=== PATIENT | female | born 1970 | race Caucasian/White ===

== ENCOUNTER → 2016-08-26 | Outpatient (REF) | payer OTHER, MEDICARE | LOC: M SFHCPLAZ 09:38 | PROVIDERS: ATTEND Physician Assistant | DX: I10 Essential (primary) hypertension (principal); E78.5 Hyperlipidemia, unspecified; E03.9 Hypothyroidism, unspecified; E55.9 Vitamin D deficiency, unspecified ==

== ENCOUNTER → 2016-11-18 | Outpatient (REF) | payer MEDICARE, MEDICAID ==
[2016-11-18 15:33] LABS: ALKALINE PHOSPHATASE 95 U/L (45-117); ALT/SGPT 23 U/L (12-78); ANION GAP 5 MEQ/L (8-16); AST/SGOT 10 U/L (15-37); BILIRUBIN,TOTAL 0.3 MG/DL (0.2-1.0); BLOOD UREA NITROGEN 10 MG/DL (7-18); CARBON DIOXIDE LEVEL 29 MEQ/L (21-32); CHLORIDE LEVEL 105 MEQ/L (98-107); CHOLESTEROL LEVEL 184 MG/DL (<200); CREATININE FOR GFR 0.64 MG/DL (0.55-1.02); GLOMERULAR FILTRATION RATE > 60.0 (>58); GLUCOSE, FASTING 85 MG/DL (70-105); POTASSIUM SERUM 4.5 MEQ/L (3.5-5.1); SODIUM LEVEL 139 MEQ/L (136-145); TOTAL PROTEIN 7.1 GM/DL (6.4-8.2); TRIGLYCERIDES LEVEL 82 MG/DL (<150)
[2016-11-18 15:34] LABS: ALBUMIN 3.5 GM/DL (3.2-5.2); ALBUMIN/GLOBULIN RATIO 0.97 (1.00-1.93)
== END ==
LOC: M LABDRAWP 13:12
PROVIDERS: ATTEND Physician Assistant
DX: I10 Essential (primary) hypertension (principal); E78.5 Hyperlipidemia, unspecified; E03.9 Hypothyroidism, unspecified; E55.9 Vitamin D deficiency, unspecified

== ENCOUNTER → 2017-02-10 | Outpatient (CLI) | payer MEDICARE, MEDICAID ==
--- NOTE | 2017-02-10 15:15 | REPMRS ---
Patient History The patient states she has not had a clinical breast exam in over a year. No known family history of cancer. Taking hormonal contraceptives for 15 years. Digital Woman Screen Mammo: February 10, 2017 - Exam #: [id number] Bilateral CC and MLO view(s) were taken. Technologist: Debbi Parra, Technologist Prior study comparison: December 18, 2015, digital woman screen mammo performed at [facility]. November 26, 2014, digital woman screen mammo performed at [facility]. September 18, 2013, digital woman screen mammo performed at [facility]. FINDINGS: The breast tissue is almost entirely fat. There has been no change in the appearance of the mammogram from the prior studies. There is no interval development of dominant mass, architectural distortion, or clustered microcalcification typical of malignancy. ASSESSMENT: BI-RADS/ACR category 1 mammogram. Negative. Recommendation Routine screening mammogram of both breasts in 1 year (for women over age 40). This mammogram was interpreted with the aid of an FDA-approved computer-aided dectection system. Electronically Signed By: Paulo Terrazas MD 02/10/17 [id number]
== END ==
LOC: M WHC 14:20
PROVIDERS: ATTEND Registered Nurse
DX: Z12.31 Encounter for screening mammogram for malignant neoplasm of breast (principal)

== ENCOUNTER → 2018-06-28 | Outpatient (REF) | payer MEDICARE, MEDICAID ==
[2018-06-28 14:02] LABS: ALBUMIN 3.6 GM/DL (3.2-5.2); ALT/SGPT 25 U/L (12-78); BILIRUBIN,TOTAL 0.4 MG/DL (0.2-1.0); BLOOD UREA NITROGEN 7 MG/DL (7-18); CALCIUM LEVEL 8.9 MG/DL (8.5-10.1); CARBON DIOXIDE LEVEL 30 MEQ/L (21-32); CHLORIDE LEVEL 105 MEQ/L (98-107); FREE T4 1.37 NG/DL (0.76-1.46); GLOMERULAR FILTRATION RATE > 60.0 (>58); GLUCOSE, FASTING 89 MG/DL (70-100); POTASSIUM SERUM 4.4 MEQ/L (3.5-5.1); SODIUM LEVEL 141 MEQ/L (136-145); THYROID STIMULATING HORMONE 0.675 uIU/ML (0.358-3.740); TOTAL 25(OH) VITAMIN D 64.5 NG/ML (30.0-100.0); TOTAL PROTEIN 6.8 GM/DL (6.4-8.2)
== END ==
LOC: M SFHCPLAZ 10:54
PROVIDERS: ATTEND Nurse Practitioner Family
DX: M06.9 Rheumatoid arthritis, unspecified (principal); E03.9 Hypothyroidism, unspecified; E55.9 Vitamin D deficiency, unspecified

== ENCOUNTER 2018-07-18 14:52 | Emergency (ER) | payer MEDICARE, MEDICAID ==
[~2018-07-18] VITALS: Ht 160 cm; Wt 133.2 kg
[2018-07-18] MEDS ORDERED: FOLI1TAB11 (15:02)
[2018-07-18] MEDS ORDERED: SULF50TA (15:02)
[2018-07-18] MEDS ORDERED: LEVO150T7 (15:02)
[2018-07-18] MEDS ORDERED: OMEP20CA3 (15:02)
[2018-07-18] MEDS ORDERED: VITA50005 (15:02)
[2018-07-18] MEDS ORDERED: METH2.5T48 (15:02)
[2018-07-18] MEDS ORDERED: ACETAMINOPHEN 325 MG TAB PO ONE (18:00)
[2018-07-18 18:03] VITALS: BP 156/92
== END 2018-07-18 18:04 | disposition home or self-care (01) ==
LOC: M ED 14:52
DX: S40.011A Contusion of right shoulder, initial encounter (principal); W18.09XA Striking against other object with subsequent fall, initial encounter; Y92.019 Unspecified place in single-family (private) house as the place of occurrence of the external cause

== ENCOUNTER → 2018-09-08 | Outpatient (CLI) | payer MEDICARE, MEDICAID ==
[~2018-09-08] MED LIST: FOLI1TAB11; LEVO150T7; METH2.5T48; OMEP20CA3; SULF50TA; VITA50005
--- NOTE | 2018-09-08 11:13 | REPMRS ---
Patient History The patient states she had a clinical breast exam in 08/2018. No known family history of cancer. Taking hormonal contraceptives for 16 years. 3D TOMOSYNTHESIS WAS PERFORMED. Digital Woman Screen Mammo: September 08, 2018 - Exam #: [id number] Bilateral CC and MLO view(s) were taken. Technologist: Sharla Hardin, Technologist Prior study comparison: February 10, 2017, digital woman screen mammo performed at [email or web address]. December 18, 2015, digital woman screen mammo performed at [email or web address] [email or web address]. FINDINGS: There are scattered fibroglandular densities. There has been no change in the appearance of the mammogram from the prior studies. There is a mild amount of residual fibroglandular tissue which is fairly symmetric. There is no interval development of dominant mass, architectural distortion, or clustered microcalcification suggestive of malignancy. Assessment: BI-RADS/ACR category 1 mammogram. Negative Mammogram. Recommendation Routine screening mammogram in 1 year (for women over age 40). This mammogram was interpreted with the aid of an FDA-approved computer-aided dectection system. Electronically Signed By: Jackson Adams MD 09/08/18 [id number]
== END ==
LOC: M WHC 09:38
PROVIDERS: ATTEND Nurse Practitioner Family
DX: Z12.31 Encounter for screening mammogram for malignant neoplasm of breast (principal)

== ENCOUNTER → 2018-10-09 | Outpatient (REF) | payer MEDICARE, MEDICAID ==
[2018-10-09 13:14] LABS: FREE T4 1.3 NG/DL (0.76-1.46); THYROID STIMULATING HORMONE 1.03 uIU/ML (0.358-3.740); TOTAL 25(OH) VITAMIN D 22.3 NG/ML (30.0-100.0)
== END ==
LOC: M SFHCPLAZ 09:57
PROVIDERS: ATTEND Nurse Practitioner Family
DX: E03.9 Hypothyroidism, unspecified (principal); E55.9 Vitamin D deficiency, unspecified

== ENCOUNTER → 2018-12-13 | Outpatient (CLI) | payer MEDICARE, MEDICAID ==
[~2018-12-13] MED LIST changes: -OMEP20CA3; +OMEP20CA4
--- NOTE | 2018-12-13 15:45 | PFTRPT ---
Height: 63.00 Inches Weight: 306.00 Lbs BSA: 2.32 Diagnosis: R06.2 DATE OF PROCEDURE: 12/13/2018 ORDERED BY: Melly Mandujano NP Spirometry: Pre and post bronchodilator study of excellent technical quality. Forced vital capacity mildly reduced. FEV1 out of proportion. Obstructive index is, therefore, reduced. Flow Volume Loop: Expiratory limb of the flow volume loop does suggest at least some degree of flow rate limitation. No significant bronchodilator response identified. Lung Volumes: Total lung capacity is normal. Residual volume suggests air trapping. Diffusing Capacity: Diffusing capacity is normal. Hemoglobin: No hemoglobin available for correction. Airway Mechanics: Airway resistance elevated with a concomitant decrease in airway conductance. IMPRESSION: Mild restrictive ventilatory impairment with air trapping. No bronchodilator response. Please correlate clinically. MTDD
--- NOTE | 2018-12-13 16:07 | REP ---
Clinical: Wheezing . Comparison: 11/21/2011 . Technique: PA and lateral. Findings: The mediastinum and cardiac silhouette are normal. The lung guzman are clear and without acute consolidation, effusion, or pneumothorax. The skeletal structures are intact and normal. Impression: 1. No acute cardiopulmonary process. Electronically Signed by Jhonny Gamez MD 12/13/2018 03:59 P
== END ==
LOC: M CARPUL 15:14
PROVIDERS: ATTEND Nurse Practitioner Family
DX: R06.2 Wheezing (principal)

== ENCOUNTER → 2019-01-12 | Outpatient (REF) | payer MEDICARE, MEDICAID ==
[2019-01-12 13:19] LABS: BLOOD UREA NITROGEN 6 MG/DL (7-18); CALCIUM LEVEL 9.1 MG/DL (8.5-10.1); CARBON DIOXIDE LEVEL 33 MEQ/L (21-32); CHLORIDE LEVEL 104 MEQ/L (98-107); CREATININE FOR GFR 0.63 MG/DL (0.55-1.30); FREE T4 1.37 NG/DL (0.76-1.46); GLOMERULAR FILTRATION RATE > 60.0 (>58); GLUCOSE, FASTING 85 MG/DL (70-100); POTASSIUM SERUM 4.1 MEQ/L (3.5-5.1); SODIUM LEVEL 143 MEQ/L (136-145)
[2019-01-12 13:22] LABS: TOTAL 25(OH) VITAMIN D 53.3 NG/ML (30.0-100.0)
== END ==
LOC: M SFHCPLAZ 09:47
PROVIDERS: ATTEND Nurse Practitioner Family
DX: E03.9 Hypothyroidism, unspecified (principal); K21.9 Gastro-esophageal reflux disease without esophagitis; E55.9 Vitamin D deficiency, unspecified

== ENCOUNTER → 2019-04-03 | Outpatient (CLI) | payer MEDICARE, MEDICAID ==
[~2019-04-03] MED LIST changes: +METHACHOLINE KIT (J7674) INH ONE
--- NOTE | 2019-04-03 11:00 | PFTRPT ---
Height: 63.00 Inches Weight: 297.00 Lbs BSA: 2.29 Diagnosis: R06.00 DATE OF STUDY: 04/03/2019 ORDERED BY: Marcial Paulino INTERPRETATION: Study of excellent technical quality. Under protocol, methacholine was administered. At a dose of 2.5 mg (13.875 CDUs), a 28% decline in the FEV1 was noted. PC of 0.96 is significant. Flow rates did return to baseline post bronchodilator administration. IMPRESSION: Positive methacholine challenge study. MTDD
== END ==
LOC: M CARPUL 10:08
PROVIDERS: ATTEND Physician Assistant
DX: R06.00 Dyspnea, unspecified (principal)
CPT/HCPCS: 94070; 95070; J7674

== ENCOUNTER → 2019-05-30 | Outpatient (REF) | payer MEDICARE, MEDICAID ==
[~2019-05-30] MED LIST changes: -METHACHOLINE KIT (J7674) INH ONE; +OMEP-172; -OMEP20CA4
[2019-05-30 17:34] LABS: BLOOD UREA NITROGEN 6 MG/DL (7-18); CALCIUM LEVEL 9.1 MG/DL (8.5-10.1); CARBON DIOXIDE LEVEL 32 MEQ/L (21-32); CHLORIDE LEVEL 104 MEQ/L (98-107); CREATININE FOR GFR 0.59 MG/DL (0.55-1.30); GLOMERULAR FILTRATION RATE > 60.0 (>58); GLUCOSE, FASTING 65 MG/DL (70-100); POTASSIUM SERUM 4.2 MEQ/L (3.5-5.1); SODIUM LEVEL 142 MEQ/L (136-145); TOTAL 25(OH) VITAMIN D 33.8 NG/ML (30.0-100.0)
== END ==
LOC: M SFHCPLAZ 15:02
PROVIDERS: ATTEND Nurse Practitioner Family
DX: E03.9 Hypothyroidism, unspecified (principal); K21.9 Gastro-esophageal reflux disease without esophagitis; E55.9 Vitamin D deficiency, unspecified

== ENCOUNTER 2019-08-29 01:19 | Emergency (ER) | payer MEDICARE, MEDICAID ==
[~2019-08-29] VITALS: Ht 162.6 cm; Wt 138.6 kg
[~2019-08-29 01:19] MED LIST changes: -METH2.5T48; +METH2.5T48 PO; -OMEP-172; +OMEP1CAP73; -SULF50TA; +SULF50TA PO
[2019-08-29] MEDS ORDERED: NS 500 ML IV ONE (02:45)
[2019-08-29] MEDS ORDERED: PROA1AER2 IN (02:58)
[2019-08-29] MEDS ORDERED: BREO1INH3 PO (02:58)
[2019-08-29] MEDS ORDERED: ECOT81TA5 PO (02:58)
[2019-08-29] MEDS ORDERED: OLOP0.2S OP (02:58)
[2019-08-29 03:08] LABS: MEAN CORPUSCULAR HEMOGLOBIN 31.5 pg (27.0-33.0); MEAN CORPUSCULAR HGB CONC 31.1 g/dl (32.0-36.5); MEAN CORPUSCULAR VOLUME 101.1 fl (80.0-96.0); PLATELET COUNT, AUTOMATED 308 10^3/uL (150-450); RED BLOOD COUNT 4.45 10^6/uL (4.00-5.40); WHITE BLOOD COUNT 11.5 10^3/uL (4.0-10.0)
--- NOTE | 2019-08-29 03:40 | REPVR ---
PROCEDURE INFORMATION: Exam: CT Chest Without Contrast Exam date and time: 08/29/2019 (2:41am) Age: 49 years old Clinical indication: Right-sided chest pain. Right-sided rib pain following a fall. TECHNIQUE: Imaging protocol: Computed tomography of the chest without contrast. 3D rendering: MIP and/or 3D reconstructed images were created by the technologist. Radiation optimization: All CT scans at this facility use at least one of these dose optimization techniques: automated exposure control; mA and/or kV adjustment per patient size (includes targeted exams where dose is matched to clinical indication); or iterative reconstruction. COMPARISON: Chest films of 12/13/18 FINDINGS: Lungs: Unremarkable. No consolidation. No masses. Pleural space: Unremarkable. No pneumothorax. No pleural effusions. Heart: Mild cardiomegaly. No pericardial effusion. Aorta: Unremarkable. No aortic aneurysm. Lymph nodes: Unremarkable. No enlarged lymph nodes. Bones/joints: No acute fracture. Old healed rib fractures -- posterior portion of right rib # 7 (Ser. 202 - Image #60); posterolateral portion of left rib # 6 (Ser. 202 - Image #45). Posterior fracture, right rib #7. Soft tissues: Unremarkable. IMPRESSION: No acute findings. No acute rib fractures. Mild cardiomegaly. Old healed rib fractures (see comments above). Electronically signed by: Kristen Barreto On 08/29/2019 03:39:22 AM
[2019-08-29 03:46] LABS: ALBUMIN 3.5 GM/DL (3.2-5.2); ALT/SGPT 23 U/L (12-78); BILIRUBIN,TOTAL 0.1 MG/DL (0.2-1.0); BLOOD UREA NITROGEN 8 MG/DL (7-18); CARBON DIOXIDE LEVEL 28 MEQ/L (21-32); CHLORIDE LEVEL 113 MEQ/L (98-107); CK-MB VALUE MASS < 1.0 NG/ML (<3.6); CPK CREATINE PHOSPHOKINASE 117 U/L (26-192); CREATININE FOR GFR 0.64 MG/DL (0.55-1.30); ETHYL ALCOHOL (ETHANOL) 0.184 % (0.000-0.010); GLOMERULAR FILTRATION RATE > 60.0 (>58); GLUCOSE, FASTING 119 MG/DL (70-100); MB/CK RELATIVE INDEX 0.85 (< OR =4); POTASSIUM SERUM 4.5 MEQ/L (3.5-5.1); SODIUM LEVEL 148 MEQ/L (136-145); TOTAL PROTEIN 7.1 GM/DL (6.4-8.2); TROPONIN I < 0.02 NG/ML (< 0.10)
[2019-08-29 04:38] VITALS: BP 154/82
== END 2019-08-29 04:51 | disposition home or self-care (01) ==
LOC: M ED 01:19 → EDBD 01:19 → M ED 04:51
DX: F10.129 Alcohol abuse with intoxication, unspecified (principal); R26.81 Unsteadiness on feet; I10 Essential (primary) hypertension; E03.9 Hypothyroidism, unspecified; F17.200 Nicotine dependence, unspecified, uncomplicated; Z87.81 Personal history of (healed) traumatic fracture; Z79.82 Long term (current) use of aspirin; Z79.899 Other long term (current) drug therapy; Z88.0 Allergy status to penicillin; Z88.2 Allergy status to sulfonamides
CPT/HCPCS: 71250; 80053; 82550; 82553; 84484; 85027; 96360; 96361; 99284; G0480

== ENCOUNTER 2019-09-11 12:01 | Emergency (ER) | payer MEDICARE, MEDICAID ==
[~2019-09-11] VITALS: Ht 162.6 cm; Wt 136.4 kg
[~2019-09-11 12:01] MED LIST changes: +BREO1INH3 PO; +ECOT81TA5 PO; +OLOP0.2S OP; +PROA1AER2 IN
[2019-09-11] MEDS ORDERED: ALBUTEROL 90 MCG/ACT 8GM HFA INHALER INH ONE (12:30)
[2019-09-11 12:59] LABS: BASO # 0.1 10^3/uL (0.0-0.2); BASO % 0.6 % (0.0-1.0); EOS # 0.2 10^3/uL (0.0-0.5); EOS % 1.4 % (0.0-3.0); HEMATOCRIT 43.5 % (36.0-47.0); HEMOGLOBIN 14.1 g/dl (12.0-15.5); LYMPH # 1.5 10^3/uL (1.5-5.0); LYMPH % 12.1 % (24.0-44.0); MEAN CORPUSCULAR HEMOGLOBIN 32.9 pg (27.0-33.0); MEAN CORPUSCULAR HGB CONC 32.4 g/dl (32.0-36.5); MEAN CORPUSCULAR VOLUME 101.4 fl (80.0-96.0); MONO # 0.8 10^3/uL (0.0-0.8); MONO % 6.1 % (0.0-5.0); NEUTROPHILS % 79.2 % (36.0-66.0); PLATELET COUNT, AUTOMATED 343 10^3/uL (150-450); RED BLOOD COUNT 4.29 10^6/uL (4.00-5.40); WHITE BLOOD COUNT 12.6 10^3/uL (4.0-10.0)
[2019-09-11] MEDS ORDERED: ISOVUE-370 76% 100ML VIAL (Q9967) As Ordered ONE (13:00)
[2019-09-11 13:20] LABS: CK-MB VALUE MASS < 1.0 NG/ML (<3.6); CPK CREATINE PHOSPHOKINASE 63 U/L (26-192); MB/CK RELATIVE INDEX 1.59 (< OR =4); TROPONIN I < 0.02 NG/ML (< 0.10)
--- NOTE | 2019-09-11 14:44 | REP ---
REASON FOR EXAM: Pain and dyspnea. The latest prior for comparison is standard noncontrast enhanced CT examination of the chest is 08/29/2019. That examination showed no acute disease but with multiple seemingly old right-sided rib fractures with multiple definite bilateral old rib fractures. Contrast today 100 mL Isovue 370. There is good visualization of the pulmonary arterial vasculature. There are no focal filling defects present that would be considered consistent with acute pulmonary emboli. There are no pleural or pericardial effusions. The imaged upper abdomen is unchanged. Evaluation of the osseous structures today shows evidence of acute rib fractures, particularly affecting the right 8th, 7th and 6th ribs with definite old healed bilateral rib fractures. The 8th through 6th rib fractures on the right represent an acute change from that prior exam. Evaluation of the lung guzman show no significant changes from the prior exam. There are no abnormal nodules, masses, or opacities. IMPRESSION: 1. There is no evidence of a pulmonary embolus. 2. Multiple rib fractures, new and old as described above. 3. Clear unchanged lung guzman as described above. Electronically Signed by Jan Bills DO 09/11/2019 03:10 P
[2019-09-11] MEDS ORDERED: NORC1TAB7 PO (14:47)
[2019-09-11] MEDS ORDERED: PRED20TA PO (14:48)
--- NOTE | 2019-09-11 14:51 | REP ---
REASON: Abdominal pain. COMPARISON: Prior contrast enhanced examination of 06/03/2016. For description of lung base findings, see the CT chest report. The liver, gallbladder, spleen, pancreas, adrenal glands and kidneys are essentially unchanged. There is an unchanged small right renal cyst measuring 1.2 cm. The abdominal aorta and para-aortic regions are again seen to be within normal limits. There is calcific atherosclerotic change present status quo. There is no free fluid or free air in the abdomen. The bowel loops and mesenteries are within normal limits. There is scattered colonic diverticulosis. There is no intra-abdominal mass or adenopathy. There are multiple nonenlarged lymph nodes in the baron hepatis, which have an unchanged appearance. CT PELVIS: There is no pelvic mass or adenopathy. There is no free fluid or free air. The pelvic bowel loops and their mesenteries are within normal limits. Scattered sigmoid colon diverticula are noted status quo. Bone window technique throughout the examination shows right-sided rib fractures. Please see the chest CT report. There are no other acute findings. IMPRESSION: There is no evidence of acute intra-abdominal or intrapelvic disease. Findings and suggestions as described above. Electronically Signed by Jan Bills DO 09/11/2019 03:10 P
[2019-09-11] MEDS ORDERED: predniSONE 20 MG TAB PO ONE (15:00)
[2019-09-11 15:13] VITALS: BP 147/80
--- NOTE | 2019-09-12 01:11 | ECGEPIP ---
[facility] - ED Test Date: 2019-09-11 Pat Name: IVANA MUNIZ Department: Room: - Gender: Female Contact Assembler: BA : 1970 Requested By: Franchesca Murrieta Order Number: [id number] Reading MD: Matt Carpenter Measurements Intervals Lynn Rate: 90 P: 63 CO: 156 QRS: 15 QRSD: 95 T: 62 QT: 334 QTc: 411 Interpretive Statements SINUS RHYTHM INCOMPLETE RIGHT BUNDLE BRANCH BLOCK SIMILAR TO 06/03/16 Electronically Signed on 09-12-2019 1:10:41 EDT by Matt Carpenter
== END 2019-09-11 15:25 | disposition home or self-care (01) ==
LOC: EDBD 12:01 → M ED 12:01
DX: J44.1 Chronic obstructive pulmonary disease with (acute) exacerbation (principal); S22.49XA Multiple fractures of ribs, unspecified side, initial encounter for closed fracture; X58.XXXA Exposure to other specified factors, initial encounter; Y92.89 Other specified places as the place of occurrence of the external cause; E07.9 Disorder of thyroid, unspecified; K21.9 Gastro-esophageal reflux disease without esophagitis; Z79.899 Other long term (current) drug therapy; Z79.82 Long term (current) use of aspirin; Z88.0 Allergy status to penicillin; Z88.1 Allergy status to other antibiotic agents; Z88.2 Allergy status to sulfonamides
CPT/HCPCS: 36415; 71275; 74177; 80047; 82550; 82553; 84484; 85025; 93005; 93041; 94640; 94760; 99284; Q9967

== ENCOUNTER → 2019-11-19 | Outpatient (CLI) | payer MEDICARE, MEDICAID ==
[~2019-11-19] MED LIST changes: +NORC1TAB7 PO; +PRED20TA PO; +SULF500T41 PO; -SULF50TA PO
--- NOTE | 2019-11-19 16:30 | REPMRS ---
Patient History The patient states she had a clinical breast exam in August 2019.No known family history of cancer. Taking hormonal contraceptives for 16 years. 3D TOMOSYNTHESIS WAS PERFORMED. The Gabrielle Howard lifetime risk for breast cancer is 8.3%. VOLPARA DENSITY A. Digital Woman Screen Mammo: November 19, 2019 - Exam #: [id number] Bilateral CC and MLO view(s) were taken. Technologist: Annie Antonio, Technologist Prior study comparison: September 08, 2018, bilateral digital woman screen mammo performed at [facility]. February 10, 2017, digital woman screen mammo performed at [facility]. FINDINGS: There are scattered fibroglandular densities. There has been no change in the appearance of the mammogram from the prior studies. There is a mild amount of residual fibroglandular tissue which is fairly symmetric. There is no interval development of dominant mass, architectural distortion, or clustered microcalcification suggestive of malignancy. Assessment: BI-RADS/ACR category 1 mammogram. Negative Mammogram. Recommendation Routine screening mammogram in 1 year (for women over age 40). This mammogram was interpreted with the aid of an FDA-approved computer-aided dectection system. Electronically Signed By: Jackson Adams MD 11/19/19 [id number]
== END ==
LOC: M WHC 13:54
PROVIDERS: ATTEND Physician Assistant
DX: Z12.31 Encounter for screening mammogram for malignant neoplasm of breast (principal)

== ENCOUNTER → 2019-12-26 | Outpatient (REF) | payer MEDICARE, MEDICAID ==
[~2019-12-26] MED LIST changes: +AZEL0.1S NARES; +LORA-674 PO; +MECL1TAB31 PO; +SING5CHW23 PO
[2019-12-26 14:16] LABS: ALBUMIN 3.4 GM/DL (3.2-5.2); ALT/SGPT 16 U/L (12-78); BILIRUBIN,TOTAL 0.3 MG/DL (0.2-1.0); BLOOD UREA NITROGEN 9 MG/DL (7-18); CALCIUM LEVEL 8.9 MG/DL (8.5-10.1); CARBON DIOXIDE LEVEL 27 MEQ/L (21-32); CHLORIDE LEVEL 108 MEQ/L (98-107); CREATININE FOR GFR 0.59 MG/DL (0.55-1.30); FREE T4 1.19 NG/DL (0.76-1.46); GLOMERULAR FILTRATION RATE > 60.0 (>58); GLUCOSE, FASTING 80 MG/DL (70-100); POTASSIUM SERUM 4.5 MEQ/L (3.5-5.1); SODIUM LEVEL 142 MEQ/L (136-145); THYROID STIMULATING HORMONE 0.378 uIU/ML (0.358-3.740); TOTAL 25(OH) VITAMIN D 67.8 NG/ML (30.0-100.0)
== END ==
LOC: M PLALAB 10:19
PROVIDERS: ATTEND Nurse Practitioner Family
DX: K21.9 Gastro-esophageal reflux disease without esophagitis (principal); E03.9 Hypothyroidism, unspecified; E55.9 Vitamin D deficiency, unspecified; Z79.899 Other long term (current) drug therapy

== ENCOUNTER → 2020-01-02 | Outpatient (CLI) | payer MEDICARE, MEDICAID ==
[~2020-01-02] MED LIST changes: -AZEL0.1S NARES; -LORA-674 PO; -MECL1TAB31 PO; -SING5CHW23 PO
[2020-01-02 19:11] LABS: BASO # 0.1 10^3/uL (0.0-0.2); BASO % 0.5 % (0.0-1.0); EOS # 0.3 10^3/uL (0.0-0.5); EOS % 2.2 % (0.0-3.0); HEMATOCRIT 44.4 % (36.0-47.0); HEMOGLOBIN 13.5 g/dl (12.0-15.5); LYMPH # 2.4 10^3/uL (1.5-5.0); LYMPH % 19.6 % (24.0-44.0); MEAN CORPUSCULAR HGB CONC 30.4 g/dl (32.0-36.5); MEAN CORPUSCULAR VOLUME 101.8 fl (80.0-96.0); MONO # 0.9 10^3/uL (0.0-0.8); MONO % 7.3 % (0.0-5.0); NEUTROPHILS # 8.6 10^3/uL (1.5-8.5); NEUTROPHILS % 69.4 % (36.0-66.0); PLATELET COUNT, AUTOMATED 320 10^3/uL (150-450); RED BLOOD COUNT 4.36 10^6/uL (4.00-5.40); WHITE BLOOD COUNT 12.4 10^3/uL (4.0-10.0)
[2020-01-02 19:35] LABS: ERYTHROCYTE SEDIMENTATION RATE 43 mm/hr (0-20)
[2020-01-02 19:46] LABS: ALT/SGPT 17 U/L (12-78); C REACTIVE PROTEIN QUANTITATIV 5.18 MG/DL (0.00-0.30); CREATININE FOR GFR 0.75 MG/DL (0.55-1.30); GLOMERULAR FILTRATION RATE > 60.0 (>58)
[2020-01-02 19:53] LABS: TOTAL 25(OH) VITAMIN D 57.1 NG/ML (30.0-100.0)
== END ==
LOC: M PLALAB 14:59
PROVIDERS: ATTEND Nurse Practitioner Family
DX: E55.9 Vitamin D deficiency, unspecified (principal); M05.79 Rheumatoid arthritis with rheumatoid factor of multiple sites without organ or systems involvement; Z79.899 Other long term (current) drug therapy

== ENCOUNTER 2020-02-17 11:42 | Emergency (ER) | payer MEDICARE, MEDICAID ==
[~2020-02-17] VITALS: Ht 162.6 cm; Wt 139.7 kg
[2020-02-17] MEDS ORDERED: SING5CHW23 PO (12:07)
[2020-02-17] MEDS ORDERED: AZEL0.1S NARES (12:07)
[2020-02-17] MEDS ORDERED: MECLIZINE 25 MG TABLET PO ONE (13:00)
[2020-02-17] MEDS ORDERED: LORA-674 PO (13:25)
[2020-02-17] MEDS ORDERED: MECL1TAB31 PO (13:25)
[2020-02-17 13:36] VITALS: BP 134/74
== END 2020-02-17 14:01 | disposition home or self-care (01) ==
LOC: M ED 11:42
DX: R42 Dizziness and giddiness (principal); J44.9 Chronic obstructive pulmonary disease, unspecified; K21.9 Gastro-esophageal reflux disease without esophagitis; E03.9 Hypothyroidism, unspecified; Z79.82 Long term (current) use of aspirin; Z88.0 Allergy status to penicillin; Z88.1 Allergy status to other antibiotic agents; Z88.2 Allergy status to sulfonamides; Z87.891 Personal history of nicotine dependence

== ENCOUNTER 2020-02-23 12:16 | Emergency (ER) | payer MEDICARE, MEDICAID ==
[~2020-02-23] VITALS: Ht 162.6 cm; Wt 140.9 kg
[~2020-02-23 12:16] MED LIST changes: +AZEL0.1S NARES; +LORA-674 PO; +MECL1TAB31 PO; +SING5CHW23 PO
[2020-02-23 12:31] VITALS: BP 200/90
[2020-02-23] MEDS ORDERED: MECLIZINE 25 MG TABLET PO ONE (12:45)
[2020-02-23 13:22] LABS: HEMATOCRIT 41.9 % (36.0-47.0); HEMOGLOBIN 13.2 g/dl (12.0-15.5); MEAN CORPUSCULAR HEMOGLOBIN 30.3 pg (27.0-33.0); MEAN CORPUSCULAR HGB CONC 31.5 g/dl (32.0-36.5); MEAN CORPUSCULAR VOLUME 96.3 fl (80.0-96.0); PLATELET COUNT, AUTOMATED 316 10^3/uL (150-450); RED BLOOD COUNT 4.35 10^6/uL (4.00-5.40); WHITE BLOOD COUNT 10.9 10^3/uL (4.0-10.0)
--- NOTE | 2020-02-23 13:34 | REPVR ---
PROCEDURE INFORMATION: Exam: CT Head Without Contrast Exam date and time: 02/23/2020 12:50 PM Age: 50 years old Clinical indication: Dizziness; Additional info: Dizzy TECHNIQUE: Imaging protocol: Computed tomography of the head without contrast. Radiation optimization: All CT scans at this facility use at least one of these dose optimization techniques: automated exposure control; mA and/or kV adjustment per patient size (includes targeted exams where dose is matched to clinical indication); or iterative reconstruction. COMPARISON: No relevant prior studies available. FINDINGS: Brain: There is corpus callosum dysgenesis and a pericallosal lipoma with a rounded nodular appearance in the interhemispheric fissure inferiorly which measures approximately 1.9 x 1.6 x 2.1 cm. No acute intracranial hemorrhage. No acute ischemic infarction. Ventricles: No ventriculomegaly. Bones/joints: No acute fracture. Sinuses: Visualized sinuses are unremarkable. No fluid levels. Mastoid air cells: Visualized mastoid air cells are well aerated. Soft tissues: Unremarkable. IMPRESSION: 1. No acute intracranial abnormality. 2. 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 This is commonly incidental although can be associated with seizures and other clinical features. Electronically signed by: Guzman Bennett On 02/23/2020 13:33:57 PM
[2020-02-23 13:46] LABS: ALBUMIN 3.5 GM/DL (3.2-5.2); ALT/SGPT 13 U/L (12-78); BILIRUBIN,TOTAL 0.3 MG/DL (0.2-1.0); BLOOD UREA NITROGEN 7 MG/DL (7-18); CALCIUM LEVEL 9.5 MG/DL (8.5-10.1); CARBON DIOXIDE LEVEL 27 MEQ/L (21-32); CHLORIDE LEVEL 109 MEQ/L (98-107); CREATININE FOR GFR 0.56 MG/DL (0.55-1.30); GLOMERULAR FILTRATION RATE > 60.0 (>51); GLUCOSE, FASTING 98 MG/DL (70-100); POTASSIUM SERUM 3.9 MEQ/L (3.5-5.1); SODIUM LEVEL 140 MEQ/L (136-145); TOTAL PROTEIN 7.1 GM/DL (6.4-8.2)
--- NOTE | 2020-02-25 12:56 | ED PDOC ---
Post-Departure Follow-Up rose mary tijerina faxed formal report of ct head for fu Franchesca Darby MD Feb 25, 2020 12:56
== END 2020-02-23 14:36 | disposition home or self-care (01) ==
LOC: M ED 12:16
DX: H81.4 Vertigo of central origin (principal); K21.9 Gastro-esophageal reflux disease without esophagitis; J44.9 Chronic obstructive pulmonary disease, unspecified; Z79.51 Long term (current) use of inhaled steroids; Z79.82 Long term (current) use of aspirin; Z79.899 Other long term (current) drug therapy; Z88.0 Allergy status to penicillin; Z88.1 Allergy status to other antibiotic agents

== ENCOUNTER → 2020-03-07 | Outpatient (CLI) | payer MEDICARE, MEDICAID ==
[2020-03-07 16:06] LABS: BASO # 0.1 10^3/uL (0.0-0.2); BASO % 0.4 % (0.0-1.0); EOS # 0.2 10^3/uL (0.0-0.5); EOS % 1.6 % (0.0-3.0); HEMATOCRIT 43.4 % (36.0-47.0); HEMOGLOBIN 13.1 g/dl (12.0-15.5); LYMPH # 2.2 10^3/uL (1.5-5.0); LYMPH % 16.7 % (24.0-44.0); MEAN CORPUSCULAR HEMOGLOBIN 29.8 pg (27.0-33.0); MEAN CORPUSCULAR HGB CONC 30.2 g/dl (32.0-36.5); MEAN CORPUSCULAR VOLUME 98.9 fl (80.0-96.0); MONO # 0.9 10^3/uL (0.0-0.8); NEUTROPHILS # 9.5 10^3/uL (1.5-8.5); NEUTROPHILS % 73.4 % (36.0-66.0); PLATELET COUNT, AUTOMATED 366 10^3/uL (150-450); RED BLOOD COUNT 4.39 10^6/uL (4.00-5.40); WHITE BLOOD COUNT 12.9 10^3/uL (4.0-10.0)
[2020-03-07 16:15] LABS: ALBUMIN 3.5 GM/DL (3.2-5.2); ALT/SGPT 15 U/L (12-78); BILIRUBIN,TOTAL 0.3 MG/DL (0.2-1.0); BLOOD UREA NITROGEN 8 MG/DL (7-18); C REACTIVE PROTEIN QUANTITATIV 5.04 MG/DL (0.00-0.30); CALCIUM LEVEL 9.5 MG/DL (8.5-10.1); CARBON DIOXIDE LEVEL 28 MEQ/L (21-32); CHLORIDE LEVEL 108 MEQ/L (98-107); CREATININE FOR GFR 0.66 MG/DL (0.55-1.30); GLOMERULAR FILTRATION RATE > 60.0 (>51); GLUCOSE, FASTING 84 MG/DL (70-100); POTASSIUM SERUM 4.7 MEQ/L (3.5-5.1); SODIUM LEVEL 139 MEQ/L (136-145)
[2020-03-07 16:29] LABS: ERYTHROCYTE SEDIMENTATION RATE 51 mm/hr (0-30)
[2020-03-07 16:36] LABS: HEPATITIS B SURFACE ANTIBODY NEGATIVE (POSITIVE)
[2020-03-07 17:15] LABS: HEPATITIS C VIRUS ABY INDEX 0.1 INDEX (<0.8)
[2020-03-11 17:07] LABS: HEPATITIS B CORE ANTIBODY IGG Negative (Negative)
== END ==
LOC: M PLALAB 12:51
PROVIDERS: ATTEND Internal Medicine
DX: M06.9 Rheumatoid arthritis, unspecified (principal); Z79.82 Long term (current) use of aspirin

== ENCOUNTER 2020-05-06 17:11 | Emergency (ER) | payer MEDICARE, MEDICAID ==
[~2020-05-06] VITALS: Ht 162.6 cm; Wt 144.3 kg
[~2020-05-06 17:11] MED LIST changes: -FOLI1TAB11; +FOLI1TAB11 PO; -LEVO150T7; +LEVO150T7 PO; -OMEP1CAP73; +OMEP1CAP73 PO
[2020-05-06 18:42] LABS: ABG BASE EXCESS -2.9 (-2.0-2.0); ABG HCO3 20.7 MEQ/L (22.0-26.0); ABG O2 SATURATION 97.3 % (95.0-99.0); ABG PARTIAL PRESSURE CO2 32.6 mmHg (35.0-45.0); ABG PARTIAL PRESSURE O2 92.2 mmHg (75.0-100.0); ABG STANDARD HCO3 22.1 MEQ/L (22.0-26.0); ABG TOTAL CO2 21.7 MEQ/L (22.0-29.0)
--- NOTE | 2020-05-06 19:18 | REP ---
INDICATION: c/o sob COMPARISON: 12/13/2018. TECHNIQUE: PA/Lateral FINDINGS: Lungs: Clear, no infiltrate. Heart: Normal in size. Mediastinum: Mediastinal silhouette unremarkable. Pleural angles: Unremarkable.. Bones and soft tissues: Unremarkable. IMPRESSION: No acute pulmonary disease. <Electronically signed by Jackson Adams > 05/06/20 [id number]
[2020-05-06 19:42] VITALS: BP 171/79
== END 2020-05-06 19:43 | disposition home or self-care (01) ==
LOC: M ED 17:11
DX: R53.81 Other malaise (principal); R53.83 Other fatigue; E11.9 Type 2 diabetes mellitus without complications; I10 Essential (primary) hypertension; J44.9 Chronic obstructive pulmonary disease, unspecified; Z79.899 Other long term (current) drug therapy; Z79.82 Long term (current) use of aspirin; Z88.0 Allergy status to penicillin; Z88.1 Allergy status to other antibiotic agents; Z88.2 Allergy status to sulfonamides; Z87.891 Personal history of nicotine dependence

== ENCOUNTER → 2020-05-27 | Outpatient (REF) | payer MEDICARE, MEDICAID ==
[2020-05-27 15:42] LABS: ALBUMIN 3.6 GM/DL (3.2-5.2); ALT/SGPT 17 U/L (12-78); BILIRUBIN,TOTAL 0.4 MG/DL (0.2-1.0); BLOOD UREA NITROGEN 7 MG/DL (7-18); CARBON DIOXIDE LEVEL 27 MEQ/L (21-32); CHLORIDE LEVEL 110 MEQ/L (98-107); CHOLESTEROL LEVEL 186 MG/DL (<200); CHOLESTEROL RISK RATIO 3.576 (<5); CREATININE FOR GFR 0.64 MG/DL (0.55-1.30); FREE T4 1.31 NG/DL (0.76-1.46); GLOMERULAR FILTRATION RATE > 60.0 (>51); GLUCOSE, FASTING 89 MG/DL (70-100); HDL CHOLESTEROL 52 MG/DL (>40); LDL CHOLESTEROL 117 MG/DL (<100); NON-HDL-C 134 MG/DL; POTASSIUM SERUM 4.7 MEQ/L (3.5-5.1); SODIUM LEVEL 143 MEQ/L (136-145); TOTAL PROTEIN 6.9 GM/DL (6.4-8.2); TRIGLYCERIDES LEVEL 86 MG/DL (<150)
[2020-05-27 15:43] LABS: TOTAL 25(OH) VITAMIN D 30.4 NG/ML (30.0-100.0)
== END ==
LOC: M PLALAB 12:58
PROVIDERS: ATTEND Nurse Practitioner Family
DX: E78.5 Hyperlipidemia, unspecified (principal); E03.9 Hypothyroidism, unspecified; E55.9 Vitamin D deficiency, unspecified; Z79.899 Other long term (current) drug therapy

== ENCOUNTER → 2020-06-17 | Outpatient (REF) | payer MEDICARE, MEDICAID ==
[2020-06-17 16:32] LABS: BASO # 0.1 10^3/uL (0.0-0.2); BASO % 0.6 % (0.0-1.0); EOS # 0.3 10^3/uL (0.0-0.5); EOS % 2.4 % (0.0-3.0); HEMATOCRIT 43.3 % (36.0-47.0); LYMPH # 2.4 10^3/uL (1.5-5.0); LYMPH % 19.7 % (24.0-44.0); MEAN CORPUSCULAR HEMOGLOBIN 29.4 pg (27.0-33.0); MONO # 0.9 10^3/uL (0.0-0.8); MONO % 7.2 % (0.0-5.0); NEUTROPHILS # 8.4 10^3/uL (1.5-8.5); NEUTROPHILS % 69.3 % (36.0-66.0); PLATELET COUNT, AUTOMATED 292 10^3/uL (150-450); RED BLOOD COUNT 4.42 10^6/uL (4.00-5.40); WHITE BLOOD COUNT 12.1 10^3/uL (4.0-10.0)
[2020-06-17 17:00] LABS: ERYTHROCYTE SEDIMENTATION RATE 46 mm/hr (0-30)
[2020-06-17 17:05] LABS: ALBUMIN 3.5 GM/DL (3.2-5.2); ALT/SGPT 13 U/L (12-78); BILIRUBIN,TOTAL 0.2 MG/DL (0.2-1.0); BLOOD UREA NITROGEN 7 MG/DL (7-18); CALCIUM LEVEL 9.1 MG/DL (8.5-10.1); CARBON DIOXIDE LEVEL 27 MEQ/L (21-32); CHLORIDE LEVEL 108 MEQ/L (98-107); CREATININE FOR GFR 0.63 MG/DL (0.55-1.30); GLOMERULAR FILTRATION RATE > 60.0 (>51); GLUCOSE, FASTING 71 MG/DL (70-100); POTASSIUM SERUM 4.8 MEQ/L (3.5-5.1); SODIUM LEVEL 140 MEQ/L (136-145); TOTAL PROTEIN 7.2 GM/DL (6.4-8.2)
== END ==
LOC: M PLALAB 15:05
PROVIDERS: ATTEND Internal Medicine
DX: M05.79 Rheumatoid arthritis with rheumatoid factor of multiple sites without organ or systems involvement (principal)

== ENCOUNTER 2020-07-13 17:11 | Emergency (ER) | payer MEDICARE, MEDICAID ==
[~2020-07-13] VITALS: Ht 162.6 cm; Wt 143.8 kg
--- OUTSIDE RECORDS SUMMARY | 2020-07-13 17:18 | CCD ---
Author Author [facility] Organization [facility] Address Unknown Phone Unavailable Care Team Providers Care Systems Checkout Mechanic Name Role Phone Julia Vera Unavailable PROBLEMS Type Condition ICD9-CM Code AIA82-EC Code Onset Dates Condition S tatus SNOMED Code Notes Problem Hypothyroidism, unspecified E03.9 Active 4093 0008 Problem Vitamin D deficiency, unspecified E55.9 Active 38772630 Problem Gastroesophageal reflux disease, esophagitis pre sence not specified K21.9 Active 864178993 Problem BMI 50.0-59.9, adult Z68.43 Active 209751636 Problem Non-seasonal allergic rhinitis, unspecified trigger J30.89 Active 53072867 Problem Seasonal allergies J30.2 Active 835363434 Problem Morbid (severe) obesity due to excess calories E66 .01 Active 374216888 Problem Vitamin D deficiency E55.9 Active 02387684 Problem Essential (primary) hypertension I10 Active 57330666 Problem Leukocytosis, unspecified type D72.829 Active 1 50560906 Problem Rheumatoid arthritis involvi ng multiple sites with positive rheumatoid factor M05.79 Active 223018125 Problem Cigarette nicotine dependence in remission F17.211 Active 723889364 Problem Mild intermittent asthma without complication J45. 20 Active 976297516 ALLERGIES Allergen (clinical drug ingredient) Drug/Non Drug Allergy do cumented on EMR Reaction Allergy Type Onset Date Status amoxicillin Amoxicillin([facility] Code:[address]-92) Rash Drug Aller gy Active Sulfa Eye Drops Swollen eyes Non Drug Allergy A ctive ENCOUNTERS from 1970 to 2020-06-19 Encounter Location Date Provider Diagnosis [address] [address] Jun, Julia Vrea IMMUNIZATIONS Vaccine Route Administration Date Status Influenza (Denied) Unknown Jul 11, 2018 Others Influenza (Pharmacy Given) Unknown Apr 04, 2019 Admin istered Influenza (6mo & up) Fluzone Unknown Jun 30, 2017 Oth ers Influenza (6mo & up) Fluzone Unknown Mar 25, 2016 Oth ers SOCIAL HISTORY Tobacco Use: Social History Observation Description Date Details (start date - stop date) Former Smoker Sex Assigned At : Social History Observation Description Sex Assigned At Unknown Audit Question Answer Notes Total Score: 0 Interpretation: Alcohol Education Language: Question Answer Notes Languages spoken: Lithuanian Muslim: Question Answer Notes Muslim 33 None Domestic Violence: Question Answer Notes Status: Single Sexual Hx: Question Answer Notes Had sex in the last 12 months (vaginal, oral, or anal)? No Have you ever had an STD? Yes Chlamydia? Yes Drug and Alcohol Question Answer Notes Total Score: 0 Interpretation: No problems reported Alcohol Screening: Question Answer Notes Did you have a drink containing alcohol in the past year? No Points 0 Interpretation Negative BMI Care Goal Follow-Up Question Answer Notes Above Normal BMI Follow-Up Giving encouragement to exercise Tobacco Use: Question Answer Notes Are you a: former smoker How long has it been since you last smoked? < 1 month REASON FOR REFERRAL No Information VITAL SIGNS No information MEDICATIONS Medication SIG (Take, Route, Frequency, Duration) Notes Start Da te End Date Status Levothyroxine Sodium 150 MCG take 1 tablet by mouth on empty stomach in the morning Orally Daily Active Mupirocin 2 % 1 application to affected ar ea Externally Three times a day for 5 day(s) Jan, Not-Taking Nicotine 4 MG 1 piece as needed Mouth/Thro at as needed 24 time(s) a day for 30 days Not-Taking Folic Acid 1 MG 1 tablet Orally Daily Active Ketoconazole 2 % 1 application to affected ar ea Externally Once a day for 14 days Jan, Not-Taking Breo Ellipta 200-25 MCG/INH INHALE ONE PUFF BY MOUTH EVERY DAY Inhala tion Active Drisdol 35632 UNIT 1 capsule with meal Orally every month Active Montelukast Sodium 10 MG TAKE ONE TABLET BY MOUTH AT BEDTIME Oral Active Albuterol Sulfate HFA 108 (90 Base) MCG/ACT 2 puffs as needed Inhalation every 4 hrs Active Incruse Ellipta 62.5 MCG/INH 1 puff Inhalation Once a day Mar, Active Methotrexate 2.5 MG 9 tablets Orally Once a week (Dr. Burton) Active Flonase Allergy Relief 50 MCG/ACT 2 spray in each nostril Nasall y Once a day Not-Taking Aspir-81 81 MG 1 tablet Orally Once a day Active Azelastine HCl 0.1 % 1 puff in each nostril Nasally Twice a day as ne eded Not-Taking Ibuprofen 600 MG 1 tablet Orally Three times a day as needed for pain Aug, Active Depo-Provera 150 MG/ML 1 injection Intramuscular Ev mohinder 3 months ([facility]) for 30 day(s) Active Sulfazine 500 mg 3 tablets Orally twice a day Active Pataday 0.2 % 1 gtt in eyes daily Ophthalmic daily as needed for 30 d ays Active Omeprazole 20mg 20mg 1 tab orally Daily Active PROCEDURES No Information RESULTS No Results REASON FOR VISIT cologuard MEDICAL (GENERAL) HISTORY Type Description Date Medical History Rheumatoid arthritis - Dr. Jon, [facility] Rheum Medical History HTN - resolved Medical History Hypothyroidism Medical History Vitamin D deficiency, unspecified Medical History Asthma - mild, intermittent- Tamica Paulino Medical History Former smoker - quit in 07/2019 Medical History Seasonal allergies Medical History GERD Medical History ASCVD risk 1.4% 05/2020 Surgical History Repair Left wrist after injury 2001 [place] No Information Health Concerns No Information MEDICAL EQUIPMENT No Information MENTAL STATUS No Information FUNCTIONAL STATUS No Information ASSESSMENTS No Information PLAN OF TREATMENT Medication Medication Name Sig Start Date Stop Date Incruse Ellipta 62.5 MCG/INH 1 puff Inhalation Once a day Mar Sulfazine 500 mg 3 tablets Orally twice a day Albuterol Sulfate HFA 108 (90 Base) MCG/ACT 2 puffs as needed Inhalation every 4 hrs Drisdol 75444 UNIT 1 capsule with meal Orally every month Montelukast Sodium 10 MG TAKE ONE TABLET BY MOUTH AT BEDTIME Ora l Levothyroxine Sodium 150 MCG take 1 tablet by mouth on empty stomach in the morning Orally Daily Omeprazole 20mg 20mg 1 tab orally Daily Pataday 0.2 % 1 gtt in eyes daily Ophthalmic daily as needed f or 30 days Breo Ellipta 200-25 MCG/INH INHALE ONE PUFF BY MOUTH EVERY DAY I nhalation Methotrexate 2.5 MG 9 tablets Orally Once a week (Dr. Micheal) Folic Acid 1 MG 1 tablet Orally Daily Next Appt Details Provider Name:Krystyna George Dontrell, 2020-06 01:45:00 PM, [address] [place], [address], Provider Name:Melly Mandujano, 2020-12-02 11:3 0:00 AM, [address] [place], [address], Insurance Providers Payer Name Payer Address Payer Phone Insured Name Patient Relati onship to Insured Coverage Start Date Coverage End Date MEDICARE Part A and B [address] [facility] [phone] IVANA MUNIZ self MEDICAID [employer] [address] [facility] [id number] IVANA MUNIZ self
--- OUTSIDE RECORDS SUMMARY | 2020-07-13 17:18 | CCD | Continuity of Care Document ---
Author Author [facility] Organization [facility] Address Unknown Phone Unavailable Care Team Providers Care Rn Practitioner Name Role Phone Samantha Booth Unavailable Unavailable Nurse/CA, PPNCBARBI Unavailable Unavailable Allergies, Adverse Reactions, Alerts Substance Reaction Status Criticality AMOXICILLIN TRIHYDRATE Active No Inform ation Sulfa (Sulfonamide Antibiotics) Active No Information Medications Medication Instructions Dosage Effective Dates (start - stop) Sta tus Comments medroxyprogesterone 150 mg/mL intramuscular suspension IM every 10-13 weeks - Active Singulair 10 mg tablet take 1 tablet by oral route every da y in the evening 10 MG - Active ALBUTEROL INHALER 90mcg/inh INHALATION SPRAY - Active olopatadine 0.2 % eye drops - Active Breo Ellipta 100 mcg-25 mcg/dose powder for inhalation - Active folic acid 1 mg tablet - Active Vitamin D2 50,000 unit capsule - Activ e ASPIRIN (unknown strength) Not Available - Active sulfadiazine 500 mg tablet take 2 tablet by oral route every day 1 G - Active TREXALL (unknown strength) take 2 tablet by oral route ever y week Not Available - Active levothyroxine 150 mcg tablet take 1 tablet by oral route every day 150 MCG - Active omeprazole 20 mg capsule,delayed release take 1 capsul e by oral route every day before a meal 20 MG - Active Problems Condition Effective Dates (start - stop) Clinical Status C omments Body mass index (BMI) 50-59.9 , adult - Body mass index (BMI) 45.0-49.9, adult - Body mass index (BMI) 50-59.9 , adult - Obesity, Morbid - Obesity - Encounter for surveillance of injectable contraceptive Encounter for surveillance of injectable contraceptive Encounter for surveillance of injectable contraceptive Encounter for surveillance of injectable contraceptive Other sex counseling Human immunodeficiency virus [HIV] counseling Encounter for oth general cnsl and advice on contraception Encounter for surveillance of injectable contraceptive Encntr for clinical administrator exam (general) (routine) w/o abn findings Encounter for oth screening for malignant neoplasm of breast Encounter for surveillance of injectable contraceptive Encounter for surveillance of injectable contraceptive Encounter for surveillance of injectable contraceptive Encounter for initial prescription of injectable contracep Other sex counseling Encounter for oth general cnsl and advice on contraception Human immunodeficiency virus [HIV] counseling Encounter for surveillance of injectable contraceptive Encntr for clinical administrator exam (general) (routine) w/o abn findings Encounter for surveillance of injectable contraceptive Encounter for surveillance of injectable contraceptive Encounter for surveillance of injectable contraceptive Encounter for surveillance of injectable contraceptive Human immunodeficiency virus [HIV] counseling Encounter for oth general cnsl and advice on contraception Encounter for surveillance of injectable contraceptive Encntr for clinical administrator exam (general) (routine) w/o abn findings Encounter for surveillance of injectable contraceptive Encounter for surveillance of injectable contraceptive Encounter for surveillance of injectable contraceptive Encounter for surveillance of injectable contraceptive Encounter for surveillance of injectable contraceptive Human immunodeficiency virus [HIV] counseling Encounter for surveillance of injectable contraceptive Encntr for clinical administrator exam (general) (routine) w/o abn findings Encounter for oth screening for malignant neoplasm of breast Encounter for surveillance of injectable contraceptive Encounter for surveillance of injectable contraceptive Encounter for surveillance of injectable contraceptive Encounter for surveillance of injectable contraceptive Contraceptive method surveillance - HIV counseling - STI Counseling Family Planning Counseling WASHER ENGINEER HELPER Exam, Routine WWE BCM Other, Start BCM Other, Surveillance Contraceptive method surveillance - Contraceptive method surveillance - BCM Other, Surveillance PAP, Screening Cervix BCM Other, Surveillance WASHER ENGINEER HELPER Exam, Routine WWE BCM Other, Surveillance HIV Counseling BCM Other, Surveillance Procedures Procedure Date CVR BC Ending Method HORM.INJ. 3 MOS Depo/Medroxyprogesterone Inj. 150 Mg Nurse/CA 021 NURSE ONLY DEPO INJ. RN/BILLING SUPERVISOR Only Injection Or Lab Only Visit Est CVR Blood Pressure CVR Med.Svc. Height/Weight CVR Supervisor [employer].Svc. Other CVR Supervisor [employer].Svc. STI / H Results Test Name Date and Time Measure Units Reference Range Abnormal Flag St atus Comments No Information Advance Directives Directive Yes / No Effective Date File Name No Information Encounters Encounter Description Practice Location Reason(s) For Visit Diagnose s Date Provider Providers Copied on Encounter [facility], [address] [place] [address], [id number], [place] tel:[phone] PPNCNY [place] Encounter for surve illance of injectable contraceptive Sondra Singh. [address] [place] [address], [id number], [place]. tel:[phone] Referring Provider: Samantha Amaro, [address] [place] [address], [id number]. tel:[phone] Provider: PADMA Nurse/CA. [facility], [address] [place] [address], [id number], [place] tel:[phone] PPNC[facility] [place] Encounter for surve illance of injectable contraceptive Roula Flood. [address] [place] [address], [id number], [place]. tel:[phone] Referring Provider: Aleena Sánchez , [address] [place] [address], [id number]. tel:[phone] Provider: PADMA Nurse/CA. [facility], [address] [place] [address], [id number], [place] tel:[phone] [facility]NC[facility] Encounter for surve illance of injectable contraceptive Dontrell Jc. [address] [place] [address], [id number], [place]. tel:[phone] Referring Provider: Babita Jon, [address], [place], [id number]. tel:[phone] [facility], [address] [place] [address], [id number], [place] tel:[phone] PPNC[facility] Encounter for surve illance of injectable contraceptive Sondra Singh. [address] [place] [address], [id number], . tel:[phone] Referring Provider: Samantha Amaro, [address] [place] [address], [id number]. tel:[phone] [facility], [address] [place] [address], [id number], [place] tel:[phone] PPNC[facility] Other sex counselin Sky immunodeficiency virus [HIV] counselingEncounter for oth general cnsl and advice on contraceptionEncounter for surveillance of injectable contraceptiveEncntr for clinical administrator exam (general) (routine) w/o abn findingsEncounter for oth screening for malignant neoplasm of breastBody mass index (BMI) 50-59.9 , adult Sondra Singh. [address] [place] [address], [address] [place] [address], . tel:[phone] Referring Provider: Samantha Amaro, [address] [place] [address], [id number]. tel:[phone] [facility], [address] [place] [address], [id number], [place] tel:[phone] PPNC[facility] Encounter for surve illance of injectable contraceptive Sondra Singh. [address] [place], [place], [id number], [place]. tel:[phone] Referring Provider: Samantha Amaro, [address] [place] [address], [id number]. tel:[phone] [facility], [address] [place] [address], [id number], [place] tel:[phone] PPNC[facility] Encounter for surve illance of injectable contraceptive Roger Garcia. [address] [place] [address], [id number], [place]. tel:[phone] Referring Provider: Radha Duran, [address] [place] [address], [id number]. tel:[phone] Provider: PADMA Nurse/CA. [facility], [address], [place], [id number], [place] tel:[phone] [facility] Encounter for surve illance of injectable contraceptive Roger Garcia. [address] [place], [place], [id number], [place]. tel:[phone] Referring Provider: Radha Duran, [address], [place], [id number]. tel:[phone] Provider: PADMA [facility]. [facility], [address], [place], [id number], [place] tel:[phone] [facility] Encounter for initi al prescription of injectable contracep Alida Jaquez. [address] [place] [address], [id number], [place]. tel:[phone] Referring Provider: Gisele Irwin, [address] [place], [place], [id number]. tel:[phone] Provider: PADMA Nurse/RUTHANN. [facility], [address] [place] [address], [id number], [place] tel:[phone] [facility] Other sex counselin gEncounter for oth general cnsl and advice on contraceptionHuman immunodeficiency virus [HIV] counselingEncounter for surveillance of injectable contraceptiveEncntr for clinical administrator exam (general) (routine) w/o abn findingsBody mass index (BMI) 45.0-49.9, adult Dontrell Jc. [address] [place], [place], [id number], [place]. tel:[phone] Referring Provider: Babita Jon, [address], [place], [id number]. tel:[phone] [facility], [address], [place], [id number], [place] tel:[phone] [facility] Encounter for surve illance of injectable contraceptive Zacmaria alejandra Garcia. [address], [place], [id number], [place]. tel:[phone] Referring Provider: Radha Duran, [address], [place], [id number]. tel:[phone] Provider: PPNCNY Nurse/CA. [facility], [address], [place], [id number], [place] tel:[phone] [facility] Encounter for surve illance of injectable contraceptive Yusra Sara. [address] [place] [address], [id number], [place]. tel:[phone] Referring Provider: Sara Meng, [address], [place], [id number]. tel:[phone] Provider: PPNCNY Nurse/CA. [facility], [address], [place], [id number], [place] tel:[phone] [facility] Encounter for surve illance of injectable contraceptive Dontrell Jc. [address] [place] [address], [id number], [place]. tel:[phone] Referring Provider: Babita Jon, [address], [place], [id number]. tel:[phone] Provider: PPNCNY Nurse/CA. [facility], [address], [place], [id number], [place] tel:[phone] [facility] Encounter for surve illance of injectable contraceptive Mary Alice Robles. [address] [facility] [place], [place], [id number], [place]. tel:[phone] Referring Provider: Margaret Wheat, [address] [place], [place], [id number]. tel:[phone] Provider: PADMA Nurse/CA. [facility], [address] [place] [address], [id number], tel:[phone] PPNCNY [facility] Human immunodeficie ncy virus [HIV] counselingEncounter for oth general cnsl and advice on contraceptionEncounter for surveillance of injectable contraceptiveBody mass index (BMI) 50-59.9 , adultEncntr for clinical administrator exam (general) (routine) w/o abn findings Mary Alice Robles. [address], [place], [id number], [place]. tel:[phone] Referring Provider: Margaret Wheat, [address] [place] [address], [id number]. tel:[phone] [facility], [address] [place] [address], [id number], [place] tel:[phone] [facility] Encounter for surve illance of injectable contraceptive Chaka Cruz. [address] [place] [address], [id number]. tel:[phone] Referring Provider: Nancy Null, [address] [place] [address], [id number]. tel:[phone] Provider: PADMA Nurse/CA. [facility], [address] [place] [address], [id number], [place] tel:[phone] [facility] Encounter for surve illance of injectable contraceptive Sue Freeman. [address] [place] [address], [id number], [place]. tel:[phone] Referring Provider: Lydia Rogers, [address] [place] [address], [id number]. tel:[phone] Provider: PADMA Nurse/CA. [facility], [address], [place], [id number], [place] tel:[phone] PPMARIBELLNY Hamilton Encounter for surve illance of injectable contraceptive King Liya. [address] [place], [place], [id number]. tel:[phone] Referring Provider: Liya Guthrie, [address] [place], [place], [id number]. tel:[phone] [facility], [address], [place], [id number], [place] tel:[phone] PPMARIBELLNY [place] Encounter for surve illance of injectable contraceptive Kip Tomlinson. [address] [place], [place], [id number], [place]. tel:[phone] Referring Provider: Bushra Morton , [address], [place], [id number]. tel:[phone] Provider: PADMA Nurse/CA. [facility], [address], [place], [id number], [place] tel:[phone] PADMA [place] Encounter for surve illance of injectable contraceptive Kip Bushra. [address] [place], [place], [id number], [place]. tel:[phone] Referring Provider: Bushra Morton , [address], [place], [id number]. tel:[phone] Provider: PADMA Nurse/CA. [facility], [address], [place], [id number], [place] tel:[phone] PADMA [place] Human immunodeficie ncy virus [HIV] counselingEncounter for surveillance of injectable contraceptiveEncntr for clinical administrator exam (general) (routine) w/o abn findingsEncounter for oth screening for malignant neoplasm of breast Kip Tomlinson. [address] [place] [address], [id number], [place]. tel:[phone] Referring Provider: Bushra Morton, [address] [place] [address], [id number]. tel:[phone] [facility], [address] [place] [address], [id number], [place] tel:[phone] PPNCNY [facility] Encounter for surve illance of injectable contraceptive King Liya. [address] [place], [place], [id number]. tel:[phone] Referring Provider: Liya Guthrie, [address] [place] [address], [id number]. tel:[phone] Provider: RUDYNCNY Nurse/CA. [facility], [address] [place] [address], [id number], [place] tel:[phone] PPMDNY Hamilton Encounter for surve illance of injectable contraceptive Meliton Castillo. [address] [place] [address], [id number], [place]. tel:[phone] Referring Provider: Anna Coelho, [address] [place] [address], [id number]. tel:[phone] [facility], [address] [place] [address], [id number], [place] tel:[phone] PPMDNY [place] Encounter for surve illance of injectable contraceptive Ellie Rocha. [address] [place] [address], [id number], [place]. tel:[phone] Referring Provider: Josefina Argueta, [address] [place] [address], [id number]. tel:[phone] [facility], [address] [place] [address], [id number], [place] tel:[phone] PPNCNY [facility] Encounter for surve illance of injectable contraceptive Rosa Isela Griffith. [address] [place], [place], [id number]. tel:[phone] Referring Provider: Gladis Natarajan, [address] [place], [place], [id number]. tel:[phone] [facility], [address] [place] [address], [id number], [place] tel:[phone] PPNCNY [place] Contraceptive method surve illance Kip Tomlinson. [address] [place] [address], [id number], [place]. tel:[phone] Referring Provider: Bushra Morton , [address] [place] [address], [id number]. tel:[phone] [facility], [address] [place] [address], [id number], [place] tel:[phone] [facility] HIV counselingSTI C ounselingFamily Planning CounselingGYN Exam, Routine WWEBCM Other, StartObesity, MorbidObesity Kip Tomlinson. [address] [place] [address], [id number], [place]. tel:[phone] Referring Provider: Bushra Morton , [address] [place] [address], [id number]. tel:[phone] [facility], [address] [place] [address], [id number], [place] tel:[phone] PPNCNY Hamilton BCM Other, Surveillance Renay Cabrera. [address] [place] [address], [id number], [place]. tel:[phone] [facility], [address] [place] [address], [id number], [place] tel:[phone] PPNCNY [place] Contraceptive method surve illance Kip Tomlinson. [address] [place] [address], [id number], [place]. tel:[phone] Referring Provider: Bushra Morton , [address] [place] [address], [id number]. tel:[phone] [facility], [address] [place] [address], [id number], [place] tel:[phone] PADMA Hamilton Contraceptive method surve illance Kip Tomlinson. [address] [place] [address], [id number], [place]. tel:[phone] Referring Provider: Bushra Morton , [address] [place] [address], [id number]. tel:[phone] [facility], [address] [place] [address], [id number], [place] tel:[phone] PADMA [place] BCM Other, Surveillance lElie Rocha. [address] [place] [address], [id number], [place]. tel:[phone] Referring Provider: Lindy Kennedy, [address] [place] [address], [id number]. tel:[phone] [facility], [address] [place] [address], [id number], [place] tel:[phone] PADMA Hamilton PAP, Screening Cerv ixBCM Other, Surveillance Niño Deborah. [address] [place], [place], [id number], [place]. tel:[phone] [facility], [address] [place] [address], [id number], [place] tel:[phone] PADMA Hamilton WASHER ENGINEER HELPER Exam, Routine W WEBCM Other, SurveillanceHIV Counseling Ellie Rocha. [address] [place], [place], [id number], [place]. tel:[phone] [facility], [address], [place], [id number], tel:[phone] PADMA [facility] Other, Surveillance Renay Cabrera. [address] [place] [address], [id number], . tel:[phone] Referring Provider: Deborah Niño, [address] [place] [address], [id number]. tel:[phone] Provider: PADMA Nurse/CA. Family History Family Member Diagnosis Age At Onset Father No history of Stroke Mother No history of Myocardial infarction Father No history of Myocardial infarction Mother Hypertension Brother No history of Stroke Sister No history of Myocardial infarction Mother No history of Stroke Sister No history of Stroke Brother No history of Myocardial infarction Immunizations Vaccine Date Status Comments No Information Payers Payer name Insurance type Covered alliance party ID Authorization(s ) Medicare [id number] Medicaid [id number] Social History Type Description Quantity Date Captured Comments Alcohol Use Details Unknown Caffeine Use Details Unknown Tobacco Use Status No Information Smoking Status Former smoker Sex Female Vital Signs Date / Time: Height Weight BMI Pulse Rate Blood Pressure Temperatu re Respiratory Rate Body Surface Area Head Circumference BMI percentile Pulse Ox In haled Ox 3:20 PM 64.00 in 310.00 lbs 53.21 kg/meter(2) 126/77 m m[Hg] Chief Complaint And Reason For Visit No Information Reason For Referral Reason For Referral No Information Plan Of Treatment Date Type Action Status Goal Tobacco cessation counseling com pleted Goal Tobacco cessation counseling com pleted Goal Dietary management education, gu idance, and counseling completed Goal Tobacco cessation counseling com pleted Goal Tobacco cessation counseling com pleted Goal Tobacco cessation counseling com pleted Goal Dietary education for weight gai n completed Goal Tobacco cessation counseling com pleted Goal Tobacco cessation counseling com pleted Goal Tobacco cessation counseling com pleted Goal Tobacco cessation counseling com pleted Goal Lifestyle education regarding di et completed Goal Tobacco cessation counseling com pleted Goal Tobacco cessation counseling com pleted Goal Tobacco cessation counseling com pleted Goal Tobacco cessation counseling com pleted Goal Tobacco cessation counseling com pleted Goal Dietary management education, gu idance, and counseling completed Goal Dietary management education, gu idance, and counseling completed Appointment Tori Shin BOOKED History Of Present Illness Encounter Date Complaint History Of Present I llness No Information Functional Status Date Functional Assessment No Information Medications Administered Medication Instructions Dosage Effective Dates (start - stop) Sta tus Comments No Information Instructions Date Instruction Additional Informati on Dietary management education, guidance, and counseling Related to Body mass index (BMI) 50.0-59.9, adult Dietary education for weight gain Relate d to Body mass index (BMI) 45.0-49.9, adult Lifestyle education regarding diet Relat ed to Body mass index (BMI) 50-59.9 , adult Dietary management education, guidance, and counseling Related to Obesity, unspecified Dietary management education, guidance, and counseling Related to Morbid obesity Assessments Type Assessment Date assessment Encounter for surveillance of injectable contraceptive Goals Health Concern Goal Type Priority Status Date No Information Medical Equipment Description Device [place] Device Identifier Effective Shabbir es (start - stop) Status No Information Mental Status Date Cognitive Assessment No Information Health Concerns Observation Date No Information Concern Status Date No Information Physical Examination Exam Findings Details No Information
--- OUTSIDE RECORDS SUMMARY | 2020-07-13 17:18 | CCD ---
Author Author [facility] Organization [facility] Address Unknown Phone Unavailable Care Team Providers Care Water Systems Designer Name Role Phone Krystyna Jon Unavailable PROBLEMS Type Condition ICD9-CM Code FEE05-PR Code Onset Dates Condition S tatus SNOMED Code Notes Problem Hypothyroidism, unspecified E03.9 Active 4093 0008 Problem Vitamin D deficiency, unspecified E55.9 Active 28616190 Problem Gastroesophageal reflux disease, esophagitis pre sence not specified K21.9 Active 643723202 Problem BMI 50.0-59.9, adult Z68.43 Active 221385998 Problem Non-seasonal allergic rhinitis, unspecified trigger J30.89 Active 29559997 Problem Seasonal allergies J30.2 Active 109647682 Problem Morbid (severe) obesity due to excess calories E66 .01 Active 862279060 Problem Vitamin D deficiency E55.9 Active 15007564 Problem Essential (primary) hypertension I10 Active 80622219 Problem Leukocytosis, unspecified type D72.829 Active 1 67300764 Problem Rheumatoid arthritis involvi ng multiple sites with positive rheumatoid factor M05.79 Active 644441073 Problem Cigarette nicotine dependence in remission F17.211 Active 835484388 Problem Mild intermittent asthma without complication J45. 20 Active 901816139 ALLERGIES Allergen (clinical drug ingredient) Drug/Non Drug Allergy do cumented on EMR Reaction Allergy Type Onset Date Status amoxicillin Amoxicillin([facility] Code:[address]-55) Rash Drug Aller gy Active Sulfa Eye Drops Swollen eyes Non Drug Allergy A ctive ENCOUNTERS from 1970 to 2020-07-05 Encounter Location Date Provider Diagnosis [facility] Rheumatology [address] [place] [address] Jun, Krystyna Jon Rheumatoid arthritis involving multiple sites with positive rheumatoid factor M05.79 ; BMI 50.0-59.9, adult Z68.43 and Long-term use of high-risk medication Z79.899 IMMUNIZATIONS Vaccine Route Administration Date Status Influenza (Denied) Unknown Jul 11, 2018 Others Influenza (Pharmacy Given) Unknown Apr 04, 2019 Admin istered Influenza (6mo & up) Fluzone Unknown Jun 30, 2017 Oth ers Influenza (6mo & up) Fluzone Unknown Mar 25, 2016 Ot ers SOCIAL HISTORY Tobacco Use: Social History Observation Description Date Details (start date - stop date) Former Smoker Sex Assigned At : Social History Observation Description Sex Assigned At Unknown Audit Question Answer Notes Total Score: 0 Interpretation: Alcohol Education Language: Question Answer Notes Languages spoken: Portuguese Religious: Question Answer Notes Religious 33 None Domestic Violence: Question Answer Notes [...] REASON FOR REFERRAL No Information VITAL SIGNS Weight 319.4 lbs Jun, Weight-kg 144.9 kg Jun, Height 64 in Jun, BMI 54.82 kg/m2 Jun, Heart Rate 98 /min Jun, Respiratory Rate 18 /min Jun, Temperature 96.6 degrees Fahrenheit Jun, Oximetry 96% Jun, Blood pressure systolic 132 mm Hg Jun, Blood pressure diastolic 70 mm Hg Jun, MEDICATIONS Medication SIG (Take, Route, Frequency, Duration) Notes Start Da te End Date Status Folic Acid 1 MG 1 tablet Orally Daily Active Azelastine HCl 0.1 % 1 puff in each nostril Nasally Twice a day as ne eded Not-Taking Drisdol 94064 UNIT 1 capsule with meal Orally every month Active Ketoconazole 2 % 1 application to affected ar ea Externally Once a day for 14 days Jan, Not-Taking Flonase Allergy Relief 50 MCG/ACT 2 spray in each nostril Nasall y Once a day Not-Taking Aspir-81 81 MG 1 tablet Orally Once a day Active Nicotine 4 MG 1 piece as needed Mouth/Thro at as needed 24 time(s) a day for 30 days Not-Taking Montelukast Sodium 10 MG TAKE ONE TABLET BY MOUTH AT BEDTIME Oral Active Pataday 0.2 % 1 gtt in eyes daily Ophthalmic daily as needed for 30 d ays Active Depo-Provera 150 MG/ML 1 injection Intramuscular Ev mohinder 3 months ([facility]) for 30 day(s) Active Mupirocin 2 % 1 application to affected ar ea Externally Three times a day for 5 day(s) Jan, Not-Taking Albuterol Sulfate HFA 108 (90 Base) MCG/ACT 2 puffs as needed Inhalation every 4 hrs Active Methotrexate 2.5 MG 9 tablets Orally weekly for 30 Days Active Acetaminophen 500 MG 2 capsules as needed Orally before bedtime Active Sulfazine 500 mg 3 tablets Orally twice a day Active Levothyroxine Sodium 150 MCG take 1 tablet by mouth on empty stomach in the morning Orally Daily Active Incruse Ellipta 62.5 MCG/INH 1 puff Inhalation Once a day Mar, Active Breo Ellipta 200-25 MCG/INH INHALE ONE PUFF BY MOUTH EVERY DAY Inhala tion Active Omeprazole 20mg 20mg 1 tab orally Daily Active PROCEDURES No Information RESULTS No Results REASON FOR VISIT 2 month follow up MEDICAL (GENERAL) HISTORY Type Description Date Medical History Rheumatoid arthritis - Dr. Jon, [facility] Rheum Medical History HTN - resolved Medical History Hypothyroidism Medical History Vitamin D deficiency, unspecified Medical History Asthma - mild, intermittent- Tamica Paulino Medical History Former smoker - quit in 07/2019 Medical History Seasonal allergies Medical History GERD Medical History ASCVD risk 1.4% 05/2020 Surgical History Repair Left wrist after injury 2000 Goals Section No Information Health Concerns No Information MEDICAL EQUIPMENT No Information MENTAL STATUS No Information FUNCTIONAL STATUS No Information ASSESSMENTS Encounter Date Diagnosis Assessment Notes Treatment Notes Treatm ent Clinical Notes Jun, Rheumatoid arthritis involvi ng multiple sites with positive rheumatoid factor (ICD-10 - M05.79) From a clinical point of view, I think the rheumatoid arthritis is actually reasonably controlled on methotrexate and sulfasalazine. Inflammatory markers are not very reliable in the setting of her elevated body mass index. I have offered her the option of adding a biologic drug, though I'm not at all certain this would provide any additional benefit. For now, she prefers to hold off. She will continue methotrexate and sulfasalazine as currently prescribed. Follow-up visit in 3-4 months with lab before. Jun, BMI 50.0-59.9, adult (ICD-10 - Z68.43) I am in agreement that she should explore the idea of bariatric surgery. Weight loss would benefit her musculoskeletal issues in numerous ways. In particular, high body mass index is no doubt causing degenerative change at the knees and the lumbar spine. Rheumatoid arthritis has been shown in studies to do better with weight loss - lower need for medications and lower disease activity with lower body mass index. Jun, Long-term use of high-risk medication (ICD-10 - Z79.899) We reviewed that there is no contraindication to her receiving Covid 19 vaccine. Continue to monitor labs on methotrexate and sulfasalazine every 3 months. Jun, Other Patient instructions : Continue current treatment Follow up 3-4 months with lab before No issues with getting covid 19 vaccine PLAN OF TREATMENT Treatment Notes Assessment Notes Clinical Notes Rheumatoid arthritis involving multiple sites with pos itive rheumatoid factor From a clinical point of view, I think the rheumatoid arthritis is actually reasonably controlled on methotrexate and sulfasalazine.Inflammatory markers are not very reliable in the setting of her elevated body mass index.I have offered her the option of adding a biologic drug, though I'm not at all certain this would provide any additional benefit.For now, she prefers to hold off.She will continue methotrexate and sulfasalazine as currently prescribed.Follow-up visit in 3-4 months with lab before. BMI 50.0-59.9, adult I am in agreement that she s hould explore the idea of bariatric surgery.Weight loss would benefit her musculoskeletal issues in numerous ways.In particular, high body mass index is no doubt causing dege nerative change at the knees and the lumbar spine.Rheumatoid arthritis has been shown in studies to do better with weight loss - lower need for medications and lower disease activity with lower body mass index. Long-term use of high-risk medication We reviewed that there is no contraindication to her receiving Covid 19 vaccine.Continue to monitor labs on methotrexate and sulfasalazine every 3 months. Future Test Test Name Order Date CBC with Differential 20200929 C REACTIVE PROTEIN QUANTITATIV (At [facility] Lab) 20200929 Comprehensive Metabolic Profile (CMP) 20200929 ERYTHROCYTE SEDIMENTATION RATE 20200929 Next Appt Details 3-4 months Reason: Provider Name:Melly Mandujano, 2020-12-02 11:3 0:00 AM, [address] [place], [address], Insurance Providers Payer Name Payer Address Payer Phone Insured Name Patient Relati onship to Insured Coverage Start Date Coverage End Date MEDICARE Part A and B [address] [facility] [phone] IVANA MUNIZ self MEDICAID [facility] [address] [facility] [address] IVANA MUNIZ self
--- OUTSIDE RECORDS SUMMARY | 2020-07-13 17:18 | CCD ---
Author Author [facility] Organization [facility] Address Unknown Phone Unavailable Care Team Providers Care Tariff Publishing Agent Name Role Phone Krystyna Jon Unavailable PROBLEMS Type Condition ICD9-CM Code DXC74-HG Code Onset Dates Condition S tatus SNOMED Code Notes Problem Hypothyroidism, unspecified E03.9 Active 4093 0008 Problem Vitamin D deficiency, unspecified E55.9 Active 64750427 Problem Gastroesophageal reflux disease, esophagitis pre sence not specified K21.9 Active 336879387 Problem BMI 50.0-59.9, adult Z68.43 Active 067833260 Problem Non-seasonal allergic rhinitis, unspecified trigger J30.89 Active 20656343 Problem Seasonal allergies J30.2 Active 539430503 Problem Morbid (severe) obesity due to excess calories E66 .01 Active 418104677 Problem Vitamin D deficiency E55.9 Active 00278868 Problem Essential (primary) hypertension I10 Active 90857174 Problem Leukocytosis, unspecified type D72.829 Active 1 62585388 Problem Rheumatoid arthritis involvi ng multiple sites with positive rheumatoid factor M05.79 Active 474121486 Problem Cigarette nicotine dependence in remission F17.211 Active 298858883 Problem Mild intermittent asthma without complication J45. 20 Active 620298683 ALLERGIES Allergen (clinical drug ingredient) Drug/Non Drug Allergy do cumented on EMR Reaction Allergy Type Onset Date Status amoxicillin Amoxicillin([facility] Code:[address]-29) Rash Drug Aller gy Active Sulfa Eye Drops Swollen eyes Non Drug Allergy A ctive ENCOUNTERS from 1970 to 2020-07-07 Encounter Location Date Provider Diagnosis [facility] Rheumatology [address] [place] [address] Jun, Krystyna Jon IMMUNIZATIONS Vaccine Route Administration Date Status Influenza [...] Education Language: Question Answer Notes Languages spoken: Georgian Lutheran: Question Answer Notes Lutheran 33 None Domestic Violence: Question Answer Notes [...] Notes Start Da te End Date Status Azelastine HCl 0.1 % 1 puff in each nostril Nasally Twice a day as ne eded Not-Taking Omeprazole 20mg 20mg 1 tab orally Daily Active Flonase Allergy Relief 50 MCG/ACT 2 spray in each nostril Nasall y Once a day Not-Taking Sulfazine 500 mg 3 tablets Orally twice a day Active Folic Acid 1 MG 1 tablet Orally Daily Active Sulfasalazine 500 MG 3 tablet Orally bid for 30 day(s) Jun, Active Drisdol 85397 UNIT 1 capsule with meal Orally every month Active Montelukast Sodium 10 MG TAKE ONE TABLET BY MOUTH AT BEDTIME Oral Active Pataday 0.2 % 1 gtt in eyes daily Ophthalmic daily as needed for 30 d ays Active Depo-Provera 150 MG/ML 1 injection Intramuscular Ev mohinder 3 months ([facility]) for 30 day(s) Active Albuterol Sulfate HFA 108 (90 Base) MCG/ACT 2 puffs as needed Inhalation every 4 hrs Active Ketoconazole 2 % 1 application to affected ar ea Externally Once a day for 14 days Jan, Not-Taking Aspir-81 81 MG 1 tablet Orally Once a day Active Levothyroxine Sodium 150 MCG take 1 tablet by mouth on empty stomach in the morning Orally Daily Active Breo Ellipta 200-25 MCG/INH INHALE ONE PUFF BY MOUTH EVERY DAY Inhala tion Active Mupirocin 2 % 1 application to affected ar ea Externally Three times a day for 5 day(s) Jan, Not-Taking Nicotine 4 MG 1 piece as needed Mouth/Thro at as needed 24 time(s) a day for 30 days Not-Taking Incruse Ellipta 62.5 MCG/INH 1 puff Inhalation Once a day Mar, Active Methotrexate 2.5 MG 9 tablets Orally weekly for 30 Days Active Acetaminophen 500 MG 2 capsules as needed Orally before bedtime Active PROCEDURES No Information RESULTS No Results REASON FOR VISIT Sulfasalazine MEDICAL (GENERAL) HISTORY Type Description Date Medical History Rheumatoid arthritis - Dr. Jon, [facility] Rheum Medical History HTN - [...] Medication Name Sig Start Date Stop Date Sulfasalazine 500 MG 3 tablet Orally bid for 30 day(s) Jun, 2 021 Next Appt Details Provider Name:Melly Mandujano, 2020-12-02 11:3 0:00 AM, [address] [place], [address], Insurance Providers Payer Name Payer Address Payer Phone Insured Name Patient Relati onship to Insured Coverage Start Date Coverage End Date MEDICARE Part A and B [address] [facility] [phone] IVANA MUNIZ MEDICAID [employer] [address] [facility] [address] IVANA MUNIZ
--- OUTSIDE RECORDS SUMMARY | 2020-07-13 17:18 | CCD ---
Author Author [facility] Organization [facility] Address Unknown Phone Unavailable Care Team Providers Care Mechanical Maintenance Name Role Phone Krystyna Jon Unavailable PROBLEMS Type Condition ICD9-CM Code [id number] Code Onset Dates Condition S tatus SNOMED Code Notes Problem Hypothyroidism, unspecified E03.9 Active 4093 0008 Problem Vitamin D deficiency, unspecified E55.9 Active 20591942 Problem Gastroesophageal reflux disease, esophagitis pre sence not specified K21.9 Active 259269546 Problem BMI 50.0-59.9, adult Z68.43 Active 905681267 Problem Non-seasonal allergic rhinitis, unspecified trigger J30.89 Active 98794829 Problem Seasonal allergies J30.2 Active 643966484 Problem Morbid (severe) obesity due to excess calories E66 .01 Active 568578175 Problem Vitamin D deficiency E55.9 Active 78429951 Problem Essential (primary) hypertension I10 Active 04258469 Problem Leukocytosis, unspecified type D72.829 Active 1 53114519 Problem Rheumatoid arthritis involvi ng multiple sites with positive rheumatoid factor M05.79 Active 250657667 Problem Cigarette nicotine dependence in 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 20 Active 352360408 ALLERGIES Allergen (clinical drug ingredient) Drug/Non Drug Allergy do cumented on EMR Reaction Allergy Type Onset Date Status amoxicillin Amoxicillin([facility] Code:[address]-08) Rash Drug Aller gy Active Sulfa Eye Drops Swollen eyes Non Drug Allergy A ctive ENCOUNTERS from 1970 to 2020-07-07 Encounter Location Date Provider Diagnosis [facility] Rheumatology [address] [place] [address] Jun, Krystyna Jon IMMUNIZATIONS Vaccine Route Administration [...] Education Language: Question Answer Notes Languages spoken: Estonian Episcopalian: Question Answer Notes Episcopalian 33 None Domestic Violence: Question Answer Notes [...] bid for 30 day(s) Jun, Active Drisdol 45862 UNIT 1 capsule with meal Orally every [...] Information RESULTS No Results REASON FOR VISIT sulfasalazine MEDICAL (GENERAL) HISTORY Type Description Date Medical History Rheumatoid arthritis - Dr. Jon, [facility] Rheum Medical History HTN - resolved Medical [...] Name:Melly Mandujano, 2020-12-02 11:3 0:00 AM, [address] [place], [address], Insurance Providers Payer Name Payer Address Payer Phone Insured Name Patient Relati onship to Insured Coverage Start Date Coverage End Date MEDICAID [employer] [address] [facility] [id number] IVANA MUNIZ MEDICARE Part A and B [address] [facility] [id number] IVANA MUNIZ
--- OUTSIDE RECORDS SUMMARY | 2020-07-13 17:18 | CCD ---
Author Author [facility] Organization [facility] Address Unknown Phone Unavailable Care Team Providers Care Quality Tech Name Role Phone Krystyna Jon Unavailable PROBLEMS Type Condition ICD9-CM Code QTC31-ZS Code Onset Dates Condition S tatus SNOMED Code Notes Problem Hypothyroidism, unspecified E03.9 Active 4093 0008 Problem Vitamin D deficiency, unspecified E55.9 Active 50835448 Problem Gastroesophageal reflux disease, esophagitis pre sence not specified K21.9 Active 412613638 Problem BMI 50.0-59.9, adult Z68.43 Active 123838601 Problem Non-seasonal allergic rhinitis, unspecified trigger J30.89 Active 21105451 Problem Seasonal allergies J30.2 Active 117029506 Problem Morbid (severe) obesity due to excess calories E66 .01 Active 016551801 Problem Vitamin D deficiency E55.9 Active 63628293 Problem Essential (primary) hypertension I10 Active 76335402 Problem Leukocytosis, unspecified type D72.829 Active 1 30876774 Problem Rheumatoid arthritis involvi ng multiple sites with positive rheumatoid factor M05.79 Active 206596826 Problem Cigarette nicotine dependence in remission F17.211 Active 288909510 Problem Mild intermittent asthma without complication J45. 20 Active 489194890 ALLERGIES Allergen (clinical drug ingredient) Drug/Non Drug Allergy do cumented on EMR Reaction Allergy Type Onset Date Status amoxicillin Amoxicillin([facility] Code:[address]-85) Rash Drug Aller gy Active Sulfa Eye Drops Swollen eyes Non Drug Allergy A ctive ENCOUNTERS from 1970 to 2020-06-23 Encounter Location Date Provider Diagnosis [facility] Rheumatology [address] [place] [address] Jun, 2020 Krystyna Jon Rheumatoid arthritis involving multiple sites with positive rheumatoid factor M05.79 IMMUNIZATIONS Vaccine Route Administration Date Status Influenza [...] Education Language: Question Answer Notes Languages spoken: Martiniquais Jehovah'S Witness: Question Answer Notes Jehovah'S Witness 33 None Domestic Violence: Question Answer Notes [...] time(s) a day for 30 days Not-Taking Ibuprofen 600 MG 1 tablet Orally Three times a day as needed for pain Aug, Active Ketoconazole 2 % 1 application to affected ar ea Externally Once a day for 14 days Jan, Not-Taking Methotrexate 2.5 MG 9 tablets Orally weekly for 30 Days Active Drisdol 17836 UNIT 1 capsule with meal Orally every month Active Montelukast Sodium 10 MG TAKE ONE TABLET BY MOUTH AT BEDTIME Oral Active Albuterol Sulfate HFA 108 (90 Base) MCG/ACT 2 puffs as needed Inhalation every 4 hrs Active Incruse Ellipta 62.5 MCG/INH 1 puff Inhalation Once a day Mar, Active Flonase Allergy Relief 50 MCG/ACT 2 spray in each nostril Nasall y Once a day Not-Taking Folic Acid 1 MG 1 tablet Orally Daily Active Breo Ellipta 200-25 MCG/INH INHALE ONE PUFF BY MOUTH EVERY DAY Inhala tion Active Azelastine HCl 0.1 % 1 puff in each nostril Nasally Twice a day as ne eded Not-Taking Pataday 0.2 % 1 gtt in eyes daily Ophthalmic daily as needed for 30 d ays Active Depo-Provera 150 MG/ML 1 injection Intramuscular Ev mohinder 3 months ([facility]) for 30 day(s) Active Sulfazine 500 mg 3 tablets Orally twice a day Active Aspir-81 81 MG 1 tablet Orally Once a day Active Omeprazole 20mg 20mg 1 tab orally Daily Active PROCEDURES No Information RESULTS No Results REASON FOR VISIT Methotrexate refill MEDICAL (GENERAL) HISTORY Type Description Date Medical History Rheumatoid arthritis - Dr. Jon, [facility] Rheum Medical History HTN - [...] with positive rheumatoid factor (ICD-10 - M05.79) PLAN OF TREATMENT Medication Medication Name Sig Start Date Stop Date Incruse Ellipta 62.5 MCG/INH 1 puff Inhalation Once a day Mar Sulfazine 500 mg 3 tablets Orally twice a day Albuterol Sulfate HFA 108 (90 Base) MCG/ACT 2 puffs as needed Inhalation every 4 hrs Drisdol 29322 UNIT 1 capsule with meal Orally every month Montelukast Sodium 10 MG TAKE ONE TABLET BY MOUTH AT BEDTIME Ora l Levothyroxine Sodium 150 MCG take 1 tablet by mouth on empty stomach in the morning Orally Daily Omeprazole 20mg 20mg 1 tab orally Daily Breo Ellipta 200-25 MCG/INH INHALE ONE PUFF BY MOUTH EVERY DAY I nhalation Methotrexate 2.5 MG 9 tablets Orally weekly for 30 Days Folic Acid 1 MG 1 tablet Orally Daily Pataday 0.2 % 1 gtt in eyes daily Ophthalmic daily as needed f or 30 days Next Appt Details Provider Name:Krystyna George Dontrell, 2020-06 01:45:00 PM, [address] [place], [address], Provider Name:Melly Mandujano, 2020-12-02 11:3 0:00 AM, [address] [place], [address], Insurance Providers Payer Name Payer Address Payer Phone Insured Name Patient Relati onship to Insured Coverage Start Date Coverage End Date MEDICARE Part A and B [address] [facility] [phone] IVANA MUNIZ self MEDICAID [employer] [address] [facility] [id number] IVANA MUNIZ self
--- OUTSIDE RECORDS SUMMARY | 2020-07-13 17:19 | CCD ---
Author Author [facility] Organization [facility] Address Unknown Phone Unavailable Care Team Providers Care Tool And Die Supervisor Name Role Phone Melly Mandujano Unavailable PROBLEMS Type Condition ICD9-CM Code KMW11-MX Code Onset Dates Condition S tatus SNOMED Code Notes Problem Hypothyroidism, unspecified E03.9 Active 4093 0008 Problem Vitamin D deficiency, unspecified E55.9 Active 47184098 Problem Gastroesophageal reflux disease, esophagitis pre sence not specified K21.9 Active 406533793 Problem BMI 50.0-59.9, adult Z68.43 Active 476337801 Problem Non-seasonal allergic rhinitis, unspecified trigger J30.89 Active 49694275 Problem Seasonal allergies J30.2 Active 830408010 Problem Morbid (severe) obesity due to excess calories E66 .01 Active 916734770 Problem Vitamin D deficiency E55.9 Active 37959131 Problem Essential (primary) hypertension I10 Active 58300491 Problem Leukocytosis, unspecified type D72.829 Active 1 07730850 Problem Rheumatoid arthritis involvi ng multiple sites with positive rheumatoid factor M05.79 Active 793086951 Problem Cigarette nicotine dependence in remission F17.211 Active 322163401 Problem Mild intermittent asthma without complication J45. 20 Active 581772015 ALLERGIES Allergen (clinical drug ingredient) Drug/Non Drug Allergy do cumented on EMR Reaction Allergy Type Onset Date Status amoxicillin Amoxicillin([facility] Code:[address]-16) Rash Drug Aller gy Active Sulfa Eye Drops Swollen eyes Non Drug Allergy A ctive ENCOUNTERS from 1970 to 2020-06-09 Encounter Location Date Provider Diagnosis [address] [address] May, 020 Melly Mandujano Seasonal allergies J30.2 IMMUNIZATIONS Vaccine Route Administration Date Status Influenza [...] Education Language: Question Answer Notes Languages spoken: Ivorian Church: Question Answer Notes Church 33 None Domestic Violence: Question Answer Notes [...] MOUTH EVERY DAY Inhala tion Active Drisdol 84607 UNIT 1 capsule with meal Orally every [...] Information RESULTS No Results REASON FOR VISIT refill MEDICAL (GENERAL) HISTORY Type Description Date Medical History Rheumatoid arthritis - Dr. Jon, [facility] Rheum Medical History HTN - resolved [...] Notes Treatment Notes Treatm ent Clinical Notes May, Seasonal allergies (ICD-10 - J30.2) PLAN OF TREATMENT Medication Medication Name Sig Start Date Stop Date Incruse Ellipta 62.5 MCG/INH 1 puff Inhalation Once a day Mar Sulfazine 500 mg 3 tablets Orally twice a day Albuterol Sulfate HFA 108 (90 Base) MCG/ACT 2 puffs as needed Inhalation every 4 hrs Drisdol 36014 UNIT 1 capsule with meal Orally every [...] tablets Orally Once a week (Dr. Burton) Folic Acid 1 MG 1 tablet Orally Daily Next Appt Details Provider Name:Krystyna Jon, 2020-06 01:45:00 PM, [address] [place], [address], Provider Name:Melly Delbert, 2020-12-02 11:3 0:00 AM, [address] [place] [address], [address], Insurance Providers Payer Name Payer Address Payer Phone Insured Name Patient Relati onship to Insured Coverage Start Date Coverage End Date MEDICARE Part A and B [address] [facility] [id number] [phone] IVANA MUNIZ self MEDICAID [employer] [address] [facility] [address] IVANA MUNIZ self
--- OUTSIDE RECORDS SUMMARY | 2020-07-13 17:19 | CCD ---
Author Author [facility] Organization [facility] Address Unknown Phone Unavailable Care Team Providers Care Polisher Aluminum Name Role Phone Melly Mandujano Unavailable PROBLEMS Type Condition ICD9-CM Code [id number] Code Onset Dates Condition S tatus SNOMED Code Notes Problem Nicotine dependence, unspecified, uncomplicated F1 7.200 Active 036349021 Problem Essential (primary) hypertension I10 Active 41454471 Problem Vitamin D deficiency, unspecified E55.9 Active 92108757 Problem Other obesity E66.8 Active 234873186 Problem Hyperlipidemia E78.5 Active 41128696 Problem Hypothyroidism, unspecified E03.9 Active 4093 0008 Problem Body mass index (BMI) of 45.0-49.9 in adult Z68.42 Active 595793824 Problem Cigarette nicotine dependence without complication F17.210 Active 05486013 Problem BMI 50.0-59.9, adult Z68.43 Active 001797385 Problem Rheumatoid arthritis involvi ng multiple sites with positive rheumatoid factor M05.79 Active 303067860 Problem Morbid (severe) obesity due to excess calories E66 .01 Active 272203690 Problem Leukocytosis, unspecified type D72.829 Active 1 34465967 Problem Rheumatoid arthritis, unspecified M06.9 Active 77649398 Problem Gastroesophageal reflux disease, esophagitis pre sence not specified K21.9 Active 282723783 Problem Allergic rhinitis, unspecified seasonality, unspecifie d trigger J30.9 Active 62086000 Problem Non-seasonal allergic rhinitis, unspecified trigger J30.89 Active 65886301 Problem Cigarette nicotine dependence with withdrawal F17. 213 Active 72471004 ALLERGIES Allergen (clinical drug ingredient) Drug/Non Drug Allergy do cumented on EMR Reaction Allergy Type Onset Date Status amoxicillin Amoxicillin([facility] Code:[address]-17) Rash Drug Aller gy Active Sulfa Eye Drops Swollen eyes Non Drug Allergy A ctive ENCOUNTERS from 1970 to 2020-05-06 Encounter Location Date Provider Diagnosis [facility] [place] [address] Apr, 020 [facility] IMMUNIZATIONS Vaccine Route Administration Date Status Influenza [...] Unknown Audit Question Answer Notes Total Score: 6 Interpretation: Alcohol Education Language: Question Answer Notes Languages spoken: Latvian Buddhist: Question Answer Notes Buddhist 33 None Sexual Hx: Question Answer Notes Had sex [...] Notes Start Da te End Date Status Montelukast Sodium 10 MG TAKE ONE TABLET BY MOUTH AT BEDTIME Oral Active Folic Acid 1 MG 1 tablet Orally Once a day (Dr. Burton) Active Breo Ellipta 200-25 MCG/INH INHALE ONE PUFF BY MOUTH E VERY DAY Inhalation for 30 Active Albuterol Sulfate HFA 108 (90 Base) MCG/ACT 2 puffs as needed Inhalation every 4 hrs Active Pataday 0.2 % 1 gtt in eyes daily Ophthalmic daily as needed Active Incruse Ellipta 62.5 MCG/INH 1 puff Inhalation Once a day Mar, Active Mupirocin 2 % 1 application to affected ar ea Externally Three times a day for 5 day(s) Jan, Not-Taking Azelastine HCl 0.1 % 1 puff in each nostril Nasally Twice a day as ne eded Active Methotrexate 2.5 MG 9 tablets Orally Once a week (Dr. Burton) Active Ibuprofen 600 MG 1 tablet Orally Three times a day as needed for pain Aug, Active Aspir-81 81 MG 1 tablet Orally Once a day Active Ketoconazole 2 % 1 application to affected ar ea Externally Once a day for 14 days Jan, Not-Taking Depo-Provera 150 MG/ML 1 injection Intramuscular Ev mohinder 3 months ([facility]) for 30 day(s) Active Sulfazine 500 mg 3 tablets Orally twice a day Active Levothyroxine Sodium 150 MCG take 1 tablet by mouth on empty stomach in the morning Orally Daily for 90 day(s) Active Nicotine 4 MG 1 piece as needed Mouth/Thro at as needed 24 time(s) a day for 30 days Not-Taking Omeprazole 20mg 20mg 1 tab(s) orally once a day (Dr. Burton) Active Drisdol 34909 UNIT 1 capsule with meal Orally every month Active Flonase Allergy Relief 50 MCG/ACT 2 spray in each nostril Nasall y Once a day Active PROCEDURES No Information RESULTS No Results REASON FOR VISIT apneic MEDICAL (GENERAL) HISTORY Type Description Date Medical History Rheumatoid [id number] yrs- Dr Burton Medical History HTN - resolved Medical History Hypothyroidism Medical History Vitamin D deficiency, unspecified Surgical History Repair Left wrist after injury 2000 Goals Section No Information Health Concerns No Information MEDICAL EQUIPMENT No Information MENTAL STATUS No Information FUNCTIONAL STATUS No Information ASSESSMENTS No Information PLAN OF TREATMENT Next Appt Details Provider Name:Julia Vera, 2020-06-03 10:00:00 AM, [address] [place], [address], Provider Name:Krystyna Jon, 2020-06 01:45:00 PM, [address] [place], [address], Insurance Providers Payer Name Payer Address Payer Phone Insured Name Patient Relati onship to Insured Coverage Start Date Coverage End Date MEDICARE Part A and B [facility] [address] [place] [phone] IVANA MUNIZ MEDICAID [employer] [address] [facility] [id number] IVANA MUNIZ self
--- OUTSIDE RECORDS SUMMARY | 2020-07-13 17:19 | CCD ---
Author Author [facility] Organization [facility] Address Unknown Phone Unavailable Care Team Providers Care Product Development Worker Name Role Phone Melly Mandujano Unavailable PROBLEMS Type Condition ICD9-CM Code [id number] Code Onset Dates Condition S tatus SNOMED Code Notes Problem Nicotine dependence, unspecified, uncomplicated F1 7.200 Active 633884470 Problem Essential (primary) hypertension I10 Active 53348289 Problem Vitamin D deficiency, unspecified E55.9 Active 25892206 Problem Other obesity E66.8 Active 561277725 Problem Rheumatoid arthritis, unspecified M06.9 Active 31476155 Problem Morbid (severe) obesity due to excess calories E66 .01 Active 204154773 Problem Cigarette nicotine dependence without complication F17.210 Active 32648331 Problem Non-seasonal allergic rhinitis, unspecified trigger J30.89 Active 23299803 Problem Hyperlipidemia E78.5 Active 56755381 Problem Cigarette nicotine dependence with withdrawal F17. 213 Active 68730454 Problem Hypothyroidism, unspecified E03.9 Active 4093 0008 Problem Body mass index (BMI) of 45.0-49.9 in adult Z68.42 Active 169502144 Problem Allergic rhinitis, unspecified seasonality, unspecifie d trigger J30.9 Active 39259683 Problem BMI 50.0-59.9, adult Z68.43 Active 369424235 Problem Gastroesophageal reflux disease, esophagitis pre sence not specified K21.9 Active 124695965 ALLERGIES Allergen (clinical drug ingredient) Drug/Non Drug Allergy do cumented on EMR Reaction Allergy Type Onset Date Status amoxicillin Amoxicillin([facility] Code:[address]-53) Rash Drug Aller gy Active Sulfa Eye Drops Swollen eyes Non Drug Allergy A ctive ENCOUNTERS from 1970 to 2020-04-14 Encounter Location Date Provider Diagnosis [facility] [address] [place] [id number] Apr, Melly Alloway IMMUNIZATIONS Vaccine Route Administration Date Status Influenza [...] Education Language: Question Answer Notes Languages spoken: Indonesian Mormonism: Question Answer Notes Mormonism 33 None Sexual Hx: Question Answer Notes Had sex in the last 12 months (vaginal, oral, or anal)? No Have you ever had an STD? Yes Chlamydia? Yes Drug and Alcohol Question Answer Notes Total Score: 0 Interpretation: No problems reported Alcohol Screening: Question Answer Notes Did you have a drink containing alcohol in the past year? Ye s Points 7 Interpretation Positive How often did you have six or more drinks on one occas ion in the past year? Weekly (3 points) How many drinks did you have on a typica l day when you were drinking in the past year? 5 or 6 (2 points) How often did you have a drink containing alcohol in t he past year? Two to four times a month (2 points) BMI Care Goal Follow-Up Question Answer Notes Above Normal BMI Follow-Up Giving encouragement to exercise Tobacco Use: Question Answer Notes Are you a: former smoker How long has it been since you last smoked? < 1 month REASON FOR REFERRAL No Information VITAL SIGNS No information MEDICATIONS Medication SIG (Take, Route, Frequency, Duration) Start Date En d Date Status Sulfazine 500 mg 3 tablets Orally twice a day Active Nicotine 4 MG 1 piece as needed Mouth/Thro at as needed 24 time(s) a day for 30 days Not-Taking Folic Acid 1 MG 1 tablet Orally Once a day (Dr. Burton) Active Montelukast Sodium 10 MG TAKE ONE TABLET BY MOUTH AT BEDTIME Oral Active Incruse Ellipta 62.5 MCG/INH 1 puff Inhalation Once a day 08 Oct, 2 020 Active Depo-Provera 150 MG/ML 1 injection Intramuscular Ev mohinder 3 months ([facility]) for 30 day(s) Active Drisdol 88547 UNIT 1 capsule with meal Orally every month Active Methotrexate 2.5 MG 9 tablets Orally Once a week (Dr. Burton) Active Omeprazole 20mg 20mg 1 tab(s) orally once a day (Dr. Burton) Active Levothyroxine Sodium 150 MCG take 1 tablet by mouth on empty stomach in the morning Orally Daily for 90 day(s) Activ e Mupirocin 2 % 1 application to affected ar ea Externally Three times a day for 5 day(s) Jan, Not-Taking Albuterol Sulfate HFA 108 (90 Base) MCG/ACT 2 puffs as needed Inhalation every 4 hrs Active Pataday 0.2 % 1 gtt in eyes daily Ophthalmic daily as needed Active Ketoconazole 2 % 1 application to affected ar ea Externally Once a day for 14 days Jan, Not-Taking Breo Ellipta 200-25 MCG/INH INHALE ONE PUFF BY MOUTH E VERY DAY Inhalation for 30 Active Azelastine HCl 0.1 % 1 puff in each nostril Nasally Twice a day as needed Active Ibuprofen 600 MG 1 tablet Orally Three times a day as nee ded for pain Aug, Active Flonase Allergy Relief 50 MCG/ACT 2 spray in each nostril Nasall y Once a day Active Aspir-81 81 MG 1 tablet Orally Once a day Active PROCEDURES No Information RESULTS No Results REASON FOR VISIT abcessed tooth MEDICAL (GENERAL) HISTORY Type Description Date Medical History Rheumatoid [id number] yrs- Dr Burton Medical History HTN - resolved Medical History Hypothyroidism Medical History Vitamin D deficiency, unspecified Surgical History Repair Left wrist after injury 2000 Goals Section No Information Health Concerns No Information MEDICAL EQUIPMENT No Information MENTAL STATUS No Information FUNCTIONAL STATUS No Information ASSESSMENTS No Information PLAN OF TREATMENT Medication Medication Name Sig Start Date Stop Date Montelukast Sodium 10 MG TAKE ONE TABLET BY MOUTH AT BEDTIME Ora l Flonase Allergy Relief 50 MCG/ACT 2 spray in each nostril Nasall y Once a day Azelastine HCl 0.1 % 1 puff in each nostril Nasally Twice a day as needed Next Appt Details Provider Name:Krystyna Jon, 2020-11 -13 01:45:00 PM, [address] [place] [address], [address], Provider Name:Julia Vera, 2020-06-03 10:00:00 AM, [address] [place], [address], Insurance Providers Payer Name Payer Address Payer Phone Insured Name Patient Relati onship to Insured Coverage Start Date Coverage End Date MEDICAID Work in [employer] [address] [facility] [id number] IVANA MUNIZ self MEDICARE Part A and B [address] [facility] [phone] IVANA MUNIZ self
--- OUTSIDE RECORDS SUMMARY | 2020-07-13 17:19 | CCD ---
Author Author [facility] Organization [facility] Address Unknown Phone Unavailable Care Team Providers Care Advanced Seal Delivery System Name Role Phone Melly Mandujano Unavailable PROBLEMS Type Condition ICD9-CM Code [id number] Code Onset Dates Condition S tatus SNOMED Code Notes Problem Nicotine dependence, unspecified, uncomplicated F1 7.200 Active 642751698 Problem Essential (primary) hypertension I10 Active 41670736 Problem Vitamin D deficiency, unspecified E55.9 Active 29677101 Problem Other obesity E66.8 Active 960063777 Problem Hyperlipidemia E78.5 Active 69990151 Problem Hypothyroidism, unspecified E03.9 Active 4093 0008 Problem Body mass index (BMI) of 45.0-49.9 in adult Z68.42 Active 600023898 Problem Cigarette nicotine dependence without complication F17.210 Active 27139258 Problem BMI 50.0-59.9, adult Z68.43 Active 228392656 Problem Rheumatoid arthritis involvi ng multiple sites with positive rheumatoid factor M05.79 Active 674216456 Problem Morbid (severe) obesity due to excess calories E66 .01 Active 269341595 Problem Leukocytosis, unspecified type D72.829 Active 1 94957561 Problem Rheumatoid arthritis, unspecified M06.9 Active 76990190 Problem Gastroesophageal reflux disease, esophagitis pre sence not specified K21.9 Active 327341163 Problem Allergic rhinitis, unspecified seasonality, unspecifie d trigger J30.9 Active 75698063 Problem Non-seasonal allergic rhinitis, unspecified trigger J30.89 Active 73079295 Problem Cigarette nicotine dependence with withdrawal F17. 213 Active 69831753 ALLERGIES Allergen (clinical drug ingredient) Drug/Non Drug Allergy do cumented on EMR Reaction Allergy Type Onset Date Status amoxicillin Amoxicillin([facility] Code:[address]-25) Rash Drug Aller gy Active Sulfa Eye Drops Swollen eyes Non Drug Allergy A ctive ENCOUNTERS from 1970 to 2020-05-20 Encounter Location Date Provider Diagnosis [facility] Rheumatology [address] [place] [address] May, Melly Mandujano Gastroesophageal reflux disease, esophag itis presence not specified K21.9 IMMUNIZATIONS Vaccine Route Administration Date Status Influenza [...] Education Language: Question Answer Notes Languages spoken: Dutch Muslim: Question Answer Notes Muslim 33 None Sexual Hx: Question Answer Notes [...] TABLET BY MOUTH AT BEDTIME Oral Active Flonase Allergy Relief 50 MCG/ACT 2 spray in each nostril Nasall y Once a day Active Breo Ellipta 200-25 MCG/INH INHALE ONE PUFF BY MOUTH E VERY DAY Inhalation for 30 Active Folic Acid 1 MG 1 tablet Orally Daily for 90 day(s) Active Pataday 0.2 % 1 gtt in eyes daily Ophthalmic daily as needed Active Depo-Provera 150 MG/ML 1 injection Intramuscular Ev mohinder 3 months ([facility]) for 30 day(s) Active Mupirocin 2 % 1 application to affected ar ea Externally Three times a day for 5 day(s) Jan, Not-Taking Methotrexate 2.5 MG 9 tablets Orally Once a week (Dr. Burton) Active Incruse Ellipta 62.5 MCG/INH 1 puff Inhalation Once a day Mar, Active Azelastine HCl 0.1 % 1 puff in each nostril Nasally Twice a day as ne eded Active Ketoconazole 2 % 1 application to affected ar ea Externally Once a day for 14 days Jan, Not-Taking Albuterol Sulfate HFA 108 (90 Base) MCG/ACT 2 puffs as needed Inhalation every 4 hrs Active Levothyroxine Sodium 150 MCG take 1 tablet by mouth on empty stomach in the morning Orally Daily for 90 day(s) Active Nicotine 4 MG 1 piece as needed Mouth/Thro at as needed 24 time(s) a day for 30 days Not-Taking Drisdol 93125 UNIT 1 capsule with meal Orally every month for 90 day( s) Active Aspir-81 81 MG 1 tablet Orally Once a day Active Ibuprofen 600 MG 1 tablet Orally Three times a day as needed for pain Aug, Active Omeprazole 20mg 20mg 1 tab orally Daily for 90 day(s) Active Sulfazine 500 mg 3 tablets Orally twice a day Active PROCEDURES No Information RESULTS No Results REASON FOR VISIT Omeprazole refill MEDICAL (GENERAL) HISTORY Type Description Date Medical History Rheumatoid [id number] yrs- Dr Burton Medical History HTN - resolved Medical History Hypothyroidism Medical History Vitamin D deficiency, unspecified Surgical History Repair Left wrist after injury 2000 Goals Section No Information Health Concerns No Information MEDICAL EQUIPMENT No Information MENTAL STATUS No Information FUNCTIONAL STATUS No Information ASSESSMENTS Encounter Date Diagnosis Assessment Notes Treatment Notes Treatm ent Clinical Notes May, Gastroesophageal reflux dise ase, esophagitis presence not specified (ICD-10 - K21.9) PLAN OF TREATMENT Medication Medication Name Sig Start Date Stop Date Drisdol 56203 UNIT 1 capsule with meal Orally every month for 90 day(s) Omeprazole 20mg 20mg 1 tab orally Daily for 90 day(s) Folic Acid 1 MG 1 tablet Orally Daily for 90 day(s) Next Appt Details Provider Name:Julia Lemus Jody, 2020-06-03 10:00:00 AM, [facility] [place], [address], Provider Name:Krystyna Jon, 2020-06 01:45:00 PM, [address] [place] [address], [place], [address], Insurance Providers Payer Name Payer Address Payer Phone Insured Name Patient Relati onship to Insured Coverage Start Date Coverage End Date MEDICAID [employer] [address] [facility] [address] IVANA MUNIZ self MEDICARE Part A and B [address] [facility] [phone] [phone] IVANA MUNIZ self
--- OUTSIDE RECORDS SUMMARY | 2020-07-13 17:19 | CCD ---
Author Author [facility] Organization [facility] Address Unknown Phone Unavailable Care Team Providers Care Pinsetter Mechanic Automatic Name Role Phone Krystyna Jon Unavailable PROBLEMS Type Condition ICD9-CM Code [id number] Code Onset Dates Condition S tatus SNOMED Code Notes Problem Nicotine dependence, unspecified, uncomplicated F1 7.200 Active 168745891 Problem Essential (primary) hypertension I10 Active 81028508 Problem Vitamin D deficiency, unspecified E55.9 Active 85727581 Problem Other obesity E66.8 Active 293005713 Problem Hyperlipidemia E78.5 Active 81412297 Problem Hypothyroidism, unspecified E03.9 Active 4093 0008 Problem Body mass index (BMI) of 45.0-49.9 in adult Z68.42 Active 394671424 Problem Cigarette nicotine dependence without complication F17.210 Active 97914649 Problem BMI 50.0-59.9, adult Z68.43 Active 115245877 Problem Rheumatoid arthritis involvi ng multiple sites with positive rheumatoid factor M05.79 Active 387523912 Problem Morbid (severe) obesity due to excess calories E66 .01 Active 909652314 Problem Leukocytosis, unspecified type D72.829 Active 1 19211878 Problem Rheumatoid arthritis, unspecified M06.9 Active 99608539 Problem Gastroesophageal reflux disease, esophagitis pre sence not specified K21.9 Active 245047914 Problem Allergic rhinitis, unspecified seasonality, unspecifie d trigger J30.9 Active 52163987 Problem Non-seasonal allergic rhinitis, unspecified trigger J30.89 Active 07281645 Problem Cigarette nicotine dependence with withdrawal F17. 213 Active 40517603 ALLERGIES Allergen (clinical drug ingredient) Drug/Non Drug Allergy do cumented on EMR Reaction Allergy Type Onset Date Status amoxicillin Amoxicillin([facility] Code:[address]-92) Rash Drug Aller gy Active Sulfa Eye Drops Swollen eyes Non Drug Allergy A ctive ENCOUNTERS from 1970 to 2020-05-20 Encounter Location Date Provider Diagnosis [facility] Rheumatology [address] [place] [address] May, Krystyna Jon Vitamin D deficiency, unspecified E55.9 IMMUNIZATIONS Vaccine Route Administration Date Status Influenza [...] Education Language: Question Answer Notes Languages spoken: Guamanian Confucianist: Question Answer Notes Confucianist 33 None Sexual Hx: Question Answer Notes [...] a day for 30 days Not-Taking Drisdol 67148 UNIT 1 capsule with meal Orally every [...] RESULTS No Results REASON FOR VISIT Omeprazole MEDICAL (GENERAL) HISTORY Type Description Date Medical History Rheumatoid [id number] yrs- Dr Burton Medical History HTN - resolved Medical History Hypothyroidism Medical History Vitamin D deficiency, unspecified Surgical History Repair Left wrist after injury 2000 Goals Section No Information Health Concerns No Information MEDICAL EQUIPMENT No Information MENTAL STATUS No Information FUNCTIONAL STATUS No Information ASSESSMENTS Encounter Date Diagnosis Assessment Notes Treatment Notes Treatm ent Clinical Notes May, Vitamin D deficiency, unspecified (ICD-10 - E55. 9) PLAN OF TREATMENT Medication Medication Name Sig Start Date Stop Date Drisdol 29393 UNIT 1 capsule with meal Orally every month for 90 day(s) Omeprazole 20mg 20mg 1 tab orally Daily for 90 day(s) Folic Acid 1 MG 1 tablet Orally Daily for 90 day(s) Next Appt Details Provider Name:Julia Vera, 2020-06-03 10:00:00 AM, [address] [place], [address], Provider Name:Krystyna Jon, 2020-06 01:45:00 PM, [address] [place] [address], [address], Insurance Providers Payer Name Payer Address Payer Phone Insured Name Patient Relati onship to Insured Coverage Start Date Coverage End Date [place]ID [place] [address] [facility] [id number] IVANA MUNIZ self MEDICARE Part A and B [address] [facility] [id number] [phone] IVANA MUNIZ self
--- OUTSIDE RECORDS SUMMARY | 2020-07-13 17:19 | CCD ---
Author Author [facility] Organization [facility] Address Unknown Phone Unavailable Care Team Providers Care Yard Inspector Name Role Phone Julia Vera Unavailable PROBLEMS Type Condition ICD9-CM Code ZRE82-JJ Code Onset Dates Condition S tatus SNOMED Code Notes Problem Hypothyroidism, unspecified E03.9 Active 4093 0008 Problem Vitamin D deficiency, unspecified E55.9 Active 60053973 Problem Gastroesophageal reflux disease, esophagitis pre sence not specified K21.9 Active 228732548 Problem BMI 50.0-59.9, adult Z68.43 Active 061208673 Problem Non-seasonal allergic rhinitis, unspecified trigger J30.89 Active 83711967 Problem Seasonal allergies J30.2 Active 312820369 Problem Morbid (severe) obesity due to excess calories E66 .01 Active 840887602 Problem Vitamin D deficiency E55.9 Active 11653691 Problem Essential (primary) hypertension I10 Active 93750575 Problem Leukocytosis, unspecified type D72.829 Active 1 76390037 Problem Rheumatoid arthritis involvi ng multiple sites with positive rheumatoid factor M05.79 Active 340501884 Problem Cigarette nicotine dependence in remission F17.211 Active 518966727 Problem Mild intermittent asthma without complication J45. 20 Active 019152130 ALLERGIES Allergen (clinical drug ingredient) Drug/Non Drug Allergy do cumented on EMR Reaction Allergy Type Onset Date Status amoxicillin Amoxicillin([facility] Code:[address]-91) Rash Drug Aller gy Active Sulfa Eye Drops Swollen eyes Non Drug Allergy A ctive ENCOUNTERS from 1970 to 2020-06-04 Encounter Location Date Provider Diagnosis [address] [address] May, Julia Vera Annual physical exam Z00.00 ; Hypothyroi dism, unspecified E03.9 ; Essential (primary) hypertension I10 ; Gastroesophageal reflux disease, esophagitis presence not specified K21.9 ; Rheumatoid arthritis involving multiple sites with positive rheumatoid factor M05.79 ; Vitamin D deficiency E55.9 ; Mild intermittent asthma without complication J45.20 ; Cigarette nicotine dependence in remission F17.211 ; Seasonal allergies J30.2 and Colon cancer screening Z12.11 IMMUNIZATIONS Vaccine Route Administration Date Status Influenza [...] Education Language: Question Answer Notes Languages spoken: Urdu Adventism: Question Answer Notes Adventism 33 None Domestic Violence: Question Answer Notes [...] FOR REFERRAL No Information VITAL SIGNS Weight 319 lbs May, Height 64 in May, BMI 54.75 kg/m2 May, Heart Rate 108 /min May, Respiratory Rate 18 /min May, Temperature 96.2 degrees Fahrenheit May, Oximetry 94 May, Blood pressure systolic 140 mm Hg May, Blood pressure diastolic 80 mm Hg May, MEDICATIONS Medication SIG (Take, Route, Frequency, Duration) [...] MOUTH EVERY DAY Inhala tion Active Drisdol 44952 UNIT 1 capsule with meal Orally every [...] nostril Nasall y Once a day Not-Taking Pataday 0.2 % 1 gtt in eyes daily Ophthalmic daily as needed Active Azelastine HCl 0.1 % 1 puff [...] Information RESULTS No Results REASON FOR VISIT ACO f/up lab MEDICAL (GENERAL) HISTORY Type Description Date Medical History Rheumatoid arthritis - Dr. Jon, [facility] Rheum Medical History HTN - resolved [...] Treatment Notes Treatm ent Clinical Notes May, Annual physical exam (ICD-10 - Z00.00) The [employer] [employer] recommends exercise for overall cardiovascular health. Recommendation is for at least 30 minutes of moderate-intensity aerobic activity at least 5 days per week for a total of 150 minutes, or at least 25 minutes of vigorous aerobic activity at least 3 days per week for a total of 75 minutes; or a combination of moderate- and vigorous-intensity aerobic activity AND moderate- to high-intensity muscle-strengthening activity at least 2 days per week for additional health benefits. Physical activity is anything that makes you move your body and burn calories. This includes things like walking, climbing stairs, or playing sports. Aerobic exercises benefit your heart, and include walking, jogging, swimming or biking. Strength and stretching exercises are best for overall stamina and flexibility. Medical, surgical, and family histories were reviewed and updated. See preventative section. I recommended pneumonia and shingles vaccines; she declines these. She get Depo Provera from [facility]; I recommended that she consider stopping this to see if she is in menopause. She does not want to stop it because she does not want to get her period. She gets paps from [facility]. Recent lab results reviewed with the patient. May, Hypothyroidism, unspecified (ICD-10 - E03.9) Recent TSH normal. May, Essential (primary) hypertension (ICD-10 - I10) BP at goal off of medication. May, Gastroesophageal reflux dise ase, esophagitis presence not specified (ICD-10 - K21.9) Symptoms are well controlled. May, Rheumatoid arthritis involvi ng multiple sites with positive rheumatoid factor (ICD-10 - M05.79) Follows with [facility] Rheum. May, Vitamin D deficiency (ICD-10 - E55.9) Recent Vit D level normal. May, Mild intermittent asthma without complication (I CD-10 - J45.20) Follows with pulm; denies recent exacerbations. May, Cigarette nicotine dependence in remission (ICD- 10 - F17.211) I congratulated her on quitting and encouraged continued abstinence. May, Seasonal allergies (ICD-10 - J30.2) Symptoms are well controlled. May, Colon cancer screening (ICD-10 - Z12.11) I recommended colorectal cancer screening and discussed options, including annual iFob, Cologuard every 3 years, or colonoscopy every 10 years. I discussed risks and benefits of each option. PLAN OF TREATMENT Medication Medication Name Sig Start Date Stop Date Incruse Ellipta 62.5 MCG/INH 1 puff Inhalation Once a day Mar Sulfazine 500 mg 3 tablets Orally twice a day Albuterol Sulfate HFA 108 (90 Base) MCG/ACT 2 puffs as needed Inhalation every 4 hrs Drisdol 88810 UNIT 1 capsule with meal Orally every month Montelukast Sodium 10 MG TAKE ONE TABLET BY MOUTH AT BEDTIME Ora l Levothyroxine Sodium 150 MCG take 1 tablet by mouth on empty stomach in the morning Orally Daily Omeprazole 20mg 20mg 1 tab orally Daily Pataday 0.2 % 1 gtt in eyes daily Ophthalmic daily as needed Breo Ellipta 200-25 MCG/INH INHALE ONE PUFF BY MOUTH EVERY DAY I nhalation Methotrexate 2.5 MG 9 tablets Orally Once a week (Dr. Burton) Folic Acid 1 MG 1 tablet Orally Daily Treatment Notes Assessment Notes Clinical Notes Annual physical exam The [employer] on recommends exercise for overall cardiovascular health. Recommendation is for at least 30 minutes of moderate-intensity aerobic activity at least 5 days per week for a total of 150 minutes, or at least 25 minutes of vigorous aerobic activity at least 3 days per week for a total of 75 minutes; or a combination of moderate- and vigorous- intensity aerobic activity AND moderate- to high-intensity muscle-strengthening activity at least 2 days per week for additional health benefits. Physical activity is anything that makes you move your body and burn calories. This includes things like walking, climbing stairs, or playing sports. Aerobic exercises benefit your heart, and include walking, jogging, swimming or biking. Strength and stretching exercises are best for overall stamina and flexibility. Medical, surgical, and family histories were reviewed and updated. See preventative section. I recommended pneumonia and shingles vaccines; she declines these.She get Depo Provera from [facility]; I recommended that she consider stopping this to see if she is in menopause. She does not want to stop it because she does not want to get her period. She gets paps from [facility].Recent lab results reviewed with the patient. Hypothyroidism, unspecified Recent TSH n ormal. Essential (primary) hypertension BP at g oal off of medication. Gastroesophageal reflux disease, esophagitis presence not sp ecified Symptoms are well controlled. Rheumatoid arthritis involving multiple sites with positive rheumatoid factor Follows with [facility] Rheum. Vitamin D deficiency Recent Vit D level normal. Mild intermittent asthma without complication Follows with pulm; denies recent exacerbations. Cigarette nicotine dependence in remission I congratulated her on quitting and encouraged continued abstinence. Seasonal allergies Symptoms are well co ntrolled. Colon cancer screening I recommended col orectal cancer screening and discussed options, including annual iFob, Cologuard every 3 years, or colonoscopy every 10 years. I discussed risks and benefits of each option. Future Test Test Name Order Date Cologuard (Send Out Only) [id number] Next Appt Details 6 months with Dexter Mandujano Reason:F/u med pro b Provider Name:Krystyna Jon, 2020-06 01:45:00 PM, [address] [place] [address], [id number], Provider Name:Melly Mandujano, 2020-12-02 11:3 0:00 AM, [address] [place] [address], [phone], Follow Up:6 months with Dexter MandujanoF/u med prob Insurance Providers Payer Name Payer Address Payer Phone Insured Name Patient Relati onship to Insured Coverage Start Date Coverage End Date MEDICARE Part A and B [address] [facility] [phone] [facility] [address] [facility] [id number] IVANA MUNIZ
--- OUTSIDE RECORDS SUMMARY | 2020-07-13 17:19 | CCD ---
Continuity of Care Document (CCD) Created on: 04/30/2020 Tori Shin External Reference #: [id number] : 1970 Sex: Female Author Author Tori HUTTON Organization Unknown Address [address] [place] [address] Phone [phone] Care Team Providers Care Economic Development Specialist Name Role Phone Melly Mandujano AUTM [phone] AUTM Unavailable Franchesca Murrieta MD AUTM [phone] Problems Active Problems Provider Date Ex-smoker LINDA Gibson Onset: 08/06/2019 Mild intermittent asthma LINDA Gibson Onset: 05/03/20 19 Nicotine dependence, cigarettes, with other nicotine-i nduced disorders LINDA Gibson Onset: 03/19/2019 Difficulty breathing LINDA Gibson Onset: 03/19/2019 Allergic asthma without status asthmaticus Jas Sheldon II, PA-C Onset: 02/27/2020 Social History Type Date Description Comments Sex Unknown Cigarette Use Pack Years - 09 ETOH Use Denies alcohol use Tobacco Use Start: 06/13/83 End: 07/13/19 Patient is a forme r smoker hx 5 cigarette a day Smoking Status Reviewed: 04/30/20 Patient is a former smoker hx 5 cigarette a day Allergies, Adverse Reactions, Alerts Active Allergies Reaction Severity Comments Date Amoxicillin 12/09/2011 Seasonal 03/19/2019 Sulfa Eye gtts 02/27/2020 Medications Active Medications SIG Qnty Indications Ordering Provide r Date Incruse Ellipta 62.5mcg/Inh Aeroso l 1 puff every day 30units J45.20 Sergio Lopez D.O. 02/26/2020 Singulair 10mg Tablets 1 by mouth every night at bedtime 30tabs J45.20 Sergio Lopez D.O. 08/06/2019 Breo Ellipta 200-25mcg/Inh Aerosol 1 puff every day 60units Doris Pinzon.O. 05/03/2019 Sulfasalazine 500mg Tablets 3 tabs by mouth twice a day 120tabs Unknown Folic Acid 1mg Tablets 1 tab by mouth every day 90tabs Unknown Omeprazole 20mg Capsules DR 1 cap by mouth every day 60tabs Unknown Methotrexate 2.5mg Tablets 1 tab by mouth every week 60tabs Unknown Levothyroxine Sodium 150mcg Tablet s 1 tab by mouth every day 30Pills Unknown Aspirin [address] take 1 tab by mouth daily Unknown Vitamin D (Ergocalciferol) 1.25mg (10905 Ut) Capsules 1 cap by mouth every week 30caps Unknown Albuterol Sulfate HFA 108(90Base) mcg/Act Aerosol inhale two puffs by mouth four times a day as needed 8.500gm Sergio Lopez D.O. Olopatadine HCL 0.2% Solution once daily as needed Unknown Depo-Provera 1 injection every 12 weeks Unknown Azelastine HCL (Nasal) 0.1% Soluti on 1 spray intranasal twice a day Unknown Immunizations CPT Code Status Date Vaccine Lot # 14664 Given 04/30/2020 Afluria, Quadrivalent, 0.5ml , [facility] [place] 50104-956-28 [id number] Given 03/19/2019 Afluria, Quadrivalent, 0.5ml , [facility] [place] 54048-518-55 Vital Signs Date Vital Result Comment 04/30/2020 2:25pm BP Systolic 140 mmHg BP Diastolic 74 mmHg Heart Rate 89 /min O2 % BldC Oximetry 98 % Height 64 inches 5'4" Weight 317.12 lb BMI (Body Mass Index) 54.4 kg/m2 [place] Body Weight 120 lb Weight 143.848 kg 02/27/2020 11:40am Height 64 inches 5'4" Weight 310.00 lb BMI (Body Mass Index) 53.2 kg/m2 [place] Body Weight 120 lb Weight 140.616 kg Results Test Acquired Date Facility Test Result H/L Range Note FVL/[facility] 04/30/2020 [facility] SEE IMAGE FVC-Pred 3.53 L FVC-Pre 2.82 L FVC-%Pred-Pre 79 L FVC-LLN 2.84 L Fev1-Pred 2.80 L Fev1-Pre 2.08 L Fev1-%Pred-Pre 74 L Fev1-LLN 2.21 L Fev6-Pred 3.44 L Fev6-Pre 2.81 L Fev6-%Pred-Pre 81 L Fev6-LLN 2.76 L Kau5mks-Hawq 80 % Kkf7uxy-Hur 74 % Ulg7jxc-%Pred-Pre 92 % Nlt3bdp-BRX 70 % Uon5txt-Srzk 97 % Ozi4tkj-Zil 100 % Doe3pmc-%Pred-Pre 102 % FEFMax-Pred 6.72 L/E/sec FEFMax-Pre 6.23 L/E/sec FEFMax-%Pred-Pre 92 L/E/sec FEFMax-LLN 5.00 L/E/sec Por2320-Ovfn 2.75 L/E/sec Kyr0335-Rcx 1.52 L/E/sec Xaj1818-%Pred-Pre 55 L/E/sec Taj6848-YAN 1.51 L/E/sec ExpTime-Pre 6.36 sec Qoa3bgq2-Wrum 82 % Cfw1hpw4-Ypb 74 % Ygl8mlg9-%Pred-Pre 89 % Xbt3fgf0-MRJ 74 % FVL/[facility]oma 02/26/2020 [facility] SEE IMAGE FVC-Pred 3.54 L FVC-Pre 2.79 L FVC-%Pred-Pre 78 L FVC-LLN 2.85 L Fev1-Pred 2.81 L Fev1-Pre 2.01 L Fev1-%Pred-Pre 71 L Fev1-LLN 2.22 L Fev6-Pred 3.45 L Fev6-Pre 2.79 L Fev6-%Pred-Pre 80 L Fev6-LLN 2.76 L Deo4ear-Fcmx 80 % Ozr5hvg-Gmh 72 % Fwf2amq-%Pred-Pre 89 % Dyi9fws-RFE 70 % Akl7sbd-Evmt 97 % Rcb3vtj-Rmq 100 % Ujy6nnq-%Pred-Pre 102 % FEFMax-Pred 6.73 L/E/sec FEFMax-Pre 5.40 L/E/sec FEFMax-%Pred-Pre 80 L/E/sec FEFMax-LLN 5.02 L/E/sec Dsx2843-Tkpl 2.76 L/E/sec Rps5386-Rgn 1.42 L/E/sec Kqo4293-%Pred-Pre 51 L/E/sec Hoe1134-FAE 1.52 L/E/sec ExpTime-Pre 6.13 sec Hfl9ule4-Bsqd 82 % Llk8fsy1-Umu 72 % Ibt0hmi0-%Pred-Pre 87 % Lba5qvi8-DPG 73 % FVL/Beto 01/01/2020 [facility] SEE IMAGE FVC-Pred 3.56 L FVC-Pre 2.64 L FVC-%Pred-Pre 74 L FVC-LLN 2.86 L Fev1-Pred 2.83 L Fev1-Pre 1.70 L Fev1-%Pred-Pre 60 L Fev1-LLN 2.24 L Fev6-Pred 3.47 L Fev6-Pre 2.61 L Fev6-%Pred-Pre 75 L Fev6-LLN 2.79 L Twl1cwc-Rnwc 80 % Syy0moq-Wwo 64 % Ule8ltp-%Pred-Pre 80 % Nuy2fbb-IMC 71 % Dob5sfo-Msln 97 % Rsz8gvn-Nos 99 % Xys8mur-%Pred-Pre 101 % FEFMax-Pred 6.77 L/E/sec FEFMax-Pre 4.50 L/E/sec FEFMax-%Pred-Pre 66 L/E/sec FEFMax-LLN 5.05 L/E/sec Ixi9990-Txqm 2.80 L/E/sec Dgi3965-Han 1.01 L/E/sec Eqa8957-%Pred-Pre 36 L/E/sec Sdn9273-MMS 1.56 L/E/sec ExpTime-Pre 7.15 sec Lhz3ynn5-Mjwt 82 % Okq3gys0-Ago 65 % Lci5ivd7-%Pred-Pre 78 % Dxa7nos4-AYN 74 % Procedures Date Code Description Status 02/26/2020 83959 Spirometry Completed 01/01/2020 81389 Spirometry Completed Medical Devices Description No Information Available Encounters Type Date Location Provider Dx Diagnosis Office Visit 03/28/2020 1:30p [facility] Jas luis II, PA-C H81.10 Benign paroxysmal vertigo, unspecified e ar H90.12 Condctv hear loss, uni, left ear, w unrestr hear cntra side Office Visit 02/27/2020 11:15a [facility] Jas luis II, PA-C H81.10 Benign paroxysmal vertigo, unspecified e ar Office Visit 02/26/2020 1:00p [facility] LINDA Gibson J45.20 Mild intermittent asthma, uncomplicated Z87.891 Personal history of nicotine dependence Office Visit 01/01/2020 2:00p [facility] LINDA Gibson J45.20 Mild intermittent asthma, uncomplicated Z87.891 Personal history of nicotine dependence Assessments Date Code Description Provider 04/30/2020 J45.20 Mild intermittent asthma, uncomp licated LINDA Gibson 04/30/2020 Z87.891 Personal history of nicotine dep LINDA Mijares 04/30/2020 Z23 Encounter for immunization LINDA Kong 03/28/2020 H81.10 Benign paroxysmal vertigo, unspe cified ear Jas Sehldon II, PA-C 03/28/2020 H90.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, unilateral, left ear, with unrestricted hearing on the contralateral side Jas Sheldon II, PA-C 02/27/2020 H81.10 Benign paroxysmal vertigo, unspe cified ear Jas Sheldon II, PA-C 02/26/2020 J45.20 Mild intermittent asthma, uncomp licated LINDA Gibson 02/26/2020 Z87.891 Personal history of nicotine dep endence LINDA Gibson 01/01/2020 J45.20 Mild intermittent asthma, uncomp licated LINDA Gibson 01/01/2020 Z87.891 Personal history of nicotine dep endence LINDA Gibson Plan of Treatment Future Appointment(s):* 10/28/2020 2:30 pm - LINDA Gibson at [facility] 04/30/2020 - LINDA Gibson* J45.20 Mild intermittent asthma, uncomplicated * Z87.891 Personal history of nicotine dependence * Z23 Encounter for immunization * * New Labs:* FVL/[facility], Scheduled: 10/28/20 * Follow up:* 1. Flu shot 2. Follow up in 6 months with beto Functional Status Functional Condition Comment Date Status Independent with all ADL's Activ e Independent with all IADL's Acti ve Mental Status Mental Condition Comment Date Status None Active Referrals Refer to Dr Reason for Referral Status Appt Date Mike Resendiz MD DIZZIINESS Scheduled 02/[address] [place] [address] [phone] Mike Resendiz MD dizziness Scheduled 02/[address] [place], [place] [id number] [phone] Semaj Cee MD DIZZINESS Scheduled 02/27/2020 [facility], Gastroenterology [address] [place], [place] [address] [phone]
--- OUTSIDE RECORDS SUMMARY | 2020-07-13 17:20 | CCD ---
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 Name Role Phone Gisela Jon CALENDER LET OFF HELPER Unavailable Unavailable Gisela Jon CALENDER LET OFF HELPER Unavailable Unavailable Gisela Jon CALENDER LET OFF HELPER Unavailable Unavailable Gisela Jon CALENDER LET OFF HELPER Unavailable Unavailable Gisela Jon CALENDER LET OFF HELPER Unavailable Unavailable Gisela Jon CALENDER LET OFF HELPER Unavailable Unavailable NILTON, P ISABELA BIRCH Unavailable Unavailable NILTON, P ISABELA Unavailable Unavailable NILTON, P ISABELA Unavailable Unavailable NILTON, P ISABELA Unavailable Unavailable NILTON, P ISABELA Unavailable Unavailable NILTON, P ISABELA Unavailable Unavailable NILTON, P ISABELA Unavailable Unavailable NILTON, P ISABELA Unavailable Unavailable NILTON, P ISABELA Unavailable Unavailable NILTON, P ISABELA Unavailable Unavailable NILTON, P ISABELA Unavailable Unavailable NILTON, P ISABELA Unavailable Unavailable NILTON, P ISABELA Unavailable Unavailable NILTON, P ISABELA Unavailable Unavailable NILTON, P ISABELA Unavailable Unavailable NILTON, P ISABELA Unavailable Unavailable NILTON, P ISABELA Unavailable Unavailable NILTON, P ISABELA Unavailable Unavailable NILTON, P ISABELA Unavailable Unavailable NILTON, P ISABELA MD Unavailable Unavailable NILTON, P ISABELA MD Unavailable Unavailable NILTON, P ISABELA MD Unavailable Unavailable NILTON, P ISABELA Unavailable Unavailable NILTON, P ISABELA MD Unavailable Unavailable NILTON, P ISABELA Unavailable Unavailable NILTON, P ISABELA Unavailable Unavailable NILTON, P ISABELA MD Unavailable Unavailable NILTON, P ISABELA MD Unavailable Unavailable NILTON, P ISABELA MD Unavailable Unavailable NILTON, P ISABELA MD Unavailable Unavailable NILTON, P ISABELA MD Unavailable Unavailable NILTON, P ISABELA MD Unavailable Unavailable NILTON, P ISABELA MD Unavailable Unavailable NILTON, P ISABELA MD Unavailable Unavailable NILTON, P ISABELA MD Unavailable Unavailable NILTON, P ISABELA MD Unavailable Unavailable NILTON, P ISABELA MD Unavailable Unavailable NILTON, P ISABELA MD Unavailable Unavailable NILTON, P ISABELA MD Unavailable Unavailable NILTON, P ISABELA MD Unavailable Unavailable NITLON, P ISABELA MD Unavailable Unavailable NILTON, P ISABELA MD Unavailable Unavailable NILTON, P ISABELA MD Unavailable Unavailable NILTON, P ISABELA MD Unavailable Unavailable NILTON, P ISABELA MD Unavailable Unavailable NILTON, P ISABELA MD Unavailable Unavailable NILTON, P ISABELA MD Unavailable Unavailable NILTON, P ISABELA MD Unavailable Unavailable NILTON, P ISABELA MD Unavailable Unavailable NILTON, P ISABELA MD Unavailable Unavailable NILTON, P ISABELA MD Unavailable Unavailable NILTON, P ISABELA MD Unavailable Unavailable NILTON, P ISABELA MD Unavailable Unavailable NILTON, P ISABELA MD Unavailable Unavailable NILTON, P ISABELA MD Unavailable Unavailable NILTON, P ISABELA MD Unavailable Unavailable NILTON, P ISABELA MD Unavailable Unavailable NILTON, P ISABELA MD Unavailable Unavailable NILTON, P ISABELA MD Unavailable Unavailable NILTON, P ISABELA MD Unavailable Unavailable NILOTN, P ISABELA MD Unavailable Unavailable NILTON, P ISABELA MD Unavailable Unavailable NILTON, P ISABELA MD Unavailable Unavailable NILTON, P ISABELA MD Unavailable Unavailable NILTON, P ISABELA MD Unavailable Unavailable NILTON, P ISABELA MD Unavailable Unavailable NILTON, P ISABELA MD Unavailable Unavailable NILTON, P ISABELA MD Unavailable Unavailable NILTON, P ISABELA MD Unavailable Unavailable NILTON, P ISABELA MD Unavailable Unavailable NILTON, P ISABELA MD Unavailable Unavailable NILTON, P ISABELA MD Unavailable Unavailable NILTON, P ISABELA MD Unavailable Unavailable NILTON, P ISABELA MD Unavailable Unavailable NILTON, P ISABELA MD Unavailable Unavailable NILTON, P ISABELA MD Unavailable Unavailable NILTON, P ISABELA MD Unavailable Unavailable NILTON, P ISABELA MD Unavailable Unavailable NILTON, P ISABELA MD Unavailable Unavailable NILTON, P ISABELA MD Unavailable Unavailable NILTON, P ISABELA MD Unavailable Unavailable NILTNO, P ISABELA MD Unavailable Unavailable NILTON, P ISABELA MD Unavailable Unavailable NILTON, P ISABELA MD Unavailable Unavailable NILTON, P ISABELA MD Unavailable Unavailable NILTON, P ISABELA MD Unavailable Unavailable NILTON, P ISABELA MD Unavailable Unavailable NILTON, P ISABELA MD Unavailable Unavailable NILTON, P ISABELA MD Unavailable Unavailable NILTON, P ISABELA MD Unavailable Unavailable NILTON, P ISABELA MD Unavailable Unavailable NILTON, P ISABELA MD Unavailable Unavailable NILTON, P ISABELA MD Unavailable Unavailable NILTON, P ISABELA MD Unavailable Unavailable NILTON, P ISABELA MD Unavailable Unavailable NILTON, P ISABELA MD Unavailable Unavailable NILTON, P ISABELA MD Unavailable Unavailable NILTON, P ISABELA MD Unavailable Unavailable NILTON, P ISABELA MD Unavailable Unavailable NILTON, P ISABELA MD Unavailable Unavailable NILTON, P ISABELA MD Unavailable Unavailable NILTON, P ISABELA MD Unavailable Unavailable NILTON, P ISABELA MD Unavailable Unavailable NILTON, P ISABELA MD Unavailable Unavailable NILTON, P ISABELA MD Unavailable Unavailable NILTON, P ISABELA MD Unavailable Unavailable NILTON, P ISABELA MD Unavailable Unavailable NILTON, P ISABELA MD Unavailable Unavailable NILTON, P ISABELA MD Unavailable Unavailable NILTON, P ISABELA MD Unavailable Unavailable NILTON, P ISABELA MD Unavailable Unavailable NILTON, P ISABELA MD Unavailable Unavailable NILTON, P ISABELA MD Unavailable Unavailable NILTON, P ISABELA MD Unavailable Unavailable NILTON, P ISABELA MD Unavailable Unavailable NILTON, P ISABELA MD Unavailable Unavailable NILTON, P ISABELA MD Unavailable Unavailable NILTON, P ISABELA MD Unavailable Unavailable NILTON, P ISABELA MD Unavailable Unavailable NILTON, P ISABELA MD Unavailable Unavailable NILTON, P ISABELA MD Unavailable Unavailable NILTON, P ISABELA MD Unavailable Unavailable NILTON, P ISABELA MD Unavailable Unavailable NILTON, P ISABELA MD Unavailable Unavailable NILTON, P ISABELA MD Unavailable Unavailable NILTON, P ISABELA MD Unavailable Unavailable NILTON, P ISABELA MD Unavailable Unavailable NILTON, P ISABELA MD Unavailable Unavailable NILTON, P ISABELA MD Unavailable Unavailable NILTON, P ISABELA MD Unavailable Unavailable NILTON, P ISABELA MD Unavailable Unavailable NILTON, P ISABELA MD Unavailable Unavailable NILTON, P ISABELA MD Unavailable Unavailable NILTON, P ISABELA MD Unavailable Unavailable NILTON, P ISABELA MD Unavailable Unavailable NILTON, P ISABELA MD Unavailable Unavailable NILTON, P ISABELA MD Unavailable Unavailable NILTON, P ISABELA MD Unavailable Unavailable NILTON, P ISABELA MD Unavailable Unavailable NILTON, P ISABELA MD Unavailable Unavailable NILTON, P ISABELA MD Unavailable Unavailable NILTON, P ISABELA MD Unavailable Unavailable NILTON, P ISABELA MD Unavailable Unavailable NILTON, P ISABELA MD Unavailable Unavailable NILTON, P ISABELA MD Unavailable Unavailable NILTON, P ISABELA MD Unavailable Unavailable NILTON, P ISABELA MD Unavailable Unavailable NILTON, P ISABELA MD Unavailable Unavailable NILTON, P ISABELA MD Unavailable Unavailable NILTON, P ISABELA MD Unavailable Unavailable NILTON, P ISABELA MD Unavailable Unavailable NILTON, P ISABELA MD Unavailable Unavailable NILTON, P ISABELA MD Unavailable Unavailable NILTON, P ISABELA MD Unavailable Unavailable NILTON, P ISABELA MD Unavailable Unavailable NILTON, P ISABELA MD Unavailable Unavailable NILTON, P ISABELA MD Unavailable Unavailable NILTON, P ISABELA MD Unavailable Unavailable NILTON, P ISABELA MD Unavailable Unavailable NILTON, P ISABELA MD Unavailable Unavailable NILTON, P ISABELA MD Unavailable Unavailable NILTON, P ISABELA MD Unavailable Unavailable NILTON, P ISABELA MD Unavailable Unavailable NILTON, P ISABELA MD Unavailable Unavailable NILTON, P ISABELA MD Unavailable Unavailable NILTON, P ISABELA MD Unavailable Unavailable NILTON, P ISABELA MD Unavailable Unavailable NILTON, P ISABELA MD Unavailable Unavailable NILTON, P ISABELA MD Unavailable Unavailable NILTON, P ISABELA MD Unavailable Unavailable NILTON, P ISABELA MD Unavailable Unavailable NILTON, P ISABELA MD Unavailable Unavailable NILTON, P ISABELA MD Unavailable Unavailable NILTON, P ISABELA MD Unavailable Unavailable NILTON, P ISABELA MD Unavailable Unavailable NILTON, P ISABELA MD Unavailable Unavailable NILTON, P ISABELA MD Unavailable Unavailable NILTON, P ISABELA MD Unavailable Unavailable NILTON, P ISABELA MD Unavailable Unavailable NILTON, P ISABELA MD Unavailable Unavailable NILTON, P ISABELA MD Unavailable Unavailable NILTON, P ISABELA MD Unavailable Unavailable NILTON, P ISABELA MD Unavailable Unavailable NILTON, P ISABELA MD Unavailable Unavailable NILTON, P ISABELA MD Unavailable Unavailable NILTON, P ISABELA MD Unavailable Unavailable NILTON, P ISABELA MD Unavailable Unavailable NILTON, P ISABELA MD Unavailable Unavailable Villalobos, M Ingrid WATER VALVE REPAIRER Unavailable Unavailable Villalobos, M Ingrid WATER VALVE REPAIRER Unavailable Unavailable Villalobos, M Ingrid WATER VALVE REPAIRER Unavailable Unavailable Villalobos, M Ingrid WATER VALVE REPAIRER Unavailable Unavailable Villalobos, M Ingrid WATER VALVE REPAIRER Unavailable Unavailable Villalobos, M Ingrid WATER VALVE REPAIRER Unavailable Unavailable Villalobos, M Ingrid WATER VALVE REPAIRER Unavailable Unavailable Villalobos, M Ingrid WATER VALVE REPAIRER Unavailable Unavailable Villalobos, M Ingrid WATER VALVE REPAIRER Unavailable Unavailable Villalobos, M Ingrid WATER VALVE REPAIRER Unavailable Unavailable Villalobos, M Ingrid WATER VALVE REPAIRER Unavailable Unavailable Villalobos, M Ingrid WATER VALVE REPAIRER Unavailable Unavailable Villalobos, M Ingrid WATER VALVE REPAIRER Unavailable Unavailable Villalobos, M Ingrid WATER VALVE REPAIRER Unavailable Unavailable Villalobos, M Ingrid WATER VALVE REPAIRER Unavailable Unavailable Villalobos, M Ingrid WATER VALVE REPAIRER Unavailable Unavailable Villalobos, M Ingrid WATER VALVE REPAIRER Unavailable Unavailable Villalobos, M Ingrid WATER VALVE REPAIRER Unavailable Unavailable Villalobos, M Ingrid WATER VALVE REPAIRER Unavailable Unavailable Villalobos, M Ingrid WATER VALVE REPAIRER Unavailable Unavailable Villalobos, M Ingrid WATER VALVE REPAIRER Unavailable Unavailable Villalobos, M Ingrid WATER VALVE REPAIRER Unavailable Unavailable Villalobos, M Ingrid WATER VALVE REPAIRER Unavailable Unavailable Villalobos, M Ingrid WATER VALVE REPAIRER Unavailable Unavailable Villalobos, M Ingrid WATER VALVE REPAIRER Unavailable Unavailable Villalobos, M Ingrid WATER VALVE REPAIRER Unavailable Unavailable Villalobos, M Ingrid WATER VALVE REPAIRER Unavailable Unavailable Villalobos, M Ingrid WATER VALVE REPAIRER Unavailable Unavailable Villalobos, M Ingrid WATER VALVE REPAIRER Unavailable Unavailable Villalobos, M Ingrid WATER VALVE REPAIRER Unavailable Unavailable Villalobos, M Ingrid WATER VALVE REPAIRER Unavailable Unavailable Villalobos, M Ingrid WATER VALVE REPAIRER Unavailable Unavailable Villalobos, M Ingrid WATER VALVE REPAIRER Unavailable Unavailable Villalobos, M Ingrid WATER VALVE REPAIRER Unavailable Unavailable Villalobos, M Ingrid WATER VALVE REPAIRER Unavailable Unavailable Villalobos, M Ingrid WATER VALVE REPAIRER Unavailable Unavailable Villalobos, M Ingrid WATER VALVE REPAIRER Unavailable Unavailable Villalobos, M Ingrid WATER VALVE REPAIRER Unavailable Unavailable Armani Amaroey PA Unavailable Unavailable Armani Amaro Samantha PA Unavailable Unavailable Armani Amaro Samantha PA Unavailable Unavailable Armani Amaroey PA Unavailable Unavailable Armani Amaro Samantha PA Unavailable Unavailable Armani Amaro Samantha PA Unavailable Unavailable Sondra J Samantha PA Unavailable Unavailable Sondra, J Samantha PA Unavailable Unavailable Sondra, J Samantha PA Unavailable Unavailable Pacific, J Samantha PA Unavailable Unavailable Sondra, J Samantha PA Unavailable Unavailable Pacific, J Samantha PA Unavailable Unavailable Pacific, J Samantha PA Unavailable Unavailable Pacific, J Samantha PA Unavailable Unavailable Pacific, J Samantha PA Unavailable Unavailable Pacific, J Samantha PA Unavailable Unavailable Pacific, J Samantha PA Unavailable Unavailable Pacific, J Samantha PA Unavailable Unavailable Sondra J Samantha PA Unavailable Unavailable Pacific, J Samantha PA Unavailable Unavailable Sondra, J Samantha PA Unavailable Unavailable Sondra, J Samantha PA Unavailable Unavailable Marisela HUTTON PA Unavailable Unavailable HUTTON, M DINO PA Unavailable Unavailable HUTTON, M DINO PA Unavailable Unavailable HUTTON, M DINO PA Unavailable Unavailable HUTTON, M DINO PA Unavailable Unavailable HUTTON, M DINO PA Unavailable Unavailable HUTTON, M DINO PA Unavailable Unavailable HUTTON, M DINO PA Unavailable Unavailable HUTTON, M DINO PA Unavailable Unavailable HUTTON, M DINO PA Unavailable Unavailable HUTTON, M DINO PA Unavailable Unavailable HUTTON, M DINO PA Unavailable Unavailable HUTTON, M DINO PA Unavailable Unavailable HUTTON, M DINO PA Unavailable Unavailable HUTTON, M DINO PA Unavailable Unavailable HUTTON, M DINO PA Unavailable Unavailable HUTTON, M DINO PA Unavailable Unavailable HUTTON, M DINO PA Unavailable Unavailable HUTTON, M DINO PA Unavailable Unavailable HUTTON, M DINO PA Unavailable Unavailable HUTTON, M DINO PA Unavailable Unavailable HUTTON, M DINO PA Unavailable Unavailable HUTTON, M DINO PA Unavailable Unavailable HUTTON, M DINO PA Unavailable Unavailable HUTTON, M DINO PA Unavailable Unavailable HUTTON, M DINO PA Unavailable Unavailable HUTTON, M DINO PA Unavailable Unavailable HUTTON, M DINO PA Unavailable Unavailable HUTTON, M DINO PA Unavailable Unavailable HUTTON, M DINO PA Unavailable Unavailable HUTTON, M DINO PA Unavailable Unavailable HUTTON, M DINO PA Unavailable Unavailable HUTTON, M DINO PA Unavailable Unavailable Monalisa II, Jas PA Unavailable Unavailable Monalisa II, Jas PA Unavailable Unavailable Monalisa II, Jas PA Unavailable Unavailable Monalisa II, Jas PA Unavailable Unavailable Monalisa II, Jas PA Unavailable Unavailable Monalisa II, Jas PA Unavailable Unavailable Monalisa II, Jas PA Unavailable Unavailable Monalisa II, Jas PA Unavailable Unavailable Monalisa II, Jas PA Unavailable Unavailable Monalisa II, Jas PA Unavailable Unavailable Monalisa II, Jas PA Unavailable Unavailable Monalisa II, Jas PA Unavailable Unavailable Monalisa II, Jas PA Unavailable Unavailable Monalisa II, Jas PA Unavailable Unavailable Monalisa II, Jas PA Unavailable Unavailable Monalisa II, Jas PA Unavailable Unavailable Monalisa II, Jas PA Unavailable Unavailable Dwello PA PA, Aleena Unavailable Unavailable Dwello PA PA, Aleena Unavailable Unavailable Re-disclosure Warning The records that you are about to access may contain information from federally-assisted alcohol or drug abuse programs. If such information is present, then the following federally mandated warning applies: This information has been disclosed to you from records protected by federal confidentiality rules (42 CFR part 2). The federal rules prohibit you from making any further disclosure of this information unless further disclosure is expressly permitted by the written consent of the person to whom it pertains or as otherwise permitted by 42 CFR part 2. A general authorization for the release of medical or other information is NOT sufficient for this purpose. The Federal rules restrict any use of the information to criminally investigate or prosecute any alcohol or drug abuse patient.The records that you are about to access may contain highly sensitive health information, the redisclosure of which is protected by Article 27-F of the [facility] Public Health law. If you continue you may have access to information: Regarding HIV / AIDS; Provided by facilities licensed or operated by the [facility] Office of Mental Health; or Provided by the [facility] Office for People With Developmental Disabilities. If such information is present, then the following [facility] mandated warning applies: This information has been disclosed to you from confidential records which are protected by state law. State law prohibits you from making any further disclosure of this information without the specific written consent of the person to whom it pertains, or as otherwise permitted by law. Any unauthorized further disclosure in violation of state law may result in a fine or fpc sentence or both. A general authorization for the release of medical or other information is NOT sufficient authorization for further disc losure. Allergies and Adverse Reactions Type Description Substance Reaction Status Data Source(s ) Drug allergy Amoxicillin Amoxicillin Rash Active eCW1 ([facility]) Sulfa Eye Drops Sulfa Eye Drops Sulfa Eye Drops Swollen eyes Active eCW1 ([facility]) Sulfa Eye Drops Sulfa Eye Drops Sulfa Eye Drops Swollen eyes Active eCW1 ([facility]) Family History Family Member Name Family Member Gender Family Member Status Date o f Status Description Data Source(s) Unknown Male Diagnosis 06/05/2015 12:00:00 AM EST NextGen ([facility]) Unknown Male Diagnosis 06/05/2015 12:00:00 AM EST NextGen ([facility]) Unknown Female Problem MEDENT ([facility] Unknown Female Problem [facility] ([facility] Unknown Unknown Unknown Unknown Encounters Encounter Providers Location Date Indications Data Source(s ) [place] [address] [place] [place] [address] 07/07/2020 12:00:00 AM EST [facility] [place] [address] [facility] [place] [address] 07/07/2020 12:00:00 AM EST [facility]CW1 [facility]) Office Visit, Est Pt., Level 4 PC [address] [place] [address] 07/01/2020 12:00:00 AM EST eCW1 ([facility]) [facility]10[facility]00 PM EST - 06/25/2020 03:10:00 PM EST Encounter for surveillance of injectable contraceptive NextGen ([facility]) Encounter for surveillance of injectable contraceptive [place] [address] [place] [address] 06/23/2020 12:00:00 AM EST [facility] Unknown [address] [facility] [place] [address] 06/18/2020 12:00:00 AM EST [facility]CW1 [facility]) Unknown [address] [facility] [place] [address] 06/09/2020 12:00:00 AM EST eCW1 [facility] [place] [address] [facility] [place] [address] 06/03/2020 12:00:00 AM EST eCW1 ([facility]) Unknown [address] [facility] [place] [address] 05/19/2020 12:00:00 AM EST [facility]CW1 [facility] Unknown [address] [facility] [place] [address] 05/19/2020 12:00:00 AM EST [facility]CW[facility] Unknown [address] [facility] [place] [address] 05/06/2020 12:00:00 AM EST eCW1 ([facility]) [place] [address] [place] [address] 04/14/2020 12:00:00 AM EST eCW1 ([facility]) Attender: Aleena ROUSE [place] 01:50:00 PM EDT - 04/09/2020 01:50:00 PM EDT Encounter for surveillance of injectable contraceptive NextGen ([facility]) Encounter for surveillance of injectable contraceptive [place] [address] [place] [place] [address] 04/01/2020 12:00:00 AM EDT eCW1 ([facility]) Outpatient Attender: Jas Resendiz/[place]/Rein dl 03/28/2020 01:30:00 PM EDT MEDENT ([facility]) Office Visit, Est Pt., Level 3 PC [address] [place] [address] 03/20/2020 12:00:00 AM EDT eCW1 ([facility]) [place] [address] [place] [place] [address] 03/18/2020 12:00:00 AM EDT eCW1 ([facility]) Outpatient Attender: Jas Resendiz/[place]/Rein dl 02/27/2020 11:15:00 AM EDT [facility] ([facility]) Outpatient Attender: DINO MCKEON Martín/[place]/Rein dl 02/26/2020 01:00:00 PM EDT [facility] ([facility]) Attender: Babita CARPENTER ELIZABETH [place] 01/22/2020 01:10:00 PM EDT - 01/22/2020 01:10:00 PM EDT Encounter for surveillance of injectable contraceptive NextGen ([facility]) Encounter for surveillance of injectable contraceptive Outpatient [address] [place] [address] 01/02/2020 12:00:00 AM EDT eCW1 ([facility]) Outpatient Attender: DINO Resendiz/[place]re[place] 01/01/2020 02:00:00 PM EDT MEDENT ([facility]) [address] [address] 11/30/2019 12:00:00 AM EDT eCW1 ([facility]) Outpatient Attender: Ingrid Villalobos NP [id number] 2019 12:00:00 AM EDT - 11/14/2019 11:11:47 AM EDT Rheumatoid arthritis with rheumatoid fac tor of multiple sites without organ or systems involvement [facility] Rheumatoid arthritis with rheumatoid fac tor of multiple sites without organ or systems involvement [address] [place] [address] 11/12/2019 12:00:00 AM EDT eCW1 ([facility]) Attender: Samantha MCKEON [facility] 10/12 12:30:00 PM EDT - 11/02/2019 12:30:00 PM EDT Encounter for surveillance of injectable contraceptive NextGen ([facility]) Encounter for surveillance of injectable contraceptive Outpatient Attender: Ingrid Villalobos NP 10/16/2019 12:00:00 A M EDT [facility] Outpatient Referrer: ISABELA CALLAWAY MD 09/25/2019 11:17:00 AM EDT [facility] [address] [place] [address] 09/12/2019 12:00:00 AM EDT eCW1 ([facility]) [address] [place] [address] 09/11/2019 12:00:00 AM EDT eCW1 ([facility]) [address] [place] [address] 09/10/2019 12:00:00 AM EDT eCW1 ([facility]) [address] [address] 09/04/2019 12:00:00 AM EDT eCW1 ([facility]) [facility] [address] [address] 08/30/2019 12:00:00 AM EDT eCW1 ([facility]) Outpatient Attender: Ingrid Villalobos NP 08/29/2019 12:00:00 A [facility] OutpatientPREV VISIT, EST, AGE 40-64 Attender: Samantha MCKEON PPELIZABETH [place] 08/15/2019 02:00:00 PM EST - 08/15/2019 02:00:00 PM ES T Body mass index (BMI) 50-59.9 , adultEncounter for oth screening for malignant neoplasm of breastEncntr for outpatient therapist exam (general) (routine) w/o abn findingsEncounter for surveillance of injectable contraceptiveEncounter for oth general cnsl and advice on contraceptionHuman immunodeficiency virus [HIV] counselingOther sex counseling NextGen ([facility]) Body mass index (BMI) 50-59.9 , adult Encounter for oth screening for malignan t neoplasm of breast Encntr for outpatient therapist exam (general) (routine) w/o abn findings Encounter for surveillance of injectable contraceptive Encounter for oth general cnsl and advic e on contraception Human immunodeficiency virus [HIV] couns eling Other sex counseling Outpatient Attender: ISABELA CALLAWAY MD 08/14/2019 12:00:00 AM [facility] Outpatient Attender: DINO Resendiz/[place]/oTmy [place]re[place] 08/06/2019 02:00:00 PM EST MED[facility] ([facility]) [facility] [address] [place] [id number] 08/01/2019 12:00:00 AM EST eCW1 ([facility]) [facility] [address] [address] 07/19/2019 12:00:00 AM EST eCW1 ([facility]) [facility] [address] [place] [address], [place] [address] 07/09/2019 12:00:00 AM EST eCW1 ([facility]) [facility] [address] [address] 07/02/2019 12:00:00 AM EST eCW1 ([facility]) [facility] [address] [address] 05/30/2019 12:00:00 AM EST eCW1 ([facility]) Attender: Samantha MCKEON PPNCBARBI [place] 05/13 11:10:00 AM EST - 05/29/2019 11:10:00 AM EST Encounter for surveillance of injectable contraceptive NextGen ([facility]) Encounter for surveillance of injectable contraceptive Immunizations Vaccine Date Status Description Data Source(s) New in 2011. IIV4 04/30/2020 01:52:00 PM EST completed MEDENT ([facility], ) Medications Medication Brand Name Start Date Product Form Dose Route Admi nistrative Instructions Pharmacy Instructions Status Indications Reaction Description Data Source(s) Sulfasalazine 500 MG Oral Tablet Sulfasalazine 500 MG 2020 12:00:00 AM EST 3.0 {tablet} active Sulfasalazi ne 500 MG eCW1 ([facility]) Sulfasalazine 500 MG Oral Tablet Sulfasalazine 500 MG 2020 12:00:00 AM EST 3.0 {tablet} active Sulfasalazi ne 500 MG eCW1 ([facility]) 500 mg 07/07/2020 12:00:00 AM EST tablet 180 TAKE THREE TABLETS BY MOUTH TWICE A DAY TAKE THREE TABLETS BY MOUTH TWICE A DAY SOLD: 07/08/2020 [facility] 2.5 mg 06/23/2020 12:00:00 AM EST tablet 45 TAKE 9 TABLETS BY MOUTH WEEKLY TAKE 9 TABLETS BY MOUTH WEEKLY SOLD: 06/24/2020 [facility] 62.5 mcg/actuation 06/20/2020 12:00:00 AM EST blister with d evice 30 INHALE ONE PUFF BY MOUTH EVERY DAY INHALE ONE PUFF BY MOUTH EVERY DAY SOLD: 06/24/2020 [facility] 0.2 % 06/10/2020 12:00:00 AM EST drops 2 INSTILL 1 DROP INTO EACH EYE ONCE A DAY NEEDED INSTILL 1 DROP INTO EACH EYE ONCE A DAY NEEDED SOLD : 06/11/2020 [facility] 200-25 mcg/dose 05/24/2020 12:00:00 AM EST blister with ben ce 60 INHALE ONE PUFF BY MOUTH EVERY DAY INHALE ONE PUFF BY MOUTH EVERY DAY SOLD: 06/24/2020 [facility] 200-25 mcg/dose 05/24/2020 12:00:00 AM EST blister with ben ce 60 INHALE ONE PUFF BY MOUTH EVERY DAY INHALE ONE PUFF BY MOUTH EVERY DAY SOLD: 05/27/2020 [facility] 20 mg 05/20/2020 12:00:00 AM EST capsule,delayed release (DR/EC) 90 TAKE ONE CAPSULE BY MOUTH EVERY DAY TAKE ONE CAPSULE BY MOUTH EVERY DAY SOLD: 05/22/2020 [facility] 62.5 mcg/actuation 03/22/2020 12:00:00 AM EDT blister with d evice 30 INHALE 1 PUFF BY MOUTH ONCE DAILY INHALE 1 PUFF BY MOUTH ONCE DAILY SOLD: 05/27/2020 [facility] 62.5 mcg/actuation 03/22/2020 12:00:00 AM EDT blister with d evice 30 INHALE 1 PUFF BY MOUTH ONCE DAILY INHALE 1 PUFF BY MOUTH ONCE DAILY SOLD: 04/22/2020 [facility] 62.5 mcg/actuation 03/22/2020 12:00:00 AM EDT blister with d evice 30 INHALE 1 PUFF BY MOUTH ONCE DAILY INHALE 1 PUFF BY MOUTH ONCE DAILY SOLD: 03/25/2020 [facility] 7 ACTUAT umeclidinium 0.0625 MG/ACTUAT D ry Powder Inhaler [Incruse] Incruse Ellipta 62.5 MCG/INH Incruse Ellipta 62.5 MCG/INH 03/20/2020 12:00:00 AM EDT 1.0 {puff} active Incruse Ellipta 62.5 MCG/INH eCW1 ([facility]) 7 ACTUAT umeclidinium 0.0625 MG/ACTUAT D ry Powder Inhaler [Incruse] Incruse Ellipta 62.5 MCG/INH Incruse Ellipta 62.5 MCG/INH 03/20/2020 12:00:00 AM EDT 1.0 {puff} active Incruse Ellipta 62.5 MCG/INH eCW1 ([facility]) 7 ACTUAT umeclidinium 0.0625 MG/ACTUAT D ry Powder Inhaler [Incruse] Incruse Ellipta 62.5 MCG/INH Incruse Ellipta 62.5 MCG/INH 03/20/2020 12:00:00 AM EDT 1.0 {puff} active Incruse Ellipta 62.5 MCG/INH eCW1 ([facility]) 7 ACTUAT umeclidinium 0.0625 MG/ACTUAT D ry Powder Inhaler [Incruse] Incruse Ellipta 62.5 MCG/INH Incruse Ellipta 62.5 MCG/INH 03/20/2020 12:00:00 AM EDT 1.0 {puff} active Incruse Ellipta 62.5 MCG/INH eCW1 ([facility]) 7 ACTUAT umeclidinium 0.0625 MG/ACTUAT D ry Powder Inhaler [Incruse] Incruse Ellipta 62.5 MCG/INH Incruse Ellipta 62.5 MCG/INH 03/20/2020 12:00:00 AM EDT 1.0 {puff} active Incruse Ellipta 62.5 MCG/INH eCW1 ([facility]) 7 ACTUAT umeclidinium 0.0625 MG/ACTUAT D ry Powder Inhaler [Incruse] Incruse Ellipta 62.5 MCG/INH Incruse Ellipta 62.5 MCG/INH 03/20/2020 12:00:00 AM EDT 1.0 {puff} active Incruse Ellipta 62.5 MCG/INH eCW1 ([facility]) 7 ACTUAT umeclidinium 0.0625 MG/ACTUAT D ry Powder Inhaler [Incruse] Incruse Ellipta 62.5 MCG/INH Incruse Ellipta 62.5 MCG/INH 03/20/2020 12:00:00 AM EDT 1.0 {puff} active Incruse Ellipta 62.5 MCG/INH eCW1 ([facility]) 7 ACTUAT umeclidinium 0.0625 MG/ACTUAT D ry Powder Inhaler [Incruse] Incruse Ellipta 62.5 MCG/INH Incruse Ellipta 62.5 MCG/INH 03/20/2020 12:00:00 AM EDT 1.0 {puff} active Incruse Ellipta 62.5 MCG/INH eCW1 ([facility]) 7 ACTUAT umeclidinium 0.0625 MG/ACTUAT D ry Powder Inhaler [Incruse] Incruse Ellipta 62.5 MCG/INH Incruse Ellipta 62.5 MCG/INH 03/20/2020 12:00:00 AM EDT 1.0 {puff} active Incruse Ellipta 62.5 MCG/INH eCW1 ([facility]) 7 ACTUAT umeclidinium 0.0625 MG/ACTUAT D ry Powder Inhaler [Incruse] Incruse Ellipta 62.5 MCG/INH Incruse Ellipta 62.5 MCG/INH 03/20/2020 12:00:00 AM EDT 1.0 {puff} active Incruse Ellipta 62.5 MCG/INH eCW1 ([facility]) 7 ACTUAT umeclidinium 0.0625 MG/ACTUAT D ry Powder Inhaler [Incruse] Incruse Ellipta 62.5 MCG/INH Incruse Ellipta 62.5 MCG/INH 03/20/2020 12:00:00 AM EDT 1.0 {puff} active Incruse Ellipta 62.5 MCG/INH eCW1 ([facility]) 7 ACTUAT umeclidinium 0.0625 MG/ACTUAT D ry Powder Inhaler [Incruse] Incruse Ellipta 62.5 MCG/INH Incruse Ellipta 62.5 MCG/INH 03/20/2020 12:00:00 AM EDT 1.0 {puff} active Incruse Ellipta 62.5 MCG/INH eCW1 ([facility]) 7 ACTUAT umeclidinium 0.0625 MG/ACTUAT D ry Powder Inhaler [Incruse] Incruse Ellipta 62.5 MCG/INH Incruse Ellipta 62.5 MCG/INH 03/20/2020 12:00:00 AM EDT 1.0 {puff} active Incruse Ellipta 62.5 MCG/INH eCW1 ([facility]) 2.5 mg 02/29/2020 12:00:00 AM EDT tablet 45 TAKE 9 TABLETS BY MOUTH ONCE WEEKLY TAKE 9 TABLETS BY MOUTH ONCE WEEKLY SOLD: 04/15/2020 [facility] 2.5 mg 02/29/2020 12:00:00 AM EDT tablet 45 TAKE 9 TABLETS BY MOUTH ONCE WEEKLY TAKE 9 TABLETS BY MOUTH ONCE WEEKLY SOLD: 03/04/2020 [facility] 2.5 mg 02/29/2020 12:00:00 AM EDT tablet 45 TAKE 9 TABLETS BY MOUTH ONCE WEEKLY TAKE 9 TABLETS BY MOUTH ONCE WEEKLY SOLD: 05/20/2020 [facility] 7 ACTUAT umeclidinium 0.0625 MG/ACTUAT Dry Powder Inha ler [Incruse] Incruse Ellipta 02/26/2020 12:00:00 AM EDT RESPIRATORY active MEDENT ([facility], ) 150 mcg 02/10/2020 12:00:00 AM EDT tablet 90 TAKE ONE TABLET BY MOUTH EVERY DAY IN THE MORNING ON AN EMPTY STOMACH TAKE ONE TABLET BY MOUTH EVERY DAY IN TH E MORNING ON AN EMPTY STOMACH SOLD: 02/12/2020 [facility] 150 mcg 02/10/2020 12:00:00 AM EDT tablet 90 TAKE ONE TABLET BY MOUTH EVERY DAY IN THE MORNING ON AN EMPTY STOMACH TAKE ONE TABLET BY MOUTH EVERY DAY IN TH E MORNING ON AN EMPTY STOMACH SOLD: 05/13/2020 [facility] 1 mg 01/21/2020 12:00:00 AM EDT tablet 90 TAKE ONE TABLET BY MOUTH EVERY DAY TAKE ONE TABLET BY MOUTH EVERY DAY SOLD: 01/22/2020 [facility] 1 mg 01/21/2020 12:00:00 AM EDT tablet 90 TAKE ONE TABLET BY MOUTH EVERY DAY TAKE ONE TABLET BY MOUTH EVERY DAY SOLD: 05/06/2020 [facility] 200-25 mcg/dose 01/02/2020 12:00:00 AM EDT blister with ben ce 60 INHALE 1 PUFF BY MOUTH ONCE DAILY INHALE 1 PUFF BY MOUTH ONCE DAILY SOLD: 02/28/2020 [facility] 200-25 mcg/dose 01/02/2020 12:00:00 AM EDT blister with ben ce 60 INHALE 1 PUFF BY MOUTH ONCE DAILY INHALE 1 PUFF BY MOUTH ONCE DAILY SOLD: 01/03/2020 [facility] montelukast 10 MG Oral Tablet MONTELUKAST SODIUM 01/02/2020 12:0 0:00 AM EDT tablet 30 TAKE ONE TABLET BY MOUTH AT BEDT KATARINA TAKE ONE TABLET BY MOUTH AT BEDTIME SOLD: 01/24/2020 [facility] montelukast 10 MG Oral Tablet MONTELUKAST SODIUM 01/02/2020 12:0 0:00 AM EDT tablet 30 TAKE ONE TABLET BY MOUTH AT BEDT KATARINA TAKE ONE TABLET BY MOUTH AT BEDTIME SOLD: 02/28/2020 [facility] montelukast 10 MG Oral Tablet MONTELUKAST SODIUM 01/02/2020 12:0 0:00 AM EDT tablet 30 TAKE ONE TABLET BY MOUTH AT BEDT KATARINA TAKE ONE TABLET BY MOUTH AT BEDTIME SOLD: 03/25/2020 [facility] 90 mcg/actuation 01/02/2020 12:00:00 AM EDT HFA aerosol inha ler 8 INHALE 2 PUFFS BY MOUTH FOUR TIMES A DAY NEEDED INHALE 2 PUFFS BY MOUTH FOUR TIMES A DAY NEEDED SOLD: 01/03/2020 [facility] 200-25 mcg/dose 01/02/2020 12:00:00 AM EDT blister with ben ce 60 INHALE 1 PUFF BY MOUTH ONCE DAILY INHALE 1 PUFF BY MOUTH ONCE DAILY SOLD: 03/25/2020 [facility] 200-25 mcg/dose 01/02/2020 12:00:00 AM EDT blister with ben ce 60 INHALE 1 PUFF BY MOUTH ONCE DAILY INHALE 1 PUFF BY MOUTH ONCE DAILY SOLD: 01/24/2020 [facility] montelukast 10 MG Oral Tablet MONTELUKAST SODIUM 01/02/2020 12:0 0:00 AM EDT tablet 30 TAKE ONE TABLET BY MOUTH AT BEDT KATARINA TAKE ONE TABLET BY MOUTH AT BEDTIME SOLD: 01/03/2020 [facility] 1,250 mcg (50,000 unit) 12/25/2019 12:00:00 AM EDT capsule 8 TAKE ONE CAPSULE BY MOUTH EVERY 7 DAYS TAKE ONE CAPSULE BY MOUTH EVERY 7 DAYS SOLD: 12/27/2019 [facility] 20 mg 11/19/2019 12:00:00 AM EDT capsule,delayed release (DR/EC) 30 TAKE ONE CAPSULE BY MOUTH EVERY DAY TAKE ONE CAPSULE BY MOUTH EVERY DAY SOLD: 02/28/2020 [facility] 20 mg 11/19/2019 12:00:00 AM EDT capsule,delayed release (DR/EC) 30 TAKE ONE CAPSULE BY MOUTH EVERY DAY TAKE ONE CAPSULE BY MOUTH EVERY DAY SOLD: 03/25/2020 [facility] 20 mg 11/19/2019 12:00:00 AM EDT capsule,delayed release (DR/EC) 30 TAKE ONE CAPSULE BY MOUTH EVERY DAY TAKE ONE CAPSULE BY MOUTH EVERY DAY SOLD: 11/20/2019 [facility] 20 mg 11/19/2019 12:00:00 AM EDT capsule,delayed release (DR/EC) 30 TAKE ONE CAPSULE BY MOUTH EVERY DAY TAKE ONE CAPSULE BY MOUTH EVERY DAY SOLD: 04/29/2020 [facility] 20 mg 11/19/2019 12:00:00 AM EDT capsule,delayed release (DR/EC) 30 TAKE ONE CAPSULE BY MOUTH EVERY DAY TAKE ONE CAPSULE BY MOUTH EVERY DAY SOLD: 01/24/2020 [facility] 20 mg 11/19/2019 12:00:00 AM EDT capsule,delayed release (DR/EC) 30 TAKE ONE CAPSULE BY MOUTH EVERY DAY TAKE ONE CAPSULE BY MOUTH EVERY DAY SOLD: 12/27/2019 [facility] 500 mg 11/15/2019 12:00:00 AM EDT tablet,delayed release (DR/EC) 180 TAKE THREE TABLETS BY MOUTH TWICE A DAY TAKE THREE TABLETS BY MOUTH TWICE A DAY SOLD: 01/24/2020 [facility] 2.5 mg 11/15/2019 12:00:00 AM EDT tablet 36 TAKE 9 TABLETS BY MOUTH EVERY WEEK TAKE 9 TABLETS BY MOUTH EVERY WEEK SOLD: 11/20/2019 [facility] 500 mg 11/15/2019 12:00:00 AM EDT tablet,delayed release (DR/EC) 180 TAKE THREE TABLETS BY MOUTH TWICE A DAY TAKE THREE TABLETS BY MOUTH TWICE A DAY SOLD: 02/28/2020 [facility] 500 mg 11/15/2019 12:00:00 AM EDT tablet,delayed release (DR/EC) 180 TAKE THREE TABLETS BY MOUTH TWICE A DAY TAKE THREE TABLETS BY MOUTH TWICE A DAY SOLD: 11/20/2019 [facility] 2.5 mg 11/15/2019 12:00:00 AM EDT tablet 36 TAKE 9 TABLETS BY MOUTH EVERY WEEK TAKE 9 TABLETS BY MOUTH EVERY WEEK SOLD: 01/15/2020 [facility] 500 mg 11/15/2019 12:00:00 AM EDT tablet,delayed release (DR/EC) 180 TAKE THREE TABLETS BY MOUTH TWICE A DAY TAKE THREE TABLETS BY MOUTH TWICE A DAY SOLD: 04/29/2020 [facility] 2.5 mg 11/15/2019 12:00:00 AM EDT tablet 36 TAKE 9 TABLETS BY MOUTH EVERY WEEK TAKE 9 TABLETS BY MOUTH EVERY WEEK SOLD: 02/12/2020 [facility] 500 mg 11/15/2019 12:00:00 AM EDT tablet,delayed release (DR/EC) 180 TAKE THREE TABLETS BY MOUTH TWICE A DAY TAKE THREE TABLETS BY MOUTH TWICE A DAY SOLD: 04/01/2020 [facility] 500 mg 11/15/2019 12:00:00 AM EDT tablet,delayed release (DR/EC) 180 TAKE THREE TABLETS BY MOUTH TWICE A DAY TAKE THREE TABLETS BY MOUTH TWICE A DAY SOLD: 12/27/2019 [facility] 2.5 mg 11/15/2019 12:00:00 AM EDT tablet 36 TAKE 9 TABLETS BY MOUTH EVERY WEEK TAKE 9 TABLETS BY MOUTH EVERY WEEK SOLD: 12/20/2019 [facility] Sulfasalazine 500 MG Delayed Release Ora l Tablet sulfaSALAzine 500 MG Oral Tablet Delayed Release (AZULFIDINE) sulfaSALAzine 500 MG Oral Tablet Delayed Release (AZULFIDINE) 11/14/2019 12:00:00 AM EDT 1500 mg Oral active High risk medication useRheumatoid arthritis involving multiple sites with positive rheumatoid factor Take 3 tablets by mouth Two Times Daily [facility] High risk medication use Rheumatoid arthritis involving multiple sites with positive rheumatoid factor Omeprazole 20 MG Delayed Release Oral Ca psule Omeprazole 20 MG Oral Capsule Delayed Release (PriLOSEC) Omeprazole 20 MG Oral Capsule Delayed Re lease (PriLOSEC) 11/14/2019 12:00:00 AM EDT 20 mg Oral ac tive Gastroesophageal reflux disease without esophagitisRheumatoid arthritis involving multiple sites with positive rheumatoid factor Take 1 capsule by mouth [facility] Gastroesophageal reflux disease without esophagitis Rheumatoid arthritis involving multiple sites with positive rheumatoid factor Methotrexate 2.5 MG Oral Tablet Methotrexate 2.5 MG Oral Tab let 11/14/2019 12:00:00 AM EDT 22.5 mg Oral active High risk medication useRheumatoid arthritis involving multiple sites with positive rheumatoid factor Take 9 tablets by mouth once a week [facility] High risk medication use Rheumatoid arthritis involving multiple sites with positive rheumatoid factor Folic Acid 1 MG Oral Tablet Folic Acid 1 MG Oral Table t (FOLVITE) Folic Acid 1 MG Oral Tablet (FOLVITE) 11/14/2019 12:00:00 AM EDT 1 mg Oral active Rheumatoid arthritis involving multiple sites with positive rheumatoid factor Take 1 tablet by mouth daily [facility] Rheumatoid arthritis involving multiple sites with positive rheumatoid factor 150 mcg 11/12/2019 12:00:00 AM EDT tablet 90 TAKE ONE TABLET BY MOUTH EVERY MORNING ON AN EMPTY STOMACH TAKE ONE TABLET BY MOUTH EVERY MORNING O N AN EMPTY STOMACH SOLD: 11/13/2019 [facility] Ergocalciferol 56065 UNT Oral Capsule Vi tamin D (Ergocalciferol) 1.25 MG (91918 UT) Oral Capsule (ERGOCALCIFEROL) Vitamin D (Ergocalciferol) 1.25 MG (5000 0 UT) Oral Capsule (ERGOCALCIFEROL) 11/06/2019 12:00:00 AM EDT active Vitamin D deficiency TAKE 1 CAPSULE BY MOUTH EVERY [address] [facility] Vitamin D deficiency 1,250 mcg (50,000 unit) 11/06/2019 12:00:00 AM EDT capsule 8 TAKE ONE CAPSULE BY MOUTH EVERY 7 DAYS TAKE ONE CAPSULE BY MOUTH EVERY 7 DAYS SOLD: 11/08/2019 [facility] 500 mg 10/15/2019 12:00:00 AM EDT tablet,delayed release (DR/EC) 180 TAKE THREE TABLETS BY MOUTH TWICE A DAY TAKE THREE TABLETS BY MOUTH TWICE A DAY SOLD: 10/16/2019 [facility] 500 mg 10/15/2019 12:00:00 AM EDT tablet,delayed release (DR/EC) 180 TAKE THREE TABLETS BY MOUTH TWICE A DAY TAKE THREE TABLETS BY MOUTH TWICE A DAY SOLD: 06/03/2020 [facility] 1,250 mcg (50,000 unit) 09/03/2019 12:00:00 AM EDT capsule 8 TAKE 1 CAPSULE BY MOUTH EVERY 7 DAYS TAKE 1 CAPSULE BY MOUTH EVERY 7 DAYS SOLD: 09/04/2019 [facility] Sulfasalazine 500 MG Delayed Release Ora l Tablet sulfaSALAzine 500 MG Oral Tablet Delayed Release (AZULFIDINE) sulfaSALAzine 500 MG Oral Tablet Delayed Release (AZULFIDINE) 09/03/2019 12:00:00 AM EDT aborted High risk medication useRheumatoid arthritis involving multiple sites with positive rheumatoid factor TAKE THREE TABLETS BY MOUTH TWICE A DAY [facility] High risk medication use Rheumatoid arthritis involving multiple sites with positive rheumatoid factor Folic Acid 1 MG Oral Tablet Folic Acid 1 MG Oral Table t (FOLVITE) Folic Acid 1 MG Oral Tablet (FOLVITE) 09/02/2019 12:00:00 AM EDT 1 mg Oral aborted Rheumatoid arthritis involving multiple sites with positive rheumatoid factor Take 1 tablet by mouth daily [facility] Rheumatoid arthritis involving multiple sites with positive rheumatoid factor medroxyprogesterone acetate 150 MG/ML In jectable Suspension medroxyprogesterone 150 mg/mL intramuscular suspension medroxyprogesterone 150 mg/mL intramuscu lar suspension 08/15/2019 12:00:00 AM EST active IM every 10-13 weeks NextGen ([facility]) montelukast 10 MG Oral Tablet MONTELUKAST SODIUM 08/07/2019 12:0 0:00 AM EST tablet 30 TAKE ONE TABLET BY MOUTH AT BEDT KATARINA TAKE ONE TABLET BY MOUTH AT BEDTIME SOLD: 06/24/2020 [facility] montelukast 10 MG Oral Tablet MONTELUKAST SODIUM 08/07/2019 12:0 0:00 AM EST tablet 30 TAKE ONE TABLET BY MOUTH AT BEDT KATARINA TAKE ONE TABLET BY MOUTH AT BEDTIME SOLD: 05/20/2020 [facility] montelukast 10 MG Oral Tablet MONTELUKAST SODIUM 08/07/2019 12:0 0:00 AM EST tablet 30 TAKE ONE TABLET BY MOUTH AT BEDT KATARINA TAKE ONE TABLET BY MOUTH AT BEDTIME SOLD: 04/17/2020 [facility] montelukast 10 MG Oral Tablet MONTELUKAST SODIUM 08/07/2019 12:0 0:00 AM EST tablet 30 TAKE ONE TABLET BY MOUTH AT BEDT KATARINA TAKE ONE TABLET BY MOUTH AT BEDTIME SOLD: 08/16/2019 [facility] montelukast 10 MG Oral Tablet [Singulair] Singulair 2019 12:00:00 AM EST ORAL active MEDENT ( [facility]) 1 mg 08/02/2019 12:00:00 AM EST tablet 90 TAKE ONE TABLET BY MOUTH EVERY DAY TAKE ONE TABLET BY MOUTH EVERY DAY SOLD: 08/07/2019 [facility] 1 mg 08/02/2019 12:00:00 AM EST tablet 90 TAKE ONE TABLET BY MOUTH EVERY DAY TAKE ONE TABLET BY MOUTH EVERY DAY SOLD: 11/06/2019 [facility] Folic Acid 1 MG Oral Tablet Folic Acid 1 MG Oral Table t (FOLVITE) Folic Acid 1 MG Oral Tablet (FOLVITE) 08/02/2019 12:00:00 AM EST active Rheumatoid arthritis involving multiple sites with positive rheumatoid factor TAKE ONE TABLET BY MOUTH EVERY DAY [facility] Rheumatoid arthritis involving multiple sites with positive rheumatoid factor 0.2 % 08/01/2019 12:00:00 AM EST drops 2 INSTILL ONE DROP IN AFFECTED EYE(S) ONCE DAILY NEEDED INSTILL ONE DROP IN AFFECTED EYE(S) ONCE DAILY NEED ED SOLD: 10/23/2019 [facility] 0.2 % 08/01/2019 12:00:00 AM EST drops 2 INSTILL ONE DROP IN AFFECTED EYE(S) ONCE DAILY NEEDED INSTILL ONE DROP IN AFFECTED EYE(S) ONCE DAILY NEED ED SOLD: 04/17/2020 [facility] 0.2 % 08/01/2019 12:00:00 AM EST drops 2 INSTILL ONE DROP IN AFFECTED EYE(S) ONCE DAILY NEEDED INSTILL ONE DROP IN AFFECTED EYE(S) ONCE DAILY NEED ED SOLD: 08/02/2019 [facility] 2.5 mg 07/30/2019 12:00:00 AM EST tablet 36 TAKE 9 TABLETS BY MOUTH ONCE WEEKLY TAKE 9 TABLETS BY MOUTH ONCE WEEKLY SOLD: 09/25/2019 [facility] 2.5 mg 07/30/2019 12:00:00 AM EST tablet 36 TAKE 9 TABLETS BY MOUTH ONCE WEEKLY TAKE 9 TABLETS BY MOUTH ONCE WEEKLY SOLD: 08/02/2019 [facility] 2.5 mg 07/30/2019 12:00:00 AM EST tablet 36 TAKE 9 TABLETS BY MOUTH ONCE WEEKLY TAKE 9 TABLETS BY MOUTH ONCE WEEKLY SOLD: 08/28/2019 [facility] 2.5 mg 07/30/2019 12:00:00 AM EST tablet 36 TAKE 9 TABLETS BY MOUTH ONCE WEEKLY TAKE 9 TABLETS BY MOUTH ONCE WEEKLY SOLD: 10/23/2019 [facility] 150 mcg 07/10/2019 12:00:00 AM EST tablet 30 TAKE ONE TABLET BY MOUTH ON AN EMPTY STOMACH IN THE MORNING TAKE ONE TABLET BY MOUTH ON AN EMPTY STO MACH IN THE MORNING SOLD: 10/16/2019 [facility] 150 mcg 07/10/2019 12:00:00 AM EST tablet 30 TAKE ONE TABLET BY MOUTH ON AN EMPTY STOMACH IN THE MORNING TAKE ONE TABLET BY MOUTH ON AN EMPTY STO MACH IN THE MORNING SOLD: 08/16/2019 [facility] 150 mcg 07/10/2019 12:00:00 AM EST tablet 30 TAKE ONE TABLET BY MOUTH ON AN EMPTY STOMACH IN THE MORNING TAKE ONE TABLET BY MOUTH ON AN EMPTY STO MACH IN THE MORNING SOLD: 07/12/2019 [facility] 150 mcg 07/10/2019 12:00:00 AM EST tablet 30 TAKE ONE TABLET BY MOUTH ON AN EMPTY STOMACH IN THE MORNING TAKE ONE TABLET BY MOUTH ON AN EMPTY STO MACH IN THE MORNING SOLD: 09/18/2019 [facility] Methotrexate 2.5 MG Oral Tablet Methotrexate Sodium 2. 5 MG Oral Tablet Methotrexate Sodium 2.5 MG Oral Tablet 07/09/2019 12:00:00 AM EST 22.5 mg Oral active Rheumatoid arthr itis involving multiple sites with positive rheumatoid factor Take 9 tablets by mouth once a week [facility] Rheumatoid arthritis involving multiple sites with positive rheumatoid factor 1,250 mcg (50,000 unit) 07/09/2019 12:00:00 AM EST capsule 8 TAKE 1 CAPSULE BY MOUTH EVERY 7 DAYS TAKE 1 CAPSULE BY MOUTH EVERY 7 DAYS SOLD: 07/10/2019 [facility] 20 mg 06/02/2019 12:00:00 AM EST capsule,delayed release (DR/EC) 30 TAKE ONE CAPSULE BY MOUTH EVERY DAY TAKE ONE CAPSULE BY MOUTH EVERY DAY SOLD: 08/02/2019 [facility] 20 mg 06/02/2019 12:00:00 AM EST capsule,delayed release (DR/EC) 30 TAKE ONE CAPSULE BY MOUTH EVERY DAY TAKE ONE CAPSULE BY MOUTH EVERY DAY SOLD: 10/02/2019 [facility] 20 mg 06/02/2019 12:00:00 AM EST capsule,delayed release (DR/EC) 30 TAKE ONE CAPSULE BY MOUTH EVERY DAY TAKE ONE CAPSULE BY MOUTH EVERY DAY SOLD: 06/05/2019 [facility] 20 mg 06/02/2019 12:00:00 AM EST capsule,delayed release (DR/EC) 30 TAKE ONE CAPSULE BY MOUTH EVERY DAY TAKE ONE CAPSULE BY MOUTH EVERY DAY SOLD: 08/28/2019 [facility] 20 mg 06/02/2019 12:00:00 AM EST capsule,delayed release (DR/EC) 30 TAKE ONE CAPSULE BY MOUTH EVERY DAY TAKE ONE CAPSULE BY MOUTH EVERY DAY SOLD: 10/30/2019 [facility] 20 mg 06/02/2019 12:00:00 AM EST capsule,delayed release (DR/EC) 30 TAKE ONE CAPSULE BY MOUTH EVERY DAY TAKE ONE CAPSULE BY MOUTH EVERY DAY SOLD: 07/03/2019 [facility] Omeprazole 20 MG Delayed Release Oral Ca psule Omeprazole 20 MG Oral Capsule Delayed Release (PriLOSEC) Omeprazole 20 MG Oral Capsule Delayed Re lease (PriLOSEC) 06/01/2019 12:00:00 AM EST 20 mg Oral ab orted Rheumatoid arthritis involving multiple sites with positive rheumatoid factor Take 1 capsule by mouth daily [facility] Rheumatoid arthritis involving multiple sites with positive rheumatoid factor 200-25 mcg/dose 05/04/2019 12:00:00 AM EST blister with ben ce 60 INHALE ONE PUFF BY MOUTH EVERY DAY INHALE ONE PUFF BY MOUTH EVERY DAY SOLD: 06/19/2019 [facility] 200-25 mcg/dose 05/04/2019 12:00:00 AM EST blister with ben ce 60 INHALE ONE PUFF BY MOUTH EVERY DAY INHALE ONE PUFF BY MOUTH EVERY DAY SOLD: 04/22/2020 [facility] 2.5 mg 04/10/2019 12:00:00 AM EDT tablet 36 TAKE 9 TABLETS BY MOUTH ONCE A WEEK TAKE 9 TABLETS BY MOUTH ONCE A WEEK SOLD: 05/15/2019 [facility] 2.5 mg 04/10/2019 12:00:00 AM EDT tablet 36 TAKE 9 TABLETS BY MOUTH ONCE A WEEK TAKE 9 TABLETS BY MOUTH ONCE A WEEK SOLD: 06/05/2019 [facility] 2.5 mg 04/10/2019 12:00:00 AM EDT tablet 36 TAKE 9 TABLETS BY MOUTH ONCE A WEEK TAKE 9 TABLETS BY MOUTH ONCE A WEEK SOLD: 07/03/2019 [facility] 150 mcg 03/16/2019 12:00:00 AM EDT tablet 30 TAKE ONE TABLET BY MOUTH EVERY MORNING ON EMPTY STOMACH TAKE ONE TABLET BY MOUTH EVERY MORNING O N EMPTY STOMACH SOLD: 05/15/2019 [facility] 150 mcg 03/16/2019 12:00:00 AM EDT tablet 30 TAKE ONE TABLET BY MOUTH EVERY MORNING ON EMPTY STOMACH TAKE ONE TABLET BY MOUTH EVERY MORNING O N EMPTY STOMACH SOLD: 06/19/2019 [facility] 1 mg 02/05/2019 12:00:00 AM EDT tablet 30 TAKE ONE TABLET BY MOUTH EVERY DAY TAKE ONE TABLET BY MOUTH EVERY DAY SOLD: 07/10/2019 [facility] 1 mg 02/05/2019 12:00:00 AM EDT tablet 30 TAKE ONE TABLET BY MOUTH EVERY DAY TAKE ONE TABLET BY MOUTH EVERY DAY SOLD: 06/05/2019 [facility] 500 mg 12/18/2018 12:00:00 AM EDT tablet,delayed release (DR/EC) 180 TAKE THREE TABLETS BY MOUTH TWICE A DAY TAKE THREE TABLETS BY MOUTH TWICE A DAY SOLD: 05/22/2019 [facility] 500 mg 12/18/2018 12:00:00 AM EDT tablet,delayed release (DR/EC) 30 TAKE THREE TABLETS BY MOUTH TWICE A DAY TAKE THREE TABLETS BY MOUTH TWICE A DAY SOLD: 07/05/2019 [facility] 500 mg 12/18/2018 12:00:00 AM EDT tablet,delayed release (DR/EC) 150 TAKE THREE TABLETS BY MOUTH TWICE A DAY TAKE THREE TABLETS BY MOUTH TWICE A DAY SOLD: 08/07/2019 [facility] Hydrocortisone 10 MG/ML Topical Lotion hydrocortisone 1 % lotion hydrocortisone 1 % lotion 11/28/2018 12:00:00 AM EDT active Dermatitis Apply thin film to affected area 2 to 4 times daily. [facility] Dermatitis medroxyprogesterone acetate 150 MG/ML In jectable Suspension medroxyprogesterone 150 mg/mL intramuscular suspension medroxyprogesterone 150 mg/mL intramuscu lar suspension 07/25/2018 12:00:00 AM EST active IM every 10-13 weeks Next[facility] ([facility]) Methotrexate 2.5 MG Oral Tablet methotrexate 2.5 MG ta blet methotrexate 2.5 MG tablet 05/10/2018 12:00:00 AM EST 22.5 mg Oral abort ed Rheumatoid arthritis involving multiple sites with positive rheumatoid factor Take 9 tablets by mouth once a week [facility] Rheumatoid arthritis involving multiple sites with positive rheumatoid factor Insurance Providers Payer name Policy type / Coverage type Policy ID Covered democrat ID Covered democrat's relationship to del valle Policy [place] Plan Information MARTABARBI [id number] SP [id number] MEDICARE [id number] SP [id number] MEDICARE C [id number] S [id number] J79 MEDICAID M [id number] S [id number] MEDICARE A [id number] Self [id number] J79 MEDICAID M [id number] Self [id number] MEDICAID [id number] SP [id number] MEDICAID [id number] SP [id number] ANSI-Medicare Part B [id number] ANSI-Medicaid [id number] ANSI-Medicaid [id number] ANSI-Medicare Part B [id number] ANSI-Medicaid [id number] ANSI-Medicaid [id number] ANSI-Medicaid [id number] ANSI-Medicaid [id number] ANSI-Medicare Part B [id number] ANSI-Medicare Part B [id number] ANSI-Medicaid [id number] ANSI-Medicaid [id number] MEDICARE [id number] A ANSI-Medicaid [id number] ANSI-Medicaid [id number] ANSI-Medicare Part B [id number] ANSI-Medicare Part B [id number] ANSI-Medicaid [id number] ANSI-Medicaid [id number] MEDICARE A [id number] [facility] [id number] A ANSI-Medicare Part B [id number] ANSI-Medicaid [id number] ANSI-Medicaid [id number] ANSI-Medicare Part B [id number] ANSI-Medicaid [id number] ANSI-Medicaid [id number] ANSI-Medicare Part B [id number] ANSI-Medicaid [id number] ANSI-Medicaid [id number] ANSI-Medicare Part B [id number] ANSI-Medicaid [id number] ANSI-Medicaid [id number] [facility] [id number] SP [id number] Medicaid Medicaid [id number] Self [id number] Medicare Medicare Primary [id number] Self 06 [id number] [facility] Hmo Commercial Self MEDICARE C [id number] S [id number] A [place] MEDICARE PART B C [id number] S [id number] SELF PAY UNAVAILABLE SP [place] BLE [place] Self Medicare [place] Gov[place] Serv[place] Self [place] Medig[place] Part B Self Medicare [facility] Medicare Primary Self OTHER1 *NOTFORTODAYSVISIT* SP *NOTFORTODAYSVISIT* MEDICAID W [id number] S [id number] MEDICARE OUTPATIENT M [id number] S [id number] Problems, Conditions, and Diagnoses Code Display Name Description Problem Type Effective Dates Data Source(s) J45.20 181611536 Mild intermittent asthma without complica tion Problem 06/03/2020 12:00:00 AM EST eCW1 ([facility]) F17.211 261260025 Cigarette nicotine dependence in remissio n Problem 06/03/2020 12:00:00 AM EST eCW1 ([facility]) E55.9 Vitamin D deficiency Vitamin D deficiency Problem 06/03/2020 12:00:00 AM EST eCW1 ([facility]) J30.2 [id number] Seasonal allergies Problem 06/03/2020 12:00: 00 AM EST eCW1 ([facility]) M05.79 440164398 Rheumatoid arthritis involving multiple sites with positive rheumatoid factor Problem 04/25/2020 12:00:00 AM EST eCW1 ([facility]) D72.829 096847448 Leukocytosis, unspecified type Problem 04/25/2020 12:00:00 AM EST eCW1 ([facility]) [id number] Allergic asthma without status asthmatic us Allergic asthma without status asthmaticus Problem 02/27/2020 12:00:00 AM EDT [facility] 8538306 Ex-smoker Ex-smoker Problem 08/06/2019 12:00:00 AM ES T MEDENT ([facility], ) F17.213 88797734 Cigarette nicotine dependence with withdr awal Problem 07/19/2019 12:00:00 AM EST eCW1 ([facility]) F17.213 95618970 Cigarette nicotine dependence with withdr awal Problem 07/19/2019 12:00:00 AM EST [facility] ([facility]) J30.89 97917757 Non-seasonal allergic rhinitis, unspecifi ed trigger Problem 05/30/2019 12:00:00 AM EST eCW1 ([facility]) J30.89 13645523 Non-seasonal allergic rhinitis, unspecifi ed trigger Problem 05/30/2019 12:00:00 AM EST [facility] ([facility]) E55.9 Vitamin D deficiency, unspecified Vitamin D defi ciency, unspecified Diagnosis 11/14/2019 08:34:44 AM [facility] Surgeries/Procedures Procedure Description Date Indications Data Source(s) CVR Ticketer.Svc. STI / H 06/25/2020 12:00:00 AM EST - 06/25/2020 12:00:00 AM EST [facility] ([facility]) CVR Ticketer.Svc. Other 06/25/2020 12:00:00 AM EST - 2020 12:00:00 AM EST [facility] ([facility]) CVR Med.Svc. Height/Weight 06/25/2020 12 :00:00 AM EST - 06/25/2020 12:00:00 AM EST [facility] ([facility]) CVR Blood Pressure 06/25/2020 12:00:00 AM EST - 2020 12:00:00 AM EST [facility] ([facility]) Injection Or Lab Only Visit Est 06/25/19 12:00:00 AM EST - 06/25/2020 12:00:00 AM EST [facility] ([facility]) NURSE ONLY DEPO INJ. RN/WOOL BUYER Only 021 12:00:00 AM EST - 06/25/2020 12:00:00 AM EST [facility] ([facility]) Depo/Medroxyprogesterone Inj. 150 Mg Nurse/CA 06/25/2020 12:00:00 AM EST - 06/25/2020 12:00:00 AM EST [facility] ([facility]) CVR BC Ending Method HORM.INJ. 3 MOS 12:00:00 AM EST - 06/25/2020 12:00:00 AM EST [facility] ([facility]) CVR Ticketer.Svc. Other 04/09/2020 12:00:00 AM EDT - 2019 12:00:00 AM EDT [facility] ([facility]) CVR Blood Pressure 04/09/2020 12:00:00 AM EDT - 2019 12:00:00 AM EDT [facility] ([facility]) NURSE ONLY DEPO INJ. RN/WOOL BUYER Only 020 12:00:00 AM EDT - 04/09/2020 12:00:00 AM EDT [facility] ([facility]) Depo/Medroxyprogesterone Inj. 150 Mg Nurse/CA 04/09/2020 12:00:00 AM EDT - 04/09/2020 12:00:00 AM EDT [facility] ([facility]) CVR BC Ending Method HORM.INJ. 3 MOS 12:00:00 AM EDT - 04/09/2020 12:00:00 AM EDT [facility] ([facility]) Injection Or Lab Only Visit Est 04/09/20 20 12:00:00 AM EDT - 04/09/2020 12:00:00 AM EDT [facility] ([facility]) Spirometry 02/26/2020 12:00:00 AM EDT Marisela QUISPE ([facility], ) CVR Ticketer.Svc. Other 01/22/2020 12:00:00 AM EDT - 2019 12:00:00 AM EDT [facility] ([facility]) CVR Ticketer.Svc. Nutrition 01/22/2020 12:00: 00 AM EDT - 01/22/2020 12:00:00 AM EDT [facility] ([facility]) CVR Ticketer.Svc. Contraceptive 01/22/2020 12 :00:00 AM EDT - 01/22/2020 12:00:00 AM EDT [facility] ([facility]) CVR Med.Svc. Height/Weight 01/22/2020 12 :00:00 AM EDT - 01/22/2020 12:00:00 AM EDT [facility] ([facility]) CVR Blood Pressure 01/22/2020 12:00:00 AM EDT - 2019 12:00:00 AM EDT [facility] ([facility]) NURSE ONLY DEPO INJ. RN/WOOL BUYER Only 020 12:00:00 AM EDT - 01/22/2020 12:00:00 AM EDT [facility] ([facility]) Depo/Medroxyprogesterone Inj. 150 Mg Nurse/CA 01/22/2020 12:00:00 AM EDT - 01/22/2020 12:00:00 AM EDT [facility] ([facility]) CVR BC Ending Method HORM.INJ. 3 MOS 04/2020 12:00:00 AM EDT - 01/22/2020 12:00:00 AM EDT [facility] ([facility]) Spirometry 01/01/2020 12:00:00 AM EDT M BRITTANEY ([facility], ) CVR Ticketer.Svc. Other 11/02/2019 12:00:00 AM EDT - 2019 12:00:00 AM EDT [facility] ([facility]) CVR Ticketer.Svc. Contraceptive 11/02/2019 12 :00:00 AM EDT - 11/02/2019 12:00:00 AM EDT [facility] ([facility]) CVR Med.Svc. Height/Weight 11/02/2019 12 :00:00 AM EDT - 11/02/2019 12:00:00 AM EDT [facility] ([facility]) CVR Blood Pressure 11/02/2019 12:00:00 AM EDT - 2019 12:00:00 AM EDT [facility] ([facility]) THER/PROPH/DIAG INJ, SC/IM 11/02/2019 12 :00:00 AM EDT - 11/02/2019 12:00:00 AM EDT [facility] ([facility]) Depo/Medroxyprogesterone Inj. 150 Mg Nurse/CA 11/02/2019 12:00:00 AM EDT - 11/02/2019 12:00:00 AM EDT [facility] ([facility]) CVR BC Ending Method HORM.INJ. 3 MOS 12:00:00 AM EDT - 11/02/2019 12:00:00 AM EDT [facility] ([facility]) CVR Ticketer.Svc. STI / H 08/15/2019 12:00:00 AM EST - 08/15/2019 12:00:00 AM EST [facility] ([facility]) CVR Ticketer.Svc. Other 08/15/2019 12:00:00 AM EST - 2019 12:00:00 AM EST [facility] ([facility]) CVR Ticketer.Svc. Nutrition 08/15/2019 12:00: 00 AM EST - 08/15/2019 12:00:00 AM EST [facility] ([facility]) CVR Ticketer.Svc. Contraceptive 08/15/2019 12 :00:00 AM EST - 08/15/2019 12:00:00 AM EST [facility] ([facility]) CVR Med.Svc. Height/Weight 08/15/2019 12 :00:00 AM EST - 08/15/2019 12:00:00 AM EST [facility] ([facility]) CVR Blood Pressure 08/15/2019 12:00:00 AM EST - 2019 12:00:00 AM EST [facility] ([facility]) HCS Without Test 08/15/2019 12:00:00 AM EST - 08/15/19 20 12:00:00 AM EST [facility] ([facility]) NURSE ONLY DEPO INJ. RN/WOOL BUYER Only 020 12:00:00 AM EST - 08/15/2019 12:00:00 AM EST [facility] ([facility]) Depo/Medroxyprogesterone Inj. 150 Mg Nurse/CA 08/15/2019 12:00:00 AM EST - 08/15/2019 12:00:00 AM EST [facility] ([facility]) CVR BC Ending Method HORM.INJ. 3 MOS 09/2019 12:00:00 AM EST - 08/15/2019 12:00:00 AM EST [facility] ([facility]) CYTOPATH, C/V, THIN LAYER 08/15/2019 12: 00:00 AM EST - 08/15/2019 12:00:00 AM EST [facility] ([facility]) PREV VISIT, EST, AGE 40-64 08/15/2019 12 :00:00 AM EST - 08/15/2019 12:00:00 AM EST [facility] ([facility]) Spirometry 08/06/2019 12:00:00 AM EST Marisela QUISPE ([facility], ) RADIOLOGIC EXAM KNEE COMPLETE 4/MORE VIEWS 08/01/2019 12:00:00 AM EST MEDENT ([facility] ) Office Visit, Est Pt., Level 4 PC 07/19/2019 12:00:00 AM EST eCW1 ([facility]) Annual wellness visit; includes a person alized prevention plan of service (pps), initial visit 05/30/2019 12:00:00 AM EST eCW1 ([facility]) Influenza immunization administered or previously received 05/30/2019 12:00:00 AM EST eCW1 ([facility]) Results ID Date Data Source [id number] 04/30/2020 02:24:00 PM EST MEDENT ([facility], ) Name Value Range Interpretation Code Description Data Ilsa rce(s) Supporting Document(s) PDFReport Laboratory test result MEDENT ([facility], ) FVC-Pre 2.82 L MEDENT ([facility], ) FVC-Pred 3.53 L [facility] ([facility], ) FVC-LLN 2.84 L [facility] ([facility], ) FVC-%Pred-Pre 79 L MEDENT ([facility], ) Fev1-Pred 2.80 L MEDENT ([facility], ) Fev1-%Pred-Pre 74 L MEDENT ([facility]) Fev1-Pre 2.08 L MEDENT ([facility]) Fev6-Pred 3.44 L MEDENT ([facility]) Fev1-LLN 2.21 L MEDENT ([facility]) Fev6-Pre 2.81 L MEDENT ([facility]) Tlb4vsv-Mwqs 80 % MEDENT ([facility], ) Fev6-%Pred-Pre 81 L [facility] ([facility]) Fev6-LLN 2.76 L MEDENT ([facility]) Nal8diq-%Pred-Pre 92 % MEDENT ([facility]) Cqf0wbh-Rxq 74 % MEDENT ([facility]) Mpq9wnd-SDG 70 % [facility] ([facility]) Tye1jny-Fdnd 97 % [facility] ([facility]) Jjy1tox-Ash 100 % MED[facility] ([facility]) Xhw9zgu-%Pred-Pre 102 % MEDENT ([facility]) FEFMax-Pred 6.72 L/E/sec MEDENT ([facility], ) FEFMax-%Pred-Pre 92 L/E/sec MEDENT ([facility]) FEFMax-Pre 6.23 L/E/sec MEDENT ([facility]) Gci2593-Odhv 2.75 L/E/sec MEDENT ([facility]) FEFMax-LLN 5.00 L/E/sec MEDENT ([facility]) Vho1130-%Pred-Pre 55 L/E/sec MEDENT ([facility]) Yxe1561-Mud 1.52 L/E/sec [facility] ([facility]) Zyr1856-TBV 1.51 L/E/sec MEDENT ([facility], ) Sim6qyk1-Ewa 74 % [facility] ([facility]) Efp7zhw4-Kbqx 82 % MEDENT ([facility]) ExpTime-Pre 6.36 sec [facility] ([facility]) Jvk9fbn1-%Pred-Pre 89 % MED[facility] ([facility]) Paj0til2-QJP 74 % MEDENT ([facility]) ID Date Data Source Rapid Strep (Kera Strep A+ NABIL) 03/20/2020 12:21:12 PM EDT eCW1 ([facility]) Name Value Range Interpretation Code Description Data Ilsa rce(s) Supporting Document(s) Yes Internal Controls Perform ed (Y/N) eCW1 ([facility]) Neg Rapid Strep (Kera Strep A+ NABIL) eCW1 ([facility]) Neg Result (Positive/Negative) eCW 1 ([facility]) ID Date Data Source [id number] 02/26/2020 12:53:00 PM EDT MEDENT ([facility]) Name Value Range Interpretation Code Description Data Ilsa rce(s) Supporting Document(s) PDFReport Laboratory test result MEDENT ([facility]) FVC-Pre 2.79 L MEDENT ([facility]) FVC-%Pred-Pre 78 L MEDENT ([facility]) FVC-Pred 3.54 L MEDENT ([facility]) Fev1-Pre 2.01 L MEDENT ([facility]) Fev1-Pred 2.81 L MEDENT ([facility]) FVC-LLN 2.85 L MEDENT ([facility]) Fev6-Pred 3.45 L MEDENT ([facility]) Fev1-LLN 2.22 L MEDENT ([facility]) Fev1-%Pred-Pre 71 L MEDENT ([facility]) Fev6-%Pred-Pre 80 L MEDENT ([facility]) Fev6-LLN 2.76 L MEDENT ([facility], ) Fev6-Pre 2.79 L MEDENT ([facility]) Ucr5wur-Mucb 80 % MEDENT ([facility]) Fcq3exo-Obt 72 % MEDENT ([facility]) Sez3uzz-%Pred-Pre 89 % MEDENT ([facility]) Aty3run-Kkvv 97 % MEDENT ([facility]) Fcd2sgo-Imf 100 % MEDENT ([facility]) Nag9dhx-ENC 70 % MEDENT ([facility]) Gdq1rnq-%Pred-Pre 102 % MEDENT ([facility]) FEFMax-Pre 5.40 L/E/sec MEDENT ([facility]) FEFMax-Pred 6.73 L/E/sec MEDENT ([facility]) FEFMax-LLN 5.02 L/E/sec MEDENT ([facility]) Kay1473-Hvxg 2.76 L/E/sec MEDENT ([facility]) FEFMax-%Pred-Pre 80 L/E/sec MEDENT ([facility]) Che6016-%Pred-Pre 51 L/E/sec MEDENT ([facility]) Chk3279-Mfg 1.42 L/E/sec MEDENT ([facility]) Eih2511-JZR 1.52 L/E/sec MEDENT ([facility]) ExpTime-Pre 6.13 sec MEDENT ([facility]) Reo3oso2-Wdcs 82 % MEDENT ([facility]) Yzk0ciz7-AGR 73 % MEDENT ([facility]) Prm9tuj9-%Pred-Pre 87 % MEDENT ([facility]) Jbn1hxn5-Bla 72 % MEDENT ([facility]) ID Date Data Source [id number] 01/01/2020 01:47:00 PM EDT MEDENT ([facility], ) Name Value Range Interpretation Code Description Data Ilsa rce(s) Supporting Document(s) PDFReport Laboratory test result MEDENT ([facility], ) FVC-Pred 3.56 L MEDENT ([facility]) FVC-Pre 2.64 L MEDENT ([facility]) FVC-%Pred-Pre 74 L MEDENT ([facility], ) FVC-LLN 2.86 L MEDENT ([facility]) Fev1-Pre 1.70 L MEDENT ([facility]) Fev1-%Pred-Pre 60 L MEDENT ([facility]) Fev1-Pred 2.83 L MEDENT ([facility]) Fev6-Pred 3.47 L MEDENT ([facility]) Fev6-Pre 2.61 L MEDENT ([facility]) Fev1-LLN 2.24 L MEDENT ([facility]) Yca2gsr-Evms 80 % MEDENT ([facility]) Fev6-LLN 2.79 L MEDENT ([facility]) Fev6-%Pred-Pre 75 L MEDENT ([facility]) Rjt4hsz-Utb 64 % MEDENT ([facility]) Yuk2elp-PKE 71 % MEDENT ([facility]) Lqz1jlp-%Pred-Pre 80 % MEDENT ([facility]) Pqx2oop-Tfxz 97 % MED[facility] ([facility]) Loj1sfx-Gjv 99 % MED[facility] ([facility]) Agb5dfj-%Pred-Pre 101 % MEDENT ([facility]) FEFMax-Pred 6.77 L/E/sec MEDENT ([facility]) FEFMax-%Pred-Pre 66 L/E/sec MEDENT ([facility]) FEFMax-Pre 4.50 L/E/sec MEDENT ([facility], ) Jqd4217-Fil 1.01 L/E/sec MEDENT ([facility], ) Emb4361-Fiyn 2.80 L/E/sec MEDENT ([facility], ) FEFMax-LLN 5.05 L/E/sec MEDENT ([facility], ) Zwc0670-%Pred-Pre 36 L/E/sec MEDENT ([facility]) Vrq0797-TCR 1.56 L/E/sec MEDENT ([facility], ) ExpTime-Pre 7.15 sec MEDENT ([facility], ) Pro2rxv5-Ytq 65 % MED[facility] ([facility]) Obi3zvx3-%Pred-Pre 78 % MEDENT ([facility], ) Cwx9rcy9-Qwys 82 % MEDENT ([facility], ) Vbw6ynb5-DGP 74 % MEDENT ([facility]) ID Date Data Source [id number] 11/14/2019 12:11:24 PM EDT [facility] Name Value Range Interpretation Code Description Data Ilsa rce(s) Supporting Document(s) Progress Note [facility] ZQASUf1zCdEDGmUv37/RUTiuMALss1IxLTooYJr7MKfoRNTvG2HeIIT9rJ5dIKZ6ZUiKReVnBsScZtIa lbm [file] ICAgICAgICAgICAgICAgICAgICAgICAgICAgICAgICAgICAgICAgICAgICAgICAgICAgICAgICAgICAg ICAgICAgICAgICAgICANCiAgICAgICAgICAgICAgIC AgICAgICAgICAgICAgICAgICAgICAgICAgICAgICAgICAgICAgICAgICAgICAgICAgICAgICAgICAgIC AgICAgICAgICAgICAgICAgICAgICAgICANCiAgICAgICAgICAgICAgICAgICAgICAgICAgICAgICAgIC AgICAgICAgICAgICAgICAgICAgICAgICAgICAgICAg ICAgICAgICAgICAgICAgICAgICAgICAgICAgICAgICAgICANCiAgICAgICAgICAgICAgICAgICAgICAg ICAgICAgICAgICAgICAgICAgICAgICAgICAgICAgICAgICAgICAgICAgICAgICAgICAgICAgICAgICAg ICAgICAgICAgICAgICAgICANCiAgICAgICAgICAgIC AgICAgICAgICAgICAgICAgICAgICAgICAgICAgICAgICAgICAgICAgICAgICAgICAgICAgICAgICAgIC AgICAgICAgICAgICAgICAgICAgICAgICAgICANCiAgICAgICAgICAgICAgICAgICAgICAgICAgICAgIC AgICAgICAgICAgICAgICAgICAgICAgICAgICAgICAg ICAgICAgICAgICAgICAgICAgICAgICAgICAgICAgICAgICAgICANCiAgICAgICAgICAgICAgICAgICAg ICAgICAgICAgICAgICAgICAgICAgICAgICAgICAgICAgICAgICAgICAgICAgICAgICAgICAgICAgICAg ICAgICAgICAgICAgICAgICAgICANCiAgICAgICAgIC AgICAgICAgICAgICAgICAgICAgICAgICAgICAgICAgICAgICAgICAgICAgICAgICAgICAgICAgICAgIC AgICAgICAgICAgICAgICAgICAgICAgICAgICAgICANCiAgICAgICAgICAgICAgICAgICAgICAgICAgIC AgICAgICAgICAgICAgICAgICAgICAgICAgICAgICAg ICAgICAgICAgICAgICAgICAgICAgICAgICAgICAgICAgICAgICAgICANCiAgICAgICAgICAgICAgICAg ICAgICAgICAgICAgICAgICAgICAgICAgICAgICAgICAgICAgICAgICAgICAgICAgICAgICAgICAgICAg ICAgICAgICAgICAgICAgICAgICAgICANCjw/eHBhY2 iqwGOsheP0J9ynQy4MZu9SFZ2il7WmYTAoZOwaijHjNxfRZrYeKRCfZwhBVku1GRfwVU8LaLVkZ1LxP4 RyNBddXM2KCABhRBBchXOlDOEyFQEsTvR3QYCuIZwlXF1OfYOhTVwwIRVsVUBsZsWdXOEwJFOsDLPzZL BtZURDSPSuBLCpZpOxYPPkWTZrERuoSULMOX3XHlRs F1JgeO71UHhGEk2+YDwfzmLtCxdPJoS5UKNzy0UwOMg3LA6DCRKgWtogm4OzWbVxXKTVCGufJL9UPYJ2 NTZ5WQAnWi4VXIWeH201adHuZR7RSc1WGxJyAK6rlj1CFrWrLUJtXiiNTxz0YZvuVX4KhKNbWSxQjh3a ilXorkEHp9StqnKfcHQVKT8zXDCJQM1rlmTushjnIb SaCKPwYd8mYtZeWlYaXNF9KrZhHL2kBIiqGR1LCGK1BXhuSUUsEKKxG2wLHbUeVKNyXcCblWcxKY7KSy TaR6UefrXidRHvHDSsJBUIXv9+RFsxabPrEzsHByE6BNMcs3RwGMw2ZQ7KBUUwHZumAP2YCTJhkX1kEA ukQV0ICyRkVgJwNPVKDqWzR95lvXIkZRn2Q7WyZzEl ZGVkRmlsZXMgPDwvTmFtZXMgWyBdDQogID4+ID4+JPsiGH9WUOnldsSxYQFmGo1ACAFhQHPtYR8rHXXh WNAmR1T8gPffFFWLQbAxF8eyadmiXF7rYBLfS527iWarnwPjZMX0NTBxIk7IJACsRKI4MGHcpXZrOyNv PIWQBUxfKV2UjQFbYJU3pR4aROvdEQQmMLKxB4tQQz JiiHmbDA58nGsrqmKqkECuIDn+Wc2AFP3vq5IlTZn7sjMfCKewQAJ2EAhnYYMqMHTiGNOsSQE4SOT1VT AVAqVrEUPkAWEgRMxhXJZcSXEmnk1JAOLuEBJpKpUqVJYuTQXvWTKcJKmsBRStLAB8MgH9RINzSDEjUO 2OAuMqDJHlGKUjMUgoMOHlRZUzdt3RVPFsUISoXTC8 SSBiQNYeESJrTIciQOZnJPR1ShpqXHJtJGDhPL5ELbHbQNIdHOdrEoOlQUHtTKHyzq2DGRHlIYWjENCe DfHlZMXkVOSdQIwwHFJwZQKwTNBoZUNbKQGpNR5DLtQzMFEsSECzWmXxKAUuOOYpfj9EHZIqALIhUmwc GxWsFAFzSMRxRAviXHNmQCGvEZMoZRLpQNFyAV0UUr IxYEXfDIGpRAylBLDjDYPobn9ALVXiBZXpFdUaEjUaHZJpZMLwBWfpZVTwKZT7Nfd4XDLaDMAdKQ4NSq YlIFNxIFr8OZDoTVXzDVEajg7BRXEeTGUkDUG4NhFfPNBuILNxBUqtINFoTGZyXiA7DJTsLXBlUM6BBt CoDZUuGfFrVKjfLXPvCZTsyh2APPXdCZMbDEPnKiLc JOJcFECsSWjbNIYlYQDwYZj4ZRSnPITsMN1ODvPsQVJtCxM7MHguYIIgUGHsxv9WTIXhXRUmRwf2IMJn ZVHqLUBxJSmkXAJcXRIaEUK3VDNoVFDlWP7VSmCwBPBeNdVlKphfIZSjJNIqke1FUMKyPHDpAEI7RoMo RXQaZWQkNTzpLNIqHYE0SGQbGBPlDHUxVJ3BGqLrVR LsMpQgNFJtFLPuKVNcqq2XCQJnIOTpYSP6LOEzEYAzGDLyLDzoAABuOTW7MaSnRNIjABHbHI5RZiHdLL TzFgS1TqKeJOSuTKVxxf6KVLYfKLLhYtTgIXAjBZYlUTGjLFutYUCtVSZ8SXP3NHGuXBPaBB2FHeAaXQ OwEld2OIJdPHAbNOYmse6CZLZrUCLbBPO5DQVrYCJr VGNwZKizYCQeOSD6PdUsEKSyKIQvOE9GFyGsEXkqTGAJEpo0LZroF8d6SXXlMm4GZ9Kfx8NrIzClVATH VDmpNX1rlaHvDDNxIa1GM2cZHntcQrDqQxKpZZktFbAeUpS4DuT7TFm3VSJbYvL2RORsYu4aEQMhOuTa Z2A3PRWkWwOvTZjuIDhnPXihXkCeByxqQHXfBvBx PN7WMx6JDzV6NLV2bLJjTk1SVbl1BmQHEmSnSZ2SVTi= ID Date Data Source VITAMIN D 25-HYDROXY 05/30/2019 12:00:00 AM EST eCW1 ([facility]) Name Value Range Interpretation Code Description Data Ilsa rce(s) Supporting Document(s) 33.8 30.0-100.0 TOTAL 25(OH) VITAMIN D eC W1 ([facility]) ID Date Data Source Basic Metabolic Profile (BMP) 05/30/2019 12:00:00 AM EST eCW 1 ([facility]) Name Value Range Interpretation Code Description Data Ilsa rce(s) Supporting Document(s) 65 70-100 GLUCOSE, FASTING eCW1 ([facility]) > 60.0 >58 GLOMERULAR FILTRATION RATE eCW 1 ([facility]) 142 136-145 SODIUM LEVEL eCW1 ([facility]) 6 7-18 BLOOD UREA NITROGEN eCW1 ([facility]) 0.59 0.55-1.30 CREATININE FOR GFR eCW1 ([facility]) 4.2 3.5-5.1 POTASSIUM SERUM eCW1 ([facility]) 32 21-32 CARBON DIOXIDE LEVEL eCW1 (On license of [facility]) 104 98-107 CHLORIDE LEVEL eCW1 ([facility]) 9.1 8.5-10.1 CALCIUM LEVEL eCW1 ([facility]) ID Date Data Source FREE T4 & TSH PANEL 05/30/2019 12:00:00 AM EST eCW1 ([facility]) Name Value Range Interpretation Code Description Data Ilsa rce(s) Supporting Document(s) 2.920 0.358-3.740 THYROID STIMULATING HORM ONE eCW1 ([facility]) 1.20 0.76-1.46 FREE T4 eCW1 ([facility]) Procedure Social History Code Duration Value Status Description Data Source(s ) Smoking 07/01/2020 12:00:00 AM EST Former Smoker completed Former Smoker eCW1 ([facility]) Smoking 07/01/2020 12:00:00 AM EST Former Smoker completed Former Smoker eCW1 ([facility]) Smoking 07/01/2020 12:00:00 AM EST Former Smoker completed Former Smoker eCW1 ([facility]) Smoking 06/25/2020 12:00:00 AM EST Former smoker completed Former smoker [facility] ([facility]) Smoking 06/03/2020 12:00:00 AM EST Former Smoker completed Former Smoker eCW1 ([facility]) Smoking 06/03/2020 12:00:00 AM EST Former Smoker completed Former Smoker eCW1 ([facility]) Smoking 06/03/2020 12:00:00 AM EST Former Smoker completed Former Smoker eCW1 ([facility]) Smoking 06/03/2020 12:00:00 AM EST Former Smoker completed Former Smoker eCW1 ([facility]) Smoking 04/30/2020 12:00:00 AM EST Patient is a former smoker completed Patient is a former smoker EUGENE ([facility]) Smoking 04/25/2020 12:00:00 AM EST Former Smoker completed Former Smoker eCW1 ([facility]) Smoking 04/25/2020 12:00:00 AM EST Former Smoker completed Former Smoker eCW1 ([facility]) Smoking 04/25/2020 12:00:00 AM EST Former Smoker completed Former Smoker eCW1 ([facility]) Smoking 03/20/2020 12:00:00 AM EDT Former Smoker completed Former Smoker eCW1 ([facility]) Smoking 03/20/2020 12:00:00 AM EDT Former Smoker completed Former Smoker eCW1 ([facility]) Smoking 03/20/2020 12:00:00 AM EDT Former Smoker completed Former Smoker eCW1 ([facility]) Smoking 01/02/2020 12:00:00 AM EDT Former Smoker completed Former Smoker eCW1 ([facility]) Smoking 01/02/2020 12:00:00 AM EDT Former Smoker completed Former Smoker eCW1 ([facility]) Alcohol intake 11/14/2019 12:00:00 AM EDT Current drinker of al cohol (finding) completed Current drinker of alcohol (finding) [facility] Cigarette pack-years 11/14/2019 12:00:00 AM EDT UNK completed [facility] Cigarettes smoked current (pack per day) - Reported 11/14/19 20 12:00:00 AM EDT UNK completed [facility] Smoking 11/14/2019 12:00:00 AM EDT Former smoker completed Former smoker [facility] 07/15/2019 12:00:00 AM EST Cigarette Smoker completed Cig arette Smoker [facility] 07/15/2019 12:00:00 AM EST Current smoker completed Curre nt smoker [facility] Vital Signs ID Date Data Source UNK Name Value Range Interpretation Code Description Data Source(s) Diastolic blood pressure 70 mm[Hg] 70 mm[Hg] eCW1 ([facility]) Systolic blood pressure 132 mm[Hg] 132 mm[Hg] e CW1 ([facility]) Body temperature 96.6 [degF] 96.6 [degF] eCW1 ( [facility]) Respiratory rate 18 /min 18 /min eCW1 ([facility]) Heart rate 98 /min 98 /min eCW1 ([facility]) Body mass index (BMI) [Ratio] 54.82 kg/m2 54.82 kg/m2 eCW1 ([facility]) Body height 64 [in_i] 64 [in_i] eCW1 ([facility]) Body weight 144.9 kg 144.9 kg eCW1 ([facility]) Body weight 319.4 [lb_av] 319.4 [lb_av] eCW1 ([facility]) Body mass index (BMI) [Ratio] 53.21 kg/m2 Overweight 53.21 kg/m2 [facility] ([facility]) Diastolic blood pressure 77 mm[Hg] 77 mm[Hg] [facility] ([facility]) Systolic blood pressure 126 mm[Hg] 126 mm[Hg] N extGen ([facility]) Body weight 140.614 kg 140.614 kg [facility] ([facility]) Body height 162.56 cm 162.56 cm [facility] ([facility]) Diastolic blood pressure 80 mm[Hg] 80 mm[Hg] eCW1 ([facility]) Systolic blood pressure 140 mm[Hg] 140 mm[Hg] e CW1 ([facility]) Body temperature 96.2 [degF] 96.2 [degF] eCW1 ( [facility]) Respiratory rate 18 /min 18 /min W1 ([facility]) Heart rate 108 /min 108 /min W1 ([facility]) Body mass index (BMI) [Ratio] 54.75 kg/m2 54.75 kg/m2 W1 ([facility]) Body height 64 [in_i] 64 [in_i] eCW1 ([facility]) Body weight 319 [lb_av] 319 [lb_av] eCW1 ([facility]) Body weight 143.848 kg 143.848 kg MEDASHWIN ([facility], ) [place] body weight 120 [lb_av] 120 [lb_av] MEDEN T ([facility], ) Body mass index (BMI) [Ratio] 54.4 kg/m2 54.4 k g/m2 MEDENT ([facility], ) Body weight 317.12 [lb_av] 317.12 [lb_av] MEDEN T ([facility], ) Body height 64 [in_i] 64 [in_i] [facility] ([facility], ) 5'4" Oxygen saturation in Arterial blood by Pulse oximetry 98 % 98 % [facility] ([facility]) Heart rate 89 /min 89 /min [facility] ([facility], ) Diastolic blood pressure 74 mm[Hg] 74 mm[Hg] MEDENT ([facility]) Systolic blood pressure 140 mm[Hg] 140 mm[Hg] M EDENT ([facility]) Body mass index (BMI) [Ratio] 54.24 kg/m2 Overweight 54.24 kg/m2 NextGen ([facility]) Diastolic blood pressure 84 mm[Hg] 84 mm[Hg] [facility] ([facility]) Systolic blood pressure 130 mm[Hg] 130 mm[Hg] N extGen ([facility]) Body weight 143.335 kg 143.335 kg [facility] ([facility]) Body height 162.56 cm 162.56 cm [facility] ([facility]) Diastolic blood pressure 84 mm[Hg] 84 mm[Hg] eCW1 ([facility]) Systolic blood pressure 134 mm[Hg] 134 mm[Hg] e CW1 ([facility]) Body temperature 96.9 [degF] 96.9 [degF] eCW1 ( [facility]) Respiratory rate 20 /min 20 /min eCW1 ([facility]) Heart rate 98 /min 98 /min eCW1 ([facility]) Body mass index (BMI) [Ratio] 54.37 kg/m2 54.37 kg/m2 W1 ([facility]) Body height 64 [in_i] 64 [in_i] eCW1 ([facility]) Body weight 316.8 [lb_av] 316.8 [lb_av] eCW1 ([facility]) Body weight 140.616 kg 140.616 kg MEDENT ([facility]) [place] body weight 120 [lb_av] 120 [[facility]_av] [facility] Body mass index (BMI) [Ratio] 53.2 kg/m2 53.2 k g/m2 [facility] ([facility]) Body weight 310.00 [lb_av] 310.00 [lb_av] MEDEN T ([facility]) Body height 64 [in_i] 64 [in_i] [facility] ([facility]) 5'4" Body weight 140.616 kg 140.616 kg [facility] ([facility]) [place] body weight 120 [lb_av] 120 [lb_av] MEDEN T ([facility]) Body mass index (BMI) [Ratio] 53.2 kg/m2 53.2 k g/m2 [facility] ([facility]) Body weight 310.00 [lb_av] 310.00 [lb_av] [facility] Body height 64 [in_i] 64 [in_i] [facility] ([facility]) 5'4" Body temperature 98.3 [degF] 98.3 [degF] [facility] ([facility]) Oxygen saturation in Arterial blood by Pulse oximetry 98 % 98 % [facility] ([facility]) Heart rate 89 /min 89 /min [facility] ([facility]) Diastolic blood pressure 86 mm[Hg] 86 mm[Hg] [facility] ([facility]) Systolic blood pressure 138 mm[Hg] 138 mm[Hg] M EDENT ([facility]) Body mass index (BMI) [Ratio] 53.07 kg/m2 Overweight 53.07 kg/m2 NextGen ([facility]) Diastolic blood pressure 82 mm[Hg] 82 mm[Hg] NextGen ([facility]) Systolic blood pressure 130 mm[Hg] 130 mm[Hg] N extGen ([facility]) Body weight 140.251 kg 140.251 kg [facility] ([facility]) Body height 162.56 cm 162.56 cm [facility] ([facility]) Diastolic blood pressure 80 mm[Hg] 80 mm[Hg] eCW1 ([facility]) Systolic blood pressure 132 mm[Hg] 132 mm[Hg] e CW1 ([facility]) Body temperature 98.5 [degF] 98.5 [degF] eCW1 ( [facility]) Respiratory rate 22 /min 22 /min eCW1 ([facility]) Heart rate 83 /min 83 /min eCW1 ([facility]) Body mass index (BMI) [Ratio] 52.52 kg/m2 52.52 kg/m2 eCW1 ([facility]) Body height 64 [in_i] 64 [in_i] eCW1 ([facility]) Body weight 306 [lb_av] 306 [lb_av] eCW1 ([facility]) Body weight 138.348 kg 138.348 kg [facility] ([facility], ) Body mass index (BMI) [Ratio] 52.3 kg/m2 52.3 k g/m2 MEDENT ([facility], ) Body weight 305.00 [lb_av] 305.00 [lb_av] MEDEN T ([facility], ) Body height 64 [in_i] 64 [in_i] [facility] ([facility], ) 5'4" Body temperature 96.0 [degF] 96.0 [degF] [facility] ([facility], ) Oxygen saturation in Arterial blood by Pulse oximetry 95 % 95 % [facility] ([facility], ) Heart rate 99 /min 99 /min [facility] ([facility], ) Diastolic blood pressure 72 mm[Hg] 72 mm[Hg] MEDENT ([facility], ) Systolic blood pressure 126 mm[Hg] 126 mm[Hg] M EDENT ([facility], ) Body mass index (BMI) [Ratio] 52.01 kg/m2 Overweight 52.01 kg/m2 [facility] ([facility]) Diastolic blood pressure 68 mm[Hg] 68 mm[Hg] [facility] ([facility]) Systolic blood pressure 125 mm[Hg] 125 mm[Hg] N extGen ([facility]) Body weight 137.438 kg 137.438 kg [facility] ([facility]) Body height 162.56 cm 162.56 cm [facility] ([facility]) Body mass index (BMI) [Ratio] 52.70 kg/m2 Overweight 52.70 kg/m2 Next[facility] ([facility]) Diastolic blood pressure 90 mm[Hg] 90 mm[Hg] [facility] ([facility] [place]) Systolic blood pressure 126 mm[Hg] 126 mm[Hg] N extGen ([facility]) Body weight 139.253 kg 139.253 kg [facility] ([facility]) Body height 162.56 cm 162.56 cm [facility] ([facility]) Body weight 137.157 kg 137.157 kg [facility] ([facility], ) Body mass index (BMI) [Ratio] 51.9 kg/m2 51.9 k g/m2 [facility] ([facility], ) Body weight 302.38 [lb_av] 302.38 [lb_av] [facility] Body height 64 [in_i] 64 [in_i] [facility] ([facility]) 5'4" Oxygen saturation in Arterial blood by Pulse oximetry 96 % 96 % [facility] ([facility]) Heart rate 94 /min 94 /min [facility] ([facility], ) Diastolic blood pressure 7 mm[Hg] 7 mm[Hg] [facility] ([facility], ) Systolic blood pressure 130 mm[Hg] 130 mm[Hg] [facility] Body mass index (BMI) [Ratio] 52.4 kg/m2 52.4 k g/m2 [facility] ([facility]) Body weight 300.50 [lb_av] 300.50 [lb_av] MEDEN T ([facility]) Body height 63.50 [in_i] 63.50 [in_i] MEDENT ([facility]) 5'3.50" Body temperature 98.2 [degF] 98.2 [degF] MEDENT ([facility]) Diastolic blood pressure 72 mm[Hg] 72 mm[Hg] eCW1 ([facility]) Systolic blood pressure 124 mm[Hg] 124 mm[Hg] e CW1 ([facility]) Body temperature 97.1 [degF] 97.1 [degF] eCW1 ( [facility]) Respiratory rate 20 /min 20 /min eCW1 ([facility]) Heart rate 94 /min 94 /min eCW1 ([facility]) Body mass index (BMI) [Ratio] 51.83 kg/m2 51.83 kg/m2 eCW1 ([facility]) Body height 64 [in_us] 64 [in_us] eCW1 ([facility]) Body weight Measured 302.0 [lb_av] 302.0 [lb_av ] eCW1 ([facility]) Diastolic blood pressure 78 mm[Hg] 78 mm[Hg] eCW1 ([facility]) Systolic blood pressure 126 mm[Hg] 126 mm[Hg] e CW1 ([facility]) Body temperature 97.8 [degF] 97.8 [degF] eCW1 ( [facility]) Respiratory rate 20 /min 20 /min eCW1 ([facility]) Heart rate 98 /min 98 /min eCW1 ([facility]) Body mass index (BMI) [Ratio] 51.83 kg/m2 51.83 kg/m2 eCW1 ([facility]) Body height 64 [in_us] 64 [in_us] eCW1 ([facility]) Body weight Measured 302.0 [lb_av] 302.0 [lb_av ] eCW1 ([facility]) ID Date Data Source [id number] 01/08/2020 03:41:09 PM [facility] Name Value Range Interpretation Code Description Data Source(s) WEIGHT RECORDED 302 lb 302 lb [facility] Body height Measured 64.02 in 64.02 in [facility] Patient Treatment Plan of Care Planned Activity Planned Date Details Description Data Source (s) Sulfasalazine 500 MG Oral Tablet 07/07/2020 12:00:00 AM EST eCW1 ([facility]) Sulfasalazine 500 MG Oral Tablet 07/07/2020 12:00:00 AM EST eCW1 ([facility]) 7 ACTUAT umeclidinium 0.0625 MG/ACTUAT Dry Powder Inha ler [Incruse] 03/20/2020 12:00:00 AM EDT eCW1 ([facility]) 7 ACTUAT umeclidinium 0.0625 MG/ACTUAT Dry Powder Inha ler [Incruse] 03/20/2020 12:00:00 AM EDT eCW1 ([facility]) 7 ACTUAT umeclidinium 0.0625 MG/ACTUAT Dry Powder Inha ler [Incruse] 03/20/2020 12:00:00 AM EDT eCW1 ([facility]) 7 ACTUAT umeclidinium 0.0625 MG/ACTUAT Dry Powder Inha ler [Incruse] 03/20/2020 12:00:00 AM EDT eCW1 ([facility]) Omeprazole 20 MG Delayed Release Oral Capsule 11/14/2019 12:00:00 A M [facility] Folic Acid 1 MG Oral Tablet 11/14/2019 12:00:00 AM [facility] Methotrexate 2.5 MG Oral Tablet 11/14/2019 12:00:00 AM [facility] Sulfasalazine 500 MG Delayed Release Oral Tablet 11/14/2019 12:00:0 0 AM [facility] Ergocalciferol 41373 UNT Oral Capsule 11/06/2019 12:00:00 AM [facility] Sulfasalazine 500 MG Delayed Release Oral Tablet 09/03/2019 12:00:0 0 AM [facility] Folic Acid 1 MG Oral Tablet 09/02/2019 12:00:00 AM [facility] medroxyprogesterone acetate 150 MG/ML Injectable Suspe nsion 08/15/2019 12:00:00 AM EST [facility] Folic Acid 1 MG Oral Tablet 08/02/2019 12:00:00 AM [facility] Methotrexate 2.5 MG Oral Tablet 07/09/2019 12:00:00 AM [facility] Omeprazole 20 MG Delayed Release Oral Capsule 06/01/2019 12:00:00 A M [facility] Hydrocortisone 10 MG/ML Topical Lotion 11/28/2018 12:00:00 AM [facility] medroxyprogesterone acetate 150 MG/ML Injectable Suspe nsion 07/25/2018 12:00:00 AM [facility] [place] [facility] Methotrexate 2.5 MG Oral Tablet 05/10/2018 12:00:00 AM [facility]
[2020-07-13] MEDS ORDERED: INCR1INH (17:21)
--- OUTSIDE RECORDS SUMMARY | 2020-07-13 18:04 | CCD ---
Author Author [facility] Organization [facility] Address Unknown Phone Unavailable Care Team Providers Care Featheredger And Reducer Machine Name Role Phone Gisela Jon CAKE WASHER Unavailable Unavailable Gisela Jon CAKE WASHER Unavailable Unavailable Gisela Jon CAKE WASHER Unavailable Unavailable Gisela Jon CAKE WASHER Unavailable Unavailable Gisela Jon CAKE WASHER Unavailable Unavailable Gisela Jon CAKE WASHER Unavailable Unavailable NILTON, P ISABELA BIRCH Unavailable [...] P ISABELA MD Unavailable Unavailable NILTON, P ISAEBLA MD Unavailable Unavailable NILTON, P ISABELA MD [...] Unavailable NILTON, P ISABELA MD Unavailable Unavailable INLTON, P ISABELA MD Unavailable Unavailable NILTON, P [...] ISABELA MD Unavailable Unavailable Villalobos, M Ingrid SHIPPING SUPPORT CLERK Unavailable Unavailable Villalobos, M Ingrid SHIPPING SUPPORT CLERK Unavailable Unavailable Villalobos, M Ingrid SHIPPING SUPPORT CLERK Unavailable Unavailable Villalobos, M Ingrid SHIPPING SUPPORT CLERK Unavailable Unavailable Villalobos, M Ingrid SHIPPING SUPPORT CLERK Unavailable Unavailable Villalobos, M Ingrid SHIPPING SUPPORT CLERK Unavailable Unavailable Villalobos, M Ingrid SHIPPING SUPPORT CLERK Unavailable Unavailable Villalobos, M Ingrid SHIPPING SUPPORT CLERK Unavailable Unavailable Villalobos, M Ingrid SHIPPING SUPPORT CLERK Unavailable Unavailable Villalobos, M Ingrid SHIPPING SUPPORT CLERK Unavailable Unavailable Villalobos, M Ingrid SHIPPING SUPPORT CLERK Unavailable Unavailable Villalobos, M Ingrid SHIPPING SUPPORT CLERK Unavailable Unavailable Villalobos, M Ingrid SHIPPING SUPPORT CLERK Unavailable Unavailable Villalobos, M Ingrid SHIPPING SUPPORT CLERK Unavailable Unavailable Villalobos, M Ingrid SHIPPING SUPPORT CLERK Unavailable Unavailable Villalobos, M Ingrid SHIPPING SUPPORT CLERK Unavailable Unavailable Villalobos, M Ingrid SHIPPING SUPPORT CLERK Unavailable Unavailable Villalobos, M Ingrid SHIPPING SUPPORT CLERK Unavailable Unavailable Villalobos, M Ingrid SHIPPING SUPPORT CLERK Unavailable Unavailable Villalobos, M Ingrid SHIPPING SUPPORT CLERK Unavailable Unavailable Villalobos, M Ingrid SHIPPING SUPPORT CLERK Unavailable Unavailable Villalobos, M Ingrid SHIPPING SUPPORT CLERK Unavailable Unavailable Villalobos, M Ingrid SHIPPING SUPPORT CLERK Unavailable Unavailable Villalobos, M Ingrid SHIPPING SUPPORT CLERK Unavailable Unavailable Villalobos, M Ingrid SHIPPING SUPPORT CLERK Unavailable Unavailable Villalobos, M Ingrid SHIPPING SUPPORT CLERK Unavailable Unavailable Villalobos, M Ingrid SHIPPING SUPPORT CLERK Unavailable Unavailable Villalobos, M Ingrid SHIPPING SUPPORT CLERK Unavailable Unavailable Villalobos, M Ingrid SHIPPING SUPPORT CLERK Unavailable Unavailable Villalobos, M Ingrid SHIPPING SUPPORT CLERK Unavailable Unavailable Villalobos, M Ingrid SHIPPING SUPPORT CLERK Unavailable Unavailable Villalobos, M Ingrid SHIPPING SUPPORT CLERK Unavailable Unavailable Villalobos, M Ingrid SHIPPING SUPPORT CLERK Unavailable Unavailable Villalobos, M Ingrid SHIPPING SUPPORT CLERK Unavailable Unavailable Villalobos, M Ingrid SHIPPING SUPPORT CLERK Unavailable Unavailable Villalobos, M Ingrid SHIPPING SUPPORT CLERK Unavailable Unavailable Villalobos, M Ingrid SHIPPING SUPPORT CLERK Unavailable Unavailable Villalobos, M Ingrid SHIPPING SUPPORT CLERK Unavailable Unavailable Armani Amaroey PA Unavailable Unavailable Armani Amaro Samantha PA Unavailable Unavailable Armani Amaro Samantha PA Unavailable Unavailable Armani Amaroey PA Unavailable Unavailable Armani Amaro Samantha PA Unavailable Unavailable Armani Amaro Samantha PA Unavailable Unavailable Sondra J Samantha PA Unavailable Unavailable Sondra, J Samantha PA Unavailable Unavailable Sondra, J Samantha PA Unavailable Unavailable [place], J Samantha PA Unavailable Unavailable Sondra, J Samantha PA Unavailable Unavailable [place], J Samantha PA Unavailable Unavailable [place], J Samantha PA Unavailable Unavailable [place], J Samantha PA Unavailable Unavailable [place], J Samantha PA Unavailable Unavailable [place], J Samantha PA Unavailable Unavailable [place], J Samantha PA Unavailable Unavailable [place], J Samantha PA Unavailable Unavailable Sondra J Samantha PA Unavailable Unavailable [place], J Samantha PA Unavailable Unavailable Sondra, J [...] is protected by Article 27-F of the [facility] Public Health law. If you continue you may have access to information: Regarding HIV / AIDS; Provided by facilities licensed or operated by the [facility] Office of Mental Health; or Provided by the [facility] Office for People With Developmental Disabilities. If such information is present, then the following [facility] mandated warning applies: This information has [...] law may result in a fine or care home sentence or both. A general authorization for the release of medical or other information is NOT sufficient authorization for further disc losure. Allergies and Adverse Reactions Type Description Substance Reaction Status Data Source(s ) Drug allergy Amoxicillin Amoxicillin Rash Active eCW1 ([facility]) Sulfa Eye Drops Sulfa Eye Drops Sulfa Eye Drops Swollen eyes Active eCW1 ([facility]) Sulfa Eye Drops Sulfa Eye Drops Sulfa Eye Drops Swollen eyes Active eCW1 ([facility]) Family History Family Member Name Family Member Gender Family Member Status Date o f Status Description Data Source(s) Unknown Male Diagnosis 06/05/2015 12:00:00 AM EST NextGen ([facility]) Unknown Male Diagnosis 06/05/2015 12:00:00 AM EST NextGen ([facility]) Unknown Female Problem MEDENT ([facility] Unknown Female Problem MED[facility] ([facility] Unknown Unknown Unknown Unknown Encounters Encounter Providers Location Date Indications Data Source(s ) Unknown [address] [facility] [address] 07/07/2020 12:00:00 AM EST eCW1 ([facility]) Unknown [address] [facility] [place] [address] 07/07/2020 12:00:00 AM EST eCW1 ([facility]) Office Visit, Est Pt., Level 4 PC [address] [place] [address] 07/01/2020 12:00:00 AM EST eCW1 ([facility]) [facility] 03[facility]10:00 PM EST - 06/25/2020 03:10:00 PM EST Encounter for surveillance of injectable contraceptive NextGen ([facility]) Encounter for surveillance of injectable contraceptive [place] [address] [facility] [address] 06/23/2020 12:00:00 AM EST [facility]CW[facility] Unknown [address] [facility] [place] [address] 06/18/2020 12:00:00 AM EST eCW1 ([facility]) Unknown [address] [facility] [place] [address] 06/09/2020 12:00:00 AM EST eCW1 ([facility]) Outpatient [address] [facility] [place] [address] 06/03/2020 12:00:00 AM EST eCW1 ([facility]) Unknown [address] [facility] [place] [address] 05/19/2020 12:00:00 AM EST eCW1 ([facility]) Unknown [address] [facility] [place] [address] 05/19/2020 12:00:00 AM EST [facility]CW1 ([facility]) Unknown [address] [facility] [place] [address] 05/06/2020 12:00:00 AM EST eCW1 ([facility]) Unknown [address] [facility] [address] 04/14/2020 12:00:00 AM EST eCW1 ([facility]) Attender: Aleena ROUSE [place] 01:50:00 PM EDT - 04/09/2020 01:50:00 PM EDT Encounter for surveillance of injectable contraceptive NextGen ([facility]) Encounter for surveillance of injectable contraceptive Unknown [address] [facility] [address] 04/01/2020 12:00:00 AM EDT eCW1 ([facility]) Outpatient Attender: Jas Resendiz/Conrath/Pranay/Rein dl 03/28/2020 01:30:00 PM EDT MEDENT ([facility]) Office Visit, Est Pt., Level 3 PC [address] [place] [address] 03/20/2020 12:00:00 AM EDT eCW1 ([facility]) Unknown [address] [facility] [address] 03/18/2020 12:00:00 AM EDT eCW1 ([facility]) Outpatient Attender: Jas Resendiz/Conrath/Pranay/Rein dl 02/27/2020 11:15:00 AM EDT MEDENT ([facility]) Outpatient Attender: DINO MCKEON Martín/Conrath/Pranay/Rein dl 02/26/2020 01:00:00 PM EDT MEDENT ([facility]) Attender: Babita CARPENTER ELIZABETH [place] 01/22/2020 01:10:00 PM EDT - 01/22/2020 01:10:00 PM EDT Encounter for surveillance of injectable contraceptive [facility] ([facility]) Encounter for surveillance of injectable contraceptive Outpatient [address] [facility] [address] 01/02/2020 12:00:00 AM EDT eCW1 ([facility]) Outpatient Attender: DINO Resendiz/Heath/Pranay/Tomy boudreaux 01/01/2020 02:00:00 PM EDT MEDENT ([facility]) [address] [address] 11/30/2019 12:00:00 AM EDT eCW1 ([facility]) Outpatient Attender: Ingrid Villalobos NP [id number] 2019 12:00:00 AM EDT - 11/14/2019 11:11:47 AM EDT Rheumatoid arthritis with rheumatoid fac tor of multiple sites without organ or systems involvement [facility] Rheumatoid arthritis with rheumatoid fac tor of multiple sites without organ or systems involvement [address] [place] [address] 11/12/2019 12:00:00 AM EDT eCW1 ([facility]) Attender: Samantha MCKEON [facility] 10/12 12:30:00 PM EDT - 11/02/2019 12:30:00 PM EDT Encounter for surveillance of injectable contraceptive NextGen ([facility]) Encounter for surveillance of injectable contraceptive Outpatient Attender: Ingrid Villalobos NP 10/16/2019 12:00:00 A M EDT [facility] Outpatient Referrer: ISABELA CALLAWAY MD 09/25/2019 11:17:00 AM EDT [facility] [address] [place] [address] 09/12/2019 12:00:00 AM EDT eCW1 ([facility]) [address] [place] [address] 09/11/2019 12:00:00 AM EDT eCW1 ([facility]) [address] [place] [address] 09/10/2019 12:00:00 AM EDT eCW1 ([facility]) [address] [address] 09/04/2019 12:00:00 AM EDT eCW1 ([facility]) [facility] [address] [facility] [address] 08/30/2019 12:00:00 AM EDT eCW1 ([facility]) Outpatient Attender: Ingrid Villalobos NP 08/29/2019 12:00:00 A M [facility] OutpatientPREV VISIT, EST, AGE 40-64 Attender: Samantha MCKEON PPELIZABETH [place] 08/15/2019 02:00:00 PM EST - 08/15/2019 02:00:00 PM ES T Body mass index (BMI) 50-59.9 , adultEncounter for oth screening for malignant neoplasm of breast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 findingsEncounter for surveillance of injectable contraceptiveEncounter for oth general cnsl and advice on contraceptionHuman immunodeficiency virus [HIV] counselingOther sex counseling NextGen ([facility]) Body mass index (BMI) 50-59.9 , adult Encounter for oth screening for malignan t neoplasm of breast 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 Encounter for surveillance of injectable contraceptive Encounter for oth general cnsl and advic e on contraception Human immunodeficiency virus [HIV] couns eling Other sex counseling Outpatient Attender: ISABELA CALLAWAY MD 08/14/2019 12:00:00 AM [facility] Outpatient Attender: DINO Resendiz/Heath/Pranay/Tomy boudreaux 08/06/2019 02:00:00 PM EST MED[facility] ([facility] [address] [facility] [address] 08/01/2019 12:00:00 AM EST eCW1 ([facility]) [facility] [address] [facility] [address] 07/19/2019 12:00:00 AM EST eCW1 ([facility]) [facility] [address] [place] [address], [place] [address] 07/09/2019 12:00:00 AM EST eCW1 ([facility]) [facility] [address] [facility] [address] 07/02/2019 12:00:00 AM EST eCW1 ([facility]) [facility] [address] [facility] [address] 05/30/2019 12:00:00 AM EST eCW1 ([facility]) Attender: Samantha MCKEON PPNCBARBI [place] 05/13 11:10:00 AM EST - 05/29/2019 11:10:00 AM EST Encounter for surveillance of injectable contraceptive NextGen ([facility]) Encounter for surveillance of injectable contraceptive Immunizations Vaccine Date Status Description Data Source(s) New in 2011. IIV4 04/30/2020 01:52:00 PM EST completed MEDENT ([facility] Medications Medication Brand Name Start Date Product Form Dose Route Admi nistrative Instructions Pharmacy Instructions Status Indications Reaction Description Data Source(s) Sulfasalazine 500 MG Oral Tablet Sulfasalazine 500 MG 2020 12:00:00 AM EST 3.0 {tablet} active Sulfasalazi ne 500 MG eCW1 ([facility]) Sulfasalazine 500 MG Oral Tablet Sulfasalazine 500 MG 2020 12:00:00 AM EST 3.0 {tablet} active Sulfasalazi ne 500 MG eCW1 ([facility]) 500 mg 07/07/2020 12:00:00 AM EST tablet [...] {puff} active Incruse Ellipta 62.5 MCG/INH eCW1 ([facility]) 7 ACTUAT umeclidinium 0.0625 MG/ACTUAT D ry Powder Inhaler [Incruse] Incruse Ellipta 62.5 MCG/INH Incruse Ellipta 62.5 MCG/INH 03/20/2020 12:00:00 AM EDT 1.0 {puff} active Incruse Ellipta 62.5 MCG/INH eCW1 ([facility]) 7 ACTUAT umeclidinium 0.0625 MG/ACTUAT D ry Powder Inhaler [Incruse] Incruse Ellipta 62.5 MCG/INH Incruse Ellipta 62.5 MCG/INH 03/20/2020 12:00:00 AM EDT 1.0 {puff} active Incruse Ellipta 62.5 MCG/INH eCW1 ([facility]) 7 ACTUAT umeclidinium 0.0625 MG/ACTUAT D ry Powder Inhaler [Incruse] Incruse Ellipta 62.5 MCG/INH Incruse Ellipta 62.5 MCG/INH 03/20/2020 12:00:00 AM EDT 1.0 {puff} active Incruse Ellipta 62.5 MCG/INH eCW1 ([facility]) 7 ACTUAT umeclidinium 0.0625 MG/ACTUAT D ry Powder Inhaler [Incruse] Incruse Ellipta 62.5 MCG/INH Incruse Ellipta 62.5 MCG/INH 03/20/2020 12:00:00 AM EDT 1.0 {puff} active Incruse Ellipta 62.5 MCG/INH eCW1 ([facility]) 7 ACTUAT umeclidinium 0.0625 MG/ACTUAT D ry Powder Inhaler [Incruse] Incruse Ellipta 62.5 MCG/INH Incruse Ellipta 62.5 MCG/INH 03/20/2020 12:00:00 AM EDT 1.0 {puff} active Incruse Ellipta 62.5 MCG/INH eCW1 ([facility]) 7 ACTUAT umeclidinium 0.0625 MG/ACTUAT D ry Powder Inhaler [Incruse] Incruse Ellipta 62.5 MCG/INH Incruse Ellipta 62.5 MCG/INH 03/20/2020 12:00:00 AM EDT 1.0 {puff} active Incruse Ellipta 62.5 MCG/INH eCW1 ([facility]) 7 ACTUAT umeclidinium 0.0625 MG/ACTUAT D ry Powder Inhaler [Incruse] Incruse Ellipta 62.5 MCG/INH Incruse Ellipta 62.5 MCG/INH 03/20/2020 12:00:00 AM EDT 1.0 {puff} active Incruse Ellipta 62.5 MCG/INH eCW1 ([facility]) 7 ACTUAT umeclidinium 0.0625 MG/ACTUAT D ry Powder Inhaler [Incruse] Incruse Ellipta 62.5 MCG/INH Incruse Ellipta 62.5 MCG/INH 03/20/2020 12:00:00 AM EDT 1.0 {puff} active Incruse Ellipta 62.5 MCG/INH eCW1 ([facility]) 7 ACTUAT umeclidinium 0.0625 MG/ACTUAT D ry Powder Inhaler [Incruse] Incruse Ellipta 62.5 MCG/INH Incruse Ellipta 62.5 MCG/INH 03/20/2020 12:00:00 AM EDT 1.0 {puff} active Incruse Ellipta 62.5 MCG/INH eCW1 ([facility]) 7 ACTUAT umeclidinium 0.0625 MG/ACTUAT D ry Powder Inhaler [Incruse] Incruse Ellipta 62.5 MCG/INH Incruse Ellipta 62.5 MCG/INH 03/20/2020 12:00:00 AM EDT 1.0 {puff} active Incruse Ellipta 62.5 MCG/INH eCW1 ([facility]) 7 ACTUAT umeclidinium 0.0625 MG/ACTUAT D ry Powder Inhaler [Incruse] Incruse Ellipta 62.5 MCG/INH Incruse Ellipta 62.5 MCG/INH 03/20/2020 12:00:00 AM EDT 1.0 {puff} active Incruse Ellipta 62.5 MCG/INH eCW1 ([facility]) 7 ACTUAT umeclidinium 0.0625 MG/ACTUAT D ry Powder Inhaler [Incruse] Incruse Ellipta 62.5 MCG/INH Incruse Ellipta 62.5 MCG/INH 03/20/2020 12:00:00 AM EDT 1.0 {puff} active Incruse Ellipta 62.5 MCG/INH eCW1 ([facility]) 2.5 mg 02/29/2020 12:00:00 AM EDT tablet [...] 02/26/2020 12:00:00 AM EDT RESPIRATORY active MEDENT ([facility], ) 150 mcg 02/10/2020 12:00:00 AM EDT [...] 3 tablets by mouth Two Times Daily [facility] High risk medication use Rheumatoid arthritis [...] rheumatoid factor Take 1 capsule by mouth [facility] Gastroesophageal reflux disease without esophagitis Rheumatoid arthritis involving multiple sites with positive rheumatoid factor Methotrexate 2.5 MG Oral Tablet Methotrexate 2.5 MG Oral Tab let 11/14/2019 12:00:00 AM EDT 22.5 mg Oral active High risk medication useRheumatoid arthritis involving multiple sites with positive rheumatoid factor Take 9 tablets by mouth once a week [facility] High risk medication use Rheumatoid arthritis involving multiple sites with positive rheumatoid factor Folic Acid 1 MG Oral Tablet Folic Acid 1 MG Oral Table t (FOLVITE) Folic Acid 1 MG Oral Tablet (FOLVITE) 11/14/2019 12:00:00 AM EDT 1 mg Oral active Rheumatoid arthritis involving multiple sites with positive rheumatoid factor Take 1 tablet by mouth daily [facility] Rheumatoid arthritis involving multiple sites with positive rheumatoid factor 150 mcg 11/12/2019 12:00:00 AM EDT tablet 90 TAKE ONE TABLET BY MOUTH EVERY MORNING ON AN EMPTY STOMACH TAKE ONE TABLET BY MOUTH EVERY MORNING O N AN EMPTY STOMACH SOLD: 11/13/2019 [facility] Ergocalciferol 04845 UNT Oral Capsule Vi tamin D (Ergocalciferol) 1.25 MG (01604 UT) Oral Capsule (ERGOCALCIFEROL) Vitamin D (Ergocalciferol) 1.25 MG (5000 0 UT) Oral Capsule (ERGOCALCIFEROL) 11/06/2019 12:00:00 AM EDT active Vitamin D deficiency TAKE 1 CAPSULE BY MOUTH EVERY 7 DAYS [facility] Vitamin D deficiency 1,250 mcg (50,000 unit) [...] THREE TABLETS BY MOUTH TWICE A DAY [facility] High risk medication use Rheumatoid arthritis involving multiple sites with positive rheumatoid factor Folic Acid 1 MG Oral Tablet Folic Acid 1 MG Oral Table t (FOLVITE) Folic Acid 1 MG Oral Tablet (FOLVITE) 09/02/2019 12:00:00 AM EDT 1 mg Oral aborted Rheumatoid arthritis involving multiple sites with positive rheumatoid factor Take 1 tablet by mouth daily [facility] Rheumatoid arthritis involving multiple sites with positive rheumatoid factor medroxyprogesterone acetate 150 MG/ML In jectable Suspension medroxyprogesterone 150 mg/mL intramuscular suspension medroxyprogesterone 150 mg/mL intramuscu lar suspension 08/15/2019 12:00:00 AM EST active IM every 10-13 weeks NextGen ([facility]) montelukast 10 MG Oral Tablet MONTELUKAST [...] 12:00:00 AM EST ORAL active MEDENT ( [facility]) 1 mg 08/02/2019 12:00:00 AM [...] TAKE ONE TABLET BY MOUTH EVERY DAY [facility] Rheumatoid arthritis involving multiple sites with [...] 9 tablets by mouth once a week [facility] Rheumatoid arthritis involving multiple sites with positive [...] factor Take 1 capsule by mouth daily [facility] Rheumatoid arthritis involving multiple sites with [...] affected area 2 to 4 times daily. [facility] Dermatitis medroxyprogesterone acetate 150 MG/ML In jectable Suspension medroxyprogesterone 150 mg/mL intramuscular suspension medroxyprogesterone 150 mg/mL intramuscu lar suspension 07/25/2018 12:00:00 AM EST active IM every 10-13 weeks NextGen ([facility]) Methotrexate 2.5 MG Oral Tablet methotrexate 2.5 MG ta blet methotrexate 2.5 MG tablet 05/10/2018 12:00:00 AM EST 22.5 mg Oral abort ed Rheumatoid arthritis involving multiple sites with positive rheumatoid factor Take 9 tablets by mouth once a week [facility] Rheumatoid arthritis involving multiple sites with positive rheumatoid factor Insurance Providers Payer name Policy type / Coverage type Policy ID Covered republican ID Covered republican's relationship to [place] Policy [place] Plan Information MARTABARBI [id number] SP [id number] MEDICARE [id number] SP [id number] MEDICARE C [id number] S [id number] J79 MEDICAID M [id number] MEDICARE A [id number] Self [id number] J79 MEDICAID M [id number] Self [id number] MEDICAID [id number] SP [id number] MEDICAID [id number] SP [id number] ANSI-Medicare Part B [id number] ANSI-Medicaid [id number] ANSI-Medicaid [id number] ANSI-Medicare Part B [id number] ANSI-Medicaid [id number] ANSI-Medicaid [id number] ANSI-Medicaid [id number] ANSI-Medicaid [id number] ANSI-Medicare Part B [id number] ANSI-Medicare Part B [id number] ANSI-Medicaid [id number] ANSI-Medicaid [id number] MEDICARE [id number] A ANSI-Medicaid [id number] ANSI-Medicaid [id number] ANSI-Medicare Part B [id number] ANSI-Medicare Part B [id number] ANSI-Medicaid [id number] ANSI-Medicaid [id number] MEDICARE A [id number] [facility] [id number] A ANSI-Medicare Part B [id number] ANSI-Medicaid [id number] ANSI-Medicaid [id number] ANSI-Medicare Part B [id number] ANSI-Medicaid [id number] ANSI-Medicaid [id number] ANSI-Medicare Part B [id number] ANSI-Medicaid [id number] ANSI-Medicaid [id number] ANSI-Medicare Part B [id number] ANSI-Medicaid [id number] ANSI-Medicaid [id number] [facility] [id number] SP [id number] Medicaid Medicaid [id number] Self [id number] Medicare Medicare Primary [id number] Self [id number] [facility] Hmo Commercial Self MEDICARE C [id number] S [id number] A [place] MED[place] PART B C [id number] S [id number] SELF PAY UNAVAILABLE SP UNA[place]IL[place] BLE [place] Self [place] Gov[place] Serv[place] Primary Self [place] Med[place] Part B Self Medicare [facility] Medicare Primary Self OTHER1 *NOTFORTODAYSVISIT* SP *NOTFORTODAYSVISIT* MEDICAID W [id number] S [id number] MEDICARE OUTPATIENT M [id number] Problems, Conditions, and Diagnoses Code Display Name Description Problem Type Effective Dates Data Source(s) J45.20 [id number] Mild intermittent asthma without complica tion Problem 06/03/2020 12:00:00 AM EST eCW1 ([facility]) F17.211 [id number] Cigarette nicotine dependence in remissio n Problem 06/03/2020 12:00:00 AM EST eCW1 ([facility]) E55.9 Vitamin D deficiency Vitamin D deficiency Problem 06/03/2020 12:00:00 AM EST eCW1 ([facility]) J30.2 [id number] Seasonal allergies Problem 06/03/2020 12:00: 00 AM EST eCW1 ([facility]) M05.79 [id number] Rheumatoid arthritis involving multiple sites with positive rheumatoid factor Problem 04/25/2020 12:00:00 AM EST eCW1 ([facility]) D72.829 [id number] Leukocytosis, unspecified type Problem 04/25/2020 12:00:00 AM EST eCW1 ([facility]) [id number] Allergic asthma without status asthmatic us Allergic asthma without status asthmaticus Problem 02/27/2020 12:00:00 AM EDT [facility]ENT ([facility] [id number] Ex-smoker Ex-smoker Problem 08/06/2019 12:00:00 AM ES T MEDENT ([facility], ) F17.213 [id number] Cigarette nicotine dependence with withdr awal Problem 07/19/2019 12:00:00 AM EST eCW1 ([facility]) F17.213 [id number] Cigarette nicotine dependence with withdr awal Problem 07/19/2019 12:00:00 AM EST [facility] ([facility]) J30.89 [id number] Non-seasonal allergic rhinitis, unspecifi ed trigger Problem 05/30/2019 12:00:00 AM EST eCW1 ([facility]) J30.89 [id number] Non-seasonal allergic rhinitis, unspecifi ed trigger Problem 05/30/2019 12:00:00 AM EST [facility] ([facility]) E55.9 Vitamin D deficiency, unspecified Vitamin D defi ciency, unspecified Diagnosis 11/14/2019 08:34:44 AM [facility] Surgeries/Procedures Procedure Description Date Indications Data Source(s) 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 STI / H 06/25/2020 12:00:00 AM EST - 06/25/2020 12:00:00 AM EST [facility] ([facility]) 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 Other 06/25/2020 12:00:00 AM EST - 2020 12:00:00 AM EST [facility] ([facility]) CVR Med.Svc. Height/Weight 06/25/2020 12 :00:00 AM EST - 06/25/2020 12:00:00 AM EST [facility] ([facility]) CVR Blood Pressure 06/25/2020 12:00:00 AM EST - 2020 12:00:00 AM EST [facility] ([facility]) Injection Or Lab Only Visit Est 06/25/19 12:00:00 AM EST - 06/25/2020 12:00:00 AM EST [facility] ([facility]) NURSE ONLY DEPO INJ. RN/SENIOR SCIENCE CONSULTANT Only 021 12:00:00 AM EST - 06/25/2020 12:00:00 AM EST [facility] ([facility]) Depo/Medroxyprogesterone Inj. 150 Mg Nurse/CA 06/25/2020 12:00:00 AM EST - 06/25/2020 12:00:00 AM EST [facility] ([facility]) CVR BC Ending Method HORM.INJ. 3 MOS 12:00:00 AM EST - 06/25/2020 12:00:00 AM EST [facility] ([facility]) 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 Other 04/09/2020 12:00:00 AM EDT - 2019 12:00:00 AM EDT [facility] ([facility]) CVR Blood Pressure 04/09/2020 12:00:00 AM EDT - 2019 12:00:00 AM EDT [facility] ([facility]) NURSE ONLY DEPO INJ. RN/SENIOR SCIENCE CONSULTANT Only 020 12:00:00 AM EDT - 04/09/2020 12:00:00 AM EDT [facility] ([facility]) Depo/Medroxyprogesterone Inj. 150 Mg Nurse/CA 04/09/2020 12:00:00 AM EDT - 04/09/2020 12:00:00 AM EDT [facility] ([facility]) CVR BC Ending Method HORM.INJ. 3 MOS 12:00:00 AM EDT - 04/09/2020 12:00:00 AM EDT [facility] ([facility]) Injection Or Lab Only Visit Est 04/09/20 20 12:00:00 AM EDT - 04/09/2020 12:00:00 AM EDT [facility] ([facility]) Spirometry 02/26/2020 12:00:00 AM EDT Marisela QUISPE ([facility], ) 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 Other 01/22/2020 12:00:00 AM EDT - 2019 12:00:00 AM EDT [facility] ([facility]) 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 Nutrition 01/22/2020 12:00: 00 AM EDT - 01/22/2020 12:00:00 AM EDT [facility] ([facility]) 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 Contraceptive 01/22/2020 12 :00:00 AM EDT - 01/22/2020 12:00:00 AM EDT [facility]Gen ([facility]) CVR Med.Svc. Height/Weight 01/22/2020 12 :00:00 AM EDT - 01/22/2020 12:00:00 AM EDT [facility] ([facility]) CVR Blood Pressure 01/22/2020 12:00:00 AM EDT - 2019 12:00:00 AM EDT [facility] ([facility]) NURSE ONLY DEPO INJ. RN/SENIOR SCIENCE CONSULTANT Only 020 12:00:00 AM EDT - 01/22/2020 12:00:00 AM EDT [facility] ([facility]) Depo/Medroxyprogesterone Inj. 150 Mg Nurse/CA 01/22/2020 12:00:00 AM EDT - 01/22/2020 12:00:00 AM EDT [facility] ([facility]) CVR BC Ending Method HORM.INJ. 3 MOS 04/2020 12:00:00 AM EDT - 01/22/2020 12:00:00 AM EDT [facility] ([facility]) Spirometry 01/01/2020 12:00:00 AM EDT M BRITTANEY ([facility], ) 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 Other 11/02/2019 12:00:00 AM EDT - 2019 12:00:00 AM EDT [facility] ([facility]) 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 Contraceptive 11/02/2019 12 :00:00 AM EDT - 11/02/2019 12:00:00 AM EDT [facility]Gen ([facility]) CVR Med.Svc. Height/Weight 11/02/2019 12 :00:00 AM EDT - 11/02/2019 12:00:00 AM EDT [facility] ([facility]) CVR Blood Pressure 11/02/2019 12:00:00 AM EDT - 2019 12:00:00 AM EDT [facility] ([facility]) THER/PROPH/DIAG INJ, SC/IM 11/02/2019 12 :00:00 AM EDT - 11/02/2019 12:00:00 AM EDT [facility]Gen ([facility]) Depo/Medroxyprogesterone Inj. 150 Mg Nurse/CA 11/02/2019 12:00:00 AM EDT - 11/02/2019 12:00:00 AM EDT [facility]Gen ([facility]) CVR BC Ending Method HORM.INJ. 3 MOS 12:00:00 AM EDT - 11/02/2019 12:00:00 AM EDT [facility]Gen ([facility]) 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 STI / H 08/15/2019 12:00:00 AM EST - 08/15/2019 12:00:00 AM EST [facility] ([facility]) 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 Other 08/15/2019 12:00:00 AM EST - 2019 12:00:00 AM EST [facility] ([facility]) 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 Nutrition 08/15/2019 12:00: 00 AM EST - 08/15/2019 12:00:00 AM EST [facility] ([facility]) 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 Contraceptive 08/15/2019 12 :00:00 AM EST - 08/15/2019 12:00:00 AM EST [facility] ([facility]) CVR Med.Svc. Height/Weight 08/15/2019 12 :00:00 AM EST - 08/15/2019 12:00:00 AM EST [facility] ([facility]) CVR Blood Pressure 08/15/2019 12:00:00 AM EST - 2019 12:00:00 AM EST [facility] ([facility]) HCS Without Test 08/15/2019 12:00:00 AM EST - 08/15/19 20 12:00:00 AM EST [facility] ([facility]) NURSE ONLY DEPO INJ. RN/SENIOR SCIENCE CONSULTANT Only 020 12:00:00 AM EST - 08/15/2019 12:00:00 AM EST [facility] ([facility]) Depo/Medroxyprogesterone Inj. 150 Mg Nurse/CA 08/15/2019 12:00:00 AM EST - 08/15/2019 12:00:00 AM EST [facility] ([facility]) CVR BC Ending Method HORM.INJ. 3 MOS 09/2019 12:00:00 AM EST - 08/15/2019 12:00:00 AM EST NextGen ([facility]) CYTOPATH, C/V, THIN LAYER 08/15/2019 12: 00:00 AM EST - 08/15/2019 12:00:00 AM EST [facility] PREV VISIT, EST, AGE 40-64 08/15/2019 12 :00:00 AM EST - 08/15/2019 12:00:00 AM EST NextGen ([facility]) Spirometry 08/06/2019 12:00:00 AM EST Marisela QUISPE ([facility], ) RADIOLOGIC EXAM KNEE COMPLETE 4/MORE VIEWS 08/01/2019 12:00:00 AM EST MEDENT ([facility] ) Office Visit, Est Pt., Level 4 PC 07/19/2019 12:00:00 AM EST eCW1 ([facility]) Annual wellness visit; includes a person alized prevention plan of service (pps), initial visit 05/30/2019 12:00:00 AM EST eCW1 ([facility]) Influenza immunization administered or previously received 05/30/2019 12:00:00 AM EST eCW1 ([facility]) Results ID Date Data Source [id number] 04/30/2020 02:24:00 PM EST MEDENT ([facility], ) Name Value Range Interpretation Code Description Data Ilsa rce(s) Supporting Document(s) PDFReport Laboratory test result MEDENT ([facility], ) FVC-Pre 2.82 L MEDENT ([facility], ) FVC-Pred 3.53 L MEDENT ([facility], ) FVC-LLN 2.84 L MEDENT ([facility], ) FVC-%Pred-Pre 79 L MEDENT ([facility], ) Fev1-Pred 2.80 L MEDENT ([facility], ) Fev1-%Pred-Pre 74 L MEDENT ([facility]) Fev1-Pre 2.08 L MEDENT ([facility]) Fev6-Pred 3.44 L MEDENT ([facility]) Fev1-LLN 2.21 L MEDENT ([facility]) Fev6-Pre 2.81 L MEDENT ([facility]) Tls2fsv-Ndnw 80 % MEDENT ([facility], ) Fev6-%Pred-Pre 81 L MEDENT ([facility]) Fev6-LLN 2.76 L MEDENT ([facility]) Fid2aca-%Pred-Pre 92 % MEDENT ([facility]) Kva7pdp-Zqs 74 % MEDENT ([facility]) Rhv7eag-LSO 70 % MEDENT ([facility]) Mcb8hbd-Eyod 97 % MEDENT ([facility]) Eel1uho-Zfd 100 % MEDENT ([facility]) Ama9pvy-%Pred-Pre 102 % MEDENT ([facility]) FEFMax-Pred 6.72 L/E/sec MEDENT ([facility], ) FEFMax-%Pred-Pre 92 L/E/sec MEDENT ([facility]) FEFMax-Pre 6.23 L/E/sec MEDENT ([facility]) Wtl1039-Tstc 2.75 L/E/sec MEDENT ([facility]) FEFMax-LLN 5.00 L/E/sec MEDENT ([facility]) Zsc1994-%Pred-Pre 55 L/E/sec MEDENT ([facility]) Ezx1005-Ncq 1.52 L/E/sec MEDENT ([facility]) Tmk6059-EEU 1.51 L/E/sec MEDENT ([facility], ) Jqs8fxf8-Zga 74 % MEDENT ([facility]) Ath9jau1-Wyrd 82 % MEDENT ([facility]) ExpTime-Pre 6.36 sec MEDENT ([facility]) Kib8emu3-%Pred-Pre 89 % MEDENT ([facility]) Vde3isz3-PDM 74 % MEDENT ([facility]) ID Date Data Source Rapid Strep (Kera Strep A+ NABIL) 03/20/2020 12:21:12 PM EDT eCW1 ([facility]) Name Value Range Interpretation Code Description Data Ilsa rce(s) Supporting Document(s) Yes Internal Controls Perform ed (Y/N) eCW1 ([facility]) Neg Rapid Strep (Kera Strep A+ NABIL) eCW1 ([facility]) Neg Result (Positive/Negative) eCW 1 ([facility]) ID Date Data Source [id number] 02/26/2020 12:53:00 PM EDT MEDENT ([facility]) Name Value Range Interpretation Code Description Data Ilsa rce(s) Supporting Document(s) PDFReport Laboratory test result MEDENT ([facility]) FVC-Pre 2.79 L MEDENT ([facility]) FVC-%Pred-Pre 78 L MEDENT ([facility]) FVC-Pred 3.54 L MEDENT ([facility]) Fev1-Pre 2.01 L MEDENT ([facility]) Fev1-Pred 2.81 L MEDENT ([facility]) FVC-LLN 2.85 L MEDENT ([facility]) Fev6-Pred 3.45 L MEDENT ([facility]) Fev1-LLN 2.22 L MEDENT ([facility]) Fev1-%Pred-Pre 71 L MEDENT ([facility]) Fev6-%Pred-Pre 80 L MEDENT ([facility]) Fev6-LLN 2.76 L MEDENT ([facility], ) Fev6-Pre 2.79 L MEDENT ([facility]) Wcd1bpn-Hjas 80 % MEDENT ([facility]) Lba8eqf-Gsk 72 % MEDENT ([facility]) Rqr0tzx-%Pred-Pre 89 % MEDENT ([facility]) Oyu6pgy-Karv 97 % MEDENT ([facility]) Dlu3tze-Dkx 100 % MEDENT ([facility]) Soz2csh-UXN 70 % MEDENT ([facility]) Kaq6atq-%Pred-Pre 102 % MEDENT ([facility]) FEFMax-Pre 5.40 L/E/sec MEDENT ([facility]) FEFMax-Pred 6.73 L/E/sec MEDENT ([facility]) FEFMax-LLN 5.02 L/E/sec MEDENT ([facility]) Pin5752-Ohyb 2.76 L/E/sec MEDENT ([facility]) FEFMax-%Pred-Pre 80 L/E/sec MEDENT ([facility]) Jvm7784-%Pred-Pre 51 L/E/sec MEDENT ([facility]) Tbg1220-Krv 1.42 L/E/sec MEDENT ([facility]) Myw9463-RBA 1.52 L/E/sec MEDENT ([facility]) ExpTime-Pre 6.13 sec MEDENT ([facility]) Fza6rmm2-Nojr 82 % MEDENT ([facility]) Fke1qvu7-BLF 73 % MEDENT ([facility]) Wwd1iig8-%Pred-Pre 87 % MEDENT ([facility]) Owt8gyf2-Wcq 72 % MEDENT ([facility]) ID Date Data Source [id number] 01/01/2020 01:47:00 PM EDT MEDENT ([facility], ) Name Value Range Interpretation Code Description Data Ilsa rce(s) Supporting Document(s) PDFReport Laboratory test result MEDENT ([facility], ) FVC-Pred 3.56 L MEDENT ([facility]) FVC-Pre 2.64 L MEDENT ([facility]) FVC-%Pred-Pre 74 L MEDENT ([facility], ) FVC-LLN 2.86 L MEDENT ([facility]) Fev1-Pre 1.70 L MEDENT ([facility]) Fev1-%Pred-Pre 60 L MEDENT ([facility]) Fev1-Pred 2.83 L MEDENT ([facility]) Fev6-Pred 3.47 L MEDENT ([facility]) Fev6-Pre 2.61 L MEDENT ([facility]) Fev1-LLN 2.24 L MEDENT ([facility]) Sln4yko-Hyyo 80 % MEDENT ([facility]) Fev6-LLN 2.79 L MEDENT ([facility]) Fev6-%Pred-Pre 75 L MEDENT ([facility]) Mvr0pyg-Pli 64 % MEDENT ([facility]) Nel6ahp-SOL 71 % MEDENT ([facility]) Jne8muo-%Pred-Pre 80 % MEDENT ([facility]) Atl1fkj-Pitz 97 % MEDENT ([facility]) Agg9thv-Izm 99 % MEDENT ([facility]) Rkx3gqs-%Pred-Pre 101 % MEDENT ([facility]) FEFMax-Pred 6.77 L/E/sec MEDENT ([facility]) FEFMax-%Pred-Pre 66 L/E/sec MEDENT ([facility]) FEFMax-Pre 4.50 L/E/sec MEDENT ([facility], ) Ceo0127-Xls 1.01 L/E/sec MEDENT ([facility], ) Axg4808-Hqcc 2.80 L/E/sec MEDENT ([facility], ) FEFMax-LLN 5.05 L/E/sec MEDENT ([facility], ) Fac1997-%Pred-Pre 36 L/E/sec MEDENT ([facility]) Rpj1784-FXQ 1.56 L/E/sec MEDENT ([facility], ) ExpTime-Pre 7.15 sec MEDENT ([facility], ) Lko6ism5-Lzm 65 % MEDENT ([facility]) Luy7vva9-%Pred-Pre 78 % MEDENT ([facility], ) Woy6jkg9-Ucjc 82 % MEDENT ([facility], ) Pjh2hkx5-PCY 74 % MEDENT ([facility]) ID Date Data Source [id number] 11/14/2019 12:11:24 PM EDT [facility] Name Value Range Interpretation Code Description Data Ilsa rce(s) Supporting Document(s) Progress Note [facility] MIDAEh4dXrYHGlHo86/RDBcqGCChf1AaWNuxKGb2YRswOLIvU9ZhKUT6lV3pTNY3FXkTBnKcXsFpMyGe lbm [file] ICAgICAgICAgICAgICAgICAgICAgICAgICAgICAgICAgICAgICAgICAgICAgICAgICAgICAgICAgICAg ICAgICAgICAgICAgICANCiAgICAgICAgICAgICAgIC AgICAgICAgICAgICAgICAgICAgICAgICAgICAgICAgICAgICAgICAgICAgICAgICAgICAgICAgICAgIC AgICAgICAgICAgICAgICAgICAgICAgICANCiAgICAgICAgICAgICAgICAgICAgICAgICAgICAgICAgIC AgICAgICAgICAgICAgICAgICAgICAgICAgICAgICAg ICAgICAgICAgICAgICAgICAgICAgICAgICAgICAgICAgICANCiAgICAgICAgICAgICAgICAgICAgICAg ICAgICAgICAgICAgICAgICAgICAgICAgICAgICAgICAgICAgICAgICAgICAgICAgICAgICAgICAgICAg ICAgICAgICAgICAgICAgICANCiAgICAgICAgICAgIC AgICAgICAgICAgICAgICAgICAgICAgICAgICAgICAgICAgICAgICAgICAgICAgICAgICAgICAgICAgIC AgICAgICAgICAgICAgICAgICAgICAgICAgICANCiAgICAgICAgICAgICAgICAgICAgICAgICAgICAgIC AgICAgICAgICAgICAgICAgICAgICAgICAgICAgICAg ICAgICAgICAgICAgICAgICAgICAgICAgICAgICAgICAgICAgICANCiAgICAgICAgICAgICAgICAgICAg ICAgICAgICAgICAgICAgICAgICAgICAgICAgICAgICAgICAgICAgICAgICAgICAgICAgICAgICAgICAg ICAgICAgICAgICAgICAgICAgICANCiAgICAgICAgIC AgICAgICAgICAgICAgICAgICAgICAgICAgICAgICAgICAgICAgICAgICAgICAgICAgICAgICAgICAgIC AgICAgICAgICAgICAgICAgICAgICAgICAgICAgICANCiAgICAgICAgICAgICAgICAgICAgICAgICAgIC AgICAgICAgICAgICAgICAgICAgICAgICAgICAgICAg ICAgICAgICAgICAgICAgICAgICAgICAgICAgICAgICAgICAgICAgICANCiAgICAgICAgICAgICAgICAg ICAgICAgICAgICAgICAgICAgICAgICAgICAgICAgICAgICAgICAgICAgICAgICAgICAgICAgICAgICAg ICAgICAgICAgICAgICAgICAgICAgICANCjw/eHBhY2 yekJAepjF0Q2unVk6LZp6ZXR7gv2OtFZWmTBvmwiGqTomYXdSnQRVaXxxGNmg0CDudBA3CrJXbK0EtW1 WyHLjkGC6FXDZjNQElmAKbYUJwWOEzKjH9FLFsPGxlKV2LfMAhZPbwKDAhCHMeQwPuRVWzYRNuMYRtEH VeFNLDEVMwUUJpUeNaQRIqIZYcMFdbFEPJCL8STpAu V5FzbD58VZmFQj9+GEqvhyGxWseTYmT7KWLwp3AtTRe1SE4TCJLuYpmpu1YpQvWwJRCARKmiZF3BFJD6 ZCA5DILjPa5OEVVaH842shNiJV6MLb0SGhSmGV7ndf4LEcAePZKpWcvOSze9PCtbYS9TzLIeRYzNwx0a neVtfkXGy8WqmkDvfIVOWT5gTWZDKO0tkyMtahaxRb TeREPxGe5sFuZeZaIpOAT3XjZcGO1sLFumIL3AQTE3PHdyHBFgUQSpH7pWAnRrPLDkCkGmjRfzGF4DLz RiJ3RiizGjcBDkSKIdYDGASn2+XDaittBdZevDMbH2HNJoj5OrBAp8ED4BDMZoQIisGU8VVRKrxY1zAU xcFA6XTkKvFuNzROOHQfXaS57pqPIgXOl7Z4AtXbWv ZGVkRmlsZXMgPDwvTmFtZXMgWyBdDQogID4+ID4+MJcdEX2SCGlzhtZnZUXvPt9EFISlGWAyYX2lAQTe CNEaD1Z3qZegLOHKFxKsC3gigosqSM3rSUXkE610fSrszmQzBWG1DHHbQp4ODSBjONX3CIUcrPXvFtSd MJJMHPviVF7IcNIgITD7nN9aVUluSSZcSVDqU8oOMn YuxZrqDV16aHgyopXaeEIjECh+Re1YXG7kd2WxMUr2lcTkLNrbDAN7ZBrvYLWyOBCcQIRhSOS8UFQ6TL TVAhKfZWFlTVVqPZflLWMzTFHgun0XGFRbYAOiZnMeUHQyUPMrXLTxDLceTAMaDGT9RxJ2DLYtGFIjFQ 6WRrUuUNZvZEHtFFfoMWCbDOJdhk9RFDJpRFJrCDU1 MREhGKQwFRPgSFxxDWCsYTX2ZzbnWBWtSZEnCR4FLqBoXQYaGYpzCjQfDKHwWWBygc7EFXMnXZTfLFHl WvKtDFBhFRYzVHgvAZHjYPXhASBxNFEbSRSjFZ5PZpLqGPZbEBQaPsVnAHIsZUYthd5ZVISbDSYnCdvx MjGmIDQwVRCwEOszPETnQNYbDYCgYHYuEVHuGG4EUj KaDGOwYNLiQHtcUJQbICTkde7MTZXgLOLqZkObEhIdLXVoNTMdFGhsIOAlMWA3Eys7DRXtGJAtJH1YXg LqYZQdUCe0ZWNiRGHcMOQyby8HCYKfWAPnTHQ3LkKiWQTaBLItCMeeHJIwMTOvSvH9DITvMFQcDU2DNj FlQNTgKyAlVMutNKZoDRIgrf6SXOHoCCDfCXRvUlZc WVByHYLeCNiwPPZiTNLmCXc4GZTwFVPiZN9IPfWrSWTaQlF8HAalFOTzCQMmyd4PXGQeXZKmRhh1WHIp DNHnJBAcSZllZRJxQTQyOOW0DTFaOWKxOP3IRyPiKTQlOvXbAukpPCRzTWJzac4ECTQmAVTbSPP8HyUx FJEsXPAiRBuyRRIgPBU9LUMiXTNdLRTgXB6BNhCpDE FpKdJfZECeKOHyLZXbom9YFOQoJGDuTLQ4QYIbLJKmGVAwCErzWPVoLIG5FyHmHSCeBSOjUG1NXxBsWA LnOmK6XyHpSAVaWPTkaa9BJVRvMCFeLqUcHGDiTCYqHLOxGBygMXPcZEO5FZJ9YFUrGVIlTJ3MYxWdBT PnDgv1XQTpSCJsVLFped3EYHRxBDHeSKI9XKGcBCVx TTGdJCdkHPNlPHQ1ZoNqQEDbGPXlCR3PBvYfZQzkGVXGRch7MGmjV9p9AETxId7CE1Kto5SkAeLxPASD HZqxTB7vrfHuDNYzLc2OQ5pDTavrOiBfCjNyETpuUnLePdT7NoP3EQe3WPZkDjK7ODWlYi5zVAPsRkQa R5D9BMQhEbMmFSboBPfgXDhfOcExFiivQTQaLpMk ZF7YXj2VOjJ1WFZ4oZPiSk4FPwf4IzQKZtOkVY6TRVm= ID Date Data Source VITAMIN D 25-HYDROXY 05/30/2019 12:00:00 AM EST eCW1 ([facility]) Name Value Range Interpretation Code Description Data Ilsa rce(s) Supporting Document(s) 33.8 30.0-100.0 TOTAL 25(OH) VITAMIN D eC W1 ([facility]) ID Date Data Source Basic Metabolic Profile (BMP) 05/30/2019 12:00:00 AM EST eCW 1 ([facility]) Name Value Range Interpretation Code Description Data Ilsa rce(s) Supporting Document(s) 65 70-100 GLUCOSE, FASTING eCW1 ([facility]) > 60.0 >58 GLOMERULAR FILTRATION RATE eCW 1 ([facility]) 142 136-145 SODIUM LEVEL eCW1 ([facility]) 6 7-18 BLOOD UREA NITROGEN eCW1 ([facility]) 0.59 0.55-1.30 CREATININE FOR GFR eCW1 ([facility]) 4.2 3.5-5.1 POTASSIUM SERUM eCW1 ([facility]) 32 21-32 CARBON DIOXIDE LEVEL eCW1 ([facility]) 104 98-107 CHLORIDE LEVEL eCW1 ([facility]) 9.1 8.5-10.1 CALCIUM LEVEL eCW1 ([facility]) ID Date Data Source FREE T4 & TSH PANEL 05/30/2019 12:00:00 AM EST eCW1 ([facility]) Name Value Range Interpretation Code Description Data Ilsa rce(s) Supporting Document(s) 2.920 0.358-3.740 THYROID STIMULATING HORM ONE eCW1 ([facility]) 1.20 0.76-1.46 FREE T4 eCW1 ([facility]) Procedure Social History Code Duration Value Status Description Data Source(s ) Smoking 07/01/2020 12:00:00 AM EST Former Smoker completed Former Smoker eCW1 ([facility]) Smoking 07/01/2020 12:00:00 AM EST Former Smoker completed Former Smoker eCW1 ([facility]) Smoking 07/01/2020 12:00:00 AM EST Former Smoker completed Former Smoker eCW1 ([facility]) Smoking 06/25/2020 12:00:00 AM EST Former smoker completed Former smoker [facility] ([facility]) Smoking 06/03/2020 12:00:00 AM EST Former Smoker completed Former Smoker eCW1 ([facility]) Smoking 06/03/2020 12:00:00 AM EST Former Smoker completed Former Smoker eCW1 ([facility]) Smoking 06/03/2020 12:00:00 AM EST Former Smoker completed Former Smoker eCW1 ([facility]) Smoking 06/03/2020 12:00:00 AM EST Former Smoker completed Former Smoker eCW1 ([facility]) Smoking 04/30/2020 12:00:00 AM EST Patient is a former smoker completed Patient is a former smoker EUGENE ([facility]) Smoking 04/25/2020 12:00:00 AM EST Former Smoker completed Former Smoker eCW1 ([facility]) Smoking 04/25/2020 12:00:00 AM EST Former Smoker completed Former Smoker eCW1 ([facility]) Smoking 04/25/2020 12:00:00 AM EST Former Smoker completed Former Smoker eCW1 ([facility]) Smoking 03/20/2020 12:00:00 AM EDT Former Smoker completed Former Smoker eCW1 ([facility]) Smoking 03/20/2020 12:00:00 AM EDT Former Smoker completed Former Smoker eCW1 ([facility]) Smoking 03/20/2020 12:00:00 AM EDT Former Smoker completed Former Smoker eCW1 ([facility]) Smoking 01/02/2020 12:00:00 AM EDT Former Smoker completed Former Smoker eCW1 ([facility]) Smoking 01/02/2020 12:00:00 AM EDT Former Smoker completed Former Smoker eCW1 ([facility]) Alcohol intake 11/14/2019 12:00:00 AM EDT Current drinker of al cohol (finding) completed Current drinker of alcohol (finding) [facility] Cigarette pack-years 11/14/2019 12:00:00 AM EDT UNK completed [facility] Cigarettes smoked current (pack per day) - Reported 11/14/19 20 12:00:00 AM EDT UNK completed [facility] Smoking 11/14/2019 12:00:00 AM EDT Former smoker completed Former smoker [facility] 07/15/2019 12:00:00 AM EST Cigarette Smoker completed Cig arette Smoker [facility] 07/15/2019 12:00:00 AM EST Current smoker completed Curre nt smoker [facility] Vital Signs ID Date Data Source UNK Name Value Range Interpretation Code Description Data Source(s) Diastolic blood pressure 70 mm[Hg] 70 mm[Hg] eCW1 ([facility]) Systolic blood pressure 132 mm[Hg] 132 mm[Hg] e CW1 ([facility]) Body temperature 96.6 [degF] 96.6 [degF] eCW1 ( [facility]) Respiratory rate 18 /min 18 /min eCW1 ([facility]) Heart rate 98 /min 98 /min eCW1 ([facility]) Body mass index (BMI) [Ratio] 54.82 kg/m2 54.82 kg/m2 eCW1 ([facility]) Body height 64 [in_i] 64 [in_i] eCW1 ([facility]) Body weight 144.9 kg 144.9 kg eCW1 ([facility]) Body weight 319.4 [lb_av] 319.4 [lb_av] eCW1 ([facility]) Body mass index (BMI) [Ratio] 53.21 kg/m2 Overweight 53.21 kg/m2 NextGen ([facility]) Diastolic blood pressure 77 mm[Hg] 77 mm[Hg] NextGen ([facility]) Systolic blood pressure 126 mm[Hg] 126 mm[Hg] N extGen ([facility]) Body weight 140.614 kg 140.614 kg NextGen ([facility]) Body height 162.56 cm 162.56 cm NextGen ([facility]) Diastolic blood pressure 80 mm[Hg] 80 mm[Hg] eCW1 ([facility]) Systolic blood pressure 140 mm[Hg] 140 mm[Hg] e CW1 ([facility]) Body temperature 96.2 [degF] 96.2 [degF] eCW1 ( [facility]) Respiratory rate 18 /min 18 /min W1 ([facility]) Heart rate 108 /min 108 /min W1 ([facility]) Body mass index (BMI) [Ratio] 54.75 kg/m2 54.75 kg/m2 W1 ([facility]) Body height 64 [in_i] 64 [in_i] eCW1 ([facility]) Body weight 319 [lb_av] 319 [lb_av] eCW1 ([facility]) Body weight 143.848 kg 143.848 kg MEDASHWIN ([facility], ) [place] body weight 120 [lb_av] 120 [lb_av] MEDEN T ([facility], ) Body mass index (BMI) [Ratio] 54.4 kg/m2 54.4 k g/m2 MEDENT ([facility], ) Body weight 317.12 [lb_av] 317.12 [lb_av] MEDEN T ([facility], ) Body height 64 [in_i] 64 [in_i] [facility] ([facility], ) 5'4" Oxygen saturation in Arterial blood by Pulse oximetry 98 % 98 % [facility] ([facility]) Heart rate 89 /min 89 /min [facility], ) Diastolic blood pressure 74 mm[Hg] 74 mm[Hg] MEDENT ([facility]) Systolic blood pressure 140 mm[Hg] 140 mm[Hg] M EDENT ([facility]) Body mass index (BMI) [Ratio] 54.24 kg/m2 Overweight 54.24 kg/m2 NextGen ([facility]) Diastolic blood pressure 84 mm[Hg] 84 mm[Hg] NextGen ([facility]) Systolic blood pressure 130 mm[Hg] 130 mm[Hg] N extGen ([facility]) Body weight 143.335 kg 143.335 kg NextGen ([facility]) Body height 162.56 cm 162.56 cm NextGen ([facility]) Diastolic blood pressure 84 mm[Hg] 84 mm[Hg] eCW1 ([facility]) Systolic blood pressure 134 mm[Hg] 134 mm[Hg] e CW1 ([facility]) Body temperature 96.9 [degF] 96.9 [degF] eCW1 ( [facility]) Respiratory rate 20 /min 20 /min eCW1 ([facility]) Heart rate 98 /min 98 /min eCW1 ([facility]) Body mass index (BMI) [Ratio] 54.37 kg/m2 54.37 kg/m2 W1 ([facility]) Body height 64 [in_i] 64 [in_i] eCW1 ([facility]) Body weight 316.8 [lb_av] 316.8 [lb_av] eCW1 ([facility]) Body weight 140.616 kg 140.616 kg MEDENT ([facility]) [place] body weight 120 [lb_av] 120 [lb_av] [facility] Body mass index (BMI) [Ratio] 53.2 kg/m2 53.2 k g/m2 [facility] ([facility]) Body weight 310.00 [lb_av] 310.00 [lb_av] MEDEN T ([facility]) Body height 64 [in_i] 64 [in_i] [facility] ([facility]) 5'4" Body weight 140.616 kg 140.616 kg [facility] ([facility]) [place] body weight 120 [lb_av] 120 [lb_av] MEDEN T ([facility]) Body mass index (BMI) [Ratio] 53.2 kg/m2 53.2 k g/m2 [facility] ([facility]) Body weight 310.00 [lb_av] 310.00 [lb_av] [facility] Body height 64 [in_i] 64 [in_i] [facility] ([facility]) 5'4" Body temperature 98.3 [degF] 98.3 [degF] [facility] ([facility]) Oxygen saturation in Arterial blood by Pulse oximetry 98 % 98 % [facility] ([facility]) Heart rate 89 /min 89 /min [facility] ([facility]) Diastolic blood pressure 86 mm[Hg] 86 mm[Hg] [facility] ([facility]) Systolic blood pressure 138 mm[Hg] 138 mm[Hg] M EDENT ([facility]) Body mass index (BMI) [Ratio] 53.07 kg/m2 Overweight 53.07 kg/m2 NextGen ([facility]) Diastolic blood pressure 82 mm[Hg] 82 mm[Hg] NextGen ([facility]) Systolic blood pressure 130 mm[Hg] 130 mm[Hg] N extGen ([facility]) Body weight 140.251 kg 140.251 kg NextGen ([facility]) Body height 162.56 cm 162.56 cm NextGen ([facility]) Diastolic blood pressure 80 mm[Hg] 80 mm[Hg] eCW1 ([facility]) Systolic blood pressure 132 mm[Hg] 132 mm[Hg] e CW1 ([facility]) Body temperature 98.5 [degF] 98.5 [degF] eCW1 ( [facility]) Respiratory rate 22 /min 22 /min eCW1 ([facility]) Heart rate 83 /min 83 /min eCW1 ([facility]) Body mass index (BMI) [Ratio] 52.52 kg/m2 52.52 kg/m2 eCW1 ([facility]) Body height 64 [in_i] 64 [in_i] eCW1 ([facility]) Body weight 306 [lb_av] 306 [lb_av] eCW1 ([facility]) Body weight 138.348 kg 138.348 kg [facility], ) Body mass index (BMI) [Ratio] 52.3 kg/m2 52.3 k g/m2 MEDENT ([facility], ) Body weight 305.00 [lb_av] 305.00 [lb_av] MEDEN T ([facility], ) Body height 64 [in_i] 64 [in_i] [facility] ([facility], ) 5'4" Body temperature 96.0 [degF] 96.0 [degF] [facility] ([facility], ) Oxygen saturation in Arterial blood by Pulse oximetry 95 % 95 % [facility] ([facility], ) Heart rate 99 /min 99 /min [facility] ([facility], ) Diastolic blood pressure 72 mm[Hg] 72 mm[Hg] MEDENT ([facility], ) Systolic blood pressure 126 mm[Hg] 126 mm[Hg] M EDENT ([facility], ) Body mass index (BMI) [Ratio] 52.01 kg/m2 Overweight 52.01 kg/m2 NextGen ([facility]) Diastolic blood pressure 68 mm[Hg] 68 mm[Hg] NextGen ([facility]) Systolic blood pressure 125 mm[Hg] 125 mm[Hg] N extGen ([facility]) Body weight 137.438 kg 137.438 kg NextGen ([facility]) Body height 162.56 cm 162.56 cm NextGen ([facility]) Body mass index (BMI) [Ratio] 52.70 kg/m2 Overweight 52.70 kg/m2 NextGen ([facility]) Diastolic blood pressure 90 mm[Hg] 90 mm[Hg] [facility] Systolic blood pressure 126 mm[Hg] 126 mm[Hg] N extGen ([facility]) Body weight 139.253 kg 139.253 kg NextGen ([facility]) Body height 162.56 cm 162.56 cm NextGen ([facility]) Body weight 137.157 kg 137.157 kg [facility] ([facility], ) Body mass index (BMI) [Ratio] 51.9 kg/m2 51.9 k g/m2 [facility] ([facility], ) Body weight 302.38 [lb_av] 302.38 [lb_av] [facility], ) Body height 64 [in_i] 64 [in_i] [facility] ([facility]) 5'4" Oxygen saturation in Arterial blood by Pulse oximetry 96 % 96 % [facility] ([facility]) Heart rate 94 /min 94 /min [facility] ([facility], ) Diastolic blood pressure 7 mm[Hg] 7 mm[Hg] [facility] ([facility], ) Systolic blood pressure 130 mm[Hg] 130 mm[Hg] [facility], ) Body mass index (BMI) [Ratio] 52.4 kg/m2 52.4 k g/m2 [facility] ([facility]) Body weight 300.50 [lb_av] 300.50 [lb_av] MEDEN T ([facility]) Body height 63.50 [in_i] 63.50 [in_i] MEDENT ([facility] 5'3.50" Body temperature 98.2 [degF] 98.2 [degF] MEDENT ([facility]) Diastolic blood pressure 72 mm[Hg] 72 mm[Hg] eCW1 ([facility]) Systolic blood pressure 124 mm[Hg] 124 mm[Hg] e CW1 ([facility]) Body temperature 97.1 [degF] 97.1 [degF] eCW1 ( [facility]) Respiratory rate 20 /min 20 /min eCW1 ([facility]) Heart rate 94 /min 94 /min eCW1 ([facility]) Body mass index (BMI) [Ratio] 51.83 kg/m2 51.83 kg/m2 eCW1 ([facility]) Body height 64 [in_us] 64 [in_us] eCW1 ([facility]) Body weight Measured 302.0 [lb_av] 302.0 [lb_av ] eCW1 ([facility]) Diastolic blood pressure 78 mm[Hg] 78 mm[Hg] eCW1 ([facility]) Systolic blood pressure 126 mm[Hg] 126 mm[Hg] e CW1 ([facility]) Body temperature 97.8 [degF] 97.8 [degF] eCW1 ( [facility]) Respiratory rate 20 /min 20 /min eCW1 ([facility]) Heart rate 98 /min 98 /min eCW1 ([facility]) Body mass index (BMI) [Ratio] 51.83 kg/m2 51.83 kg/m2 eCW1 ([facility]) Body height 64 [in_us] 64 [in_us] eCW1 ([facility]) Body weight Measured 302.0 [lb_av] 302.0 [lb_av ] eCW1 ([facility]) ID Date Data Source [id number] 01/08/2020 03:41:09 PM [facility] Name Value Range Interpretation Code Description Data Source(s) WEIGHT RECORDED 302 lb 302 lb [facility] Body height Measured 64.02 in 64.02 in [facility] Patient Treatment Plan of Care Planned Activity Planned Date Details Description Data Source (s) Sulfasalazine 500 MG Oral Tablet 07/07/2020 12:00:00 AM EST eCW1 ([facility]) Sulfasalazine 500 MG Oral Tablet 07/07/2020 12:00:00 AM EST eCW1 ([facility]) 7 ACTUAT umeclidinium 0.0625 MG/ACTUAT Dry Powder Inha ler [Incruse] 03/20/2020 12:00:00 AM EDT eCW1 ([facility]) 7 ACTUAT umeclidinium 0.0625 MG/ACTUAT Dry Powder Inha ler [Incruse] 03/20/2020 12:00:00 AM EDT eCW1 ([facility]) 7 ACTUAT umeclidinium 0.0625 MG/ACTUAT Dry Powder Inha ler [Incruse] 03/20/2020 12:00:00 AM EDT eCW1 ([facility]) 7 ACTUAT umeclidinium 0.0625 MG/ACTUAT Dry Powder Inha ler [Incruse] 03/20/2020 12:00:00 AM EDT eCW1 ([facility]) Omeprazole 20 MG Delayed Release Oral Capsule 11/14/2019 12:00:00 A M [facility] Folic Acid 1 MG Oral Tablet 11/14/2019 12:00:00 AM [facility] Methotrexate 2.5 MG Oral Tablet 11/14/2019 12:00:00 AM [facility] Sulfasalazine 500 MG Delayed Release Oral Tablet 11/14/2019 12:00:0 0 AM [facility] Ergocalciferol 01898 UNT Oral Capsule 11/06/2019 12:00:00 AM [facility] Sulfasalazine 500 MG Delayed Release Oral Tablet 09/03/2019 12:00:0 0 AM [facility] Folic Acid 1 MG Oral Tablet 09/02/2019 12:00:00 AM [facility] medroxyprogesterone acetate 150 MG/ML Injectable Suspe nsion 08/15/2019 12:00:00 AM EST [facility] Folic Acid 1 MG Oral Tablet 08/02/2019 12:00:00 AM [facility] Methotrexate 2.5 MG Oral Tablet 07/09/2019 12:00:00 AM [facility] Omeprazole 20 MG Delayed Release Oral Capsule 06/01/2019 12:00:00 A M [facility] Hydrocortisone 10 MG/ML Topical Lotion 11/28/2018 12:00:00 AM [facility] medroxyprogesterone acetate 150 MG/ML Injectable Suspe nsion 07/25/2018 12:00:00 AM [facility] [place] [facility] Methotrexate 2.5 MG Oral Tablet 05/10/2018 12:00:00 AM [facility]
[2020-07-13 19:25] VITALS: BP 129/72
== END 2020-07-13 19:25 | disposition home or self-care (01) ==
LOC: M ED 17:11
DX: J02.0 Streptococcal pharyngitis (principal); Z20.822 Contact with and (suspected) exposure to COVID-19; J44.9 Chronic obstructive pulmonary disease, unspecified; M06.9 Rheumatoid arthritis, unspecified; E03.9 Hypothyroidism, unspecified; K21.9 Gastro-esophageal reflux disease without esophagitis; Z79.899 Other long term (current) drug therapy; Z79.890 Hormone replacement therapy; Z88.0 Allergy status to penicillin; Z88.1 Allergy status to other antibiotic agents; Z88.2 Allergy status to sulfonamides
CPT/HCPCS: 87880; 99283; U0003

== ENCOUNTER → 2020-10-17 | Outpatient (REF) | payer MEDICARE, MEDICAID ==
[~2020-10-17] MED LIST changes: +INCR1INH
[2020-10-17 15:50] LABS: BASO # 0.1 10^3/uL (0.0-0.2); BASO % 0.5 % (0.0-1.0); EOS # 0.2 10^3/uL (0.0-0.5); HEMATOCRIT 41.3 % (36.0-47.0); HEMOGLOBIN 12.6 g/dl (12.0-15.5); LYMPH # 2.4 10^3/uL (1.5-5.0); LYMPH % 21.5 % (24.0-44.0); MEAN CORPUSCULAR HEMOGLOBIN 28.8 pg (27.0-33.0); MEAN CORPUSCULAR HGB CONC 30.5 g/dl (32.0-36.5); MEAN CORPUSCULAR VOLUME 94.5 fl (80.0-96.0); MONO # 0.7 10^3/uL (0.0-0.8); MONO % 6.6 % (2.0-8.0); NEUTROPHILS # 7.5 10^3/uL (1.5-8.5); NEUTROPHILS % 68.7 % (36.0-66.0); PLATELET COUNT, AUTOMATED 340 10^3/uL (150-450); RED BLOOD COUNT 4.37 10^6/uL (4.00-5.40); WHITE BLOOD COUNT 10.9 10^3/uL (4.0-10.0)
[2020-10-17 16:13] LABS: ALBUMIN 3.5 GM/DL (3.2-5.2); ALT/SGPT 13 U/L (12-78); BILIRUBIN,TOTAL 0.3 MG/DL (0.2-1.0); BLOOD UREA NITROGEN 7 MG/DL (7-18); C REACTIVE PROTEIN QUANTITATIV 3.73 MG/DL (0.00-0.30); CALCIUM LEVEL 8.9 MG/DL (8.5-10.1); CARBON DIOXIDE LEVEL 28 MEQ/L (21-32); CHLORIDE LEVEL 107 MEQ/L (98-107); CREATININE FOR GFR 0.56 MG/DL (0.55-1.30); GLOMERULAR FILTRATION RATE > 60.0 (>51); GLUCOSE, FASTING 81 MG/DL (70-100); POTASSIUM SERUM 3.8 MEQ/L (3.5-5.1); SODIUM LEVEL 141 MEQ/L (136-145)
[2020-10-17 17:48] LABS: ERYTHROCYTE SEDIMENTATION RATE 38 mm/hr (0-30)
== END ==
LOC: M PLALAB 14:55
PROVIDERS: ATTEND Internal Medicine
DX: M05.79 Rheumatoid arthritis with rheumatoid factor of multiple sites without organ or systems involvement (principal)

== ENCOUNTER 2020-10-23 11:02 | Emergency (ER) | payer MEDICARE, MEDICAID ==
[~2020-10-23] VITALS: Ht 162.6 cm; Wt 143.4 kg
[2020-10-23] MEDS ORDERED: DEPO150I12 IM (11:11)
[2020-10-23 12:10] LABS: BASO # 0.1 10^3/uL (0.0-0.2); BASO % 0.5 % (0.0-1.0); EOS # 0.2 10^3/uL (0.0-0.5); EOS % 1.4 % (0.0-3.0); HEMOGLOBIN 12.9 g/dl (12.0-15.5); LYMPH % 17.8 % (24.0-44.0); MEAN CORPUSCULAR HGB CONC 30.7 g/dl (32.0-36.5); MEAN CORPUSCULAR VOLUME 94.4 fl (80.0-96.0); MONO # 0.6 10^3/uL (0.0-0.8); MONO % 5.5 % (2.0-8.0); NEUTROPHILS # 8.2 10^3/uL (1.5-8.5); NEUTROPHILS % 74.1 % (36.0-66.0); PLATELET COUNT, AUTOMATED 337 10^3/uL (150-450); RED BLOOD COUNT 4.45 10^6/uL (4.00-5.40); WHITE BLOOD COUNT 11.1 10^3/uL (4.0-10.0)
--- NOTE | 2020-10-23 12:23 | REP ---
INDICATION: elev BP COMPARISON: 05/06/2020. TECHNIQUE: PA/Lateral FINDINGS: Lungs: Clear, no infiltrate. Heart: Normal in size. Mediastinum: Mediastinal silhouette unremarkable. Pleural angles: Unremarkable.. Bones and soft tissues: There are mild degenerative changes of the spine without compression deformity. IMPRESSION: No acute pulmonary disease. <Electronically signed by Jackson Adams > 10/23/20 [id number]
[2020-10-23 13:06] VITALS: BP 178/88
--- NOTE | 2020-10-24 04:51 | ECGEPIP ---
[facility] - ED Test Date: 2020-10-23 Pat Name: IVANA MUNIZ Department: Room: - Gender: Female Patient Registration Representative: HAO : 1970 Requested By: DEBORAH Renteria PA-C Order Number: [id number] Reading MD: Matt Carpenter Measurements Intervals [place] Rate: 82 P: 63 [place]: 158 QRS: 14 QRSD: 84 T: 50 QT: 360 QTc: 420 Interpretive Statements Normal sinus rhythm POOR R WAVE PROGRESSION INCOMPLETE RIGHT BUNDLE BRANCH BLOCK SIMILAR TO 09/11/19 Electronically Signed on 10-24-2020 4:51:40 EDT by Matt Carpenter
== END 2020-10-23 13:09 | disposition home or self-care (01) ==
LOC: M ED 11:02
DX: I10 Essential (primary) hypertension (principal); J45.909 Unspecified asthma, uncomplicated; Z79.899 Other long term (current) drug therapy; Z79.82 Long term (current) use of aspirin; Z88.0 Allergy status to penicillin; Z88.1 Allergy status to other antibiotic agents; Z88.2 Allergy status to sulfonamides; F17.210 Nicotine dependence, cigarettes, uncomplicated

== ENCOUNTER 2020-10-27 16:23 | Emergency (ER) | payer MEDICARE, MEDICAID ==
[~2020-10-27] VITALS: Ht 162.6 cm; Wt 142.3 kg
[~2020-10-27 16:23] MED LIST changes: +DEPO150I12 IM
--- NOTE | 2020-10-27 17:08 | REP ---
INDICATION: CHEST PAIN. COMPARISON: 10/23/2020 TECHNIQUE: Portable FINDINGS: The technique utilized in obtaining the radiograph has magnified the cardiac silhouette and accentuated the interstitial markings. There is cardiomegaly accentuated by technique. The lung guzman are unchanged. No acute patchy parenchymal opacities or pleural effusions have developed. The pleural angles are again seen to be sharp. The osseous structures are stable. IMPRESSION: No significant change compared to the prior exam other than technique. There is no evidence of acute cardiopulmonary disease. <Electronically signed by Jan Bills > 10/27/20 [id number]
[2020-10-27 17:22] LABS: BASO # 0.1 10^3/uL (0.0-0.2); BASO % 0.4 % (0.0-1.0); EOS # 0.2 10^3/uL (0.0-0.5); EOS % 1.3 % (0.0-3.0); HEMATOCRIT 41.1 % (36.0-47.0); HEMOGLOBIN 12.7 g/dl (12.0-15.5); LYMPH # 2.2 10^3/uL (1.5-5.0); LYMPH % 15.6 % (24.0-44.0); MEAN CORPUSCULAR HEMOGLOBIN 28.7 pg (27.0-33.0); MEAN CORPUSCULAR HGB CONC 30.9 g/dl (32.0-36.5); MONO # 0.7 10^3/uL (0.0-0.8); PLATELET COUNT, AUTOMATED 326 10^3/uL (150-450); RED BLOOD COUNT 4.42 10^6/uL (4.00-5.40); WHITE BLOOD COUNT 14.3 10^3/uL (4.0-10.0)
[2020-10-27 17:29] LABS: INR 0.95; PROTHROMBIN TIME 12.9 SECONDS (12.5-14.3)
[2020-10-27] MEDS ORDERED: ISOVUE-370 76% 100ML VIAL As Ordered ONE (17:33)
[2020-10-27 17:54] LABS: ALBUMIN 3.3 GM/DL (3.2-5.2); ALT/SGPT 13 U/L (12-78); BILIRUBIN,DIRECT < 0.1 MG/DL (0.0-0.2); BILIRUBIN,TOTAL 0.1 MG/DL (0.2-1.0); LIPASE 63 U/L (73-393); TOTAL PROTEIN 6.9 GM/DL (6.4-8.2)
--- NOTE | 2020-10-27 18:54 | REPVR ---
PROCEDURE INFORMATION: Exam: CTA Chest With Contrast Exam date and time: 10/27/2020 5:16 PM Age: 50 years old Clinical indication: Pain; Shortness of breath; Other: Chest; Additional info: SOB, chest pain TECHNIQUE: Imaging protocol: Computed tomographic angiography of the chest with contrast. 3D rendering (Not supervised by radiologist): MIP and/or 3D reconstructed images were created by the technologist. Radiation optimization: All CT scans at this facility use at least one of these dose optimization techniques: automated exposure control; mA and/or kV adjustment per patient size (includes targeted exams where dose is matched to clinical indication); or iterative reconstruction. Contrast material: ISOVUE 370; Contrast volume: 75 ml; Contrast route: INTRAVENOUS (IV); COMPARISON: CT ANGIO CHEST 09/11/2019 1:43 PM FINDINGS: Pulmonary arteries: No CT evidence of acute pulmonary embolism. Aorta: No CT evidence of acute thoracic aortic dissection, thoracic aneurysm or acute intramural thoracic aortic hematoma. Lungs: Both lungs are well-aerated. There are, however, patchy areas of pulmonary air trapping with a mosaic pattern of alternating hypo- and hyperattenuating lung parenchyma in both upper and lower lungs. Pleural spaces: Unremarkable. No pneumothorax. No pleural effusion. Heart: The heart size is normal. Normal pulmonary vasculature. No significant coronary artery calcification is present. Large epicardial fat pads are seen on both left and right sides of the heart. Lymph nodes: Unremarkable. No enlarged lymph nodes. Bones/joints: Chronic healed fractures of the posterior right ribs 5 and 7 are present together with an old healed fracture of the posterolateral left rib 6. Moderate chronic degenerative anterior vertebral body endplate osteophytic disease is seen in the mid to lower thoracic spine. Soft tissues: Normal. IMPRESSION: 1. No CT evidence of acute pulmonary embolism. 2. No CT evidence of acute thoracic aortic dissection, thoracic aneurysm or acute intramural thoracic aortic hematoma. 3. The heart size is normal. Normal pulmonary vasculature. No significant coronary artery calcification is present. Large epicardial fat pads are seen on both left and right sides of the heart. 4. Both lungs are well-aerated. There are, however, patchy areas of pulmonary air trapping with a mosaic pattern of alternating hypo- and hyperattenuating lung parenchyma in both upper and lower lungs. Pulmonary air trapping can be idiopathic, seen in normal asymptomatic individuals - or can be associated with abnormal retention of air in the lungs where it is difficult to exhale completely - as is seen in obstructive lung diseases such as acute bronchiolitis/acute reactive airways disease/acute asthma or chronic diseases such as COPD (emphysema and chronic bronchitis), chronic asthma, chronic pulmonary embolism, hypersensitivity pneumonitis/drug reaction, eosinophilic pneumonia and bronchiolitis obliterans. Mild interstitial pulmonary edema versus viral or atypical pneumonia/pneumonitis are in the differential diagnosis and are additional mimics of pulmonary air trapping. 5. Chronic healed fractures of the posterior right ribs 5 and 7 are present together with an old healed fracture of the posterolateral left rib 6. 6. Moderate chronic degenerative anterior vertebral body endplate osteophytic disease is seen in the mid to lower thoracic spine. Electronically signed by: Armaan Herrera On 10/27/2020 18:53:58 PM
[2020-10-27] MEDS ORDERED: CHLORTHALIDONE 12.5MG PER 1/2 TABLET PO ONE (19:15)
[2020-10-27] MEDS ORDERED: SPIRONOLACTONE 12.5MG PER 1/2 TABLET PO SCH (19:25)
--- NOTE | 2020-10-27 19:41 | ED PDOC ---
Post-Departure Follow-Up cta chest faxed to [facility] for fu Franchesca Darby MD October 27, 2020 19:41
[2020-10-27 19:44] VITALS: BP 164/76
[2020-10-27] MEDS ORDERED: CHLO125TA PO (22:39)
[2020-10-27] MEDS ORDERED: LISI10TA22 PO (22:39)
[2020-10-27] MEDS ORDERED: SPIR-10 PO (22:39)
[2020-10-27 23:12] VITALS: BP 142/71
--- NOTE | 2020-10-28 06:00 | ECGEPIP ---
[facility] - ED Test Date: 2020-10-27 Pat Name: IVANA MUNIZ Department: Room: - Gender: Female Swatcher: HAO : 1970 Requested By: Franchesca Murrieta Order Number: [id number] Reading MD: Matt Carpenter Measurements Intervals [place] Rate: 82 P: 72 [place]: 144 QRS: 9 QRSD: 92 T: 46 QT: 370 QTc: 432 Interpretive Statements Normal sinus rhythm INCOMPLETE RIGHT BUNDLE BRANCH BLOCK POOR R WAVE PROGRESSION SIMILAR TO 10/23/20 Electronically Signed on 10-28-2020 5:59:54 EDT by Matt Carpenter
--- NOTE | 2020-10-28 06:05 | ECGEPIP ---
[facility] - ED Test Date: 2020-10-27 Pat Name: IVANA MUNIZ Department: Room: - Gender: Female Tile Ditcher: HEATHER : 1970 Requested By: Franchesca Murrieta Order Number: [id number] Reading MD: Matt Carpenter Measurements Intervals [place] Rate: 79 P: 12 [place]: 152 QRS: 3 QRSD: 94 T: 42 QT: 372 QTc: 426 Interpretive Statements Normal sinus rhythm INCOMPLETE RIGHT BUNDLE BRANCH BLOCK POOR R WAVE PROGRESSION SIMILAR TO PRIOR ON SAME DATE Electronically Signed on 10-28-2020 6:04:40 EDT by Matt Carpenter
== END 2020-10-27 23:14 | disposition home or self-care (01) ==
LOC: M ED 16:23 → EDBD 16:23 → M ED 23:14
DX: R07.89 Other chest pain (principal); I10 Essential (primary) hypertension; I45.10 Unspecified right bundle-branch block; R94.31 Abnormal electrocardiogram [ECG] [EKG]; J44.9 Chronic obstructive pulmonary disease, unspecified; Z79.51 Long term (current) use of inhaled steroids; Z79.890 Hormone replacement therapy; Z79.899 Other long term (current) drug therapy; Z88.0 Allergy status to penicillin; Z88.2 Allergy status to sulfonamides; Z88.1 Allergy status to other antibiotic agents
CPT/HCPCS: 71045; 71275; 80047; 80076; 81001; 83690; 84439; 84443; 84484; 85025; 85610; 93005; 93041; 94760; 99285; Q9967

== ENCOUNTER → 2020-10-31 | Outpatient (REF) | payer MEDICARE, MEDICAID ==
[~2020-10-31] MED LIST changes: +CHLO125TA PO; +LISI10TA22 PO; +SPIR-10 PO
[2020-10-31 17:55] LABS: BLOOD UREA NITROGEN 11 MG/DL (7-18); CALCIUM LEVEL 9.7 MG/DL (8.5-10.1); CARBON DIOXIDE LEVEL 28 MEQ/L (21-32); CHLORIDE LEVEL 105 MEQ/L (98-107); CREATININE FOR GFR 0.71 MG/DL (0.55-1.30); FREE T4 1.35 NG/DL (0.76-1.46); GLOMERULAR FILTRATION RATE > 60.0 (>51); GLUCOSE, FASTING 86 MG/DL (70-100); POTASSIUM SERUM 4.6 MEQ/L (3.5-5.1); SODIUM LEVEL 139 MEQ/L (136-145)
[2020-10-31 17:56] LABS: TOTAL 25(OH) VITAMIN D 36.7 NG/ML (30.0-100.0); VITAMIN B12 LEVEL 227 PG/ML
[2020-10-31 17:57] LABS: FOLATE > 24.0 NG/ML
== END ==
LOC: M SFHCPLAZ 14:37
PROVIDERS: ATTEND Nurse Practitioner Family
DX: E03.9 Hypothyroidism, unspecified (principal); I10 Essential (primary) hypertension; E55.9 Vitamin D deficiency, unspecified; M05.79 Rheumatoid arthritis with rheumatoid factor of multiple sites without organ or systems involvement; Z79.899 Other long term (current) drug therapy
CPT/HCPCS: 36415; 80048; 82306; 82607; 82746; 84439; 84443; G0463

== ENCOUNTER → 2020-11-21 | Outpatient (CLI) | payer MEDICARE, MEDICAID ==
[2020-11-21 15:03] LABS: BLOOD UREA NITROGEN 8 MG/DL (7-18); CALCIUM LEVEL 9.5 MG/DL (8.5-10.1); CARBON DIOXIDE LEVEL 29 MEQ/L (21-32); CHLORIDE LEVEL 103 MEQ/L (98-107); CREATININE FOR GFR 0.61 MG/DL (0.55-1.30); GLOMERULAR FILTRATION RATE > 60.0 (>51); GLUCOSE, FASTING 106 MG/DL (70-100); POTASSIUM SERUM 3.4 MEQ/L (3.5-5.1); SODIUM LEVEL 138 MEQ/L (136-145)
== END ==
LOC: M PLALAB 11:18
PROVIDERS: ATTEND Internal Medicine Cardiovascular Disease
DX: I10 Essential (primary) hypertension (principal)

== ENCOUNTER 2020-12-03 10:43 | Emergency (ER) | payer MEDICARE, MEDICAID ==
[~2020-12-03] VITALS: Ht 162.6 cm; Wt 143.6 kg
[~2020-12-03 10:43] MED LIST changes: -OLOP0.2S OP; +OLOP2.5D7 OP
[2020-12-03 11:01] VITALS: BP 143/83
[2020-12-03] MEDS ORDERED: BISO5TAB14 (11:11)
[2020-12-03] MEDS ORDERED: VALS40TA9 (11:11)
[2020-12-03] MEDS ORDERED: ERYT5OIN25 (11:11)
[2020-12-03] MEDS ORDERED: CEPH500C PO (12:07)
== END 2020-12-03 12:26 | disposition home or self-care (01) ==
LOC: M ED 10:43
DX: H01.001 Unspecified blepharitis right upper eyelid (principal); F17.200 Nicotine dependence, unspecified, uncomplicated; Z79.890 Hormone replacement therapy; Z79.899 Other long term (current) drug therapy; Z88.1 Allergy status to other antibiotic agents; Z88.2 Allergy status to sulfonamides

== ENCOUNTER → 2020-12-26 | Outpatient (CLI) | payer MEDICARE, MEDICAID ==
[~2020-12-26] MED LIST changes: +BISO5TAB14; +CEPH500C PO; +ERYT5OIN25; +VALS40TA9
--- NOTE | 2020-12-26 16:27 | REPMRS ---
Patient History The patient states she had a clinical breast exam in November 2020. No known family history of cancer. Taking hormonal contraceptives for 20 years. Pt denied . Patient states no breast complaints today. Patient has signed MRS History Sheet. Digital Woman Screen Mammo: December 26, 2020 - Exam #: [id number] Bilateral CC and MLO view(s) were taken. Technologist: RT [place] Prior study comparison: November 19, 2019, bilateral digital woman screen mammo performed at [facility]. September 08, 2018, bilateral digital woman screen mammo performed at [facility]. FINDINGS: The breast tissue is almost entirely fat. Screening. Digital screening (2D) mammography was performed bilaterally in the CC and MLO projections. Additionally, breast tomosynthesis (3D mammography) was performed bilaterally in the CC and MLO projections. Todays exam was compared to the prior exam/exams. By history, the patient has no complaints of a palpable breast abnormality or other significant breast complaints. The breasts are unchanged in size and shape. There are no ton-soft tissue densities or spiculated masses. There is no internal architectural distortion. Once again, stable benign appearing calcifications are seen.There are no suspicious ton-calcific clusters. Skin thickening or nipple retraction is not present. IMPRESSION: BI-RADS Category 2- Benign Findings. There is no evidence of malignant alteration of the breasts. Followup examination recommended in one year. The Volpara volumetric breast density category is A, the breasts are almost entirely fatty. This mammogram was read with the assistance of [facility] [employer],an FDA approved computer aided detection system for mammography. The lifetime Tyrer-Cuzick score is 8.1 % Negative x-ray reports should not delay surgical consultation if a dominant or clinically suspicious mass is present. Not all breast cancers can be identified by mammography. Therefore, we recommend that you continue to perform regular breast self-examination and physical examination and then promptly contact your physician of any concerns or changes. Adenosis and dense breasts may obscure an underlying neoplasm. Assessment: BI-RADS/ACR category 2 mammogram. Benign Findings. Recommendation Routine screening mammogram of both breasts in 1 year. Electronically Signed By: Jan Bills DO 12/26/20 [id number]
== END ==
LOC: M WHC 14:45
PROVIDERS: ATTEND Nurse Practitioner Family
DX: Z12.31 Encounter for screening mammogram for malignant neoplasm of breast (principal); Z92.0 Personal history of contraception; R92.1 Mammographic calcification found on diagnostic imaging of breast

== ENCOUNTER → 2021-01-14 | Outpatient (REF) | payer MEDICARE, MEDICAID | LOC: M SFHCPLAZ 10:11 | PROVIDERS: ATTEND Physician Assistant | DX: J02.9 Acute pharyngitis, unspecified (principal) | CPT/HCPCS: 87070; 87426; 87880; G0463 ==

== ENCOUNTER → 2021-02-10 | Outpatient (CLI) | payer MEDICARE, MEDICAID ==
--- NOTE | 2021-02-10 12:55 | REP ---
INDICATION: RHEU ARTHRITIS W RHEU FACTOR MULT SITE W/O ORG/SYS INVOLV. COMPARISON: None. TECHNIQUE: Eight views, bilateral hand series. FINDINGS: Four views of each hand demonstrate mild diffuse osteopenia. Joint spaces are preserved. No erosive changes seen. There is an ununited ossicle at the ulnar styloid on the left. IMPRESSION: Diffuse osteopenia. No erosive changes. Joint spaces are preserved. <Electronically signed by Paulo Terrazas > 02/10/21 [id number]
--- NOTE | 2021-02-10 12:57 | REP ---
INDICATION: RHEU ARTHRITIS W RHEU FACTOR MULT SITE W/O ORG/SYS INVOLV. COMPARISON: None. TECHNIQUE: Eight views. Bilateral foot series. FINDINGS: Four views of each foot demonstrate preserved joint spaces and bone mineral density. There is midfoot osteoarthritic spurring on the left. There are plantar calcaneal spurs bilaterally. This is more pronounced on the left as well. No bony erosive changes seen. Overall mineralization pattern is normal. IMPRESSION: Midfoot osteoarthritic spurring on the left. Bilateral plantar heel spurs. No acute bony abnormality. <Electronically signed by Paulo Terrazas > 02/10/21 [id number]
[2021-02-10 14:03] LABS: BASO # 0.1 10^3/uL (0.0-0.2); BASO % 0.5 % (0.0-1.0); EOS # 0.3 10^3/uL (0.0-0.5); EOS % 2.2 % (0.0-3.0); HEMATOCRIT 40.2 % (36.0-47.0); HEMOGLOBIN 12.6 g/dl (12.0-15.5); LYMPH # 2.5 10^3/uL (1.5-5.0); MEAN CORPUSCULAR HEMOGLOBIN 28.7 pg (27.0-33.0); MEAN CORPUSCULAR HGB CONC 31.3 g/dl (32.0-36.5); MEAN CORPUSCULAR VOLUME 91.6 fl (80.0-96.0); MONO # 0.7 10^3/uL (0.0-0.8); MONO % 5.6 % (2.0-8.0); NEUTROPHILS # 8.7 10^3/uL (1.5-8.5); NEUTROPHILS % 71.1 % (36.0-66.0); PLATELET COUNT, AUTOMATED 354 10^3/uL (150-450); RED BLOOD COUNT 4.39 10^6/uL (4.00-5.40); WHITE BLOOD COUNT 12.3 10^3/uL (4.0-10.0)
[2021-02-10 14:27] LABS: ERYTHROCYTE SEDIMENTATION RATE 43 mm/hr (0-30)
[2021-02-10 14:33] LABS: ALBUMIN 3.3 GM/DL (3.2-5.2); ALT/SGPT 15 U/L (12-78); BILIRUBIN,TOTAL 0.5 MG/DL (0.2-1.0); BLOOD UREA NITROGEN 5 MG/DL (7-18); C REACTIVE PROTEIN QUANTITATIV 2.86 MG/DL (0.00-0.30); CALCIUM LEVEL 8.8 MG/DL (8.5-10.1); CARBON DIOXIDE LEVEL 24 MEQ/L (21-32); CHLORIDE LEVEL 110 MEQ/L (98-107); CREATININE FOR GFR 0.54 MG/DL (0.55-1.30); GLOMERULAR FILTRATION RATE > 60.0 (>51); GLUCOSE, FASTING 77 MG/DL (70-100); POTASSIUM SERUM 4.3 MEQ/L (3.5-5.1); SODIUM LEVEL 141 MEQ/L (136-145); TOTAL PROTEIN 6.9 GM/DL (6.4-8.2)
== END ==
LOC: M PLAIMG 10:47
PROVIDERS: ATTEND Internal Medicine Rheumatology
DX: M05.79 Rheumatoid arthritis with rheumatoid factor of multiple sites without organ or systems involvement (principal); M89.49 Other hypertrophic osteoarthropathy, multiple sites; M85.88 Other specified disorders of bone density and structure, other site; M77.31 Calcaneal spur, right foot; M77.32 Calcaneal spur, left foot

== ENCOUNTER → 2021-02-11 | Outpatient (CLI) | payer MEDICARE, MEDICAID ==
[2021-02-11 17:43] LABS: FREE T4 1.21 NG/DL (0.76-1.46); THYROID STIMULATING HORMONE 1.57 uIU/ML (0.358-3.740)
[2021-02-11 18:41] LABS: TOTAL 25(OH) VITAMIN D 33.6 NG/ML (30.0-100.0)
== END ==
LOC: M PLALAB 15:00
PROVIDERS: ATTEND Physician Assistant
DX: E55.9 Vitamin D deficiency, unspecified (principal); E03.9 Hypothyroidism, unspecified; R11.0 Nausea
CPT/HCPCS: 36415; 82306; 83690; 84439; 84443; 87426; G0463; U0003

== ENCOUNTER → 2021-02-11 | Outpatient (REF) | payer MEDICARE, MEDICAID | LOC: M SFHCPLAZ 16:49 | PROVIDERS: ATTEND Physician Assistant | DX: R11.0 Nausea (principal) ==

== ENCOUNTER → 2021-03-17 | Outpatient (CLI) | payer MEDICARE, MEDICAID ==
[~2021-03-17] MED LIST changes: +ZITH500T PO
[2021-03-17 18:13] LABS: HEMATOCRIT 40.9 % (36.0-47.0); HEMOGLOBIN 12.7 g/dl (12.0-15.5); MEAN CORPUSCULAR HEMOGLOBIN 28.8 pg (27.0-33.0); MEAN CORPUSCULAR HGB CONC 31.1 g/dl (32.0-36.5); MEAN CORPUSCULAR VOLUME 92.7 fl (80.0-96.0); PLATELET COUNT, AUTOMATED 357 10^3/uL (150-450); RED BLOOD COUNT 4.41 10^6/uL (4.00-5.40); WHITE BLOOD COUNT 12.1 10^3/uL (4.0-10.0)
[2021-03-17 20:00] LABS: ALBUMIN 3.4 GM/DL (3.2-5.2); ALT/SGPT 10 U/L (12-78); BILIRUBIN,TOTAL 0.3 MG/DL (0.2-1.0); BLOOD UREA NITROGEN 7 MG/DL (7-18); CALCIUM LEVEL 9.1 MG/DL (8.5-10.1); CARBON DIOXIDE LEVEL 24 MEQ/L (21-32); CHLORIDE LEVEL 111 MEQ/L (98-107); CREATININE FOR GFR 0.62 MG/DL (0.55-1.30); GLOMERULAR FILTRATION RATE > 60.0 (>51); GLUCOSE, FASTING 72 MG/DL (70-100); SODIUM LEVEL 140 MEQ/L (136-145)
== END ==
LOC: M PLALAB 14:00
PROVIDERS: ATTEND Family Medicine
DX: R42 Dizziness and giddiness (principal)
CPT/HCPCS: 36415; 80053; 85027; G0463

== ENCOUNTER 2021-03-20 11:33 | Emergency (ER) | payer MEDICARE, MEDICAID ==
[~2021-03-20] VITALS: Ht 162.6 cm; Wt 142.4 kg
[~2021-03-20 11:33] MED LIST changes: -ZITH500T PO
[2021-03-20] MEDS ORDERED: ZITH500T PO (14:04)
[2021-03-20 14:19] VITALS: BP 170/85
== END 2021-03-20 14:25 | disposition home or self-care (01) ==
LOC: M ED 11:33
DX: J02.9 Acute pharyngitis, unspecified (principal); J44.9 Chronic obstructive pulmonary disease, unspecified; I10 Essential (primary) hypertension; E03.9 Hypothyroidism, unspecified; K21.9 Gastro-esophageal reflux disease without esophagitis; Z79.899 Other long term (current) drug therapy; Z79.82 Long term (current) use of aspirin; Z88.0 Allergy status to penicillin; Z88.1 Allergy status to other antibiotic agents; Z88.2 Allergy status to sulfonamides

== ENCOUNTER → 2021-03-26 | Outpatient (CLI) | payer MEDICARE, MEDICAID ==
[~2021-03-26] MED LIST changes: +ZITH500T PO
[2021-03-26 13:54] LABS: ALBUMIN 3.5 GM/DL (3.2-5.2); ALT/SGPT 13 U/L (12-78); BILIRUBIN,TOTAL 0.4 MG/DL (0.2-1.0); BLOOD UREA NITROGEN 9 MG/DL (7-18); CALCIUM LEVEL 8.9 MG/DL (8.5-10.1); CARBON DIOXIDE LEVEL 27 MEQ/L (21-32); CHLORIDE LEVEL 108 MEQ/L (98-107); CHOLESTEROL LEVEL 181 MG/DL (<200); CREATININE FOR GFR 0.77 MG/DL (0.55-1.30); FREE T4 1.27 NG/DL (0.76-1.46); GLOMERULAR FILTRATION RATE > 60.0 (>51); GLUCOSE, FASTING 83 MG/DL (70-100); HDL CHOLESTEROL 55 MG/DL (>40); LDL CHOLESTEROL 107 MG/DL (<100); NON-HDL-C 126 MG/DL; POTASSIUM SERUM 4.9 MEQ/L (3.5-5.1); SODIUM LEVEL 141 MEQ/L (136-145); TOTAL PROTEIN 7.4 GM/DL (6.4-8.2); TRIGLYCERIDES LEVEL 95 MG/DL (<150)
[2021-03-26 13:55] LABS: MALB URINE SIEMENS 18.1 MG/L; MAU/CREAT RATIO 10.7 MCG/MG (0.0-30.0); TOTAL 25(OH) VITAMIN D 38.1 NG/ML (30.0-100.0)
== END ==
LOC: M PLALAB 10:29
PROVIDERS: ATTEND Nurse Practitioner Family
DX: E03.9 Hypothyroidism, unspecified (principal); I10 Essential (primary) hypertension; E55.9 Vitamin D deficiency, unspecified; Z79.82 Long term (current) use of aspirin; Z79.899 Other long term (current) drug therapy

== ENCOUNTER 2021-06-08 13:20 | Emergency (ER) | payer MEDICARE, MEDICAID ==
[~2021-06-08] VITALS: Ht 162.6 cm; Wt 141.0 kg
--- NOTE | 2021-06-08 13:59 | REP ---
INDICATION: fall injury. COMPARISON: 06/25/2005 TECHNIQUE: Four views FINDINGS: Advanced degenerative changes are again seen throughout the elbow with joint space narrowing and marginal osteophytosis. There is evidence of a joint effusion. IMPRESSION: Advanced chronic changes as described above increased slightly from the prior exam and seen with a joint effusion possibly reflecting an occult fracture. Since the patient has been involved in trauma consider follow-up with CT. <Electronically signed by Jan Bills > 06/08/21 [id number]
--- NOTE | 2021-06-08 16:33 | REP ---
INDICATION: NON CONTRAST RIGHT ELBOW TRAUMA R/O FX. COMPARISON: None. TECHNIQUE: 2 x 2 and 3 x [address] scanning attempted through the elbow. FINDINGS: There is very poor bony detail throughout the elbow. There is advanced marginal osteophytosis. There is advanced asymmetric joint space narrowing. There is an abnormal lucency seen through the coronoid process of the ulna. There is a subtle lucency seen in the medial humeral epicondyle. There is evidence of a joint effusion. IMPRESSION: 1. Marked exam limitations as described above. 2. Lucency seen in the coronoid process of the ulna and medial humeral epicondyle suspicious for acute nondisplaced fractures. 3. Advanced degenerative changes. 4. Consider MRI follow-up <Electronically signed by Jan Bills > 06/08/21 [id number]
[2021-06-08 17:32] VITALS: BP 154/82
--- NOTE | 2021-06-09 07:30 | CR ---
CONSULTATION DATE: 06/08/2021 CHIEF COMPLAINT: Right elbow pain. HISTORY OF PRESENT ILLNESS: I was called by LINDA Seth at [facility], [facility] at approximately 4:47 p.m. on 06/08/2021. Per the [facility], this 51-year-old female with past history of rheumatoid arthritis slipped and fell at home. She tripped, fell on a flexed elbow, has pain there. On physical exam, it was closed, neurovascularly intact with some soft tissue swelling. CT scan was performed, reviewed by myself as well as radiologist, very poor bony details throughout the elbow, advanced marginal osteophytosis, advanced asymmetric joint space narrowing. There was an abnormal lucency seen through the coronoid process of the ulna. There was a subtle lucency seen in the medial humeral epicondyle. There was evidence of joint effusion, no obvious dislocation. ASSESSMENT AND PLAN: This is a 51-year-old female with past history of rheumatoid arthritis with advanced degenerative change of the elbow, possibly a new cornoid fracture with no instability obviously or subluxation or dislocation of the elbow. For this, I recommend nonsurgical treatment, posterior fiberglass, well padded splint with the elbow in the position of comfort, 90 degrees in flexion or slightly less sling to the upper extremity and follow up tomorrow in clinic with rest, ice, elevation for pain control. Toñito Nick understood and is in agreement with the plan, had no further questions. I see no need for acute intervention at this point. Radiologist had suggested an MRI followup and I will see the patient in clinic, assess the need for that.
== END 2021-06-08 17:43 | disposition home or self-care (01) ==
LOC: M ED 13:20
DX: S52.041A Displaced fracture of coronoid process of right ulna, initial encounter for closed fracture (principal); W01.0XXA Fall on same level from slipping, tripping and stumbling without subsequent striking against object, initial encounter; Y92.018 Other place in single-family (private) house as the place of occurrence of the external cause; M19.021 Primary osteoarthritis, right elbow; I10 Essential (primary) hypertension; J44.9 Chronic obstructive pulmonary disease, unspecified; M06.9 Rheumatoid arthritis, unspecified; E03.9 Hypothyroidism, unspecified; K21.9 Gastro-esophageal reflux disease without esophagitis; Z79.899 Other long term (current) drug therapy; Z79.82 Long term (current) use of aspirin; Z88.0 Allergy status to penicillin; Z88.1 Allergy status to other antibiotic agents; Z88.2 Allergy status to sulfonamides; F17.210 Nicotine dependence, cigarettes, uncomplicated

== ENCOUNTER → 2021-07-03 | Outpatient (CLI) | payer MEDICARE, MEDICAID ==
[2021-07-03 11:06] LABS: CALCIUM LEVEL 9.4 MG/DL (8.5-10.1)
[2021-07-03 11:21] LABS: TOTAL 25(OH) VITAMIN D 34.5 NG/ML (30.0-100.0)
[2021-07-03 11:28] LABS: PTH INTACT 42.3 PG/ML (18.5-88.0)
== END ==
LOC: M PLALAB 10:01
PROVIDERS: ATTEND Physician Assistant Medical
DX: E55.9 Vitamin D deficiency, unspecified (principal); I10 Essential (primary) hypertension; Z79.899 Other long term (current) drug therapy

== ENCOUNTER → 2021-07-03 | Outpatient (CLI) | payer MEDICARE, MEDICAID ==
[2021-07-03 10:45] LABS: HEMATOCRIT 41.5 % (36.0-47.0); HEMOGLOBIN 12.9 g/dl (12.0-15.5); MEAN CORPUSCULAR HEMOGLOBIN 29.5 pg (27.0-33.0); MEAN CORPUSCULAR HGB CONC 31.1 g/dl (32.0-36.5); PLATELET COUNT, AUTOMATED 320 10^3/uL (150-450); RED BLOOD COUNT 4.37 10^6/uL (4.00-5.40); WHITE BLOOD COUNT 10.7 10^3/uL (4.0-10.0)
[2021-07-03 11:35] LABS: ALBUMIN 3.5 GM/DL (3.2-5.2); ALT/SGPT 13 U/L (12-78); BILIRUBIN,TOTAL 0.2 MG/DL (0.2-1.0); BLOOD UREA NITROGEN 11 MG/DL (7-18); CALCIUM LEVEL 9.4 MG/DL (8.5-10.1); CARBON DIOXIDE LEVEL 26 MEQ/L (21-32); CHLORIDE LEVEL 114 MEQ/L (98-107); CREATININE FOR GFR 0.57 MG/DL (0.55-1.30); GLOMERULAR FILTRATION RATE > 60.0 (>51); GLUCOSE, FASTING 89 MG/DL (70-100); MAGNESIUM LEVEL 2.2 MG/DL (1.8-2.4); POTASSIUM SERUM 4.2 MEQ/L (3.5-5.1); SODIUM LEVEL 145 MEQ/L (136-145); TOTAL PROTEIN 6.9 GM/DL (6.4-8.2)
== END ==
LOC: M PLALAB 10:04
PROVIDERS: ATTEND Physician Assistant
DX: I10 Essential (primary) hypertension (principal)

== ENCOUNTER → 2021-07-06 | Outpatient (CLI) | payer MEDICARE, MEDICAID ==
[2021-07-06 15:33] LABS: BASO % 0.3 % (0.0-1.0); EOS # 0.2 10^3/uL (0.0-0.5); EOS % 1.3 % (0.0-3.0); HEMATOCRIT 43.7 % (36.0-47.0); HEMOGLOBIN 13.4 g/dl (12.0-15.5); LYMPH # 2.9 10^3/uL (1.5-5.0); LYMPH % 21.6 % (24.0-44.0); MEAN CORPUSCULAR HEMOGLOBIN 29.3 pg (27.0-33.0); MEAN CORPUSCULAR HGB CONC 30.7 g/dl (32.0-36.5); MEAN CORPUSCULAR VOLUME 95.4 fl (80.0-96.0); MONO # 0.9 10^3/uL (0.0-0.8); NEUTROPHILS # 9.2 10^3/uL (1.5-8.5); NEUTROPHILS % 69.1 % (36.0-66.0); PLATELET COUNT, AUTOMATED 346 10^3/uL (150-450); RED BLOOD COUNT 4.58 10^6/uL (4.00-5.40); WHITE BLOOD COUNT 13.4 10^3/uL (4.0-10.0)
[2021-07-06 16:01] LABS: BLOOD UREA NITROGEN 9 MG/DL (7-18); CREATININE FOR GFR 0.68 MG/DL (0.55-1.30); GLUCOSE, FASTING 77 MG/DL (70-100)
[2021-07-06 16:02] LABS: ALBUMIN 3.7 GM/DL (3.2-5.2); ALT/SGPT 17 U/L (12-78); BILIRUBIN,TOTAL 0.3 MG/DL (0.2-1.0); CALCIUM LEVEL 9.5 MG/DL (8.5-10.1); CARBON DIOXIDE LEVEL 27 MEQ/L (21-32); CHLORIDE LEVEL 109 MEQ/L (98-107); GLOMERULAR FILTRATION RATE > 60.0 (>51); POTASSIUM SERUM 5.2 MEQ/L (3.5-5.1); SODIUM LEVEL 141 MEQ/L (136-145); TOTAL PROTEIN 7.1 GM/DL (6.4-8.2)
[2021-07-06 20:41] LABS: ERYTHROCYTE SEDIMENTATION RATE 44 mm/hr (0-30)
== END ==
LOC: M PLALAB 13:56
PROVIDERS: ATTEND Internal Medicine Rheumatology
DX: M05.79 Rheumatoid arthritis with rheumatoid factor of multiple sites without organ or systems involvement (principal)

== ENCOUNTER → 2021-07-21 | Outpatient (REF) | payer MEDICARE, MEDICAID ==
[2021-07-21 17:17] LABS: BLOOD UREA NITROGEN 7 MG/DL (7-18); CALCIUM LEVEL 9.6 MG/DL (8.5-10.1); CARBON DIOXIDE LEVEL 27 MEQ/L (21-32); CHLORIDE LEVEL 110 MEQ/L (98-107); CREATININE FOR GFR 0.57 MG/DL (0.55-1.30); GLOMERULAR FILTRATION RATE > 60.0 (>51); GLUCOSE, FASTING 80 MG/DL (70-100); POTASSIUM SERUM 4.7 MEQ/L (3.5-5.1); SODIUM LEVEL 143 MEQ/L (136-145)
== END ==
LOC: M SFHCRHEU 11:38
PROVIDERS: ATTEND Internal Medicine Rheumatology
DX: E87.5 Hyperkalemia (principal)

== ENCOUNTER 2021-09-04 13:54 | Emergency (ER) | payer MEDICARE, MEDICAID ==
[~2021-09-04] VITALS: Ht 162.6 cm; Wt 133.6 kg
[2021-09-04 16:57] LABS: BASO # 0.1 10^3/uL (0.0-0.2); BASO % 0.4 % (0.0-1.0); EOS # 0.1 10^3/uL (0.0-0.5); EOS % 0.7 % (0.0-3.0); HEMATOCRIT 40.8 % (36.0-47.0); HEMOGLOBIN 13.3 g/dl (12.0-15.5); LYMPH # 3.1 10^3/uL (1.5-5.0); LYMPH % 20.3 % (24.0-44.0); MEAN CORPUSCULAR HEMOGLOBIN 29.8 pg (27.0-33.0); MEAN CORPUSCULAR HGB CONC 32.6 g/dl (32.0-36.5); MEAN CORPUSCULAR VOLUME 91.5 fl (80.0-96.0); MONO % 6.6 % (2.0-8.0); NEUTROPHILS # 10.8 10^3/uL (1.5-8.5); NEUTROPHILS % 71.4 % (36.0-66.0); PLATELET COUNT, AUTOMATED 336 10^3/uL (150-450); RED BLOOD COUNT 4.46 10^6/uL (4.00-5.40); WHITE BLOOD COUNT 15.1 10^3/uL (4.0-10.0)
[2021-09-04] MEDS ORDERED: ANUSOL HC 25MG SUPP PR STA (17:24)
[2021-09-04] MEDS ORDERED: DICYCLOMINE 10 MG CAP PO ONE (17:25)
[2021-09-04] MEDS ORDERED: ONDANSETRON 4MG ORAL DISINTEGRATING TAB PO ONE (17:25)
[2021-09-04 17:28] LABS: ALBUMIN 3.9 GM/DL (3.2-5.2); ALT/SGPT 15 U/L (12-78); BILIRUBIN,DIRECT 0.1 MG/DL (0.0-0.2); BILIRUBIN,TOTAL 0.3 MG/DL (0.2-1.0); BLOOD UREA NITROGEN 6 MG/DL (7-18); CALCIUM LEVEL 9.5 MG/DL (8.5-10.1); CARBON DIOXIDE LEVEL 26 MEQ/L (21-32); CHLORIDE LEVEL 113 MEQ/L (98-107); CREATININE FOR GFR 0.62 MG/DL (0.55-1.30); GLOMERULAR FILTRATION RATE > 60.0 (>51); GLUCOSE, FASTING 84 MG/DL (70-100); LIPASE 65 U/L (73-393); POTASSIUM SERUM 4.1 MEQ/L (3.5-5.1); SODIUM LEVEL 141 MEQ/L (136-145); TOTAL PROTEIN 7.1 GM/DL (6.4-8.2)
[2021-09-04] MEDS ORDERED: ISOVUE-370 76% 100ML VIAL As Ordered ONE (17:30)
[2021-09-04] MEDS ORDERED: ANUS25SU PR (19:24)
[2021-09-04] MEDS ORDERED: DICY10CA13 PO (19:24)
[2021-09-04 19:31] VITALS: BP 128/65
== END 2021-09-04 19:36 | disposition home or self-care (01) ==
LOC: EDBD 13:54 → M ED 13:54
DX: K64.8 Other hemorrhoids (principal); R93.5 Abnormal findings on diagnostic imaging of other abdominal regions, including retroperitoneum; R10.9 Unspecified abdominal pain; I10 Essential (primary) hypertension; J44.9 Chronic obstructive pulmonary disease, unspecified; E03.9 Hypothyroidism, unspecified; K21.9 Gastro-esophageal reflux disease without esophagitis; Z79.899 Other long term (current) drug therapy; Z79.82 Long term (current) use of aspirin; Z79.890 Hormone replacement therapy; Z88.0 Allergy status to penicillin; Z88.1 Allergy status to other antibiotic agents; Z88.2 Allergy status to sulfonamides; F17.210 Nicotine dependence, cigarettes, uncomplicated
CPT/HCPCS: 36415; 74177; 80048; 80076; 83690; 85025; 99284; Q9967

== ENCOUNTER → 2021-10-16 | Outpatient (CLI) | payer MEDICARE, MEDICAID ==
[~2021-10-16] MED LIST changes: +ANUS25SU PR; +DICY10CA13 PO
[2021-10-16 13:12] LABS: BASO % 0.3 % (0.0-1.0); EOS # 0.2 10^3/uL (0.0-0.5); EOS % 1.6 % (0.0-3.0); HEMATOCRIT 41.3 % (36.0-47.0); HEMOGLOBIN 12.8 g/dl (12.0-15.5); LYMPH # 2.6 10^3/uL (1.5-5.0); MEAN CORPUSCULAR HEMOGLOBIN 29.8 pg (27.0-33.0); MONO # 0.8 10^3/uL (0.0-0.8); MONO % 6.5 % (2.0-8.0); NEUTROPHILS # 8.6 10^3/uL (1.5-8.5); PLATELET COUNT, AUTOMATED 337 10^3/uL (150-450); WHITE BLOOD COUNT 12.3 10^3/uL (4.0-10.0)
[2021-10-16 13:48] LABS: ALBUMIN 3.6 GM/DL (3.2-5.2); ALT/SGPT 15 U/L (12-78); BILIRUBIN,TOTAL 0.4 MG/DL (0.2-1.0); BLOOD UREA NITROGEN 5 MG/DL (7-18); C REACTIVE PROTEIN QUANTITATIV 2.78 MG/DL (0.00-0.30); CALCIUM LEVEL 9.8 MG/DL (8.5-10.1); CARBON DIOXIDE LEVEL 27 MEQ/L (21-32); CHLORIDE LEVEL 113 MEQ/L (98-107); CREATININE FOR GFR 0.73 MG/DL (0.55-1.30); GLOMERULAR FILTRATION RATE > 60.0 (>51); GLUCOSE, FASTING 90 MG/DL (70-100); SODIUM LEVEL 145 MEQ/L (136-145); TOTAL PROTEIN 6.8 GM/DL (6.4-8.2)
[2021-10-16 13:57] LABS: ERYTHROCYTE SEDIMENTATION RATE 35 mm/hr (0-30)
== END ==
LOC: M PLALAB 10-13 12:51
PROVIDERS: ATTEND Internal Medicine Rheumatology
DX: M05.79 Rheumatoid arthritis with rheumatoid factor of multiple sites without organ or systems involvement (principal); R93.6 Abnormal findings on diagnostic imaging of limbs; M25.78 Osteophyte, vertebrae; M50.322 Other cervical disc degeneration at C5-C6 level; M50.323 Other cervical disc degeneration at C6-C7 level; M50.33 Other cervical disc degeneration, cervicothoracic region

== ENCOUNTER → 2022-01-06 | Outpatient (CLI) | payer MEDICARE, MEDICAID | LOC: M WHC 13:47 | PROVIDERS: ATTEND Physician Assistant Medical | DX: Z12.31 Encounter for screening mammogram for malignant neoplasm of breast (principal) ==

== ENCOUNTER → 2022-01-13 | Outpatient (CLI) | payer MEDICARE, MEDICAID ==
[2022-01-13 14:11] LABS: BASO # 0.1 10^3/uL (0.0-0.2); BASO % 0.5 % (0.0-1.0); EOS # 0.2 10^3/uL (0.0-0.5); EOS % 1.6 % (0.0-3.0); HEMATOCRIT 42.2 % (36.0-47.0); HEMOGLOBIN 13.3 g/dl (12.0-15.5); LYMPH # 2.3 10^3/uL (1.5-5.0); LYMPH % 21.2 % (24.0-44.0); MEAN CORPUSCULAR HEMOGLOBIN 30.9 pg (27.0-33.0); MEAN CORPUSCULAR HGB CONC 31.5 g/dl (32.0-36.5); MEAN CORPUSCULAR VOLUME 97.9 fl (80.0-96.0); MONO # 0.7 10^3/uL (0.0-0.8); MONO % 6.5 % (2.0-8.0); NEUTROPHILS # 7.6 10^3/uL (1.5-8.5); NEUTROPHILS % 69.5 % (36.0-66.0); PLATELET COUNT, AUTOMATED 320 10^3/uL (150-450); RED BLOOD COUNT 4.31 10^6/uL (4.00-5.40); WHITE BLOOD COUNT 10.9 10^3/uL (4.0-10.0)
[2022-01-13 14:41] LABS: ERYTHROCYTE SEDIMENTATION RATE 37 mm/hr (0-30)
[2022-01-13 15:26] LABS: ALBUMIN 3.4 GM/DL (3.2-5.2); ALT/SGPT 13 U/L (12-78); BILIRUBIN,TOTAL 0.3 MG/DL (0.2-1.0); BLOOD UREA NITROGEN 9 MG/DL (7-18); C REACTIVE PROTEIN QUANTITATIV 2.62 MG/DL (0.00-0.30); CALCIUM LEVEL 9.1 MG/DL (8.5-10.1); CARBON DIOXIDE LEVEL 26 MEQ/L (21-32); CHLORIDE LEVEL 112 MEQ/L (98-107); GLOMERULAR FILTRATION RATE > 60.0 (>51); GLUCOSE, FASTING 105 MG/DL (70-100); POTASSIUM SERUM 4.9 MEQ/L (3.5-5.1); SODIUM LEVEL 142 MEQ/L (136-145); TOTAL PROTEIN 6.8 GM/DL (6.4-8.2)
== END ==
LOC: M PLALAB 10:51
PROVIDERS: ATTEND Internal Medicine Rheumatology
DX: M05.79 Rheumatoid arthritis with rheumatoid factor of multiple sites without organ or systems involvement (principal); E66.01 Morbid (severe) obesity due to excess calories; M89.49 Other hypertrophic osteoarthropathy, multiple sites; E87.5 Hyperkalemia; Z79.899 Other long term (current) drug therapy

== ENCOUNTER → 2022-01-13 | Outpatient (CLI) | payer MEDICARE, MEDICAID ==
[2022-01-13 15:24] LABS: CHOLESTEROL RISK RATIO 3.688 (<5); FREE T4 1.43 NG/DL (0.76-1.46); THYROID STIMULATING HORMONE 0.312 uIU/ML (0.358-3.740)
== END ==
LOC: M PLALAB 10:49
PROVIDERS: ATTEND Physician Assistant Medical
DX: E03.9 Hypothyroidism, unspecified (principal); M05.79 Rheumatoid arthritis with rheumatoid factor of multiple sites without organ or systems involvement; E66.01 Morbid (severe) obesity due to excess calories; M89.49 Other hypertrophic osteoarthropathy, multiple sites; E87.5 Hyperkalemia; Z79.899 Other long term (current) drug therapy

== ENCOUNTER 2022-03-17 18:17 | Emergency (ER) | payer MEDICARE, MEDICAID ==
[~2022-03-17] VITALS: Ht 162.6 cm; Wt 131.5 kg
[2022-03-17 21:09] VITALS: BP 129/69
== END 2022-03-17 21:16 | disposition home or self-care (01) ==
LOC: M ED 18:17
DX: S29.001A Unspecified injury of muscle and tendon of front wall of thorax, initial encounter (principal); W22.8XXA Striking against or struck by other objects, initial encounter; F17.200 Nicotine dependence, unspecified, uncomplicated; J44.9 Chronic obstructive pulmonary disease, unspecified; I10 Essential (primary) hypertension; Y92.009 Unspecified place in unspecified non-institutional (private) residence as the place of occurrence of the external cause

== ENCOUNTER → 2022-04-14 | Outpatient (CLI) | payer MEDICARE, MEDICAID ==
[2022-04-14 14:16] LABS: BASO # 0.1 10^3/uL (0.0-0.2); BASO % 0.6 % (0.0-1.0); EOS # 0.5 10^3/uL (0.0-0.5); EOS % 4.1 % (0.0-3.0); HEMATOCRIT 45.2 % (36.0-47.0); HEMOGLOBIN 13.7 g/dl (12.0-15.5); LYMPH # 2.3 10^3/uL (1.5-5.0); LYMPH % 19.4 % (24.0-44.0); MEAN CORPUSCULAR HEMOGLOBIN 30.3 pg (27.0-33.0); MEAN CORPUSCULAR HGB CONC 30.3 g/dl (32.0-36.5); MONO # 0.9 10^3/uL (0.0-0.8); MONO % 7.8 % (2.0-8.0); NEUTROPHILS # 7.9 10^3/uL (1.5-8.5); NEUTROPHILS % 67.4 % (36.0-66.0); PLATELET COUNT, AUTOMATED 369 10^3/uL (150-450); RED BLOOD COUNT 4.52 10^6/uL (4.00-5.40); WHITE BLOOD COUNT 11.7 10^3/uL (4.0-10.0)
[2022-04-14 14:53] LABS: ALT/SGPT 16 U/L (12-78); BLOOD UREA NITROGEN 8 MG/DL (7-18); CALCIUM LEVEL 9.2 MG/DL (8.5-10.1); CARBON DIOXIDE LEVEL 28 MEQ/L (21-32); CHLORIDE LEVEL 110 MEQ/L (98-107); CREATININE FOR GFR 0.62 MG/DL (0.55-1.30); GLOMERULAR FILTRATION RATE > 60.0 (>51); GLUCOSE, FASTING 91 MG/DL (70-100); SODIUM LEVEL 141 MEQ/L (136-145)
[2022-04-14 14:54] LABS: ALBUMIN 3.6 GM/DL (3.2-5.2); BILIRUBIN,TOTAL 0.5 MG/DL (0.2-1.0)
[2022-04-14 14:58] LABS: ERYTHROCYTE SEDIMENTATION RATE 28 mm/hr (0-30)
== END ==
LOC: M PLALAB 11:20
PROVIDERS: ATTEND Internal Medicine Rheumatology
DX: M05.79 Rheumatoid arthritis with rheumatoid factor of multiple sites without organ or systems involvement (principal); E66.01 Morbid (severe) obesity due to excess calories; M89.49 Other hypertrophic osteoarthropathy, multiple sites; E78.5 Hyperlipidemia, unspecified; Z79.899 Other long term (current) drug therapy

== ENCOUNTER → 2022-06-30 | Outpatient (CLI) | payer MEDICARE, MEDICAID ==
[2022-06-30 13:01] LABS: BASO # 0.1 10^3/uL (0.0-0.2); BASO % 0.5 % (0.0-1.0); EOS # 0.2 10^3/uL (0.0-0.5); EOS % 1.6 % (0.0-3.0); HEMATOCRIT 45.1 % (36.0-47.0); HEMOGLOBIN 13.9 g/dl (12.0-15.5); LYMPH # 2.7 10^3/uL (1.5-5.0); LYMPH % 23.1 % (24.0-44.0); MEAN CORPUSCULAR HEMOGLOBIN 30.2 pg (27.0-33.0); MEAN CORPUSCULAR HGB CONC 30.8 g/dl (32.0-36.5); MEAN CORPUSCULAR VOLUME 97.8 fl (80.0-96.0); MONO # 0.7 10^3/uL (0.0-0.8); MONO % 6.4 % (2.0-8.0); NEUTROPHILS # 7.8 10^3/uL (1.5-8.5); NEUTROPHILS % 67.5 % (36.0-66.0); PLATELET COUNT, AUTOMATED 345 10^3/uL (150-450); RED BLOOD COUNT 4.61 10^6/uL (4.00-5.40); WHITE BLOOD COUNT 11.5 10^3/uL (4.0-10.0)
[2022-06-30 13:07] LABS: ERYTHROCYTE SEDIMENTATION RATE 58 mm/hr (0-30)
[2022-06-30 13:29] LABS: ALBUMIN 3.7 G/DL (3.2-5.2); ALKALINE PHOSPHATASE 102 U/L (46-116); ALT/SGPT 12 U/L (7.0-40); AST/SGOT 9 U/L (<34); BILIRUBIN,TOTAL 0.4 MG/DL (0.3-1.2); BLOOD UREA NITROGEN 11 MG/DL (9-23); CALCIUM LEVEL 9.6 MG/DL (8.5-10.1); CARBON DIOXIDE LEVEL 25 MMOL/L (20-31); CHLORIDE LEVEL 109 MMOL/L (98-107); CREATININE FOR GFR 0.65 MG/DL (0.55-1.30); GLOMERULAR FILTRATION RATE > 60.0 (>51); GLUCOSE, FASTING 84 MG/DL (60-100); POTASSIUM SERUM 5.1 MMOL/L (3.5-5.1); SODIUM LEVEL 142 MMOL/L (136-145); TOTAL PROTEIN 6.5 G/DL (5.7-8.2)
== END ==
LOC: M PLALAB 12:04
PROVIDERS: ATTEND Internal Medicine Rheumatology
DX: M05.79 Rheumatoid arthritis with rheumatoid factor of multiple sites without organ or systems involvement (principal); M89.49 Other hypertrophic osteoarthropathy, multiple sites; E87.5 Hyperkalemia; E66.01 Morbid (severe) obesity due to excess calories; Z79.899 Other long term (current) drug therapy

== ENCOUNTER → 2022-06-30 | Outpatient (CLI) | payer MEDICARE, MEDICAID ==
[2022-06-30 13:32] LABS: THYROID STIMULATING HORMONE 1.401 uIU/ML (0.55-4.78)
[2022-06-30 13:33] LABS: FREE T4 1.31 NG/DL (0.89-1.76)
== END ==
LOC: M PLALAB 12:02
PROVIDERS: ATTEND Physician Assistant Medical
DX: E03.9 Hypothyroidism, unspecified (principal)

== ENCOUNTER → 2022-07-15 | Outpatient (CLI) | payer MEDICARE, MEDICAID ==
[2022-07-15 14:31] LABS: BASO # 0.1 10^3/uL (0.0-0.2); BASO % 0.5 % (0.0-1.0); EOS # 0.2 10^3/uL (0.0-0.5); EOS % 1.6 % (0.0-3.0); HEMATOCRIT 44.7 % (36.0-47.0); HEMOGLOBIN 13.9 g/dl (12.0-15.5); LYMPH # 2.5 10^3/uL (1.5-5.0); LYMPH % 20.5 % (24.0-44.0); MEAN CORPUSCULAR HEMOGLOBIN 30.5 pg (27.0-33.0); MEAN CORPUSCULAR HGB CONC 31.1 g/dl (32.0-36.5); MEAN CORPUSCULAR VOLUME 98.2 fl (80.0-96.0); MONO # 0.9 10^3/uL (0.0-0.8); MONO % 7.4 % (2.0-8.0); NEUTROPHILS # 8.5 10^3/uL (1.5-8.5); NEUTROPHILS % 69.2 % (36.0-66.0); PLATELET COUNT, AUTOMATED 324 10^3/uL (150-450); RED BLOOD COUNT 4.55 10^6/uL (4.00-5.40); WHITE BLOOD COUNT 12.2 10^3/uL (4.0-10.0)
[2022-07-15 14:53] LABS: ERYTHROCYTE SEDIMENTATION RATE 40 mm/hr (0-30)
[2022-07-15 14:55] LABS: ALBUMIN 3.5 G/DL (3.2-5.2); ALKALINE PHOSPHATASE 103 U/L (46-116); ALT/SGPT 14 U/L (7.0-40); AST/SGOT 12 U/L (<34); BILIRUBIN,TOTAL 0.3 MG/DL (0.3-1.2); BLOOD UREA NITROGEN 9 MG/DL (9-23); CARBON DIOXIDE LEVEL 27 MMOL/L (20-31); CHLORIDE LEVEL 109 MMOL/L (98-107); CREATININE FOR GFR 0.61 MG/DL (0.55-1.30); GLOMERULAR FILTRATION RATE > 60.0 (>51); GLUCOSE, FASTING 75 MG/DL (60-100); POTASSIUM SERUM 5.3 MMOL/L (3.5-5.1); SODIUM LEVEL 141 MMOL/L (136-145); TOTAL PROTEIN 6.9 G/DL (5.7-8.2)
== END ==
LOC: M PLALAB 11:05
PROVIDERS: ATTEND Internal Medicine Rheumatology
DX: M05.79 Rheumatoid arthritis with rheumatoid factor of multiple sites without organ or systems involvement (principal); E66.01 Morbid (severe) obesity due to excess calories; Z79.899 Other long term (current) drug therapy; M89.49 Other hypertrophic osteoarthropathy, multiple sites; E87.5 Hyperkalemia

== ENCOUNTER 2022-07-17 11:20 | Emergency (ER) | payer MEDICARE, MEDICAID ==
[~2022-07-17] VITALS: Ht 162.6 cm; Wt 133.6 kg
[2022-07-17 11:54] LABS: BASO % 0.4 % (0.0-1.0); EOS # 0.1 10^3/uL (0.0-0.5); HEMATOCRIT 43.4 % (36.0-47.0); HEMOGLOBIN 13.7 g/dl (12.0-15.5); LYMPH # 1.7 10^3/uL (1.5-5.0); LYMPH % 15.5 % (24.0-44.0); MEAN CORPUSCULAR HGB CONC 31.6 g/dl (32.0-36.5); MONO # 0.6 10^3/uL (0.0-0.8); MONO % 5.8 % (2.0-8.0); NEUTROPHILS # 8.3 10^3/uL (1.5-8.5); NEUTROPHILS % 76.9 % (36.0-66.0); PLATELET COUNT, AUTOMATED 288 10^3/uL (150-450); RED BLOOD COUNT 4.57 10^6/uL (4.00-5.40); WHITE BLOOD COUNT 10.7 10^3/uL (4.0-10.0)
[2022-07-17 12:25] LABS: BLOOD UREA NITROGEN 8 MG/DL (9-23); CALCIUM LEVEL 8.7 MG/DL (8.5-10.1); CARBON DIOXIDE LEVEL 20 MMOL/L (20-31); CHLORIDE LEVEL 110 MMOL/L (98-107); CK-MB VALUE MASS < 1.0 NG/ML (<3.6); CPK CREATINE PHOSPHOKINASE 59 U/L (34-145); CREATININE FOR GFR 0.53 MG/DL (0.55-1.30); GLOMERULAR FILTRATION RATE > 60.0 (>51); GLUCOSE, FASTING 89 MG/DL (60-100); MB/CK RELATIVE INDEX 1.69 (< OR =4); POTASSIUM SERUM 4.1 MMOL/L (3.5-5.1); SODIUM LEVEL 140 MMOL/L (136-145)
[2022-07-17 13:21] LABS: LIPASE 27 U/L (12-53)
[2022-07-17 13:23] LABS: CPK CREATINE PHOSPHOKINASE 51 U/L (34-145)
[2022-07-17 13:29] LABS: ALBUMIN 3.4 G/DL (3.2-5.2); ALKALINE PHOSPHATASE 99 U/L (46-116); ALT/SGPT 11 U/L (7.0-40); AST/SGOT 14 U/L (<34); BILIRUBIN,DIRECT 0.1 MG/DL (<0.4); BILIRUBIN,TOTAL 0.5 MG/DL (0.3-1.2); CK-MB VALUE MASS < 1.0 NG/ML (<3.6); MB/CK RELATIVE INDEX 1.96 (< OR =4); THYROID STIMULATING HORMONE 0.954 uIU/ML (0.55-4.78); TOTAL PROTEIN 6.6 G/DL (5.7-8.2)
[2022-07-17] MEDS ORDERED: MAG SULF 1GM/100ML (MAG RUN) 1 GM in IV 1 EA IV ONE (13:55)
[2022-07-17 14:57] VITALS: BP 126/72
== END 2022-07-17 15:38 | disposition home or self-care (01) ==
LOC: EDBD 11:20 → M ED 11:20
DX: R00.2 Palpitations (principal); I49.3 Ventricular premature depolarization; I10 Essential (primary) hypertension; E03.9 Hypothyroidism, unspecified; K21.9 Gastro-esophageal reflux disease without esophagitis; J45.909 Unspecified asthma, uncomplicated; F17.200 Nicotine dependence, unspecified, uncomplicated; Z88.0 Allergy status to penicillin; Z88.2 Allergy status to sulfonamides; Z79.51 Long term (current) use of inhaled steroids; Z79.890 Hormone replacement therapy; Z79.899 Other long term (current) drug therapy
CPT/HCPCS: 71045; 80048; 80076; 82550; 82553; 83690; 83735; 83880; 84443; 84484; 85025; 93005; 93041; 94760; 96365; 96366; 99285; J3475

== ENCOUNTER → 2022-08-06 | Outpatient (REF) | payer MEDICARE, MEDICAID | LOC: M SFHCADAM 17:06 | PROVIDERS: ATTEND Family Medicine | DX: R09.89 Other specified symptoms and signs involving the circulatory and respiratory systems (principal) ==

== ENCOUNTER → 2022-08-11 | Outpatient (REF) | payer MEDICARE, MEDICAID | LOC: M SFHCPLAZ 16:48 | PROVIDERS: ATTEND Physician Assistant | DX: J02.9 Acute pharyngitis, unspecified (principal) ==

== ENCOUNTER 2022-09-28 09:26 | Day surgery (SDC) | payer MEDICARE, MEDICAID ==
[~2022-09-28] VITALS: Ht 162.6 cm; Wt 135.2 kg
[~2022-09-28 09:26] MED LIST changes: -BISO5TAB14; +BISO5TAB14 PO; +ERGO500029; -VALS40TA9; +VALS40TA9 PO
[2022-09-28] MEDS ORDERED: LIDOCAINE 2% 100MG/5ML SDV (FOR ANES.) As Ordered ONE (10:49)
[2022-09-28] MEDS ORDERED: propofoL 200 MG/20 ML VIAL As Ordered ONE ×2 (10:49→11:01)
[2022-09-28 11:30] VITALS: BP 144/67
== END 2022-09-28 15:15 | disposition home or self-care (01) ==
LOC: M OPP 09:26
PROVIDERS: ATTEND Surgery
DX: Z12.11 Encounter for screening for malignant neoplasm of colon (principal); K64.1 Second degree hemorrhoids; D12.8 Benign neoplasm of rectum; D12.2 Benign neoplasm of ascending colon; D12.4 Benign neoplasm of descending colon

== ENCOUNTER → 2022-10-14 | Outpatient (CLI) | payer MEDICARE, MEDICAID ==
[2022-10-14 13:34] LABS: BASO # 0.1 10^3/uL (0.0-0.2); BASO % 0.5 % (0.0-1.0); EOS # 0.2 10^3/uL (0.0-0.5); HEMATOCRIT 44.1 % (36.0-47.0); HEMOGLOBIN 13.7 g/dl (12.0-15.5); LYMPH # 2.3 10^3/uL (1.5-5.0); LYMPH % 19.9 % (24.0-44.0); MEAN CORPUSCULAR HEMOGLOBIN 30.9 pg (27.0-33.0); MEAN CORPUSCULAR HGB CONC 31.1 g/dl (32.0-36.5); MEAN CORPUSCULAR VOLUME 99.3 fl (80.0-96.0); MONO # 0.8 10^3/uL (0.0-0.8); MONO % 6.8 % (2.0-8.0); NEUTROPHILS # 8.2 10^3/uL (1.5-8.5); PLATELET COUNT, AUTOMATED 342 10^3/uL (150-450); RED BLOOD COUNT 4.44 10^6/uL (4.00-5.40); WHITE BLOOD COUNT 11.8 10^3/uL (4.0-10.0)
[2022-10-14 13:50] LABS: ERYTHROCYTE SEDIMENTATION RATE 44 mm/hr (0-30)
[2022-10-14 14:13] LABS: ALBUMIN 3.5 G/DL (3.2-5.2); ALKALINE PHOSPHATASE 98 U/L (46-116); ALT/SGPT 11 U/L (7.0-40); AST/SGOT < 8 U/L (<34); BILIRUBIN,TOTAL 0.3 MG/DL (0.3-1.2); BLOOD UREA NITROGEN 9 MG/DL (9-23); CALCIUM LEVEL 9.1 MG/DL (8.5-10.1); CARBON DIOXIDE LEVEL 27 MMOL/L (20-31); CHLORIDE LEVEL 110 MMOL/L (98-107); CREATININE FOR GFR 0.62 MG/DL (0.55-1.30); GLOMERULAR FILTRATION RATE > 60.0 (>51); GLUCOSE, FASTING 81 MG/DL (60-100); POTASSIUM SERUM 4.4 MMOL/L (3.5-5.1); SODIUM LEVEL 142 MMOL/L (136-145); TOTAL PROTEIN 6.3 G/DL (5.7-8.2)
== END ==
LOC: M PLALAB 10:41
PROVIDERS: ATTEND Internal Medicine Rheumatology
DX: M05.79 Rheumatoid arthritis with rheumatoid factor of multiple sites without organ or systems involvement (principal); E66.01 Morbid (severe) obesity due to excess calories; Z79.899 Other long term (current) drug therapy; M89.49 Other hypertrophic osteoarthropathy, multiple sites; E87.5 Hyperkalemia

== ENCOUNTER → 2022-12-08 | Outpatient (REF) | payer MEDICARE, MEDICAID | LOC: M SFHCPLAZ 13:29 | PROVIDERS: ATTEND Physician Assistant Medical | DX: J01.10 Acute frontal sinusitis, unspecified (principal); J30.89 Other allergic rhinitis; D72.829 Elevated white blood cell count, unspecified ==

== ENCOUNTER → 2022-12-08 | Outpatient (CLI) | payer MEDICARE, MEDICAID ==
[2022-12-08 16:33] LABS: BASO # 0.1 10^3/uL (0.0-0.2); BASO % 0.5 % (0.0-1.0); EOS # 0.1 10^3/uL (0.0-0.5); EOS % 1.2 % (0.0-3.0); HEMATOCRIT 43.2 % (36.0-47.0); HEMOGLOBIN 13.6 g/dl (12.0-15.5); LYMPH # 2.2 10^3/uL (1.5-5.0); LYMPH % 21.5 % (24.0-44.0); MEAN CORPUSCULAR HEMOGLOBIN 30.2 pg (27.0-33.0); MEAN CORPUSCULAR HGB CONC 31.5 g/dl (32.0-36.5); MEAN CORPUSCULAR VOLUME 95.8 fl (80.0-96.0); MONO # 0.7 10^3/uL (0.0-0.8); MONO % 7.1 % (2.0-8.0); NEUTROPHILS # 7.1 10^3/uL (1.5-8.5); NEUTROPHILS % 69.2 % (36.0-66.0); PLATELET COUNT, AUTOMATED 312 10^3/uL (150-450); RED BLOOD COUNT 4.51 10^6/uL (4.00-5.40); WHITE BLOOD COUNT 10.2 10^3/uL (4.0-10.0)
[2022-12-08 16:48] LABS: C REACTIVE PROTEIN QUANTITATIV 2.3 MG/DL (<1.0)
[2022-12-08 16:51] LABS: FERRITIN 25.5 NG/ML (7.3-270.7)
[2022-12-08 17:07] LABS: ERYTHROCYTE SEDIMENTATION RATE 50 mm/hr (0-30)
[2022-12-10 17:09] LABS: H PYLORI SERUM QUANT IGM <9.0 units (0.0-8.9); H PYLORI SERUM QUANT IgG ABY 0.14 (0.00-0.79)
== END ==
LOC: M PLALAB 14:34
PROVIDERS: ATTEND Physician Assistant Medical
DX: J01.10 Acute frontal sinusitis, unspecified (principal); J30.89 Other allergic rhinitis; D72.829 Elevated white blood cell count, unspecified; R71.0 Precipitous drop in hematocrit

== ENCOUNTER → 2023-01-13 | Outpatient (CLI) | payer MEDICARE, MEDICAID ==
[~2023-01-13] MED LIST changes: +DICY-61 PO; -DICY10CA13 PO
[2023-01-13 14:44] LABS: BASO # 0.1 10^3/uL (0.0-0.2); BASO % 0.6 % (0.0-1.0); EOS # 0.2 10^3/uL (0.0-0.5); EOS % 1.6 % (0.0-3.0); HEMATOCRIT 44.5 % (36.0-47.0); HEMOGLOBIN 13.8 g/dl (12.0-15.5); LYMPH # 2.1 10^3/uL (1.5-5.0); LYMPH % 21.5 % (24.0-44.0); MEAN CORPUSCULAR HEMOGLOBIN 30.2 pg (27.0-33.0); MEAN CORPUSCULAR VOLUME 97.4 fl (80.0-96.0); MONO # 0.8 10^3/uL (0.0-0.8); MONO % 8.4 % (2.0-8.0); NEUTROPHILS # 6.6 10^3/uL (1.5-8.5); NEUTROPHILS % 67.1 % (36.0-66.0); PLATELET COUNT, AUTOMATED 298 10^3/uL (150-450); RED BLOOD COUNT 4.57 10^6/uL (4.00-5.40); WHITE BLOOD COUNT 9.8 10^3/uL (4.0-10.0)
[2023-01-13 15:15] LABS: ALBUMIN 3.6 G/DL (3.2-5.2); ALKALINE PHOSPHATASE 91 U/L (46-116); ALT/SGPT < 9 U/L (7.0-40); AST/SGOT < 8 U/L (<34); BILIRUBIN,TOTAL 0.4 MG/DL (0.3-1.2); BLOOD UREA NITROGEN 7 MG/DL (9-23); CALCIUM LEVEL 9.2 MG/DL (8.5-10.1); CARBON DIOXIDE LEVEL 26 MMOL/L (20-31); CHLORIDE LEVEL 111 MMOL/L (98-107); CREATININE FOR GFR 0.59 MG/DL (0.55-1.30); GLOMERULAR FILTRATION RATE > 60.0 (>51); GLUCOSE, FASTING 83 MG/DL (60-100); POTASSIUM SERUM 4.8 MMOL/L (3.5-5.1); SODIUM LEVEL 144 MMOL/L (136-145); TOTAL PROTEIN 6.7 G/DL (5.7-8.2)
[2023-01-13 15:17] LABS: ERYTHROCYTE SEDIMENTATION RATE 45 mm/hr (0-30)
== END ==
LOC: M PLALAB 12:03
PROVIDERS: ATTEND Internal Medicine Rheumatology
DX: M05.79 Rheumatoid arthritis with rheumatoid factor of multiple sites without organ or systems involvement (principal); E66.01 Morbid (severe) obesity due to excess calories; Z79.899 Other long term (current) drug therapy; M89.49 Other hypertrophic osteoarthropathy, multiple sites; E87.5 Hyperkalemia

== ENCOUNTER → 2023-01-13 | Outpatient (CLI) | payer MEDICARE, MEDICAID | LOC: M WHC 11:13 | PROVIDERS: ATTEND Physician Assistant Medical | DX: Z12.31 Encounter for screening mammogram for malignant neoplasm of breast (principal); M05.79 Rheumatoid arthritis with rheumatoid factor of multiple sites without organ or systems involvement; E66.01 Morbid (severe) obesity due to excess calories; Z79.899 Other long term (current) drug therapy; M89.49 Other hypertrophic osteoarthropathy, multiple sites; E87.5 Hyperkalemia ==

== ENCOUNTER 2023-02-11 15:56 | Emergency (ER) | payer MEDICARE, MEDICAID ==
[~2023-02-11] VITALS: Ht 162.6 cm; Wt 139.1 kg
[2023-02-11 16:46] LABS: BASO # 0.1 10^3/uL (0.0-0.2); BASO % 0.4 % (0.0-1.0); EOS # 0.2 10^3/uL (0.0-0.5); EOS % 1.7 % (0.0-3.0); HEMATOCRIT 41.9 % (36.0-47.0); HEMOGLOBIN 13.4 g/dl (12.0-15.5); LYMPH # 2.1 10^3/uL (1.5-5.0); MEAN CORPUSCULAR HEMOGLOBIN 30.6 pg (27.0-33.0); MEAN CORPUSCULAR VOLUME 95.7 fl (80.0-96.0); MONO # 0.7 10^3/uL (0.0-0.8); MONO % 6.5 % (2.0-8.0); PLATELET COUNT, AUTOMATED 267 10^3/uL (150-450); RED BLOOD COUNT 4.38 10^6/uL (4.00-5.40); WHITE BLOOD COUNT 11.1 10^3/uL (4.0-10.0)
[2023-02-11 17:04] LABS: CK-MB VALUE MASS < 1.0 NG/ML (<3.6); LIPASE 27 U/L (12-53)
[2023-02-11 17:06] LABS: CPK CREATINE PHOSPHOKINASE 74 U/L (34-145); MB/CK RELATIVE INDEX 1.35 (< OR =4)
[2023-02-11 17:07] LABS: ALBUMIN 3.5 G/DL (3.2-5.2); ALKALINE PHOSPHATASE 91 U/L (46-116); ALT/SGPT 10 U/L (7.0-40); AST/SGOT < 8 U/L (<34); BILIRUBIN,DIRECT 0.1 MG/DL (<0.4); BILIRUBIN,TOTAL 0.3 MG/DL (0.3-1.2); BLOOD UREA NITROGEN 7 MG/DL (9-23); CALCIUM LEVEL 8.7 MG/DL (8.5-10.1); CARBON DIOXIDE LEVEL 24 MMOL/L (20-31); CHLORIDE LEVEL 110 MMOL/L (98-107); CREATININE FOR GFR 0.56 MG/DL (0.55-1.30); GLOMERULAR FILTRATION RATE > 60.0 (>51); GLUCOSE, FASTING 84 MG/DL (60-100); POTASSIUM SERUM 3.8 MMOL/L (3.5-5.1); SODIUM LEVEL 143 MMOL/L (136-145); TOTAL PROTEIN 6.4 G/DL (5.7-8.2)
[2023-02-11 17:09] LABS: FREE T4 1.36 NG/DL (0.89-1.76)
[2023-02-11 17:24] LABS: INR 1.08; PROTHROMBIN TIME 13.7 SECONDS (12.5-14.5)
[2023-02-11 17:25] LABS: PARTIAL THROMBOPLASTIN TIME 28.2 SECONDS (24.8-34.2)
[2023-02-11] MEDS ORDERED: ISOVUE-370 76% 100ML VIAL As Ordered ONE (17:34)
[2023-02-11 18:20] LABS: CK-MB VALUE MASS < 1.0 NG/ML (<3.6)
[2023-02-11 18:24] LABS: CPK CREATINE PHOSPHOKINASE 69 U/L (34-145); MB/CK RELATIVE INDEX 1.44 (< OR =4)
[2023-02-11 19:27] VITALS: BP 147/70; TEMP 98.4; O2SAT 98
== END 2023-02-11 19:31 | disposition home or self-care (01) ==
LOC: M ED 15:56 → EDBD 15:56 → M ED 19:31
DX: R07.9 Chest pain, unspecified (principal); I10 Essential (primary) hypertension; E78.5 Hyperlipidemia, unspecified; K21.9 Gastro-esophageal reflux disease without esophagitis; K57.92 Diverticulitis of intestine, part unspecified, without perforation or abscess without bleeding; M06.9 Rheumatoid arthritis, unspecified; R51.9 Headache, unspecified; J44.9 Chronic obstructive pulmonary disease, unspecified; E03.9 Hypothyroidism, unspecified; F17.200 Nicotine dependence, unspecified, uncomplicated; Z88.0 Allergy status to penicillin; Z88.2 Allergy status to sulfonamides; Z79.899 Other long term (current) drug therapy; Z79.82 Long term (current) use of aspirin; Z79.51 Long term (current) use of inhaled steroids
CPT/HCPCS: 36415; 71045; 71275; 80048; 80076; 82550; 82553; 83690; 83880; 84439; 84443; 84484; 85025; 85610; 85730; 93005; 93041; 94760; 99285; Q9967

== ENCOUNTER → 2023-04-07 | Outpatient (CLI) | payer MEDICARE, MEDICAID ==
[~2023-04-07] MED LIST changes: +LORA-1041 PO; -LORA-674 PO; +MECL-209 PO; -MECL1TAB31 PO
== END ==
LOC: M WHC 10:23
PROVIDERS: ATTEND Physician Assistant
DX: Z13.820 Encounter for screening for osteoporosis (principal); M85.89 Other specified disorders of bone density and structure, multiple sites

== ENCOUNTER → 2023-04-07 | Outpatient (CLI) | payer MEDICARE, MEDICAID ==
[2023-04-07 16:34] LABS: CHOLESTEROL RISK RATIO 2.91 (<5); LDL CHOLESTEROL 98.8 MG/DL (<100)
== END ==
LOC: M PLALAB 10:29
PROVIDERS: ATTEND Internal Medicine Cardiovascular Disease
DX: E78.00 Pure hypercholesterolemia, unspecified (principal)

== ENCOUNTER 2023-05-02 04:52 | Emergency (ER) | payer MEDICARE, MEDICAID ==
[~2023-05-02] VITALS: Ht 167.6 cm; Wt 110.0 kg
[2023-05-02 05:41] LABS: BASO # 0.1 10^3/uL (0.0-0.2); BASO % 0.5 % (0.0-1.0); EOS # 0.2 10^3/uL (0.0-0.5); EOS % 1.7 % (0.0-3.0); HEMATOCRIT 41.8 % (36.0-47.0); HEMOGLOBIN 13.6 g/dl (12.0-15.5); LYMPH % 19.2 % (24.0-44.0); MEAN CORPUSCULAR HEMOGLOBIN 31.5 pg (27.0-33.0); MEAN CORPUSCULAR HGB CONC 32.5 g/dl (32.0-36.5); MEAN CORPUSCULAR VOLUME 96.8 fl (80.0-96.0); MONO # 0.6 10^3/uL (0.0-0.8); MONO % 6.2 % (2.0-8.0); NEUTROPHILS # 7.4 10^3/uL (1.5-8.5); NEUTROPHILS % 71.9 % (36.0-66.0); PLATELET COUNT, AUTOMATED 286 10^3/uL (150-450); RED BLOOD COUNT 4.32 10^6/uL (4.00-5.40); WHITE BLOOD COUNT 10.3 10^3/uL (4.0-10.0)
[2023-05-02 06:04] LABS: LIPASE 21 U/L (12-53)
[2023-05-02 06:18] LABS: ALBUMIN 3.3 G/DL (3.2-5.2); ALKALINE PHOSPHATASE 88 U/L (46-116); ALT/SGPT < 9 U/L (7.0-40); AST/SGOT 14 U/L (<34); BILIRUBIN,DIRECT 0.1 MG/DL (<0.4); BILIRUBIN,TOTAL 0.4 MG/DL (0.3-1.2); BLOOD UREA NITROGEN < 5 MG/DL (9-23); CALCIUM LEVEL 8.6 MG/DL (8.5-10.1); CARBON DIOXIDE LEVEL 25 MMOL/L (20-31); CHLORIDE LEVEL 109 MMOL/L (98-107); CREATININE FOR GFR 0.55 MG/DL (0.55-1.30); GLOMERULAR FILTRATION RATE > 60.0 (>51); GLUCOSE, FASTING 97 MG/DL (60-100); POTASSIUM SERUM 4.3 MMOL/L (3.5-5.1); SODIUM LEVEL 141 MMOL/L (136-145); TOTAL PROTEIN 6.5 G/DL (5.7-8.2)
[2023-05-02 07:15] VITALS: BP 139/77; O2SAT 98
[2023-05-02] MEDS ORDERED: NS 1,000 ML IV ONE (07:35)
[2023-05-02] MEDS ORDERED: EZET10TA21 (09:20)
[2023-05-02] MEDS ORDERED: ONDA4TAB6 PO (09:22)
[2023-05-02] MEDS ORDERED: KETO10TAB PO (09:22)
[2023-05-02 09:26] VITALS: TEMP 97.5
== END 2023-05-02 09:50 | disposition home or self-care (01) ==
LOC: M ED 04:52
DX: R10.9 Unspecified abdominal pain (principal); I10 Essential (primary) hypertension; K21.9 Gastro-esophageal reflux disease without esophagitis; E03.9 Hypothyroidism, unspecified; Z87.891 Personal history of nicotine dependence; Z79.82 Long term (current) use of aspirin; Z79.899 Other long term (current) drug therapy; Z88.0 Allergy status to penicillin; Z88.2 Allergy status to sulfonamides

== ENCOUNTER → 2023-05-03 | Outpatient (CLI) | payer MEDICARE, MEDICAID ==
[~2023-05-03] MED LIST changes: +EZET10TA21; +KETO10TAB PO; +ONDA4TAB6 PO
[2023-05-03 16:41] LABS: FOLLICLE STIMULATING HORMONE 18.5 mIU/ML; TOTAL 25(OH) VITAMIN D 32.6 NG/ML (20.0-100.0)
[2023-05-03 16:43] LABS: BLOOD UREA NITROGEN 9 MG/DL (9-23); CALCIUM LEVEL 9.1 MG/DL (8.5-10.1); CARBON DIOXIDE LEVEL 28 MMOL/L (20-31); CHLORIDE LEVEL 109 MMOL/L (98-107); CREATININE FOR GFR 0.57 MG/DL (0.55-1.30); GLOMERULAR FILTRATION RATE > 60.0 (>51); GLUCOSE, FASTING 92 MG/DL (60-100); POTASSIUM SERUM 4.6 MMOL/L (3.5-5.1); SODIUM LEVEL 143 MMOL/L (136-145)
== END ==
LOC: M PLALAB 12:37
PROVIDERS: ATTEND Physician Assistant
DX: M85.89 Other specified disorders of bone density and structure, multiple sites (principal)

== ENCOUNTER → 2023-05-17 | Outpatient (CLI) | payer MEDICARE, MEDICAID ==
[2023-05-17 14:41] LABS: BASO # 0.1 10^3/uL (0.0-0.2); BASO % 0.6 % (0.0-1.0); EOS # 0.1 10^3/uL (0.0-0.5); EOS % 1.2 % (0.0-3.0); HEMATOCRIT 44.7 % (36.0-47.0); HEMOGLOBIN 14.3 g/dl (12.0-15.5); LYMPH % 18.5 % (24.0-44.0); MEAN CORPUSCULAR HEMOGLOBIN 31.4 pg (27.0-33.0); MONO # 0.6 10^3/uL (0.0-0.8); MONO % 5.9 % (2.0-8.0); NEUTROPHILS % 73.2 % (36.0-66.0); PLATELET COUNT, AUTOMATED 315 10^3/uL (150-450); RED BLOOD COUNT 4.56 10^6/uL (4.00-5.40); WHITE BLOOD COUNT 10.9 10^3/uL (4.0-10.0)
[2023-05-17 14:54] LABS: ERYTHROCYTE SEDIMENTATION RATE 51 mm/hr (0-30)
[2023-05-17 15:09] LABS: ALBUMIN 3.5 G/DL (3.2-5.2); ALKALINE PHOSPHATASE 102 U/L (46-116); ALT/SGPT 14 U/L (7.0-40); AST/SGOT < 8 U/L (<34); BILIRUBIN,TOTAL 0.5 MG/DL (0.3-1.2); BLOOD UREA NITROGEN 7 MG/DL (9-23); CALCIUM LEVEL 8.9 MG/DL (8.5-10.1); CARBON DIOXIDE LEVEL 27 MMOL/L (20-31); CHLORIDE LEVEL 108 MMOL/L (98-107); GLOMERULAR FILTRATION RATE > 60.0 (>51); GLUCOSE, FASTING 101 MG/DL (60-100); POTASSIUM SERUM 4.1 MMOL/L (3.5-5.1); SODIUM LEVEL 142 MMOL/L (136-145); TOTAL PROTEIN 6.7 G/DL (5.7-8.2)
== END ==
LOC: M PLALAB 10:10
PROVIDERS: ATTEND Internal Medicine Rheumatology
DX: R71.0 Precipitous drop in hematocrit (principal); J01.10 Acute frontal sinusitis, unspecified; D72.829 Elevated white blood cell count, unspecified; M05.79 Rheumatoid arthritis with rheumatoid factor of multiple sites without organ or systems involvement; E66.01 Morbid (severe) obesity due to excess calories; Z79.899 Other long term (current) drug therapy; M89.49 Other hypertrophic osteoarthropathy, multiple sites; E87.5 Hyperkalemia; J30.89 Other allergic rhinitis

== ENCOUNTER → 2023-05-24 | Outpatient (CLI) | payer MEDICARE, MEDICAID | LOC: M SOG 08:06 | PROVIDERS: ATTEND Physician Assistant | DX: M17.0 Bilateral primary osteoarthritis of knee (principal) ==

== ENCOUNTER → 2023-07-13 | Outpatient (REF) | payer MEDICARE, MEDICAID ==
[2023-07-13 16:55] LABS: BASO # 0.1 10^3/uL (0.0-0.2); BASO % 0.5 % (0.0-1.0); EOS # 0.2 10^3/uL (0.0-0.5); EOS % 1.5 % (0.0-3.0); HEMATOCRIT 44.1 % (36.0-47.0); HEMOGLOBIN 14.1 g/dl (12.0-15.5); LYMPH # 2.5 10^3/uL (1.5-5.0); LYMPH % 23.5 % (24.0-44.0); MEAN CORPUSCULAR HEMOGLOBIN 30.8 pg (27.0-33.0); MEAN CORPUSCULAR VOLUME 96.3 fl (80.0-96.0); MONO # 0.8 10^3/uL (0.0-0.8); MONO % 7.8 % (2.0-8.0); NEUTROPHILS % 66.1 % (36.0-66.0); PLATELET COUNT, AUTOMATED 313 10^3/uL (150-450); RED BLOOD COUNT 4.58 10^6/uL (4.00-5.40); WHITE BLOOD COUNT 10.6 10^3/uL (4.0-10.0)
[2023-07-13 17:02] LABS: ERYTHROCYTE SEDIMENTATION RATE 54 mm/hr (0-30)
[2023-07-13 17:12] LABS: ALBUMIN 3.4 G/DL (3.2-5.2); ALKALINE PHOSPHATASE 100 U/L (46-116); ALT/SGPT 13 U/L (7.0-40); AST/SGOT 11 U/L (<34); BILIRUBIN,TOTAL 0.3 MG/DL (0.3-1.2); BLOOD UREA NITROGEN 8 MG/DL (9-23); CALCIUM LEVEL 8.9 MG/DL (8.5-10.1); CARBON DIOXIDE LEVEL 26 MMOL/L (20-31); CHLORIDE LEVEL 108 MMOL/L (98-107); CREATININE FOR GFR 0.58 MG/DL (0.55-1.30); GLOMERULAR FILTRATION RATE > 60.0 (>51); GLUCOSE, FASTING 83 MG/DL (60-100); POTASSIUM SERUM 4.3 MMOL/L (3.5-5.1); SODIUM LEVEL 140 MMOL/L (136-145); TOTAL PROTEIN 6.9 G/DL (5.7-8.2)
== END ==
LOC: M SFHCRHEU 15:26
PROVIDERS: ATTEND Internal Medicine Rheumatology
DX: M05.79 Rheumatoid arthritis with rheumatoid factor of multiple sites without organ or systems involvement (principal); E66.01 Morbid (severe) obesity due to excess calories; Z79.899 Other long term (current) drug therapy; M89.49 Other hypertrophic osteoarthropathy, multiple sites; E87.5 Hyperkalemia; Z72.0 Tobacco use

== ENCOUNTER 2023-07-27 08:20 | Day surgery (SDC) | payer MEDICARE, MEDICAID ==
[~2023-07-27] VITALS: Ht 162.6 cm; Wt 140.0 kg
[~2023-07-27 08:20] MED LIST changes: +ACET-683 PO; +MONT5TAB7 PO; -SING5CHW23 PO
[2023-07-27] MEDS: NS 1,000 ML IV ONE (09:21)
[2023-07-27 11:04] VITALS: TEMP 97.9
[2023-07-27] MEDS ORDERED: propofoL 200 MG/20 ML VIAL As Ordered ONE (11:05)
[2023-07-27] MEDS ORDERED: LIDOCAINE 2% 100MG/5ML SDV (FOR ANES.) As Ordered ONE (11:05)
[2023-07-27 11:28] VITALS: BP 140/79; O2SAT 98
== END 2023-07-27 15:10 | disposition home or self-care (01) ==
LOC: M OPP 08:20
PROVIDERS: ATTEND Surgery
DX: Z86.010 Personal history of colon polyps (principal); K57.30 Diverticulosis of large intestine without perforation or abscess without bleeding; K64.1 Second degree hemorrhoids; F17.200 Nicotine dependence, unspecified, uncomplicated; Z79.1 Long term (current) use of non-steroidal anti-inflammatories (NSAID); Z79.51 Long term (current) use of inhaled steroids; Z79.631 Long term (current) use of antimetabolite agent; Z79.890 Hormone replacement therapy; Z79.82 Long term (current) use of aspirin; Z88.0 Allergy status to penicillin; Z88.2 Allergy status to sulfonamides; Z88.8 Allergy status to other drugs, medicaments and biological substances

== ENCOUNTER → 2023-07-29 | Outpatient (REF) | payer MEDICARE, MEDICAID ==
[~2023-07-29] MED LIST changes: -MONT5TAB7 PO; +SING5CHW23 PO
== END ==
LOC: M SFHCPLAZ 12:27
PROVIDERS: ATTEND Physician Assistant Medical
DX: J02.9 Acute pharyngitis, unspecified (principal)

== ENCOUNTER → 2023-08-15 | Outpatient (CLI) | payer MEDICARE, MEDICAID ==
[~2023-08-15] MED LIST changes: +MONT5TAB7 PO; -SING5CHW23 PO
[2023-08-15 16:45] LABS: CALCIUM LEVEL 8.7 MG/DL (8.5-10.1)
[2023-08-15 16:50] LABS: THYROID STIMULATING HORMONE 1.654 uIU/ML (0.55-4.78); TOTAL 25(OH) VITAMIN D 47.5 NG/ML (20.0-100.0)
[2023-08-15 16:51] LABS: FERRITIN 28.1 NG/ML (7.3-270.7); PTH INTACT 65.1 PG/ML (18.5-88.0)
[2023-08-15 16:53] LABS: FREE T4 1.22 NG/DL (0.89-1.76)
== END ==
LOC: M PLALAB 14:13
PROVIDERS: ATTEND Physician Assistant Medical
DX: K92.1 Melena (principal); E03.9 Hypothyroidism, unspecified; E55.9 Vitamin D deficiency, unspecified

== ENCOUNTER → 2023-10-04 | Outpatient (CLI) | payer MEDICARE, MEDICAID ==
[2023-10-04 13:58] LABS: BASO # 0.1 10^3/uL (0.0-0.2); BASO % 0.5 % (0.0-1.0); EOS # 0.3 10^3/uL (0.0-0.5); EOS % 2.2 % (0.0-3.0); HEMATOCRIT 44.1 % (36.0-47.0); LYMPH # 2.4 10^3/uL (1.5-5.0); MEAN CORPUSCULAR HEMOGLOBIN 31.7 pg (27.0-33.0); MEAN CORPUSCULAR HGB CONC 31.7 g/dl (32.0-36.5); MEAN CORPUSCULAR VOLUME 99.8 fl (80.0-96.0); MONO # 0.8 10^3/uL (0.0-0.8); MONO % 6.8 % (2.0-8.0); NEUTROPHILS # 7.8 10^3/uL (1.5-8.5); NEUTROPHILS % 68.6 % (36.0-66.0); PLATELET COUNT, AUTOMATED 306 10^3/uL (150-450); RED BLOOD COUNT 4.42 10^6/uL (4.00-5.40); WHITE BLOOD COUNT 11.4 10^3/uL (4.0-10.0)
[2023-10-04 14:07] LABS: ERYTHROCYTE SEDIMENTATION RATE 55 mm/hr (0-30)
[2023-10-04 14:26] LABS: ALBUMIN 3.4 G/DL (3.2-5.2); ALKALINE PHOSPHATASE 108 U/L (46-116); ALT/SGPT 17 U/L (7.0-40); AST/SGOT 17 U/L (<34); BILIRUBIN,TOTAL 0.4 MG/DL (0.3-1.2); BLOOD UREA NITROGEN 6 MG/DL (9-23); CALCIUM LEVEL 8.9 MG/DL (8.5-10.1); CARBON DIOXIDE LEVEL 28 MMOL/L (20-31); CHLORIDE LEVEL 105 MMOL/L (98-107); CREATININE FOR GFR 0.65 MG/DL (0.55-1.30); GLOMERULAR FILTRATION RATE > 60.0 (>51); GLUCOSE, FASTING 78 MG/DL (60-100); POTASSIUM SERUM 4.4 MMOL/L (3.5-5.1); SODIUM LEVEL 141 MMOL/L (136-145); TOTAL PROTEIN 6.5 G/DL (5.7-8.2)
== END ==
LOC: M PLALAB 10:52
PROVIDERS: ATTEND Internal Medicine Rheumatology
DX: M05.79 Rheumatoid arthritis with rheumatoid factor of multiple sites without organ or systems involvement (principal)

== ENCOUNTER → 2023-11-01 | Outpatient (CLI) | payer MEDICARE, MEDICAID ==
[2023-11-01 14:07] LABS: FOLLICLE STIMULATING HORMONE 24.9 mIU/ML; LUTEINIZING HORMONE 11.4 mIU/ML; PROLACTIN 5.15 NG/ML
[2023-11-01 14:09] LABS: ESTRADIOL 34.7 PG/ML; PROGESTERONE < 0.21 NG/ML
== END ==
LOC: M PLALAB 09:46
PROVIDERS: ATTEND Nurse Practitioner Family
DX: N93.9 Abnormal uterine and vaginal bleeding, unspecified (principal)

== ENCOUNTER 2023-11-09 | Emergency (ER) | payer MEDICARE, MEDICAID ==
[~2023-11-09] VITALS: Ht 162.6 cm; Wt 145.3 kg
[2023-11-09 03:17] VITALS: TEMP 98.7
[2023-11-09] MEDS ORDERED: CLOBETASOL PROPIONATE EMOLLIENT 0.05% CR 60 GM TOP ONE (04:55)
[2023-11-09] MEDS ORDERED: CLOB5CR TOP (04:56)
[2023-11-09] MEDS: CLOBETASOL PROPIONATE EMOLLIENT 0.05% CR 60 GM TOP ONE (05:35)
[2023-11-09 05:49] VITALS: BP 148/75; O2SAT 99
== END 2023-11-09 05:50 | disposition home or self-care (01) ==
LOC: M ED
DX: R21 Rash and other nonspecific skin eruption (principal); I10 Essential (primary) hypertension; K21.9 Gastro-esophageal reflux disease without esophagitis; J45.909 Unspecified asthma, uncomplicated; E03.9 Hypothyroidism, unspecified; Z87.891 Personal history of nicotine dependence; Z79.82 Long term (current) use of aspirin; Z79.899 Other long term (current) drug therapy; Z88.0 Allergy status to penicillin; Z88.2 Allergy status to sulfonamides; Z88.8 Allergy status to other drugs, medicaments and biological substances

== ENCOUNTER → 2023-11-15 | Outpatient (CLI) | payer MEDICARE, MEDICAID ==
[~2023-11-15] MED LIST changes: +CLOB5CR TOP; +ONDA-282 PO; -ONDA4TAB6 PO
== END ==
LOC: M RAD 13:36
PROVIDERS: ATTEND Nurse Practitioner Family
DX: N93.9 Abnormal uterine and vaginal bleeding, unspecified (principal)

== ENCOUNTER → 2024-01-16 | Outpatient (CLI) | payer MEDICARE, MEDICAID | LOC: M WHC 13:25 | PROVIDERS: ATTEND Physician Assistant Medical | DX: Z12.31 Encounter for screening mammogram for malignant neoplasm of breast (principal) ==

== ENCOUNTER → 2024-01-27 | Outpatient (CLI) | payer MEDICARE, MEDICAID | LOC: M PLAIMG 12:12 | PROVIDERS: ATTEND Physician Assistant | DX: I50.32 Chronic diastolic (congestive) heart failure (principal); I27.29 Other secondary pulmonary hypertension ==

== ENCOUNTER → 2024-02-29 | Outpatient (CLI) | payer MEDICARE, MEDICAID | LOC: M WHC 13:02 | PROVIDERS: ATTEND Nurse Practitioner Family | DX: N93.0 Postcoital and contact bleeding (principal) ==

== ENCOUNTER → 2024-03-12 | Outpatient (CLI) | payer MEDICARE, MEDICAID ==
[2024-03-12 13:22] LABS: ALBUMIN 3.5 G/DL (3.2-5.2); ALKALINE PHOSPHATASE 100 U/L (46-116); ALT/SGPT 16 U/L (7.0-40); AST/SGOT 11 U/L (<34); BILIRUBIN,TOTAL 0.5 MG/DL (0.3-1.2); BLOOD UREA NITROGEN 8 MG/DL (9-23); CALCIUM LEVEL 9.3 MG/DL (8.5-10.1); CARBON DIOXIDE LEVEL 28 MMOL/L (20-31); CHLORIDE LEVEL 109 MMOL/L (98-107); CHOLESTEROL LEVEL 200 MG/DL (<200); CHOLESTEROL RISK RATIO 4.59 (<5); CREATININE FOR GFR 0.65 MG/DL (0.55-1.30); GLOMERULAR FILTRATION RATE > 60.0 (>51); GLUCOSE, FASTING 90 MG/DL (60-100); HDL CHOLESTEROL 43.5 MG/DL (>40); LDL CHOLESTEROL 125.7 MG/DL (<100); NON-HDL-C 156.5 MG/DL; POTASSIUM SERUM 4.3 MMOL/L (3.5-5.1); SODIUM LEVEL 141 MMOL/L (136-145); TOTAL PROTEIN 6.8 G/DL (5.7-8.2); TRIGLYCERIDES LEVEL 154 MG/DL (<150)
== END ==
LOC: M PLALAB 10:12
PROVIDERS: ATTEND Physician Assistant
DX: I25.10 Atherosclerotic heart disease of native coronary artery without angina pectoris (principal); I50.32 Chronic diastolic (congestive) heart failure; E78.00 Pure hypercholesterolemia, unspecified

== ENCOUNTER → 2024-03-12 | Outpatient (CLI) | payer MEDICARE, MEDICAID ==
[2024-03-12 13:05] LABS: BASO # 0.1 10^3/uL (0.0-0.2); BASO % 0.6 % (0.0-1.0); EOS # 0.2 10^3/uL (0.0-0.5); EOS % 1.9 % (0.0-3.0); HEMATOCRIT 45.6 % (36.0-47.0); HEMOGLOBIN 14.5 g/dl (12.0-15.5); LYMPH # 1.9 10^3/uL (1.5-5.0); LYMPH % 21.1 % (24.0-44.0); MEAN CORPUSCULAR HEMOGLOBIN 30.9 pg (27.0-33.0); MEAN CORPUSCULAR HGB CONC 31.8 g/dl (32.0-36.5); MEAN CORPUSCULAR VOLUME 97.2 fl (80.0-96.0); MONO # 0.8 10^3/uL (0.0-0.8); MONO % 8.8 % (2.0-8.0); NEUTROPHILS # 5.9 10^3/uL (1.5-8.5); PLATELET COUNT, AUTOMATED 274 10^3/uL (150-450); RED BLOOD COUNT 4.69 10^6/uL (4.00-5.40); WHITE BLOOD COUNT 8.8 10^3/uL (4.0-10.0)
[2024-03-12 13:19] LABS: ERYTHROCYTE SEDIMENTATION RATE 38 mm/hr (0-30)
[2024-03-12 13:21] LABS: ALBUMIN 3.5 G/DL (3.2-5.2); ALKALINE PHOSPHATASE 100 U/L (46-116); ALT/SGPT 16 U/L (7.0-40); AST/SGOT 11 U/L (<34); BILIRUBIN,TOTAL 0.5 MG/DL (0.3-1.2); BLOOD UREA NITROGEN 8 MG/DL (9-23); CALCIUM LEVEL 9.3 MG/DL (8.5-10.1); CARBON DIOXIDE LEVEL 28 MMOL/L (20-31); CHLORIDE LEVEL 110 MMOL/L (98-107); CREATININE FOR GFR 0.65 MG/DL (0.55-1.30); GLOMERULAR FILTRATION RATE > 60.0 (>51); GLUCOSE, FASTING 92 MG/DL (60-100); POTASSIUM SERUM 4.3 MMOL/L (3.5-5.1); SODIUM LEVEL 141 MMOL/L (136-145); TOTAL PROTEIN 6.8 G/DL (5.7-8.2)
== END ==
LOC: M PLALAB 10:14
PROVIDERS: ATTEND Internal Medicine Rheumatology
DX: M05.79 Rheumatoid arthritis with rheumatoid factor of multiple sites without organ or systems involvement (principal); E66.01 Morbid (severe) obesity due to excess calories; M89.49 Other hypertrophic osteoarthropathy, multiple sites; I25.10 Atherosclerotic heart disease of native coronary artery without angina pectoris; I50.32 Chronic diastolic (congestive) heart failure; E78.00 Pure hypercholesterolemia, unspecified; Z79.899 Other long term (current) drug therapy; Z72.0 Tobacco use

== ENCOUNTER → 2024-03-14 | Outpatient (CLI) | payer MEDICARE, MEDICAID | LOC: M PLAIMG 12:50 | PROVIDERS: ATTEND Internal Medicine Rheumatology | DX: M17.11 Unilateral primary osteoarthritis, right knee (principal) ==

== ENCOUNTER → 2024-03-14 | Outpatient (REF) | payer MEDICARE, MEDICAID ==
[2024-03-16 13:27] LABS: HPV APTIMA Not Detected (Not Detected)
== END ==
LOC: M PLALAB 13:12
PROVIDERS: ATTEND Nurse Practitioner Family
DX: Z12.4 Encounter for screening for malignant neoplasm of cervix (principal)
CPT/HCPCS: 87624; G0123

== ENCOUNTER → 2024-03-14 | Outpatient (CLI) | payer MEDICARE, MEDICAID ==
[2024-03-14 15:41] LABS: FOLLICLE STIMULATING HORMONE 37.8 mIU/ML; LUTEINIZING HORMONE 17.6 mIU/ML; PROLACTIN 3.08 NG/ML
[2024-03-14 15:42] LABS: ESTRADIOL 28.1 PG/ML; PROGESTERONE < 0.21 NG/ML
== END ==
LOC: M PLALAB 12:53
PROVIDERS: ATTEND Nurse Practitioner Family
DX: N93.9 Abnormal uterine and vaginal bleeding, unspecified (principal)

== ENCOUNTER → 2024-06-14 | Outpatient (CLI) | payer MEDICARE, MEDICAID ==
[~2024-06-14] MED LIST changes: -AZEL0.1S NARES; +AZEL137S8 NARES
[2024-06-14 16:11] LABS: BASO # 0.1 10^3/uL (0.0-0.2); BASO % 0.6 % (0.0-1.0); EOS # 0.2 10^3/uL (0.0-0.5); EOS % 1.8 % (0.0-3.0); HEMATOCRIT 43.2 % (36.0-47.0); HEMOGLOBIN 13.6 g/dl (12.0-15.5); LYMPH # 2.4 10^3/uL (1.5-5.0); LYMPH % 21.3 % (24.0-44.0); MEAN CORPUSCULAR HEMOGLOBIN 31.2 pg (27.0-33.0); MEAN CORPUSCULAR HGB CONC 31.5 g/dl (32.0-36.5); MEAN CORPUSCULAR VOLUME 99.1 fl (80.0-96.0); MONO # 0.9 10^3/uL (0.0-0.8); MONO % 7.4 % (2.0-8.0); NEUTROPHILS # 7.8 10^3/uL (1.5-8.5); NEUTROPHILS % 68.5 % (36.0-66.0); PLATELET COUNT, AUTOMATED 276 10^3/uL (150-450); RED BLOOD COUNT 4.36 10^6/uL (4.00-5.40); WHITE BLOOD COUNT 11.4 10^3/uL (4.0-10.0)
[2024-06-14 16:23] LABS: IRON (FE) 78 UG/DL (50-170)
[2024-06-14 16:24] LABS: ALBUMIN 3.5 G/DL (3.2-5.2); ALKALINE PHOSPHATASE 100 U/L (35-104); ALT/SGPT 17 U/L (7.0-40); AST/SGOT 12 U/L (<34); BILIRUBIN,TOTAL 0.4 MG/DL (0.3-1.2); BLOOD UREA NITROGEN 12 MG/DL (9-23); CALCIUM LEVEL 9.8 MG/DL (8.5-10.1); CARBON DIOXIDE LEVEL 29 MMOL/L (20-31); CHLORIDE LEVEL 107 MMOL/L (98-107); CREATININE FOR GFR 0.69 MG/DL (0.55-1.30); GLOMERULAR FILTRATION RATE > 60.0 (>51); GLUCOSE, FASTING 103 MG/DL (60-100); POTASSIUM SERUM 5.3 MMOL/L (3.5-5.1); PTH INTACT 64.2 PG/ML (18.5-88.0); SODIUM LEVEL 144 MMOL/L (136-145)
[2024-06-14 16:25] LABS: FERRITIN 32.9 NG/ML (7.3-270.7); TOTAL 25(OH) VITAMIN D 43.5 NG/ML (20.0-100.0)
== END ==
LOC: M PLALAB 12:05
PROVIDERS: ATTEND Physician Assistant Medical
DX: E55.9 Vitamin D deficiency, unspecified (principal); D50.9 Iron deficiency anemia, unspecified

== ENCOUNTER → 2024-06-22 | Outpatient (CLI) | payer MEDICARE, MEDICAID ==
[2024-06-22 14:44] LABS: CHOLESTEROL RISK RATIO 3.02 (<5); HDL CHOLESTEROL 57.5 MG/DL (>40); LDL CHOLESTEROL 98.7 MG/DL (<100); NON-HDL-C 116.5 MG/DL
== END ==
LOC: M PLALAB 10:30
PROVIDERS: ATTEND Physician Assistant Medical
DX: E78.2 Mixed hyperlipidemia (principal)

== ENCOUNTER → 2024-07-20 | Outpatient (CLI) | payer MEDICARE, MEDICAID ==
[2024-07-20 15:32] LABS: BASO # 0.1 10^3/uL (0.0-0.2); BASO % 0.7 % (0.0-1.0); EOS # 0.2 10^3/uL (0.0-0.5); EOS % 2.1 % (0.0-3.0); HEMATOCRIT 43.8 % (36.0-47.0); HEMOGLOBIN 13.9 g/dl (12.0-15.5); LYMPH # 2.1 10^3/uL (1.5-5.0); LYMPH % 19.2 % (24.0-44.0); MEAN CORPUSCULAR HEMOGLOBIN 31.8 pg (27.0-33.0); MEAN CORPUSCULAR HGB CONC 31.7 g/dl (32.0-36.5); MEAN CORPUSCULAR VOLUME 100.2 fl (80.0-96.0); MONO # 0.7 10^3/uL (0.0-0.8); MONO % 6.4 % (2.0-8.0); NEUTROPHILS # 7.6 10^3/uL (1.5-8.5); PLATELET COUNT, AUTOMATED 248 10^3/uL (150-450); RED BLOOD COUNT 4.37 10^6/uL (4.00-5.40); WHITE BLOOD COUNT 10.7 10^3/uL (4.0-10.0)
[2024-07-20 15:38] LABS: ERYTHROCYTE SEDIMENTATION RATE 29 mm/hr (0-30)
[2024-07-20 16:04] LABS: C REACTIVE PROTEIN QUANTITATIV 2.04 MG/DL (<1.0)
[2024-07-20 16:12] LABS: ALBUMIN 3.2 G/DL (3.2-5.2); ALKALINE PHOSPHATASE 108 U/L (35-104); ALT/SGPT 16 U/L (7.0-40); AST/SGOT 10 U/L (<34); BILIRUBIN,TOTAL 0.3 MG/DL (0.3-1.2); BLOOD UREA NITROGEN 13 MG/DL (9-23); CALCIUM LEVEL 8.6 MG/DL (8.5-10.1); CARBON DIOXIDE LEVEL 30 MMOL/L (20-31); CHLORIDE LEVEL 107 MMOL/L (98-107); GLOMERULAR FILTRATION RATE > 60.0 (>51); GLUCOSE, FASTING 100 MG/DL (60-100); POTASSIUM SERUM 4.4 MMOL/L (3.5-5.1); SODIUM LEVEL 144 MMOL/L (136-145); TOTAL PROTEIN 6.4 G/DL (5.7-8.2)
== END ==
LOC: M PLALAB 11:03
PROVIDERS: ATTEND Internal Medicine Rheumatology
DX: M05.79 Rheumatoid arthritis with rheumatoid factor of multiple sites without organ or systems involvement (principal); E66.01 Morbid (severe) obesity due to excess calories; Z79.899 Other long term (current) drug therapy; M89.49 Other hypertrophic osteoarthropathy, multiple sites; Z72.0 Tobacco use; Z68.43 Body mass index [BMI] 50.0-59.9, adult

== ENCOUNTER 2024-08-05 10:18 | Emergency (ER) | payer MEDICARE, MEDICAID ==
[~2024-08-05] VITALS: Ht 162.6 cm; Wt 147.7 kg
[2024-08-05] MEDS: ACETAMINOPHEN 325 MG TAB PO ONE (14:26)
[2024-08-05 14:54] VITALS: BP 148/68; TEMP 96.8; O2SAT 97
== END 2024-08-05 15:00 | disposition home or self-care (01) ==
LOC: M ED 10:18
DX: M25.421 Effusion, right elbow (principal); M85.821 Other specified disorders of bone density and structure, right upper arm; I10 Essential (primary) hypertension; E03.9 Hypothyroidism, unspecified; M19.90 Unspecified osteoarthritis, unspecified site; M06.9 Rheumatoid arthritis, unspecified; F17.200 Nicotine dependence, unspecified, uncomplicated; Z79.82 Long term (current) use of aspirin; Z79.899 Other long term (current) drug therapy; Z88.0 Allergy status to penicillin; Z88.2 Allergy status to sulfonamides; Z88.8 Allergy status to other drugs, medicaments and biological substances

== ENCOUNTER → 2024-08-15 | Outpatient (CLI) | payer MEDICARE, MEDICAID | LOC: M RAD 15:52 | PROVIDERS: ATTEND Physician Assistant | DX: S52.614A Nondisplaced fracture of right ulna styloid process, initial encounter for closed fracture (principal); G89.11 Acute pain due to trauma; W00.9XXA Unspecified fall due to ice and snow, initial encounter ==

== ENCOUNTER → 2024-09-17 | Outpatient (CLI) | payer MEDICARE, MEDICAID | LOC: M SOG 07:57 | PROVIDERS: ATTEND Physician Assistant | DX: M19.021 Primary osteoarthritis, right elbow (principal) ==

== ENCOUNTER 2025-02-06 17:23 | Emergency (ER) | payer MEDICARE, MEDICAID ==
[~2025-02-06] VITALS: Ht 162.6 cm; Wt 141.4 kg
[2025-02-06 18:15] LABS: BASO # 0.1 10^3/uL (0.0-0.2); BASO % 0.6 % (0.0-1.0); EOS # 0.3 10^3/uL (0.0-0.5); EOS % 2.3 % (0.0-3.0); LYMPH # 2.2 10^3/uL (1.5-5.0); LYMPH % 20.3 % (24.0-44.0); MONO # 0.8 10^3/uL (0.0-0.8); MONO % 7.5 % (2.0-8.0); NEUTROPHILS # 7.3 10^3/uL (1.5-8.5); NEUTROPHILS % 68.6 % (36.0-66.0); PLATELET COUNT, AUTOMATED 258 10^3/uL (150-450)
[2025-02-06] MEDS ORDERED: NITROGLYCERIN 0.4 MG SUBL TABLET SL PRN (18:20)
[2025-02-06] MEDS: ASPIRIN 81 MG CHEWABLE TABLET PO ONE (18:28)
[2025-02-06] MEDS: PANTOPRAZOLE 40MG VIAL IV ONE (18:28)
[2025-02-06 18:58] LABS: CK-MB VALUE MASS < 1.0 NG/ML (<3.6)
[2025-02-06 19:03] LABS: ALT/SGPT 16 U/L (7.0-40); AST/SGOT 27 U/L (<34); CALCIUM LEVEL 9.4 MG/DL (8.5-10.1); CARBON DIOXIDE LEVEL 30 MMOL/L (20-31); CHLORIDE LEVEL 109 MMOL/L (98-107); CREATININE FOR GFR 0.65 MG/DL (0.55-1.30); GLOMERULAR FILTRATION RATE > 90.0 (>51); POTASSIUM SERUM 4.5 MMOL/L (3.5-5.1); SODIUM LEVEL 146 MMOL/L (136-145)
[2025-02-06 19:04] LABS: CPK CREATINE PHOSPHOKINASE 59 U/L (34-145)
[2025-02-06] MEDS ORDERED: ISOVUE-370 76% 100 ML VIAL As Ordered ONE (19:49)
[2025-02-06 20:20] LABS: CK-MB VALUE MASS < 1.0 NG/ML (<3.6)
[2025-02-06 20:26] LABS: CPK CREATINE PHOSPHOKINASE 54 U/L (34-145)
[2025-02-06 22:39] VITALS: BP 147/71; TEMP 97.5; O2SAT 92
== END 2025-02-06 22:49 | disposition home or self-care (01) ==
LOC: M ED 17:23
DX: R07.9 Chest pain, unspecified (principal); R91.8 Other nonspecific abnormal finding of lung field; I10 Essential (primary) hypertension; K21.9 Gastro-esophageal reflux disease without esophagitis; J45.909 Unspecified asthma, uncomplicated; E55.9 Vitamin D deficiency, unspecified; M06.9 Rheumatoid arthritis, unspecified; Z87.891 Personal history of nicotine dependence; Z79.82 Long term (current) use of aspirin; Z79.899 Other long term (current) drug therapy; Z88.0 Allergy status to penicillin; Z88.2 Allergy status to sulfonamides; Z88.8 Allergy status to other drugs, medicaments and biological substances
CPT/HCPCS: 71045; 71275; 80048; 80076; 82550; 82553; 84484; 85025; 93005; 93041; 94760; 96374; 99285; J2470; Q9967

== ENCOUNTER → 2025-02-18 | Outpatient (CLI) | payer MEDICARE, MEDICAID ==
[2025-02-18 13:48] LABS: BASO # 0.1 10^3/uL (0.0-0.2); BASO % 0.5 % (0.0-1.0); EOS # 0.2 10^3/uL (0.0-0.5); EOS % 2.3 % (0.0-3.0); LYMPH # 2.1 10^3/uL (1.5-5.0); LYMPH % 22.1 % (24.0-44.0); MONO # 0.9 10^3/uL (0.0-0.8); MONO % 8.9 % (2.0-8.0); NEUTROPHILS # 6.3 10^3/uL (1.5-8.5); NEUTROPHILS % 65.8 % (36.0-66.0); PLATELET COUNT, AUTOMATED 255 10^3/uL (150-450)
[2025-02-18 13:57] LABS: ERYTHROCYTE SEDIMENTATION RATE 26 mm/hr (0-30)
[2025-02-18 14:20] LABS: C REACTIVE PROTEIN QUANTITATIV 2.00 MG/DL (<1.0)
[2025-02-18 14:21] LABS: ALT/SGPT 17 U/L (7.0-40); AST/SGOT 13 U/L (<34); CALCIUM LEVEL 9.4 MG/DL (8.5-10.1); CARBON DIOXIDE LEVEL 29 MMOL/L (20-31); CHLORIDE LEVEL 108 MMOL/L (98-107); CREATININE FOR GFR 0.64 MG/DL (0.55-1.30); GLOMERULAR FILTRATION RATE > 90.0 (>51); POTASSIUM SERUM 4.8 MMOL/L (3.5-5.1); SODIUM LEVEL 146 MMOL/L (136-145)
== END ==
LOC: M PLALAB 11:11
PROVIDERS: ATTEND Internal Medicine Rheumatology
DX: M05.79 Rheumatoid arthritis with rheumatoid factor of multiple sites without organ or systems involvement (principal); M89.49 Other hypertrophic osteoarthropathy, multiple sites; Z79.899 Other long term (current) drug therapy

== ENCOUNTER 2025-03-01 08:50 | Emergency (ER) | payer MEDICARE, MEDICAID ==
[~2025-03-01] VITALS: Ht 162.6 cm; Wt 141.0 kg
[~2025-03-01 08:50] MED LIST changes: -EZET10TA21; +EZET10TA57
[2025-03-01 11:50] VITALS: BP 150/69; TEMP 98.2; O2SAT 97
== END 2025-03-01 12:02 | disposition home or self-care (01) ==
LOC: M ED 08:50 → EDBD 08:50 → M ED 12:02
DX: S83.92XA Sprain of unspecified site of left knee, initial encounter (principal); M79.671 Pain in right foot; W19.XXXA Unspecified fall, initial encounter; Y92.008 Other place in unspecified non-institutional (private) residence as the place of occurrence of the external cause; Y93.9 Activity, unspecified; Y99.9 Unspecified external cause status; J44.9 Chronic obstructive pulmonary disease, unspecified; K57.92 Diverticulitis of intestine, part unspecified, without perforation or abscess without bleeding; F17.200 Nicotine dependence, unspecified, uncomplicated; Z79.899 Other long term (current) drug therapy; Z79.82 Long term (current) use of aspirin; Z88.0 Allergy status to penicillin; Z88.2 Allergy status to sulfonamides; Z88.8 Allergy status to other drugs, medicaments and biological substances

== ENCOUNTER → 2025-03-20 | Outpatient (CLI) | payer MEDICARE, MEDICAID ==
[2025-03-20 19:08] LABS: BASO # 0.0 10^3/uL (0.0-0.2); BASO % 0.3 % (0.0-1.0); EOS # 0.2 10^3/uL (0.0-0.5); EOS % 2.0 % (0.0-3.0); LYMPH # 2.3 10^3/uL (1.5-5.0); LYMPH % 19.7 % (24.0-44.0); MONO # 0.8 10^3/uL (0.0-0.8); MONO % 6.9 % (2.0-8.0); NEUTROPHILS # 8.0 10^3/uL (1.5-8.5); NEUTROPHILS % 70.2 % (36.0-66.0); PLATELET COUNT, AUTOMATED 303 10^3/uL (150-450)
[2025-03-20 19:32] LABS: ERYTHROCYTE SEDIMENTATION RATE 37 mm/hr (0-30)
== END ==
LOC: M PLALAB 15:37
PROVIDERS: ATTEND Physician Assistant Medical
DX: M25.462 Effusion, left knee (principal)

== ENCOUNTER → 2025-04-03 | Outpatient (CLI) | payer MEDICARE, MEDICAID | LOC: M RAD 16:09 | PROVIDERS: ATTEND Physician Assistant Medical | DX: M25.462 Effusion, left knee (principal); M22.42 Chondromalacia patellae, left knee ==

== ENCOUNTER → 2025-04-11 | Outpatient (REF) | payer MEDICARE, MEDICAID ==
[2025-04-11 18:32] LABS: SOURCE, BODY FLUID OTHER
[2025-04-11 19:01] LABS: CRYSTALS, BODY FLUID CA PYROPHOSPHATE (NONE SEEN); SOURCE, BODY FLUID CRYSTALS OTHER
== END ==
LOC: M LAB REF 17:16
PROVIDERS: ATTEND Physician Assistant
DX: M99.86 Other biomechanical lesions of lower extremity (principal)

== ENCOUNTER → 2025-05-30 | Outpatient (CLI) | payer MEDICARE, MEDICAID ==
[2025-05-30 15:52] LABS: BASO # 0.1 10^3/uL (0.0-0.2); BASO % 0.7 % (0.0-1.0); EOS # 0.2 10^3/uL (0.0-0.5); EOS % 1.9 % (0.0-3.0); LYMPH # 2.0 10^3/uL (1.5-5.0); LYMPH % 19.6 % (24.0-44.0); MONO # 0.7 10^3/uL (0.0-0.8); MONO % 7.1 % (2.0-8.0); NEUTROPHILS # 7.2 10^3/uL (1.5-8.5); NEUTROPHILS % 70.0 % (36.0-66.0); PLATELET COUNT, AUTOMATED 275 10^3/uL (150-450)
[2025-05-30 15:58] LABS: ALT/SGPT 11 U/L (7.0-40); AST/SGOT 12 U/L (<34); C REACTIVE PROTEIN QUANTITATIV 2.82 MG/DL (<1.0); CALCIUM LEVEL 8.8 MG/DL (8.5-10.1); CARBON DIOXIDE LEVEL 30 MMOL/L (20-31); CHLORIDE LEVEL 108 MMOL/L (98-107); CREATININE FOR GFR 0.67 MG/DL (0.55-1.30); GLOMERULAR FILTRATION RATE > 90.0 (>51); POTASSIUM SERUM 4.6 MMOL/L (3.5-5.1); SODIUM LEVEL 145 MMOL/L (136-145)
== END ==
LOC: M PLALAB 11:08
PROVIDERS: ATTEND Internal Medicine Rheumatology
DX: M05.79 Rheumatoid arthritis with rheumatoid factor of multiple sites without organ or systems involvement (principal)